=== PATIENT | male | born 1935 | race Caucasian/White ===

== ENCOUNTER 2020-03-14 12:46 | Outpatient (REF) | payer MEDICARE, SELFPAY ==
--- NOTE | 2020-03-14 12:52 | US_ITS ---
EXAMINATION: US THYROID CLINICAL INFORMATION: Nontoxic multinodular goiter. COMPARISON: Ultrasound thyroid soft tissue head/neck dated 01/20/2019 and 02/12/2018 TECHNIQUE: Linear transducer jasmine-scale and color Doppler examination with attention to the region of the thyroid. FINDINGS: SIZE: Measurements of the thyroid lobes and nodules are given in sagittal, anteroposterior and transverse dimensions respectively. Right Thyroid Lobe: 2.3 x 1.4 x 1.0 cm, volume 1.6 mL. Previously 2.3 x 1.5 x 1.2 cm, volume 2.1 mL. Parenchyma: The gland echotexture is heterogeneous. Thyroid vascularity is normal. Left Thyroid Lobe: 4.6 x 2.6 x 2.1 cm, volume 13.3 mL. Previously 3.95 x 1.9 x 1.87 cm, volume 7.34 mL. Parenchyma: The gland echotexture is heterogeneous. Thyroid vascularity is normal. Isthmus: 0.40 cm in maximum AP dimension. Previously 0.31 cm. RIGHT THYROID LOBE: There are 2 nodules seen. 1. Location: Upper. Size: 1.01 x 0.70 x 0.80 cm. Previous: 1.0 x 0.67 x 0.90 cm. Nodule characteristics: Heterogeneous, smoothly marginated with intranodular flow, likely complex cyst. 2. Location: Upper. Size: 0.96 x 0.70 x 0.70 cm. Previous: Not seen. Nodule characteristics: Heterogeneous, smoothly marginated with no intranodular flow, likely complex cyst. ISTHMUS: No nodules. LEFT THYROID LOBE: There is 1 nodule seen. 1. Location: Mid pole. Size: 3.3 x 2.4 x 2.0 cm. Previous: 3.2 x 1.9 x 1.9 cm. Nodule characteristics: Heterogeneous, smoothly marginated with intranodular flow. NODES: No lymphadenopathy is seen in the tissue surrounding the thyroid gland. US/US thyroid IMPRESSION: Complex cystic nodules both lobes, the largest in left lobe appears stable to last exam 02/12/2018.
== END 2020-03-14 12:47 | disposition home or self-care (01) ==
LOC: HO.HMGCX 12:46
PROVIDERS: PCP Internal Medicine; Visit Provider Internal Medicine Endocrinology, Diabetes & Metabolism
DX: E04.2 Nontoxic multinodular goiter (principal)
CPT/HCPCS: 76536

== ENCOUNTER → 2020-04-18 12:08 | Outpatient (BNVA) | payer MEDICARE, SELFPAY | PROVIDERS: PCP Internal Medicine; Visit Provider Internal Medicine Endocrinology, Diabetes & Metabolism | DX: Z76.89 Persons encountering health services in other specified circumstances (principal) | CPT/HCPCS: Q3014 ==

== ENCOUNTER 2020-04-28 10:28 | Outpatient (REF) | payer MEDICARE, SELFPAY ==
[2020-04-28 14:56] LABS: Free T4 (Free Thyroxine) 1.09 ng/dL (0.71-1.85); Thyroid Stimulating Hormone 3.07 uIU/mL (0.32-4.0)
== END 2020-04-28 10:29 | disposition home or self-care (01) ==
LOC: HO.HMGCLDS 10:28
PROVIDERS: PCP Internal Medicine; Visit Provider Internal Medicine Endocrinology, Diabetes & Metabolism
DX: E03.9 Hypothyroidism, unspecified (principal); E04.2 Nontoxic multinodular goiter
CPT/HCPCS: 36415; 84439; 84443

== ENCOUNTER → 2020-05-05 12:31 | Outpatient (BNVA) | payer MEDICARE, SELFPAY | PROVIDERS: PCP Internal Medicine; Visit Provider Internal Medicine Cardiovascular Disease | DX: I95.1 Orthostatic hypotension (principal) | CPT/HCPCS: 93005; 99212 ==

== ENCOUNTER 2020-09-13 10:17 | Outpatient (REF) | payer MEDICARE, SELFPAY ==
--- NOTE | ~2020-09-13 | US_ITS ---
EXAMINATION: US RETROPERITONEAL LIMITED (RENAL ONLY) CLINICAL INFORMATION: Cyst of kidney. COMPARISON: Ultrasound renal with bladder 06/09/2018. Ultrasound renals only 02/05/2017. CT abdomen pelvis 10/11/2008. TECHNIQUE: Real-time imaging of the kidneys. FINDINGS: RIGHT KIDNEY: 11.3 x 5.3 x 5.5 cm (SAG x AP x TRV). The kidney is normal in size, contour, and echogenicity. There are persistent lobulations. Renal cortical thickness is normal. No renal calculi or hydronephrosis. At the lower pole, a 1.2 cm anechoic, simple cyst is seen. LEFT KIDNEY: 11.2 x 5.1 x 4.8 cm (SAG x AP x TRV). The kidney is normal in size, contour, and echogenicity. Renal cortical thickness is normal. No renal hydronephrosis. At the interpolar aspect, a 5 mm nonobstructing calculus is seen, with twinkle artifact. At the lower pole, a 4 mm nonobstructing calculus is seen, with twinkle artifact. At the upper pole, 1.2 cm and 1.3 cm in maximal diameter simple cysts are seen. At the interpolar aspect, a 3.0 cm simple parapelvic cyst is seen. At the lower pole, a 1.9 x 1.3 x 2.0 cm mildly complex (Bosniak 2) cyst is seen, with partial septation. This shows no mural nodularity or associated color Doppler flow. On the ultrasound examination of 02/05/2017, this measured 2.0 x 1.1 x 0.9 cm. US/US renal BI IMPRESSION: 1. There are nonobstructing bilateral renal calculi, as above. 2. There are bilateral renal cysts, including an increased mildly complex (Bosniak 2) cyst at the lower pole of the left kidney. Recommend Urology evaluation and management. As a precaution, a repeat renal ultrasound examination is recommended 6 months to ensure stability of this finding.
== END 2020-09-13 10:18 | disposition home or self-care (01) ==
LOC: HO.HMGCX 10:17
PROVIDERS: PCP Internal Medicine; Visit Provider Urology
DX: N28.1 Cyst of kidney, acquired (principal)
CPT/HCPCS: 76775

== ENCOUNTER → 2020-10-13 09:52 | Outpatient (BNVA) | payer MEDICARE, SELFPAY | PROVIDERS: PCP Internal Medicine; Referring Provider Internal Medicine; Visit Provider Internal Medicine Cardiovascular Disease | DX: I95.1 Orthostatic hypotension (principal) | CPT/HCPCS: 99212 ==

== ENCOUNTER 2020-10-17 06:06 | Day surgery (SDC) | payer MEDICARE, SELFPAY ==
[2020-10-11 13:50] VITALS: BMI 25.0
--- NOTE | 2020-10-14 08:38 | HO.ANESPROP2 ---
Documented by User: Shefaliher Rodríguezney 10/14/20 08:39 HPI - Anesthesia Eval Consult details Narrative: 85yo M for Colonoscopy Stable at routine cardiac visit 10/13/20 [facility] Active Problems Active Problems: All Active Problems (Updated 10/11/20 @ 13:50 by Perla Haney) Insomnia (Acute) Hyperlipidemia (Acute) Orthostatic hypotension dysautonomic syndrome (Acute) HTN (hypertension) (Acute) Non-toxic multinodular goiter (Acute) Hypothyroidism (Acute) Past Medical History Medical History COVID-19 vaccine administered GERD (gastroesophageal reflux disease) HTN (hypertension) Hyperlipidemia Hypothyroidism Insomnia Non-toxic multinodular goiter Orthostatic hypotension dysautonomic syndrome Family History Family History Father Parkinsons disease Mother Myocardial infarction CVD (cardiovascular disease) Cancer Surgical History Surgical History H/O colonoscopy History of colon surgery History of esophagogastroduodenoscopy (EGD) Hx of appendectomy Hx of cataract surgery Hx of tonsillectomy Social History Social History Household Members: None Housing: Apartment Are you a primary palliative care specialist to a significant other at home: No Do you presently have visiting nurse or other home services: No Use of substances other than those prescribed or required for medical reasons: No Have you been hit, kicked, punched, or otherwise hurt by someone within the past year? If so, by whom?: No Are you DNR?: No Advance Directives Information Provided: No Recently lost weight without trying: No Nutrition Risks: Surgical patient >75years Poor oral hygiene: No (upper & lower full dentures) Meds Allergies Allergy/AdvReac Type Severity Reaction Status Date / Time meperidine [From Demerol] Allergy Unknown unknown Verified 10/17/20 06:19 reaction-patient states was many years ago Home Medications Medication Instructions Recorded Confirmed Last Taken Type amlodipine 5 mg tablet 2.5 mg PO DAILY tab 05/05/20 10/13/20 Unknown History cholecalciferol (vitamin D3) 25 25 mcg PO DAILY 05/05/20 10/13/20 Unknown History mcg (1,000 unit) capsule fluticasone propionate 55 1 inh INHALATION BID PRN 05/05/20 10/13/20 Unknown History mcg/actuation breath activated pwdr inhaler,sensor melatonin 3 mg capsule 3 mg PO BEDTIME PRN 05/05/20 10/13/20 Unknown History multivit,Ca,min-iron 8 mg-folic 1 tab PO DAILY 05/05/20 10/13/20 Unknown History acid 200 mcg-lycopene 600 mcg tablet isosorbide dinitrate 20 mg PO DAILY 10/11/20 10/13/20 Unknown History Exam Exam Date and Time: October 14, 2020 0838 Height,Weight and Vital Signs: Height 5 ft 8 in Weight 74.843 kg Assessment and Plan Assessment Anesthesia Assessment: Chart Reviewed Documented by User: Maria De Jesus Estrella 10/17/20 07:50 [facility] Past Medical History Medical History COVID-19 vaccine administered GERD (gastroesophageal reflux disease) HTN (hypertension) Hyperlipidemia Hypothyroidism Insomnia Non-toxic multinodular goiter Orthostatic hypotension dysautonomic syndrome Family History Family History Father Parkinsons disease Mother Myocardial infarction CVD (cardiovascular disease) Cancer Surgical History Surgical History H/O colonoscopy History of colon surgery History of esophagogastroduodenoscopy (EGD) Hx of appendectomy Hx of cataract surgery Hx of tonsillectomy Social History Social History Household Members: None Housing: Apartment Are you a primary palliative care specialist to a significant other at home: No Do you presently have visiting nurse or other home services: No Use of substances other than those prescribed or required for medical reasons: No Have you been hit, kicked, punched, or otherwise hurt by someone within the past year? If so, by whom?: No Are you DNR?: No Advance Directives Information Provided: No Recently lost weight without trying: No Nutrition Risks: Surgical patient >75years Poor oral hygiene: No (upper & lower full dentures) Meds Allergies Allergy/AdvReac Type Severity Reaction Status Date / Time meperidine [From Demerol] Allergy Unknown unknown Verified 10/17/20 06:19 reaction-patient states was many years ago Home Medications Medication Instructions Recorded Confirmed Last Taken Type amlodipine 5 mg tablet 2.5 mg PO DAILY tab 05/05/20 10/13/20 Unknown History cholecalciferol (vitamin D3) 25 25 mcg PO DAILY 05/05/20 10/13/20 Unknown History mcg (1,000 unit) capsule fluticasone propionate 55 1 inh INHALATION BID PRN 05/05/20 10/13/20 Unknown History mcg/actuation breath activated pwdr inhaler,sensor melatonin 3 mg capsule 3 mg PO BEDTIME PRN 05/05/20 10/13/20 Unknown History multivit,Ca,min-iron 8 mg-folic 1 tab PO DAILY 05/05/20 10/13/20 Unknown History acid 200 mcg-lycopene 600 mcg tablet isosorbide dinitrate 20 mg PO DAILY 10/11/20 10/13/20 Unknown History Exam Airway Mallampati Class: II (Edentulous) TM Dist: >3cm Neck ROM: Limited Denture: Upper and Lower Loose/Missing/Broken Teeth: Yes, Upper and Lower Heart: RRR Lungs: CTA Assessment and Plan Assessment Anesthesia Assessment: Anesthesia Plan Discussed and Chart Reviewed Final Anesthetic Review NPO: Yes ASA Class: II Final Preanesthetic Review: Meds/Allgs Chart Reviewed, Consent Obtained/Reviewed and Anes Risks/Benef Reviewed Patient Risk: Low Procedure Risk: Low Anesthetic Plan Anesthetic Plan: MAC: Disposition: Standard PACU
[2020-10-17 06:29] VITALS: BP 131/64; PULSE 62; RESP 18; TEMP 36.2; O2SAT 96
[2020-10-17] MEDS: Lactated Ringers 1,000 ML 100 ML IVCONT (06:39)
[2020-10-17 08:25] VITALS: BP 103/58; PULSE 57; RESP 18; TEMP 36.1; O2SAT 97
--- NOTE | 2020-10-17 08:30 | PM.OP ---
Brief Operative Note Date of Service: 10/17/20 Pre-op diagnosis: Screening Post-op diagnosis: other (Colon polyps) Procedure: Colonoscopy to the cecum and TI with snare polypectomy x 2 at 20cm, and biopsy and removal of polyp at 40cm Surgeon: Alon Erwin Anesthesia: MAC Was an Fiberglass Model Maker used for this Procedure?: No Estimated blood loss (mL): 3.0 Pathology: other (A. Polyp at 40cm B. Polyps at 20cm) Condition: stable Disposition: PACU
[2020-10-17 08:40] VITALS: BP 124/71; PULSE 60; RESP 18; O2SAT 96
--- NOTE | 2020-10-17 10:23 | OP_ITS ---
SURGEON: Alon Erwin MD INDICATIONS: The patient presents for followup of personal history of tubular adenoma of the colon and colorectal cancer screening. Full consent has been obtained from him for this, including risks of bleeding and perforation. PREOPERATIVE DIAGNOSIS: POSTOPERATIVE DIAGNOSIS: PROCEDURE PERFORMED: Colonoscopy to the cecum and terminal ileum with snare polypectomy, and biopsy and removal of polyp. ESTIMATED BLOOD LOSS: COMPLICATIONS: ANESTHESIA: Monitored anesthesia care. ASSISTANTS: SPECIMENS: PREOPERATIVE DIAGNOSES: Colorectal cancer screening and personal history of tubular adenoma of the colon. POSTOPERATIVE DIAGNOSES: Colorectal cancer screening and personal history of tubular adenoma of the colon, colon polyps, diverticulosis, and internal and external hemorrhoids. DESCRIPTION OF PROCEDURE: The patient was placed in the left lateral decubitus position. The digital rectal exam revealed some small external hemorrhoidal tissue. The Olympus video pediatric colonoscope was entered into the rectum and advanced easily to the cecum. Once in the cecum, I did identify normal-appearing cecal pouch with appendiceal orifice and a normal-appearing ileocecal valve. The terminal ileum was cannulated and appeared normal. The scope was withdrawn back in the colon. The entire cecum and ileocecal valve appeared normal. The scope was slowly withdrawn assessing all mucosal surfaces carefully. Preparation was excellent. The entire cecum and ileocecal valve appeared normal. At 40 cm, was a 3 mm polyp, which was biopsied and completely removed with cold biopsy forceps. At 20 cm, were 2 approximately 4 or 5 mm polyps, which were each snared and recovered by suction. The polypectomy sites appeared clean, without any sign of residual polyp nor bleeding. At 15 cm, were the previously placed submucosal ink palmer. In between the palmer, there was some scarring consistent with his previous polypectomy. I did not visualize any sign of other polyps, colitis, nor angiodysplasia. There was a mild amount of diverticulosis noted in the sigmoid and descending colon. In the rectum, scope was retroflexed visualizing some minimal internal hemorrhoids, but no other pathology. The rectal mucosa appeared normal. The scope was straightened out and withdrawn from the patient. He tolerated the procedure well and was returned to the recovery area in stable condition. IMPRESSION: 1. Colon polyps, status post snare polypectomy, and biopsy and removal. 2. Mild diverticulosis. 3. Internal and external hemorrhoids. PLAN: The results of the pathology will be checked. Given his age and these findings, he most likely would not need any further screening colonoscopies in the future. As such, he would see me on a p.r.n. basis. He was advised not to use any aspirin and NSAIDs for 1 week. This has been discussed with his family. MD SUZETTE Thompson/DELFINA / [id number]
== END 2020-10-17 09:05 | disposition home or self-care (01) ==
PROVIDERS: PCP Internal Medicine; Visit Provider Internal Medicine
PROC: 0DJD8ZZ Inspection of Lower Intestinal Tract, Via Natural or Artificial Opening Endoscopic (ICD-10-PCS; CPT 45378; principal; 2020-10-17 07:30)
DX: Z12.11 Encounter for screening for malignant neoplasm of colon (principal); Z86.010 Personal history of colon polyps; D12.5 Benign neoplasm of sigmoid colon; K57.30 Diverticulosis of large intestine without perforation or abscess without bleeding; K64.8 Other hemorrhoids; K64.4 Residual hemorrhoidal skin tags; K21.9 Gastro-esophageal reflux disease without esophagitis; I10 Essential (primary) hypertension; I95.1 Orthostatic hypotension; E03.9 Hypothyroidism, unspecified; Z79.899 Other long term (current) drug therapy; Z88.8 Allergy status to other drugs, medicaments and biological substances; Z87.891 Personal history of nicotine dependence
CPT/HCPCS: 45385; 45380; 88305

== ENCOUNTER 2021-04-14 15:40 | Outpatient (REF) | payer MEDICARE, SELFPAY ==
--- NOTE | ~2021-04-14 | US_ITS ---
EXAMINATION: US RETROPERITONEAL COMPLETE (RENAL) CLINICAL INFORMATION: Cysts of kidney. COMPARISON: Renal ultrasound 09/13/2020 and 06/09/2018. TECHNIQUE: Real-time imaging of the kidneys and bladder. FINDINGS: RIGHT KIDNEY: 12.7 x 5.6 x 5.2 cm (SAG x AP x TRV). The kidney is normal in size, contour, and echogenicity. Renal cortical thickness is normal. No calculi or focal parenchymal lesions. No hydronephrosis. Previously identified 1.2 cm cyst not seen on this exam. There are multiple small parenchymal calcifications. LEFT KIDNEY: 11.9 x 5.5 x 5.7 cm (SAG x AP x TRV). The kidney is normal in size, contour, and echogenicity. Renal cortical thickness is normal. No hydronephrosis. Multiple simple renal cysts. The largest measures 2.3 x 2.7 x 1.1 cm. Punctate nonobstructing lower pole calculus. BLADDER: Well distended and normal. Bilateral ureteral jets are demonstrated. Prevoid bladder volume is 421 mL. Postvoid bladder volume is 199 mL. ADDITIONAL FINDINGS: Prostate volume of 66 mL. US/US retroperitoneal comp IMPRESSION: 1. Punctate nonobstructing left lower pole calculus. 2. Parenchymal calcifications of the right kidney may be vascular in origin. 3. Left renal simple cysts, no further follow-up required. The previously identified right-sided cyst is not seen on this exam.
== END 2021-04-14 15:41 | disposition home or self-care (01) ==
LOC: HO.US 15:40
PROVIDERS: Visit Provider Urology
DX: N28.1 Cyst of kidney, acquired (principal)
CPT/HCPCS: 76770

== ENCOUNTER → 2021-05-18 14:30 | Outpatient (BNVA) | payer MEDICARE, SELFPAY | PROVIDERS: PCP Internal Medicine; Referring Provider Internal Medicine; Visit Provider Internal Medicine Cardiovascular Disease | DX: I95.1 Orthostatic hypotension (principal) | CPT/HCPCS: 93005; 99212 ==

== ENCOUNTER 2021-06-27 08:02 | Outpatient (REF) | payer MEDICARE, SELFPAY ==
[2021-06-27 11:42] LABS: Hematocrit 46.3 % (42.0-52.0); Mean Corpuscular HGB Conc 32.4 g/dl (31.0-36.0); Mean Corpuscular Hemoglobin 31.4 pg (27.0-33.0); Mean Corpuscular Volume 96.9 fL (80.0-98.0); Mean Platelet Volume 11.2 fL (9.4-12.4); Platelet Count 254 X10*3/uL (160-400); Red Blood Count 4.78 X10*6/uL (4.60-5.80); Red Cell Distribution Width 12.7 % (11.0-16.0); White Blood Count 8.1 X10*3/uL (4.8-10.8)
[2021-06-27 12:03] LABS: Alanine Aminotransferase 27 U/L (0-40); Albumin Level 4.2 g/dL (3.5-5.0); Alkaline Phosphatase 84 U/L (39-117); Anion Gap 12 (12-20); Aspartate Amino Transferase 28 U/L (5-37); Bilirubin Total 1.3 mg/dL (0.0-1.0); Blood Urea Nitrogen 14 mg/dL (9-16); Calcium 9.4 mg/dL (8.4-10.2); Carbon Dioxide 25 mmol/L (22-29); Chloride 108 mmol/L (96-108); Cholesterol 155 mg/dL; Estimated Glomerular Filt Rate > 60; Glucose Fasting 104 mg/dL (60-99); HDL Cholesterol 33 mg/dL; LDL Cholesterol Calculated 84 mg/dl; Potassium 3.9 mmol/L (3.3-5.1); Sodium 141 mmol/L (135-145); Total Protein 6.7 g/dL (6.5-8.0); Triglycerides 193 mg/dL
[2021-06-27 12:09] LABS: TSH reflex Free T4 4.24 uIU/mL (0.32-4.0)
[2021-06-27 12:58] LABS: Free T4 (Free Thyroxine) 1.17 ng/dL (0.71-1.85)
== END 2021-06-27 08:03 | disposition home or self-care (01) ==
LOC: HO.HMGCLDS 08:02
PROVIDERS: Visit Provider Internal Medicine
DX: E03.9 Hypothyroidism, unspecified (principal); I10 Essential (primary) hypertension; I95.1 Orthostatic hypotension
CPT/HCPCS: 36415; 80053; 80061; 84439; 84443; 85027

== ENCOUNTER 2021-10-04 13:44 | Outpatient (REF) | payer MEDICARE, SELFPAY ==
--- NOTE | ~2021-10-04 | US_ITS ---
EXAMINATION: US THYROID CLINICAL INFORMATION: Nontoxic multinodular goiter. COMPARISON: US thyroid 03/14/2020 and 01/20/2019. TECHNIQUE: Linear transducer grayscale and color Doppler examination with attention to the region of the thyroid. FINDINGS: SIZE: Measurements of the thyroid lobes and nodules are given in sagittal, anteroposterior and transverse dimensions respectively. Right Thyroid Lobe: 2.3 x 1.4 x 1.2 cm, volume 2.0 mL. Previously 2.3 x 1.4 x 1.0 cm, volume 1.6 mL. Parenchyma: The gland echotexture is heterogeneous. Thyroid vascularity is normal. Left Thyroid Lobe: 4.4 x 2.6 x 2.4 cm, volume 14.4 mL. Previously 4.6 x 2.6 x 2.1 cm, volume 13.3 mL. Parenchyma: The gland echotexture is heterogeneous. Thyroid vascularity is normal. Isthmus: 0.3 cm in maximum AP dimension. Previously 0.4 cm. Estimated total number of nodules greater than or equal to 1 cm: 2. Junior Web Designer nodules are described as follows: 1. Location: Left mid. Size: 3.4 x 2.3 x 2.3 cm, volume 9.27 mL. Previously: 3.3 x 2.4 x 2.0 cm, volume 8.28 mL. Nodule characteristics: Composition: Solid/almost completely solid (2). Echogenicity: Isoechoic (1). Shape: Not taller than wide (0). Margins: Extrathyroidal extension (3). Echogenic Foci: None (0). ACR TI-RADS total points: 6 ACR TI-RADS category: 4 Significant change in size (>/= 20% in 2 dimensions and minimal increase of 2 mm or 50% or greater increase in volume): No Change in features: No 2. Location: Right mid. Size: 1.0 x 0.6 x 0.8 cm, volume 0.26 mL. Previously: 1.0 x 0.7 x 0.8 cm, volume 0.28 mL. Nodule characteristics: Composition: Solid (2). Echogenicity: Isoechoic (1). Shape: Not taller than wide (0). Margins: Smooth (0). Echogenic Foci: None (0). ACR TI-RADS total points: 3 ACR TI-RADS category: 3 Significant change in size (>/= 20% in 2 dimensions and minimal increase of 2 mm or 50% or greater increase in volume): No Change in features: No NODES: No lymphadenopathy is seen in the tissue surrounding the thyroid gland. US/US thyroid IMPRESSION: Left mid thyroid TI-RADS 4 category nodule measuring 3.4 cm in maximum dimension for which fine-needle aspiration biopsy is recommended.. ACR TI-RADS RECOMMENDATION REFERENCE: * TR1 (0 point) and TR 2 (2 points): No FNA or follow up * TR3 (3 points): FNA if more than or equal to 2.5 cm in maximum dimension, followup ultrasound in 1, 3 and 5 years if 1.5 to 2.4 cm in maximum dimension. * TR4 (4-6 points): FNA if more than or equal to 1.5 cm in maximum dimension, followup ultrasound in 1, 2, 3 and 5 years if 1 to 1.4 cm in maximum dimension. * TR5 (more than or equal to 7 points): FNA if more than or equal to 1 cm in maximum dimension, followup ultrasound every year for 5 years if 0.5 to 0.9 cm in maximum dimension. * TR3, TR4 or TR5 nodules that are below the size threshold for follow up receive no follow up.
== END 2021-10-04 13:45 | disposition home or self-care (01) ==
LOC: HO.HMGCX 13:44
PROVIDERS: Visit Provider Internal Medicine Endocrinology, Diabetes & Metabolism
DX: E04.2 Nontoxic multinodular goiter (principal)
CPT/HCPCS: 76536

== ENCOUNTER 2021-10-08 13:12 | Observation (INO) | payer MEDICARE, SELFPAY ==
--- NOTE | ~2021-10-08 | CT_ITS ---
EXAMINATION: CT HEAD WITHOUT CONTRAST CLINICAL INFORMATION: Weakness, rule out stroke. COMPARISON: Brain MRI dated 11/19/2017. TECHNIQUE: Contiguous axial imaging was performed from the skull base to vertex without intravenous administration of contrast. Coronal and sagittal reformatted images were obtained. This CT examination was performed using dose optimization techniques as appropriate, variously including the following: *Automated exposure control *Adjustment of mA and/or kV according to patient size (this includes techniques or standardized protocols for targeted exams where dose is matched to indication/reason for exam; i.e. extremities or head) *Use of iterative reconstruction technique DLP: 663 mGy-cm FINDINGS: There is no evidence of acute intracranial hemorrhage or territorial infarction. No abnormal mass effect or midline shift is seen. Mild asymmetric low-attenuation is seen in the left parietal occipital regions adjacent to the left occipital horn similar to the previous MRI. Manrique to white matter differentiation is well preserved. No extra-axial fluid collections are identified. The ventricles are normal in size. There is no abnormal attenuation within the brain parenchyma. The osseous structures and soft tissues are normal. Moderate opacification is seen at the base of the left maxillary sinus. The mastoid air cells are clear.. [id number] posterior nasal deviation, apex the left with small apical spur is seen. A polyp is again seen at the level the left nasopharynx measuring 0.8 cm (image 9, series 2). CT/CT head/brain wo con IMPRESSION: No acute intracranial pathology.
--- NOTE | ~2021-10-08 | MR_ITS ---
EXAMINATION: MR BRAIN WITHOUT CONTRAST CLINICAL INFORMATION: Jaw weakness. Abnormal eye movement. COMPARISON: CT head from 10/08/2021. Brain MRI from 11/19/2017. TECHNIQUE: MRI of the brain was obtained using routine sequences without contrast. FINDINGS: No focal restricted diffusion is demonstrated to suggest acute or subacute cerebral ischemia. No evidence of acute or chronic hemorrhagic products on heme-sensitive imaging. Scattered periventricular, deep white matter, and brainstem T2 FLAIR hyperintensities consistent with mild to moderate underlying microangiopathy. Proportional prominence of the ventricles and sulcal spaces without evidence of obstructive hydrocephalus. No abnormal mass effect. No midline shift. Normal appearance of the pituitary gland. The suprasellar cistern remains widely patent. Normal positioning of the cerebellar tonsils. Normal arterial and venous vascular flow voids are present. Normal, homogeneous marrow signal. Moderate degenerative spondyloarthropathy of the visualized cervical spine. Mild mucosal thickening of the paranasal sinuses. Moderate leftward nasal septal deviation. No signal abnormalities within the mastoids. Bilateral lens extractions. MR/MR head/brain wo con IMPRESSION: 1. No acute intracranial abnormalities. 2. Mild to moderate underlying microangiopathy.
--- NOTE | ~2021-10-08 | CT_ITS ---
EXAMINATION: CT CHEST WITHOUT CONTRAST CLINICAL INFORMATION: Weakness. Rule out thymic mass. COMPARISON: September 13, 2016 TECHNIQUE: Multidetector volumetric CT imaging of the chest was done. Axial MIP volume rendering provided. Sagittal and coronal reformatted images were obtained. This CT examination was performed using dose optimization techniques as appropriate, variously including the following: *Automated exposure control *Adjustment of mA and/or kV according to patient size (this includes techniques or standardized protocols for targeted exams where dose is matched to indication/reason for exam; i.e. extremities or head) *Use of iterative reconstruction technique DLP: 253 mGy-cm FINDINGS: LUNGS: Central airways are patent. No bronchial wall thickening is appreciated. No bronchiectasis. No consolidative airspace disease is seen. There are mild changes of centrilobular emphysema seen. There are multiple sub-4 mm nodules present. Calcified granuloma is seen in the right lower lobe. There is a 4 mm noncalcified subpleural density seen lateral aspect of the right upper lobe on image 107 of 569 in series #5. This was present on previous examination of September 13, 2016. MEDIASTINUM: There is again noted to be an approximately 1.9 x 1.6 cm left thyroid nodule. Heart normal size. Coronary artery calcifications present. No pericardial effusion. No thoracic aortic aneurysm. No mediastinal or hilar lymphadenopathy. No thymic mass identified. PLEURA: There is no pleural effusion. No pleural mass or thickening. AXILLA: No lymphadenopathy. UPPER ABDOMEN: There is a small hiatal hernia. No adrenal gland mass identified. No evidence of acute cholecystitis. OSSEOUS STRUCTURES: Unremarkable. CT/CT chest wo con IMPRESSION: Changes of centrilobular emphysema. Old granulomatous disease. Stable nodular density. Left thyroid nodule. No abnormal thymic mass appreciated. Fleischner guidelines were followed.
[2021-10-08 13:25] VITALS: BP 138/68; PULSE 70; RESP 17; TEMP 36.6; O2SAT 94; BMI 25.0
--- NOTE | 2021-10-08 13:34 | ED.GENADULT ---
HPI - General Adult General Chief complaint: General Medical Stated complaint: Heavy eyes/drooling Time Seen by Provider: 10/08/21 13:34 Source: patient and family ( Daughter, Evy) Mode of arrival: ambulatory Limitations: no limitations History of Present Illness HPI narrative: 86-year-old male who presents emergency department for evaluation of muscle weakness and fatigue. Patient states that 5 weeks prior he had a sore throat and felt very tired. He states that he went to an urgent care clinic and they diagnosed him with a sinus infection. They started him on prednisone and Flonase. He states that he then followed up with his PCP who did blood work on him. He states that 2 weeks ago he was eating 2 slices of pizza. He states that he was able to eat the 1st slice but when he tried to eat the 2nd slice he fell with his jaw was very tired and fatigued and he could not continue chew. He states that he continues to get this jaw fatigue symptom. He has also felt like his eyelids are heavy but he has not had any double vision. Patient states that he was able to walk 6 miles a day but over the last 2 weeks he has been feeling very fatigued whenever he tries to go for a walk. He has also noted drooling which is unusual for him. He states that he has been having difficulty with hearing in his left ear over the past 2 weeks. He has been feeling lightheaded and dizzy. The patient states that he has lost 7 lb over the past 2 weeks. He denied headache but he has had occasional blurred vision. He does have a here history of hypothyroidism any he has been compliant with his thyroid replacement medications. Related Data Home Medications Medication Instructions Recorded Confirmed cholecalciferol (vitamin D3) 25 25 mcg PO DAILY 05/05/20 10/08/21 mcg (1,000 unit) capsule multivit,Ca,min-iron 8 mg-folic 1 tab PO DAILY 05/05/20 10/08/21 acid 200 mcg-lycopene 600 mcg tablet (Centrum Men) isosorbide dinitrate 20 mg tablet 20 mg PO BEDTIME 10/11/20 10/08/21 loratadine 10 mg tablet (Claritin) 10 mg PO DAILY 06/28/21 10/08/21 melatonin 3 mg capsule 10 mg PO BEDTIME PRN Insomnia 06/28/21 10/08/21 amlodipine 5 mg tablet 5 mg PO DAILY@1700 10/08/21 10/08/21 amoxicillin 875 mg tablet 1 tab PO BID infectious disease 10/08/21 10/08/21 ascorbic acid (vitamin C) 250 mg 250 mg PO DAILY 10/08/21 10/08/21 tablet atorvastatin 40 mg tablet 40 mg PO BEDTIME 10/08/21 10/08/21 captopril 12.5 mg tablet 18.75 mg PO TID 10/08/21 10/08/21 fluticasone propionate 50 1 spray intranasal BID allergies 10/08/21 10/08/21 mcg/actuation nasal spray,suspension hydralazine 50 mg tablet 50 mg PO BEDTIME 10/08/21 10/08/21 levothyroxine 88 mcg tablet 88 mcg PO DAILY@0600 10/08/21 10/08/21 omeprazole 20 mg capsule,delayed 20 mg PO DAILY@0630 10/08/21 10/08/21 release zinc 50 mg tablet 50 mg PO DAILY 10/08/21 10/08/21 Allergies Allergy/AdvReac Type Severity Reaction Status Date / Time meperidine [From Demerol] Allergy Unknown unknown Verified 10/08/21 13:24 reaction-patient states was many years ago Review of Systems Review of Systems: Yes all other systems are reviewed and are negative [facility] Past Medical History [facility] Narrative: Social history: He denies tobacco, alcohol and drug use. Medical History COVID-19 vaccine administered GERD (gastroesophageal reflux disease) HTN (hypertension) Hyperlipidemia Hypothyroidism Insomnia Non-toxic multinodular goiter Orthostatic hypotension dysautonomic syndrome Surgical History H/O colonoscopy History of colon surgery History of esophagogastroduodenoscopy (EGD) Hx of appendectomy Hx of cataract surgery Hx of tonsillectomy Family History Family History Father Parkinsons disease Mother Myocardial infarction CVD (cardiovascular disease) Cancer Social History Social History Household Members: None Housing: Apartment Are you a primary transition of care specialist to a significant other at home: No Do you presently have visiting nurse or other home services: No Alcohol intake: never Patient Tobacco Use Status: Former Tobacco user Quit Date: 1995 e-Cigarette/Vaping Use: Never Used Use of substances other than those prescribed or required for medical reasons: No Advance Directives: No Advance Directives Information Provided: Yes Current occupational status: retired Physical Exam ED Vital Signs: Vital Signs - 24 hr 10/08/21 13:25 10/08/21 14:00 Temperature 97.8 F 98.1 F Pulse Rate 70 68 Respiratory Rate 17 14 Blood Pressure 138/68 160/74 H Pulse Oximetry 94 95 Oxygen Delivery Method Room Air Room Air BMI result Body Mass Index 25.0 Const General: cooperative and no acute distress Orientation/consciousness: oriented to person and oriented to place Limitations: no limitations HENMT Head: Yes normal to inspection, Yes normocephalic and Yes atraumatic Ears: external ears normal General nose exam: Normal external nose present Face and sinus: Yes normal facial exam Mouth: Normal oral and palatal mucosa present Throat: Yes posterior oropharynx normal Eyes Pupils: Equal, round and reactive pupils present Neck Neck: Yes normal visual inspection, Yes no lymphadenopathy, Yes trachea midline and Yes supple Chest Chest palpation & inspection: normal inspection of the chest and normal palpation of entire chest wall Resp Effort & Inspection: normal respiratory effort and able to speak in complete sentences Auscultation: clear to auscultation bilaterally Cardio Rate: regular rate Rhythm: regular rhythm Heart sounds: S1 normal heart sound present, S2 normal heart sound present and no murmurs GI Inspection: Yes normal to inspection Palpation (GI): Soft to palpation, nontender and no guarding Auscultation: normal bowel sounds General: Yes no CVA tenderness Back/Spine/Pelvis Back: no CVA tenderness Skin General skin exam: no rashes or lesions noted Neuro General: oriented to person and oriented to place Cranial nerves: Yes CN's II-XII intact bilaterally and Yes Equal, round and reactive pupils present Cognition (Neuro): normal cognition Motor exam (neuro): 5/5 motor strength present throughout Extrem General: Yes normal to inspection Psych Appearance: grossly normal Speech and movement: Normal speech and movement present Affect: normal affect Attitude: cooperative Thought process: Normal thought process present Thought content: Normal thought content present Course Course Course Narrative: 86-year-old male who presents emergency department for evaluation of jaw fatigue, eyelid heaviness, weakness with exertion x2 weeks with symptoms getting progressively worse. patient's initial vital signs were normal. His examination was unremark . Patient's clinical presentation is concerning for myasthenia gravis. I did order laboratory evaluation to include CBC, CMP,, lipase, CK CK, CRP, ESR, myasthenia gravis 2 screen, anti striated muscle antibodies , PT/INR, PTT, tick-borne illness panel, COVID-[address] scan of the head and CT scan of the chest. 1721: Laboratory evaluation: CBC and CMP were unremarkable except for slight elevation in total bilirubin of 1.2. CRP was normal. CPK was urinated. Urinalysis was unremarkable. ESR and troponin were pending. Radiology evaluation: CT scan of the brain was unremarkable. CT scan of the chest revealed no evidence for thymoma. I did discuss the patient's presentation with Dr. Chapin. given the patient's progression of his symptoms and the possible diagnosis of myasthenia gravis, the patient will be admitted for observation and further diagnostic workup. Medical Decision Making Lab Data Result diagrams: 10/08/21 16:45 10/08/21 16:45 Discharge Plan Discharge Clinical Impression: Weakness Patient Disposition: Admitted as Observation
[2021-10-08 14:00] VITALS: BP 160/74; PULSE 68; RESP 14; TEMP 36.7; O2SAT 95
--- NOTE | 2021-10-08 14:13 | ECG_ITS ---
Test Reason : WEAKNESS Blood Pressure : / mmHG Vent. Rate : 055 BPM Atrial Rate : 055 BPM P-R Int : 278 ms QRS Dur : 094 ms QT Int : 412 ms P-R-T Axes : 053 004 011 degrees QTc Int : 394 ms Sinus bradycardia with 1st degree A-V block Otherwise normal ECG When compared with ECG of 28-MAY-2014 09:47, [place] interval has increased Vent. rate has decreased BY 31 BPM Nonspecific T wave abnormality no longer evident in Lateral leads Referred By: Lucien Toledo Electronically Signed By:MARGRET DASILVA
--- NOTE | 2021-10-08 15:12 | P.HPHOSP_ITS ---
History of Present Illness Date of Service: 10/08/21 Chief Complaint: weakness 86M presented with weakness. patient states about 5 week ptp he had URTI, was covid negative, treated with prednisone and flonase. since then has been feeling weak, tired, loss of appetite, difficulty eating, 7lbs weight loss. he specif ically mentioned eye fatigue and drooling with jaw weakness. patient denies fever, chills, sob, chest pain. in ED CT head negative. Review of Systems Review of Systems: Constitutional: Denies fever, denies Chills Eyes: denies blurry vision ENT: denies sore throat CVS: denies chest pain Respiratory: Denies dyspnea GI: no abdominal pain : denies dysuria MSK: denies neck pain Skin: denies rash Neuro: denies specific motor weakness Psych: denies suicidal ideation Endocrine: denies heat/cold intolerance Hematologic: denies easy bleeding Allergy: denies hives [facility] Medical History COVID-19 vaccine administered GERD (gastroesophageal reflux disease) HTN (hypertension) Hyperlipidemia Hypothyroidism Insomnia Non-toxic multinodular goiter Orthostatic hypotension dysautonomic syndrome Family History Father Parkinsons disease Mother Myocardial infarction CVD (cardiovascular disease) Cancer Surgical History H/O colonoscopy History of colon surgery History of esophagogastroduodenoscopy (EGD) Hx of appendectomy Hx of cataract surgery Hx of tonsillectomy Social History Household Members: None Housing: Apartment Are you a primary personal care aid to a significant other at home: No Do you presently have visiting nurse or other home services: No Alcohol intake: never Patient Tobacco Use Status: Former Tobacco user Quit Date: 1995 e-Cigarette/Vaping Use: Never Used Use of substances other than those prescribed or required for medical reasons: No Advance Directives: No Advance Directives Information Provided: Yes Current occupational status: retired Meds Allergies Allergy/AdvReac Type Severity Reaction Status Date / Time meperidine [From Demerol] Allergy Unknown unknown Verified 10/08/21 13:24 reaction-patient states was many years ago Active Medications: Current Medications Pharmacy Consult (Consult Rx Perform Med Rec) 1 each MISCELLANE ONCE PRN PRN Reason: Consult order Home Medications Medication Instructions Recorded Confirmed Last Taken Type cholecalciferol (vitamin D3) 25 25 mcg PO DAILY 05/05/20 05/18/21 Unknown History mcg (1,000 unit) capsule fluticasone propionate 55 1 inh inhalation BID PRN Nasal 05/05/20 05/18/21 Unknown History mcg/actuation breath activated Congestion pwdr inhaler,sensor multivit,Ca,min-iron 8 mg-folic 1 tab PO DAILY 05/05/20 05/18/21 Unknown History acid 200 mcg-lycopene 600 mcg tablet (Centrum Men) isosorbide dinitrate 20 mg tablet 20 mg PO DAILY 10/11/20 05/18/21 Unknown History aspirin 81 mg tablet,delayed 81 mg PO DAILY 06/28/21 Unknown History release loratadine 10 mg tablet (Claritin) 10 mg PO DAILY 06/28/21 Unknown History melatonin 3 mg capsule 3 mg PO BEDTIME PRN 06/28/21 Unknown History amoxicillin 875 mg tablet 1 tab PO BID infectious disease 10/08/21 Unknown History fluticasone propionate 50 1 spray intranasal BID allergies 10/08/21 Unknown History mcg/actuation nasal spray,suspension Physical Exam Vital Signs and Narrative: Vital Signs: Last Vital Signs Temp 98.1 F 10/08/21 14:00 Pulse 68 10/08/21 14:00 Resp 14 10/08/21 14:00 BP 160/74 H 10/08/21 14:00 Pulse Ox 95 10/08/21 14:00 O2 Del Method 10/08/21 14:00 BMI result Body Mass Index 25.0 General: no acute distress HEENT: atraumatic Neck: normal to visual inspection CVS: S1, S2, RRR Resp: CTA bilateral Chest: non tender GI: soft, non tender, non distended : no CVA tenderness Skin: no rashes Extremities: no edema Neuro: Oriented X3, grossly intact Psych: cooperative Assessment and Plan (1) Hyperlipidemia: Status: Acute Plan 86M presented weakness weakness broad differential, though eye fatigue and drooling concern for Myasthenia gravis observe neuro eval check antibody panel, CT chest monitor VC, NIF hypothryoid with goiter and nodules synthroid, check tsh, needs outpatient FNA orthostatic hypotension with supine hypertension medrec pending dvt prophylaxis - lovenox DNR/DNI Quality Stroke Does the patient have a stroke diagnosis?: No VTE Prior VTE?: No VTE Risk Level:: Medical - moderate - high VTE Device Contraindication: Treatment Not Indicated VTE Drug Contraindication: N/A - Med Ordered
[2021-10-08 16:38] LABS: Appearance Urine CLEAR; Color Urine YELLOW; Glucose Urine UA NEG (NEG); Leukocyte Esterase Urine NEG (NEG); Nitrite Urine NEG (NEG); Urine Blood NEG (NEG); Urine Ketones NEG (NEG); Urine Protein NEG (NEG-TRACE)
[2021-10-08 16:55] LABS: MANUAL DIFF FLAG NO
[2021-10-08 16:58] LABS: Basophils Percent Auto 0.4 % (0-2); Eosinophils Absolute Auto 0.2 X10*3/uL (0.0-0.4); Eosinophils Percent Auto 2.4 % (0-4); Hematocrit 47.1 % (42.0-52.0); Hemoglobin 15.9 g/dl (14.0-18.0); Imm Gran Abs Auto 0.06 X10*3/uL (0.00-0.03); Imm Gran Pct Auto 0.6 % (0.0-0.4); Lymphocytes Percent Auto 21.3 % (20-40); Mean Corpuscular HGB Conc 33.8 g/dl (31.0-36.0); Mean Corpuscular Hemoglobin 31.4 pg (27.0-33.0); Mean Corpuscular Volume 92.9 fL (80.0-98.0); Monocytes Absolute Auto 0.8 X10*3/uL (0.1-1.2); Monocytes Percent Auto 8.3 % (2-11); Neutrophils Absolute Auto 6.3 x10*3/uL (2.0-8.3); Platelet Count 255 X10*3/uL (160-400); Red Blood Count 5.07 X10*6/uL (4.60-5.80); Red Cell Distribution Width 12.5 % (11.0-16.0); White Blood Count 9.4 X10*3/uL (4.8-10.8)
--- NOTE | 2021-10-08 16:59 | PHA.MEDREC ---
Pharmacy Consult ? Medication Reconciliation Pharmacy has completed the medication reconciliation.
[2021-10-08 17:06] LABS: INTERNATIONAL NORM RATIO 0.9 (0.9-1.1); Prothrombin Time 10.6 SEC (10.0-13.1)
[2021-10-08 17:08] LABS: COVID-19 Test Negative (Negative); IDNOW Serial# 16C4AD1C
[2021-10-08 17:08] LABS: Partial Thromboplastin Time 32.6 SEC (24.1-38.0)
[2021-10-08 17:14] LABS: Lactic Acid 0.9 mmol/L (0.5-2.0)
[2021-10-08 17:17] LABS: Alanine Aminotransferase 32 U/L (0-40); Albumin Level 4.8 g/dL (3.5-5.0); Alkaline Phosphatase 98 U/L (39-117); Anion Gap 14 (12-20); Aspartate Amino Transferase 28 U/L (5-37); Bilirubin Total 1.2 mg/dL (0.0-1.0); Blood Urea Nitrogen 11 mg/dL (9-16); C Reactive Protein 0.15 mg/dL (< or = 0.50); Calcium 9.5 mg/dL (8.4-10.2); Carbon Dioxide 25 mmol/L (22-29); Chloride 104 mmol/L (96-108); Creatinine Clr Calc Pharmacy 63.4; Estimated Glomerular Filt Rate > 60; Glucose Random 92 mg/dL (60-115); Lipase 49 U/L (8-78); Potassium 4.1 mmol/L (3.3-5.1); Sodium 139 mmol/L (135-145); Total Protein 7.3 g/dL (6.5-8.0)
[2021-10-08 17:35] LABS: Erythrocyte Sedimentation Rate 2 MM/HR (0-15)
[2021-10-08 17:38] LABS: TSH reflex Free T4 2.59 uIU/mL (0.32-4.0)
[2021-10-08 17:57] LABS: Troponin-I High Sensitivity < 3.5 ng/L (<3.5-35.0)
[2021-10-08 19:19] VITALS: BP 142/72; PULSE 57; RESP 18; O2SAT 94
--- NOTE | 2021-10-08 20:32 | PC.NURSE ---
pharmacy called for remainder of pt medication.
[2021-10-08] MEDS: Atorvastatin Calcium 40 MG TABLET PO (20:38)
[2021-10-08] MEDS: hydrALAZINE HCl 50 MG TABLET PO (20:38)
[2021-10-08] MEDS: Enoxaparin Sodium 40 MG/0.4 ML SYRINGE SUBCUT (20:38)
[2021-10-08] MEDS: Melatonin 3 MG TABLET 9 MG PO (22:10)
[2021-10-08] MEDS: Fluticasone Propionate Nasal 16 GM SPRAY 1 SPRAY NOSTRIL-B (22:14)
[2021-10-08] MEDS: Isosorbide Dinitrate 20 MG TABLET PO (22:14)
--- NOTE | 2021-10-08 22:16 | PC.NURSE ---
medicated with remainder of pm medication, and prn melatonin per provider order.
[2021-10-09 03:39] VITALS: BP 138/76; PULSE 59; RESP 14; O2SAT 94
[2021-10-09] MEDS: Levothyroxine Sodium 88 MCG TABLET PO ×2 (07:13→07:15)
[2021-10-09] MEDS: Omeprazole 20 MG CAPSULE.DR PO ×2 (07:13→07:15)
[2021-10-09] MEDS: Fluticasone Propionate Nasal 16 GM SPRAY 1 SPRAY NOSTRIL-B ×2 (09:55→20:17)
[2021-10-09] MEDS: Zinc Sulfate 220 MG CAPSULE PO (09:55)
[2021-10-09] MEDS: Multivitamin TABLET 1 TAB PO (09:56)
[2021-10-09] MEDS: Loratadine 10 MG TABLET PO (09:56)
[2021-10-09] MEDS: Cholecalciferol (Vitamin D3) 25 MCG TABLET PO (09:56)
[2021-10-09] MEDS: Ascorbic Acid 250 MG TABLET PO (09:56)
[2021-10-09] MEDS: 0.9 % Sodium Chloride Flush 3 ML SYRINGE IVFLUSH (09:59)
--- NOTE | 2021-10-09 09:59 | HO.PM.IMPN ---
Subjective Subjective Date of Service: 10/09/21 Interval History: f/u on easy fatigability of jaw and eye interaval history: no change Review of Systems easy fatigablity of eyes, and jaws Physical Exam Vital Signs: Vital Signs: Last Vital Signs Temp 98.1 F 10/08/21 14:00 Pulse 59 10/09/21 03:39 Resp 14 10/09/21 03:39 BP 138/76 10/09/21 03:39 Pulse Ox 94 10/09/21 03:39 O2 Del Method 10/09/21 03:39 BMI result Body Mass Index 25.0 Const: Other: General: AO X 3, no acute distress Resp: CTA bilateral CVS: S1,S2,RRR GI: +BS, NT, no distention Skin: No rash Neuro: motor grossly intact Psych: appropriate affect Objective Data Active Medications Acetaminophen (Acetaminophen 325 Mg Tablet) 650 mg PO Q6H PRN PRN Reason: Pain, Mild (Pain Scale 1-3) Amlodipine Besylate (Amlodipine Besylate 5 Mg Tablet) 5 mg PO DAILY@1700 [facility]; Protocol Ascorbic Acid (Ascorbic Acid 250 Mg Tablet) 250 mg PO DAILY [facility] Last Admin: 10/09/21 09:56 Dose: 250 mg Documented By: LISET Atorvastatin Calcium (Atorvastatin Calcium 40 Mg Tablet) 40 mg PO BEDTIME [facility] Last Admin: 10/08/21 20:38 Dose: 40 mg Documented By: SHAHID Captopril (Captopril 12.5 Mg Tablet) 18.75 mg PO TID [facility]; Protocol Last Admin: 10/09/21 09:56 Dose: 18.75 mg Documented By: LISET Enoxaparin Sodium (Enoxaparin Sodium 40 Mg/0.4 Ml Syringe) 40 mg SUBCUT Q24H [facility] Last Admin: 10/08/21 20:38 Dose: 40 mg Documented By: SHAHID Fluticasone Propionate (Fluticasone Propionate Nasal 16 Gm [place]) 1 spray NOSTRIL-B BID [facility] Last Admin: 10/09/21 09:55 Dose: 1 spray Documented By: LISET Hydralazine HCl (Hydralazine Hcl 50 Mg Tablet) 50 mg PO BEDTIME [facility]; Protocol Last Admin: 10/08/21 20:38 Dose: 50 mg Documented By: SHAHID Isosorbide Dinitrate (Isosorbide Dinitrate 20 Mg Tablet) 20 mg PO BEDTIME [facility]; Protocol Last Admin: 10/08/21 22:14 Dose: 20 mg Documented By: SHAHID Levothyroxine Sodium (Levothyroxine Sodium 88 Mcg Tablet) 88 mcg PO DAILY@0600 [facility] Last Admin: 10/09/21 07:15 Dose: 88 mcg Documented By: LISET Loratadine (Loratadine 10 Mg Tablet) 10 mg PO DAILY [facility] Last Admin: 10/09/21 09:56 Dose: 10 mg Documented By: LISET Melatonin (Melatonin 3 Mg Tablet) 9 mg PO BEDTIME PRN PRN Reason: Insomnia Last Admin: 10/08/21 22:10 Dose: 9 mg Documented By: SHAHID Multivitamins/Vitamin C (Multivitamin Tablet) 1 tab PO DAILY [facility] Last Admin: 10/09/21 09:56 Dose: 1 tab Documented By: LISET Omeprazole (Omeprazole 20 Mg Capsule.) 20 mg PO DAILY@0630 [facility] Last Admin: 10/09/21 07:15 Dose: 20 mg Documented By: LISET Pharmacy Consult (Consult Rx Perform Med Rec) 1 each MISCELLANE ONCE PRN PRN Reason: Consult order Sodium Chloride (0.9 % Sodium Chloride Flush 3 Ml Syringe) 3 ml IVFLUSH QSHIFT [facility] Last Admin: 10/09/21 09:59 Dose: 3 ml Documented By: LISET Vitamin D (Cholecalciferol (Vitamin D3) 25 Mcg Tablet) 25 mcg PO DAILY [facility] Last Admin: 10/09/21 09:56 Dose: 25 mcg Documented By: LISET Zinc Sulfate (Zinc Sulfate 220 Mg Capsule) 220 mg PO DAILY [facility] Last Admin: 10/09/21 09:55 Dose: 220 mg Documented By: LISET Labs CBC & Chem 7: 10/08/21 16:45 10/08/21 16:45 Labs: Laboratory Results - last 24 hr 10/08/21 10/08/21 10/08/21 16:30 16:44 16:45 MCV 92.9 MCH 31.4 MCHC 33.8 RDW 12.5 Plt Count 255 MPV 10.0 Immature Gran % (Auto) 0.6 H Neut % (Auto) 67.0 Lymph % (Auto) 21.3 [place] % (Auto) 8.3 Eos % (Auto) 2.4 Baso % (Auto) 0.4 Lymph # (Auto) 2.0 [place] # (Auto) 0.8 Eos # (Auto) 0.2 Baso # (Auto) 0.0 Abs Immat Gran (auto) 0.06 H Absolute Neuts (auto) 6.3 Absolute Nucleated RBC 0.000 Nucleated RBC % (auto) 0.0 ESR PT INR APTT Anion Gap Estim Creat Clear Calc Estimated GFR Random Glucose Lactic Acid 0.9 Calcium Total Bilirubin AST ALT Alkaline Phosphatase Total Creatine Kinase Troponin I High Sens C-Reactive Protein Total Protein Albumin Lipase TSH Urine Color YELLOW Urine Appearance CLEAR Urine pH 7.0 Ur Specific [place] 1.010 Urine Protein NEG Urine Glucose (UA) NEG Urine Ketones NEG Urine Blood NEG Urine Nitrite NEG Ur Leukocyte Esterase NEG COVID-19 (ELIZABETH) COVID-[employer] 10/08/21 10/08/21 10/08/21 16:45 16:45 16:45 MCV MCH MCHC RDW Plt Count MPV Immature Gran % (Auto) Neut % (Auto) Lymph % (Auto) [place] % (Auto) Eos % (Auto) Baso % (Auto) Lymph # (Auto) [place] # (Auto) Eos # (Auto) Baso # (Auto) Abs Immat Gran (auto) Absolute Neuts (auto) Absolute Nucleated RBC Nucleated RBC % (auto) ESR PT 10.6 INR 0.9 APTT 32.6 Anion Gap 14 Estim Creat Clear Calc 63.4 Estimated GFR > 60 Random Glucose 92 Lactic Acid Calcium 9.5 Total Bilirubin 1.2 H AST 28 ALT 32 Alkaline Phosphatase 98 Total Creatine Kinase 73 Troponin I High Sens < 3.5 C-Reactive Protein 0.15 Total Protein 7.3 Albumin 4.8 Lipase 49 TSH 2.59 Urine Color Urine Appearance Urine pH Ur Specific [place] Urine Protein Urine Glucose (UA) Urine Ketones Urine Blood Urine Nitrite Ur Leukocyte Esterase COVID-19 (ELIZABETH) COVID-19 [email or web address] 10/08/21 10/08/21 16:46 16:46 MCV MCH MCHC RDW Plt Count MPV Immature Gran % (Auto) Neut % (Auto) Lymph % (Auto) [place] % (Auto) Eos % (Auto) Baso % (Auto) Lymph # (Auto) [place] # (Auto) Eos # (Auto) Baso # (Auto) Abs Immat Gran (auto) Absolute Neuts (auto) Absolute Nucleated RBC Nucleated RBC % (auto) ESR 2 PT INR APTT Anion Gap Estim Creat Clear Calc Estimated GFR Random Glucose Lactic Acid Calcium Total Bilirubin AST ALT Alkaline Phosphatase Total Creatine Kinase Troponin I High Sens C-Reactive Protein Total Protein Albumin Lipase TSH Urine Color Urine Appearance Urine pH Ur Specific [place] Urine Protein Urine Glucose (UA) Urine Ketones Urine Blood Urine Nitrite Ur Leukocyte Esterase COVID-19 (ELIZABETH) Negative COVID-19 Clin Com See Note Assessment and Plan (1) Weakness: Status: Acute Plan 86M presented weakness weakness prominent in eye and jaws when eating causing drooling.. broad differential, though eye fatigue and drooling concern for Myasthenia gravis observe neuro eval check antibody panel, CT chest monitor VC, NIF hypothryoid with goiter and nodules synthroid, check tsh, needs outpatient FNA orthostatic hypotension with supine hypertension dvt prophylaxis - lovenox DNR/DNI Quality Stroke Does the patient have a stroke diagnosis?: No VTE Prior VTE?: No VTE Risk Level:: Medical - moderate - high VTE Device Contraindication: Treatment Not Indicated VTE Drug Contraindication: N/A - Med Ordered
[2021-10-09 10:02] VITALS: BP 104/74; PULSE 63; RESP 19; O2SAT 96
--- NOTE | 2021-10-09 10:13 | PM.DS ---
DS: Providers Provider Date of Service: 10/09/21 Date of admission: 10/08/21 15:18 Primary care physician: Leonides Reynoso MD Consults: 10/08/21 15:10 Consult to Neurology Routine Consulting Provider: [facility] Reason for consultation: eye tiredness, dysphagia, jaw weakness, ?MG DS: Diagnosis Discharge Diagnosis (1) Weakness: Status: Resolved DS: Summary Hospital Course Hospital Course: Chief Complaint: weakness 86M presented with weakness. patient states about 5 week ptp he had URTI, was covid negative, treated with prednisone and flonase. since then has been feeling weak, tired, loss of appetite, difficulty eating, 7lbs weight loss. he specifically mentioned eye fatigue and drooling with jaw weakness. patient denies fever, chills, sob, chest pain. in ED CT head negative. Hospital course: Patient was monitored in the hospital overnight, work up included head CT showing no acute finding, antibodies sent for Mysthenia work up. Neurology recommends Time Spent with Patient Time attestation: Total time spent providing and/or coordinating discharge services: Discharge coordination time: Greater than 30 minutes Quality: Safe Use of Opioids Does Pt have an Active Cancer Diagnosis on the Problem List?: No Quality: Stroke Does the patient have a stroke diagnosis?: No Physical Exam Vital Signs: Vital Signs: Last Vital Signs Temp 98.1 F 10/08/21 14:00 Pulse 63 10/09/21 10:02 Resp 19 10/09/21 10:02 BP 104/74 10/09/21 10:02 Pulse Ox 96 10/09/21 10:02 O2 Del Method 10/09/21 10:02 BMI result Body Mass Index 25.0 DS: Data Data Completed and Pending Labs on day of discharge: Laboratory Results - last 24 hr 10/08/21 10/08/21 10/08/21 16:30 16:44 16:45 WBC 9.4 RBC 5.07 Hgb 15.9 Hct 47.1 MCV 92.9 MCH 31.4 MCHC 33.8 RDW 12.5 Plt Count 255 MPV 10.0 Immature Gran % (Auto) 0.6 H Neut % (Auto) 67.0 Lymph % (Auto) 21.3 [place] % (Auto) 8.3 Eos % (Auto) 2.4 Baso % (Auto) 0.4 Lymph # (Auto) 2.0 [place] # (Auto) 0.8 Eos # (Auto) 0.2 Baso # (Auto) 0.0 Abs Immat Gran (auto) 0.06 H Absolute Neuts (auto) 6.3 Absolute Nucleated RBC 0.000 Nucleated RBC % (auto) 0.0 ESR PT INR APTT Sodium Potassium Chloride Carbon Dioxide Anion Gap BUN Creatinine Estim Creat Clear Calc Estimated GFR Random Glucose Lactic Acid 0.9 Calcium Total Bilirubin AST ALT Alkaline Phosphatase Total Creatine Kinase Troponin I High Sens C-Reactive Protein Total Protein Albumin Lipase TSH Urine Color YELLOW Urine Appearance CLEAR Urine pH 7.0 Ur Specific [place] 1.010 Urine Protein NEG Urine Glucose (UA) NEG Urine Ketones NEG Urine Blood NEG Urine Nitrite NEG Ur Leukocyte Esterase NEG COVID-19 (ELIZABETH) COVID-19 [employer] 10/08/21 10/08/21 10/08/21 16:45 16:45 16:45 WBC RBC Hgb Hct MCV MCH MCHC RDW Plt Count MPV Immature Gran % (Auto) Neut % (Auto) Lymph % (Auto) [place] % (Auto) Eos % (Auto) Baso % (Auto) Lymph # (Auto) [place] # (Auto) Eos # (Auto) Baso # (Auto) Abs Immat Gran (auto) Absolute Neuts (auto) Absolute Nucleated RBC Nucleated RBC % (auto) ESR PT 10.6 INR 0.9 APTT 32.6 Sodium 139 Potassium 4.1 Chloride 104 Carbon Dioxide 25 Anion Gap 14 BUN 11 Creatinine 0.81 Estim Creat Clear Calc 63.4 Estimated GFR > 60 Random Glucose 92 Lactic Acid Calcium 9.5 Total Bilirubin 1.2 H AST 28 ALT 32 Alkaline Phosphatase 98 Total Creatine Kinase 73 Troponin I High Sens < 3.5 C-Reactive Protein 0.15 Total Protein 7.3 Albumin 4.8 Lipase 49 TSH 2.59 Urine Color Urine Appearance Urine pH Ur Specific [place] Urine Protein Urine Glucose (UA) Urine Ketones Urine Blood Urine Nitrite Ur Leukocyte Esterase COVID-19 (ELIZABETH) COVID-19 [employer] 10/08/21 10/08/21 16:46 16:46 WBC RBC Hgb Hct MCV MCH MCHC RDW Plt Count MPV Immature Gran % (Auto) Neut % (Auto) Lymph % (Auto) [place] % (Auto) Eos % (Auto) Baso % (Auto) Lymph # (Auto) [place] # (Auto) Eos # (Auto) Baso # (Auto) Abs Immat Gran (auto) Absolute Neuts (auto) Absolute Nucleated RBC Nucleated RBC % (auto) ESR 2 PT INR APTT Sodium Potassium Chloride Carbon Dioxide Anion Gap BUN Creatinine Estim Creat Clear Calc Estimated GFR Random Glucose Lactic Acid Calcium Total Bilirubin AST ALT Alkaline Phosphatase Total Creatine Kinase Troponin I High Sens C-Reactive Protein Total Protein Albumin Lipase TSH Urine Color Urine Appearance Urine pH Ur Specific [place] Urine Protein Urine Glucose (UA) Urine Ketones Urine Blood Urine Nitrite Ur Leukocyte Esterase COVID-19 (ELIZABETH) Negative COVID-19 Clin Com See Note Discharge Plan Discharge Anticipated Discharge Date/Time: 10/09/21 10:12 Patient Disposition: Home, Self-Care Discharge Diagnosis: Myasthenia gravis Referrals: Leonides Reynoso MD [Primary Care Provider] - 1 Week Discharge Medications: Continued isosorbide dinitrate 20 mg tablet 20 mg PO BEDTIME Rx Instructions: allow nitrate-free interval of 12-14 hrs per 24-hr period fluticasone propionate 50 mcg/actuation spray,suspension 1 spray intranasal BID captopril 12.5 mg tablet 18.75 mg PO TID Rx Instructions: 1 and 1/2 tabl TID hydralazine 50 mg tablet 50 mg PO BEDTIME ascorbic acid (vitamin C) 250 mg Tablet 250 mg PO DAILY zinc 50 mg Tablet 50 mg PO DAILY atorvastatin 40 mg tablet 40 mg PO BEDTIME amlodipine 5 mg tablet 5 mg PO DAILY@1700 Rx Instructions: Take daily at 5pm levothyroxine 88 mcg tablet 88 mcg PO DAILY@0600 omeprazole 20 mg capsule,delayed release(DR/EC) 20 mg PO DAILY@0630 loratadine [Claritin] 10 mg tablet 10 mg PO DAILY melatonin 3 mg capsule 10 mg PO BEDTIME PRN (Reason: Insomnia) Centrum Men 8 mg iron- 200 mcg-600 mcg tablet 1 tab PO DAILY cholecalciferol (vitamin D3) 25 mcg (1,000 unit) capsule 25 mcg PO DAILY Discontinued amoxicillin 875 mg tablet 1 tab PO BID Rx Instructions: PER PT ON DAY 6 Discharge Orders: Discharge Order (Routine); Ordered 10/10/21 Ordered By: Jourdan Thorne Diet: Advance to usual diet Activity on Discharge: As tolerated Stand Alone Forms: Patient Portal Discharge page Care Plan Goals: Resolution of weakness Health Concerns: suspected mysthenia gravis Plan of Treatment: Follow up with Dr. Arce to go over test result and further treatment Assessment: As above Discharge Date/Time: 10/10/21 15:45
--- NOTE | 2021-10-09 13:08 | PM.NEUROCN ---
History of Present Illness Data of Consult Service Date: 10/09/21 Primary Care Provider: Leonides Reynoso MD [facility] Reason for consult: Weakness 86 years old man who I have seen in 2019 in my office when he came for consultation with complaints of bilateral leg weakness. No obvious diagnosis was made in an EMG nerve conduction study was requested, which she did not follow through. He was here stating that few days ago he developed sore throat type of symptoms and saw an outpatient doctor and was diagnosed with sinus condition and given prednisone and some other medicines. Yesterday he developed weakness which he noted with difficulty swallowing and chewing. He said that he cardiac 0 calmer and took a bite. After eating a piece he could not bite hard enough to bite into the piece of cucumber. At the same time, he said that his family brought potato chips recently and he had them without difficulty. He denied any change in his speech. He was feeling generally lethargic and weak. He denied double vision or loss of vision but stated that his eyes were closing on him. Review of Systems Review of Systems: As per HPI [facility] Past Medical History Medical History COVID-19 vaccine administered GERD (gastroesophageal reflux disease) HTN (hypertension) Hyperlipidemia Hypothyroidism Insomnia Non-toxic multinodular goiter Orthostatic hypotension dysautonomic syndrome Family History Family History Father Parkinsons disease Mother Myocardial infarction CVD (cardiovascular disease) Cancer Surgical History Surgical History H/O colonoscopy History of colon surgery History of esophagogastroduodenoscopy (EGD) Hx of appendectomy Hx of cataract surgery Hx of tonsillectomy Social History Social History Household Members: None Housing: Apartment Are you a primary careers counsellor to a significant other at home: No Do you presently have visiting nurse or other home services: No Alcohol intake: never Patient Tobacco Use Status: Former Tobacco user Quit Date: 1995 e-Cigarette/Vaping Use: Never Used Use of substances other than those prescribed or required for medical reasons: No Advance Directives: No Advance Directives Information Provided: Yes Current occupational status: retired Meds Allergies Allergy/AdvReac Type Severity Reaction Status Date / Time meperidine [From Demerol] Allergy Unknown unknown Verified 10/08/21 13:24 reaction-patient states was many years ago Active Medications: Current Medications Acetaminophen (Acetaminophen 325 Mg Tablet) 650 mg PO Q6H PRN PRN Reason: Pain, Mild (Pain Scale 1-3) Amlodipine Besylate (Amlodipine Besylate 5 Mg Tablet) 5 mg PO DAILY@1700 [facility]; Protocol Ascorbic Acid (Ascorbic Acid 250 Mg Tablet) 250 mg PO DAILY [facility] Last Admin: 10/09/21 09:56 Dose: 250 mg Atorvastatin Calcium (Atorvastatin Calcium 40 Mg Tablet) 40 mg PO BEDTIME [facility] Last Admin: 10/08/21 20:38 Dose: 40 mg Captopril (Captopril 12.5 Mg Tablet) 18.75 mg PO TID [facility]; Protocol Last Admin: 10/09/21 09:56 Dose: 18.75 mg Enoxaparin Sodium (Enoxaparin Sodium 40 Mg/0.4 Ml Syringe) 40 mg SUBCUT Q24H [facility] Last Admin: 10/08/21 20:38 Dose: 40 mg Fluticasone Propionate (Fluticasone Propionate Nasal 16 Gm [place]) 1 spray NOSTRIL-B BID [facility] Last Admin: 10/09/21 09:55 Dose: 1 spray Hydralazine HCl (Hydralazine Hcl 50 Mg Tablet) 50 mg PO BEDTIME [facility]; Protocol Last Admin: 10/08/21 20:38 Dose: 50 mg Isosorbide Dinitrate (Isosorbide Dinitrate 20 Mg Tablet) 20 mg PO BEDTIME [facility]; Protocol Last Admin: 10/08/21 22:14 Dose: 20 mg Levothyroxine Sodium (Levothyroxine Sodium 88 Mcg Tablet) 88 mcg PO DAILY@0600 [facility] Last Admin: 10/09/21 07:15 Dose: 88 mcg Loratadine (Loratadine 10 Mg Tablet) 10 mg PO DAILY [facility] Last Admin: 10/09/21 09:56 Dose: 10 mg Melatonin (Melatonin 3 Mg Tablet) 9 mg PO BEDTIME PRN PRN Reason: Insomnia Last Admin: 10/08/21 22:10 Dose: 9 mg Multivitamins/Vitamin C (Multivitamin Tablet) 1 tab PO DAILY [facility] Last Admin: 10/09/21 09:56 Dose: 1 tab Omeprazole (Omeprazole 20 Mg Capsule.Dr) 20 mg PO DAILY@0630 [facility] Last Admin: 10/09/21 07:15 Dose: 20 mg Pharmacy Consult (Consult Rx Perform Med Rec) 1 each MISCELLANE ONCE PRN PRN Reason: Consult order Sodium Chloride (0.9 % Sodium Chloride Flush 3 Ml Syringe) 3 ml IVFLUSH QSHIFT [facility] Last Admin: 10/09/21 09:59 Dose: 3 ml Vitamin D (Cholecalciferol (Vitamin D3) 25 Mcg Tablet) 25 mcg PO DAILY [facility] Last Admin: 10/09/21 09:56 Dose: 25 mcg Zinc Sulfate (Zinc Sulfate 220 Mg Capsule) 220 mg PO DAILY [facility] Last Admin: 10/09/21 09:55 Dose: 220 mg Home Medications Medication Instructions Recorded Confirmed Last Taken Type cholecalciferol (vitamin D3) 25 25 mcg PO DAILY 05/05/20 10/08/21 10/08/21 History mcg (1,000 unit) capsule multivit,Ca,min-iron 8 mg-folic 1 tab PO DAILY 05/05/20 10/08/21 10/08/21 History acid 200 mcg-lycopene 600 mcg tablet (Centrum Men) isosorbide dinitrate 20 mg tablet 20 mg PO BEDTIME 10/11/20 10/08/21 10/07/21 History loratadine 10 mg tablet (Claritin) 10 mg PO DAILY 06/28/21 10/08/21 10/08/21 History melatonin 3 mg capsule 10 mg PO BEDTIME PRN Insomnia 06/28/21 10/08/21 Unknown History amlodipine 5 mg tablet 5 mg PO DAILY@1700 10/08/21 10/08/21 10/07/21 History amoxicillin 875 mg tablet 1 tab PO BID infectious disease 10/08/21 10/08/21 10/08/21 History ascorbic acid (vitamin C) 250 mg 250 mg PO DAILY 10/08/21 10/08/21 10/08/21 History tablet atorvastatin 40 mg tablet 40 mg PO BEDTIME 10/08/21 10/08/21 10/07/21 History captopril 12.5 mg tablet 18.75 mg PO TID 10/08/21 10/08/21 10/08/21 History fluticasone propionate 50 1 spray intranasal BID allergies 10/08/21 10/08/21 10/08/21 History mcg/actuation nasal spray,suspension hydralazine 50 mg tablet 50 mg PO BEDTIME 10/08/21 10/08/21 10/07/21 History levothyroxine 88 mcg tablet 88 mcg PO DAILY@0600 10/08/21 10/08/21 10/08/21 History omeprazole 20 mg capsule,delayed 20 mg PO DAILY@0630 10/08/21 10/08/21 10/08/21 History release zinc 50 mg tablet 50 mg PO DAILY 10/08/21 10/08/21 10/08/21 History Physical Exam Vital Signs: Vital Signs: Last Vital Signs Temp 98.1 F 10/08/21 14:00 Pulse 63 10/09/21 10:02 Resp 19 10/09/21 10:02 BP 104/74 10/09/21 10:02 Pulse Ox 96 10/09/21 10:02 O2 Del Method 10/09/21 10:02 BMI result Body Mass Index 25.0 Neuro: Other: Alert and awake with normal spontaneity of speech fluency comprehension and affect. Face is symmetrical. Visual graham are full. There is no definite ptosis. Tongue is midline. Palate elevated symmetrically. There is no significant weakness in arms. Deep tendon reflexes are absent with equivocal plantars. Results Labs CBC & Chem 7: 10/08/21 16:45 10/08/21 16:45 Labs: Short CBC 10/08/21 Range/Units 16:45 WBC 9.4 (4.8-10.8) X10*3/uL Hgb 15.9 (14.0-18.0) g/dl Hct 47.1 (42.0-52.0) % Plt Count 255 (160-400) X10*3/uL BMP 10/08/21 16:45 Sodium 139 Potassium 4.1 Chloride 104 Carbon Dioxide 25 BUN 11 Creatinine 0.81 Calcium 9.5 Cardiac Enzymes 10/08/21 Range/Units 16:45 Total Creatine Kinase 73 (38-174) U/L Liver Function 10/08/21 Range/Units 16:45 Total Bilirubin 1.2 H (0.0-1.0) mg/dL AST 28 (5-37) U/L ALT 32 (0-40) U/L Alkaline Phosphatase 98 (39-117) U/L Albumin 4.8 (3.5-5.0) g/dL Urine 10/08/21 Range/Units 16:30 Urine Color YELLOW Urine Appearance CLEAR Urine pH 7.0 (5.0-8.0) Ur Specific [place] 1.010 (1.005-1.025) Urine Protein NEG (NEG-TRACE) MG/DL Urine Glucose (UA) NEG (NEG) MG/DL CT scan of brain revealed 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 He also complained of generalized lethargy and weakness and eyes closing on him but no double vision. He said that few days ago he had sore throat and was given prednisone and some other medicines. His examination did not reveal any focal finding. Etiology of all this is unclear at this time. Because of significant microvascular disease noted on his CT scan of brain, I would recommend a noncontrast MRI of brain to rule out any is brainstem ischemic infarction, which might explain his symptoms. I also recommend obtaining acetyl choline receptor binding, blocking, and modulating titers to rule out myasthenia gravis. Speech and swallowing eval is also recommended Procedures Date of Service Date of Service: 10/09/21
[2021-10-09] MEDS: amLODIPine Besylate 5 MG TABLET PO (16:11)
[2021-10-09] MEDS: Enoxaparin Sodium 40 MG/0.4 ML SYRINGE SUBCUT (16:11)
[2021-10-09 16:33] VITALS: BP 132/71; PULSE 63; RESP 17; TEMP 36.5; O2SAT 94
[2021-10-09] MEDS: Atorvastatin Calcium 40 MG TABLET PO (20:17)
[2021-10-09] MEDS: Isosorbide Dinitrate 20 MG TABLET PO (20:18)
[2021-10-09] MEDS: hydrALAZINE HCl 50 MG TABLET PO (20:18)
[2021-10-09 20:23] VITALS: BP 164/80; PULSE 62; RESP 18; O2SAT 95
[2021-10-09] MEDS: Melatonin 3 MG TABLET 9 MG PO (22:35)
[2021-10-09 23:36] VITALS: BP 98/53; PULSE 58; RESP 18; TEMP 36.4; O2SAT 100
[2021-10-10 03:49] VITALS: BP 139/72; PULSE 62; RESP 16; TEMP 36.8; O2SAT 98
[2021-10-10] MEDS: Multivitamin TABLET 1 TAB PO (09:45)
[2021-10-10] MEDS: Loratadine 10 MG TABLET PO (09:45)
[2021-10-10] MEDS: Fluticasone Propionate Nasal 16 GM SPRAY 1 SPRAY NOSTRIL-B (09:45)
[2021-10-10] MEDS: Cholecalciferol (Vitamin D3) 25 MCG TABLET PO (09:45)
[2021-10-10] MEDS: Ascorbic Acid 250 MG TABLET PO (11:15)
[2021-10-10] MEDS: Zinc Sulfate 220 MG CAPSULE PO (11:15)
[2021-10-10 11:17] VITALS: BP 140/70
--- NOTE | 2021-10-10 11:37 | MHC.CM.PN ---
PT REPORTS HE LIVES ALONE AND IS INDEPENDENT WITH CARE PT DENIES USING DME OR HAVING HOME SERVICES PT REPORTS HE DOES HAVE A HCP NAMING HIS DAUGHTER, WILL HIS AGENT PCP: HEIDY BLACKMAN PT REPORTS BEING COVID-19 VACCINATED WITH MODERNA X 4 OBSERVATION NOTICE DELIVERED, COPY SENT TO [facility] CURRENT DC PLAN IS HOME NO SERVICES PT WILL SELF ARRANGE TRANSPORT
--- NOTE | 2021-10-10 11:56 | HO.PM.IMPN ---
Subjective Subjective Date of Service: 10/10/21 Interval History: f/u on easy fatigability of jaw and eye interaval history: no new issues, eye still feeling very tired especially by end of the day Review of Systems easy fatigablity of eyes, and jaws Physical Exam Vital Signs: Vital Signs: Last Vital Signs Temp 98.2 F 10/10/21 03:49 Pulse 62 10/10/21 03:49 Resp 16 10/10/21 03:49 BP 140/70 H 10/10/21 11:17 Pulse Ox 98 10/10/21 03:49 O2 Del Method 10/10/21 03:49 BMI result Body Mass Index 25.0 Const: Other: General: AO X 3, no acute distress Resp: CTA bilateral CVS: S1,S2,RRR GI: +BS, NT, no distention Skin: No rash Neuro: motor grossly intact Psych: appropriate affect Objective Data Active Medications Acetaminophen (Acetaminophen 325 Mg Tablet) 650 mg PO Q6H PRN PRN Reason: Pain, Mild (Pain Scale 1-3) Amlodipine Besylate (Amlodipine Besylate 5 Mg Tablet) 5 mg PO DAILY@1700 [facility]; Protocol Last Admin: 10/09/21 16:11 Dose: 5 mg Documented By: DC Ascorbic Acid (Ascorbic Acid 250 Mg Tablet) 250 mg PO DAILY [facility] Last Admin: 10/10/21 11:15 Dose: 250 mg Documented By: ELYSSA Atorvastatin Calcium (Atorvastatin Calcium 40 Mg Tablet) 40 mg PO BEDTIME [facility] Last Admin: 10/09/21 20:17 Dose: 40 mg Documented By: NELIA Captopril (Captopril 12.5 Mg Tablet) 18.75 mg PO TID [facility]; Protocol Last Admin: 10/10/21 11:15 Dose: 18.75 mg Documented By: ELYSSA Enoxaparin Sodium (Enoxaparin Sodium 40 Mg/0.4 Ml Syringe) 40 mg SUBCUT Q24H [facility] Last Admin: 10/09/21 16:11 Dose: 40 mg Documented By: DC Fluticasone Propionate (Fluticasone Propionate Nasal 16 Gm Hollis) 1 spray NOSTRIL-B BID [facility] Last Admin: 10/10/21 09:45 Dose: 1 spray Documented By: ELYSSA Hydralazine HCl (Hydralazine Hcl 50 Mg Tablet) 50 mg PO BEDTIME [facility]; Protocol Last Admin: 10/09/21 20:18 Dose: 50 mg Documented By: NELIA Isosorbide Dinitrate (Isosorbide Dinitrate 20 Mg Tablet) 20 mg PO BEDTIME [facility]; Protocol Last Admin: 10/09/21 20:18 Dose: 20 mg Documented By: NELIA Levothyroxine Sodium (Levothyroxine Sodium 88 Mcg Tablet) 88 mcg PO DAILY@0600 [facility] Last Admin: 10/09/21 07:15 Dose: 88 mcg Documented By: LISET Loratadine (Loratadine 10 Mg Tablet) 10 mg PO DAILY [facility] Last Admin: 10/10/21 09:45 Dose: 10 mg Documented By: ELYSSA Melatonin (Melatonin 3 Mg Tablet) 9 mg PO BEDTIME PRN PRN Reason: Insomnia Last Admin: 10/09/21 22:35 Dose: 9 mg Documented By: NELIA Multivitamins/Vitamin C (Multivitamin Tablet) 1 tab PO DAILY [facility] Last Admin: 10/10/21 09:45 Dose: 1 tab Documented By: ELYSSA Omeprazole (Omeprazole 20 Mg Capsule.) 20 mg PO DAILY@0630 [facility] Last Admin: 10/09/21 07:15 Dose: 20 mg Documented By: LISET Pharmacy Consult (Consult Rx Perform Med Rec) 1 each MISCELLANE ONCE PRN PRN Reason: Consult order Sodium Chloride (0.9 % Sodium Chloride Flush 3 Ml Syringe) 3 ml IVFLUSH QSHIFT [facility] Last Admin: 10/10/21 09:47 Dose: Not Given Documented By: ELYSSA Non-Admin Reason: No Access Vitamin D (Cholecalciferol (Vitamin D3) 25 Mcg Tablet) 25 mcg PO DAILY [facility] Last Admin: 10/10/21 09:45 Dose: 25 mcg Documented By: ELYSSA Zinc Sulfate (Zinc Sulfate 220 Mg Capsule) 220 mg PO DAILY [facility] Last Admin: 10/10/21 11:15 Dose: 220 mg Documented By: ELYSSA Labs CBC & Chem 7: 10/08/21 16:45 10/08/21 16:45 Microbiology Microbiology Results: Microbiology 10/08/21 16:45 Blood Culture - Preliminary Blood - Venous No growth after 24 hours. 10/08/21 16:45 Blood Culture - Preliminary Blood - Venous No growth after 24 hours. Assessment and Plan (1) Weakness: Status: Acute Plan 86M presented weakness weakness prominent in eye and jaws when eating causing drooling.. broad differential, though eye fatigue and drooling concern for Myasthenia gravis observe neuro eval Mysthenia panel pending, CT chest no thymoma, monitor VC, NIF hypothryoid with goiter and nodules synthroid, TSH is normal , needs outpatient FNA orthostatic hypotension with supine hypertension--stable dvt prophylaxis - lovenox DNR/DNI Quality Stroke Does the patient have a stroke diagnosis?: No VTE Prior VTE?: No VTE Risk Level:: Medical - moderate - high VTE Device Contraindication: Treatment Not Indicated VTE Drug Contraindication: N/A - Med Ordered
[2021-10-10 15:38] VITALS: BP 139/68; PULSE 82; RESP 18
[2021-10-15 22:17] LABS: Acetylcholine Recept. Blocking <15 (<15)
[2021-10-21 00:02] LABS: Acetylcholine Recep Modulating 29
[2021-10-26 14:14] LABS: Source-Tick borne disease WHOLE BLOOD
== END 2021-10-10 15:45 | disposition home or self-care (01) ==
LOC: HO.ED 14:04 → HO.EDOVER 15:20
PROVIDERS: Admitting Provider Internal Medicine; Emergency Provider Emergency Medicine Emergency Medical Services; PCP Internal Medicine; Visit Provider Internal Medicine
DX: R53.1 Weakness (principal); E04.9 Nontoxic goiter, unspecified; I95.1 Orthostatic hypotension; R13.10 Dysphagia, unspecified; H53.8 Other visual disturbances; R42 Dizziness and giddiness; H91.92 Unspecified hearing loss, left ear; E78.5 Hyperlipidemia, unspecified; I10 Essential (primary) hypertension; E03.9 Hypothyroidism, unspecified; Z20.822 Contact with and (suspected) exposure to COVID-19; Z87.891 Personal history of nicotine dependence; Z79.899 Other long term (current) drug therapy; Z66 Do not resuscitate
CPT/HCPCS: 36415; 70450; 70551; 71250; 80053; 81003; 82550; 83519; 83605; 83690; 84443; 84484; 85025; 85610; 85652; 85730; 86140; 86255; 87040; 87635; 87798; 87801; 93005; 96372; 99218; 99284; 99285; J1650

== ENCOUNTER → 2021-11-22 09:12 | Outpatient (BNVA) | payer MEDICARE, SELFPAY | PROVIDERS: PCP Internal Medicine; Visit Provider Internal Medicine Endocrinology, Diabetes & Metabolism | DX: E03.9 Hypothyroidism, unspecified (principal); E04.2 Nontoxic multinodular goiter; Z79.899 Other long term (current) drug therapy | CPT/HCPCS: 99212 ==

== ENCOUNTER → 2021-12-27 13:08 | Outpatient (BNVA) | payer MEDICARE, SELFPAY | PROVIDERS: PCP Internal Medicine; Visit Provider Internal Medicine Cardiovascular Disease | DX: I95.1 Orthostatic hypotension (principal) | CPT/HCPCS: 99212 ==

== ENCOUNTER 2022-03-05 10:27 | Outpatient (REF) | payer MEDICARE, SELFPAY ==
[2022-03-09 22:39] LABS: Acetylcholine Receptor Binding <0.30 nmol/L
[2022-03-12 23:13] LABS: Acetylcholine Recept. Blocking <15 (<15)
[2022-03-15 19:29] LABS: Acetylcholine Recep Modulating 5
== END 2022-03-05 10:28 | disposition home or self-care (01) ==
LOC: HO.LAB 10:27
PROVIDERS: PCP Internal Medicine; Visit Provider Psychiatry & Neurology Neurology
DX: G70.00 Myasthenia gravis without (acute) exacerbation (principal)
CPT/HCPCS: 36415; 83519

== ENCOUNTER 2022-05-22 04:47 | Emergency (ER) | payer MEDICARE, SELFPAY ==
--- NOTE | ~2022-05-22 | XR_ITS ---
EXAMINATION: XR CHEST CLINICAL INFORMATION: Short of breath COMPARISON: 07/05/2016 TECHNIQUE: Frontal view of the chest was obtained. FINDINGS: Right-sided central venous catheter terminates near the cavoatrial junction. The lungs are well expanded. There is no focal consolidation, edema, or effusion. No pneumothorax. The cardiomediastinal silhouette is within normal limits. No acute osseous abnormality. XR/XR chest 1V IMPRESSION: No acute pulmonary disease.
[2022-05-22 05:07] VITALS: BP 140/72; PULSE 75; RESP 20; TEMP 36.8; O2SAT 94; BMI 25.0
--- NOTE | 2022-05-22 05:13 | ECG_ITS ---
Test Reason : SOB Blood Pressure : / mmHG Vent. Rate : 072 BPM Atrial Rate : 072 BPM P-R Int : 212 ms QRS Dur : 094 ms QT Int : 378 ms P-R-T Axes : 060 027 041 degrees QTc Int : 413 ms Sinus rhythm with 1st degree A-V block with Premature supraventricular complexes and with occasional Premature ventricular complexes Otherwise normal ECG When compared with ECG of 08-OCT-2021 20:37, Premature ventricular complexes are now Present Premature supraventricular complexes are now Present Referred By: Generic ED Physician Electronically Signed By:Jan Marques
[2022-05-22 06:18] LABS: Basophils Percent Auto 0.3 % (0-2); Eosinophils Absolute Auto 0.1 X10*3/uL (0.0-0.4); Eosinophils Percent Auto 0.9 % (0-4); Hematocrit 39.3 % (42.0-52.0); Hemoglobin 12.8 g/dl (14.0-18.0); Imm Gran Abs Auto 0.06 X10*3/uL (0.00-0.03); Imm Gran Pct Auto 0.6 % (0.0-0.4); Lymphocytes Absolute Auto 1.1 X10*3/uL (1.2-4.9); Lymphocytes Percent Auto 10.4 % (20-40); MANUAL DIFF FLAG NO; Mean Corpuscular HGB Conc 32.6 g/dl (31.0-36.0); Mean Corpuscular Hemoglobin 31.7 pg (27.0-33.0); Mean Corpuscular Volume 97.3 fL (80.0-98.0); Mean Platelet Volume 10.4 fL (9.4-12.4); Monocytes Absolute Auto 0.9 X10*3/uL (0.1-1.2); Monocytes Percent Auto 8.7 % (2-11); Neutrophils Absolute Auto 8.5 x10*3/uL (2.0-8.3); Neutrophils Percent Auto 79.1 % (45-73); Platelet Count 208 X10*3/uL (160-400); Red Blood Count 4.04 X10*6/uL (4.60-5.80); Red Cell Distribution Width 13.2 % (11.0-16.0); White Blood Count 10.7 X10*3/uL (4.8-10.8)
--- NOTE | 2022-05-22 06:26 | PC.RT ---
Pt seen for NIF/VC due to a diagnosis of myasthenia gravis Per MD. NIF=-60 VC=2.5L aware
[2022-05-22 06:30] LABS: Lactic Acid 1.1 mmol/L (0.5-2.0)
[2022-05-22 06:31] VITALS: BP 120/68; PULSE 75; RESP 18; TEMP 36.8; O2SAT 92
[2022-05-22 06:33] LABS: Anion Gap 16 (12-20); Blood Urea Nitrogen 12 mg/dL (9-16); Calcium 9.3 mg/dL (8.4-10.2); Carbon Dioxide 23 mmol/L (22-29); Chloride 108 mmol/L (96-108); Creatinine Clr Calc Pharmacy 66.4; Estimated Glomerular Filt Rate > 60; Glucose Random 107 mg/dL (60-115); Potassium 3.5 mmol/L (3.3-5.1); Sodium 143 mmol/L (135-145)
[2022-05-22 06:34] LABS: Alanine Aminotransferase 23 U/L (0-40); Albumin Level 4.2 g/dL (3.5-5.0); Alkaline Phosphatase 57 U/L (39-117); Aspartate Amino Transferase 23 U/L (5-37); Bilirubin Direct 0.3 mg/dL (0.0-0.5); Bilirubin Total 0.9 mg/dL (0.0-1.0); Total Protein 5.5 g/dL (6.5-8.0)
[2022-05-22 06:36] LABS: Lipase 47 U/L (8-78)
[2022-05-22 06:38] LABS: B Type Natriuretic Peptide 75 pg/mL (<100)
[2022-05-22 06:40] LABS: Troponin-I High Sensitivity 13.9 ng/L (<3.5-35.0)
[2022-05-22 06:57] LABS: Influenza A PCR NEGATIVE (Negative); Influenza B PCR NEGATIVE (Negative); Resp Syncy Virus RNA Qual PCR NEGATIVE (Negative); SARS COV2 PCR INHOUSE NEGATIVE (Negative)
--- NOTE | 2022-05-22 07:06 | ED.URI ---
HPI - URI/Sore Throat General Chief Complaint: Upper Respiratory Symptoms Stated Complaint: Congested , weak , SOB Time Seen by Provider: 05/22/22 05:27 Source: patient and family ( Daughter) Mode of arrival: ambulatory Limitations: no limitations History of Present Illness HPI Narrative: 87-year-old male with history of myasthenia gravies came in for evaluation of upper respiratory symptoms with coughing with greenish sputum, wheezing, shortness of breath for the past 8 days patient has exposed to his son who tested positive for flu. Patient has no history of COPD. Patient declines fever or chills. Patient also declined any sign of myasthenia gravies crisis no ocular symptoms, no diplopia, no muscle weakness. Related Data Home Medications Medication Instructions Recorded Confirmed cholecalciferol (vitamin D3) 25 25 mcg PO DAILY 05/05/20 12/27/21 mcg (1,000 unit) capsule multivit,Ca,min-iron 8 mg-folic 1 tab PO DAILY 05/05/20 12/27/21 acid 200 mcg-lycopene 600 mcg tablet (Centrum Men) isosorbide dinitrate 20 mg tablet 20 mg PO BEDTIME 10/11/20 12/27/21 loratadine 10 mg tablet (Claritin) 10 mg PO DAILY 06/28/21 12/27/21 melatonin 3 mg capsule 10 mg PO BEDTIME PRN Insomnia 06/28/21 12/27/21 amlodipine 5 mg tablet 5 mg PO DAILY@1700 10/08/21 12/27/21 ascorbic acid (vitamin C) 250 mg 250 mg PO DAILY 10/08/21 12/27/21 tablet atorvastatin 40 mg tablet 40 mg PO BEDTIME 10/08/21 12/27/21 captopril 12.5 mg tablet 18.75 mg PO TID 10/08/21 12/27/21 fluticasone propionate 50 1 spray intranasal BID allergies 10/08/21 12/27/21 mcg/actuation nasal spray,suspension hydralazine 50 mg tablet 50 mg PO BEDTIME 10/08/21 12/27/21 levothyroxine 88 mcg tablet 88 mcg PO DAILY@0600 10/08/21 12/27/21 omeprazole 20 mg capsule,delayed 20 mg PO DAILY@0630 10/08/21 12/27/21 release zinc 50 mg tablet 50 mg PO DAILY 10/08/21 12/27/21 prednisone 20 mg tablet 20 mg PO BID 11/22/21 12/27/21 pyridostigmine bromide 60 mg tablet 60 mg PO Q4H 11/22/21 12/27/21 Allergies Allergy/AdvReac Type Severity Reaction Status Date / Time meperidine [From Demerol] Allergy Unknown unknown Verified 11/22/21 09:19 reaction-patient states was many years ago Review of Systems Review of Systems: All other systems are reviewed and are negative Constitutional: Reports as per HPI and Reports no additional constitutional complaints Eyes: Reports as per HPI and Reports no additional eye complaints Reports system reviewed and no additional complaints, except as documented Cardiovascular: Reports as per HPI and Reports no additional cardiovascular complaints Respiratory: Reports as per HPI and Reports no additional respiratory complaints Gastrointestinal: Reports as per HPI and Reports no additional gastrointestinal complaints Genitourinary: Reports no additional female genitourinary complaints Musculoskeletal: Reports no additional musculoskeletal complaints Skin/Breast: Reports system reviewed and no additional complaints, except as docu Psychiatric: Reports no additional psychiatric complaints Endocrine: Reports no additional endocrine complaints Hematologic/Lymphatic: Reports no additional hematologic/lymphatic complaints Allergic/Immunologic: Reports no additional allergic/immunologic complaints Reports system reviewed and no additional complaints, except as documented and Reports Abnormal speech present [facility] Past Medical History Medical History COVID-19 vaccine administered GERD (gastroesophageal reflux disease) HTN (hypertension) Hyperlipidemia Hypothyroidism Insomnia Non-toxic multinodular goiter Orthostatic hypotension dysautonomic syndrome Surgical History H/O colonoscopy History of colon surgery History of esophagogastroduodenoscopy (EGD) Hx of appendectomy Hx of cataract surgery Hx of tonsillectomy Family History Family History Father Parkinsons disease Mother Myocardial infarction CVD (cardiovascular disease) Cancer Social History Social History Household Members: None Housing: Apartment Are you a primary career based intervention coordinator to a significant other at home: No Do you presently have visiting nurse or other home services: No Alcohol intake: never Patient Tobacco Use Status: Former Tobacco user Quit Date: 1995 e-Cigarette/Vaping Use: Never Used Advance Directives: No Advance Directives Information Provided: Yes service: Yes Current occupational status: retired Physical Exam Vital Signs: Vital Signs: Last Vital Signs Temp 98.3 F 05/22/22 06:31 Pulse 75 05/22/22 06:31 Resp 18 05/22/22 06:31 BP 120/68 05/22/22 06:31 Pulse Ox 92 05/22/22 06:31 O2 Del Method 05/22/22 06:31 BMI result Body Mass Index 25.0 vital signs have been reviewed as appeared to be correct. Blood pressure normal. Heart rate normal. Respiration rate normal. Temperature normal. Oxygen saturation normal. Appearance: Alert. Oriented X3. No acute distress. Head: Normal external exam. Normocephalic. Atraumatic. No Wilkinson signs noted. No raccoon eyes noted Eyes: PERRLA. EOMI. Conjunctiva and sclera normal. Eyelids normal. ENT: TM's Normal. Pharynx normal. Uvula midline. Moist mucous membranes. No trismus noted. No drooling noted. No muffled voice noted. Neck: Normal inspection. Neck supple. FROM. No adenopathy. Thyroid Normal. No meningeal signs. No neck mass noted. CVS: Normal heart rate and rhythm. Heart sound normal. No murmurs noted. Pulses normal throughout. Respiratory: No respiratory distress. Painless inspiration. Breath sounds normal. expiratory wheezes with prolonged expiration. Chest nontender. No accessory muscle usage noted or decreased air movement noted. Abdomen: Soft and nontender. Bowel sounds normal in all 4 quadrants. No distention noted. No organomegaly noted. No visible injury noted. Back: No CVA tenderness. Full range of motion noted. Skin: Skin warm and dry. Normal skin color. Normal skin turgor. No rashes/lesions/lacerations noted. Extremities: No lower extremity edema. Extremities exhibit normal range of motion. Extremities nontender. Neuro: Oriented X 3. Cranial nerve exam: II-XII are grossly intact No motor deficit. No sensory deficit. Reflexes normal. Course Course Course Narrative: 87-year-old male history of myasthenia gravis came in with shortness of breath and wheezing that is likely acute viral bronchitis no clinical suspicion for acute myasthenia gravis crisis patient had pulmonary function test done in the emergency department which all within normal except slight decrease of his vital capacity to 2.5 L, patient will get ABG for further assessment of his blood gas. Administer bronchodilator for wheezing, The case was consulted with Dr. Miles. Signed out to Dr. Marti. Medical Decision Making Differential Diagnosis Differential Diagnoses: The differential diagnosis associated with the presentation includes ( COVID-19 infection, influenza, RSV, pneumonia, viral bronchitis, acute myasthenia gravis crisis.) Consult Healthcare Provider Management of the patient was discussed with: Utility Service Worker ( Jd) Lab Data [facility] Lab Attestation statement: I reviewed the patient's lab results. 05/22/22 06:08 05/22/22 06:08 Labs: Lab Results 05/22/22 05/22/22 05/22/22 Range/Units 06:08 06:08 06:08 WBC 10.7 (4.8-10.8) X10*3/uL RBC 4.04 L D (4.60-5.80) X10*6/uL Hgb 12.8 L (14.0-18.0) g/dl Hct 39.3 L (42.0-52.0) % MCV 97.3 (80.0-98.0) fL MCH 31.7 (27.0-33.0) pg MCHC 32.6 (31.0-36.0) g/dl RDW 13.2 (11.0-16.0) % Plt Count 208 (160-400) X10*3/uL MPV 10.4 (9.4-12.4) fL Immature Gran % (Auto) 0.6 H (0.0-0.4) % Neut % (Auto) 79.1 H (45-73) % Lymph % (Auto) 10.4 L (20-40) % Foard % (Auto) 8.7 (2-11) % Eos % (Auto) 0.9 (0-4) % Baso % (Auto) 0.3 (0-2) % Lymph # (Auto) 1.1 L (1.2-4.9) X10*3/uL Foard # (Auto) 0.9 (0.1-1.2) X10*3/uL Eos # (Auto) 0.1 (0.0-0.4) X10*3/uL Baso # (Auto) 0.0 (0.0-0.2) X10*3/uL Abs Immat Gran (auto) 0.06 H (0.00-0.03) X10*3/uL Absolute Neuts (auto) 8.5 H (2.0-8.3) x10*3/uL Absolute Nucleated RBC 0.000 (0.0-0.012) X10*3/uL Nucleated RBC % (auto) 0.0 (0.0-0.2) /100WBC Sodium 143 (135-145) mmol/L Potassium 3.5 (3.3-5.1) mmol/L Chloride 108 (96-108) mmol/L Carbon Dioxide 23 (22-29) mmol/L Anion Gap 16 (12-20) BUN 12 (9-16) mg/dL Creatinine 0.76 (0.5-1.4) mg/dL Estim Creat Clear Calc 66.4 Estimated GFR > 60 Random Glucose 107 (60-115) mg/dL Lactic Acid (0.5-2.0) mmol/L Calcium 9.3 (8.4-10.2) mg/dL Total Bilirubin 0.9 (0.0-1.0) mg/dL Direct Bilirubin 0.3 (0.0-0.5) mg/dL AST 23 (5-37) U/L ALT 23 (0-40) U/L Alkaline Phosphatase 57 (39-117) U/L Troponin I High Sens (<3.5-35.0) ng/L B-Natriuretic Peptide (<100) pg/mL Total Protein 5.5 L (6.5-8.0) g/dL Albumin 4.2 (3.5-5.0) g/dL Lipase 47 (8-78) U/L 05/22/22 05/22/22 05/22/22 Range/Units 06:08 06:08 06:08 WBC (4.8-10.8) X10*3/uL RBC (4.60-5.80) X10*6/uL Hgb (14.0-18.0) g/dl Hct (42.0-52.0) % MCV (80.0-98.0) fL MCH (27.0-33.0) pg MCHC (31.0-36.0) g/dl RDW (11.0-16.0) % Plt Count (160-400) X10*3/uL MPV (9.4-12.4) fL Immature Gran % (Auto) (0.0-0.4) % Neut % (Auto) (45-73) % Lymph % (Auto) (20-40) % Foard % (Auto) (2-11) % Eos % (Auto) (0-4) % Baso % (Auto) (0-2) % Lymph # (Auto) (1.2-4.9) X10*3/uL Foard # (Auto) (0.1-1.2) X10*3/uL Eos # (Auto) (0.0-0.4) X10*3/uL Baso # (Auto) (0.0-0.2) X10*3/uL Abs Immat Gran (auto) (0.00-0.03) X10*3/uL Absolute Neuts (auto) (2.0-8.3) x10*3/uL Absolute Nucleated RBC (0.0-0.012) X10*3/uL Nucleated RBC % (auto) (0.0-0.2) /100WBC Sodium (135-145) mmol/L Potassium (3.3-5.1) mmol/L Chloride (96-108) mmol/L Carbon Dioxide (22-29) mmol/L Anion Gap (12-20) BUN (9-16) mg/dL Creatinine (0.5-1.4) mg/dL Estim Creat Clear Calc Estimated GFR Random Glucose (60-115) mg/dL Lactic Acid 1.1 (0.5-2.0) mmol/L Calcium (8.4-10.2) mg/dL Total Bilirubin (0.0-1.0) mg/dL Direct Bilirubin (0.0-0.5) mg/dL AST (5-37) U/L ALT (0-40) U/L Alkaline Phosphatase (39-117) U/L Troponin I High Sens 13.9 (<3.5-35.0) ng/L B-Natriuretic Peptide 75 (<100) pg/mL Total Protein (6.5-8.0) g/dL Albumin (3.5-5.0) g/dL Lipase (8-78) U/L Independent Interpretation I performed an independent interpretation of an: EKG ( normal sinus rhythm at 72 beats per minute, normal axis deviation, normal intervals except for prolonged at DE interval, occasional PACs.) and Plain X-Ray ( Chest: No acute pathology.) Radiology Impression Discussion of test interpretation with radiology: I have reviewed the radiologist's reading. Critical Care Time Critical Care Time Critical Care Time: Yes Total Critical Care Time: 60 Attestation: I spent 60 minutes providing critical care service to the patient, this including time spent at the bedside to evaluate the patient, reassess the patient, monitoring vital signs, review labs, and radiographic studies, counseling the patient/family, discussing the case with consultants, disposition the patient. Discharge Plan Discharge Clinical Impression: Bronchitis Patient Disposition: Still a Patient Prescriptions: No Action isosorbide dinitrate 20 mg tablet 20 mg PO BEDTIME Rx Instructions: allow nitrate-free interval of 12-14 hrs per 24-hr period fluticasone propionate 50 mcg/actuation spray,suspension 1 spray intranasal BID captopril 12.5 mg tablet 18.75 mg PO TID Rx Instructions: 1 and 1/2 tabl TID hydralazine 50 mg tablet 50 mg PO BEDTIME ascorbic acid (vitamin C) 250 mg Tablet 250 mg PO DAILY zinc 50 mg Tablet 50 mg PO DAILY atorvastatin 40 mg tablet 40 mg PO BEDTIME amlodipine 5 mg tablet 5 mg PO DAILY@1700 Rx Instructions: Take daily at 5pm levothyroxine 88 mcg tablet 88 mcg PO DAILY@0600 omeprazole 20 mg capsule,delayed release(DR/EC) 20 mg PO DAILY@0630 loratadine [Claritin] 10 mg tablet 10 mg PO DAILY melatonin 3 mg capsule 10 mg PO BEDTIME PRN (Reason: Insomnia) Centrum Men 8 mg iron- 200 mcg-600 mcg tablet 1 tab PO DAILY cholecalciferol (vitamin D3) 25 mcg (1,000 unit) capsule 25 mcg PO DAILY prednisone 20 mg tablet 20 mg PO BID pyridostigmine bromide 60 mg tablet 60 mg PO Q4H
[2022-05-22 07:17] VITALS: BP 125/67; PULSE 73; RESP 19; TEMP 37; O2SAT 93
[2022-05-22 07:41] LABS: ABG Base Excess 4.1 mmol/L; ABG HCO3 28 mmol/L (22-26); ABG pCO2 42 mmHg (32-45); ABG pH 7.43 (7.35-7.45); ABG pO2 82 mmHg (83-108)
[2022-05-22 07:47] VITALS: O2SAT 94
[2022-05-22] MEDS: pyRIDostigmine bromide 60 MG TABLET PO (07:48)
[2022-05-22 07:49] VITALS: O2SAT 95
--- NOTE | 2022-05-22 08:58 | PHA.MEDREC ---
Pharmacy Consult ? Medication Reconciliation Pharmacy has completed the medication reconciliation. Patient discharged before med rec could be complete.
[2022-05-22 10:33] LABS: ABG Refer to POC result
== END 2022-05-22 08:35 | disposition home or self-care (01) ==
PROVIDERS: Emergency Provider Emergency Medicine; PCP Internal Medicine
DX: J40 Bronchitis, not specified as acute or chronic (principal); R06.02 Shortness of breath; Z20.822 Contact with and (suspected) exposure to COVID-19; Z20.828 Contact with and (suspected) exposure to other viral communicable diseases; Z79.899 Other long term (current) drug therapy
CPT/HCPCS: 0241U; 36415; 71045; 80048; 80076; 82803; 83605; 83690; 83880; 84484; 85025; 87040; 93005; 99284; 99285

== ENCOUNTER → 2022-06-14 10:21 | Outpatient (BNVA) | payer MEDICARE, SELFPAY | PROVIDERS: PCP Internal Medicine; Referring Provider Internal Medicine; Visit Provider Internal Medicine Cardiovascular Disease | DX: I95.1 Orthostatic hypotension (principal) | CPT/HCPCS: 99212 ==

== ENCOUNTER 2022-11-21 08:40 | Outpatient (AMB) | payer MEDICARE, SELFPAY ==
--- NOTE | 2022-11-21 08:52 | MHC.OFFVIS ---
Intake Vital Signs 11/21/22 08:54 Height 5 ft 7 in Weight 163 lb 12.855 oz BMI 25.7 BP 132/76 Blood Pressure Location Lt brachial Position Sitting Pulse 67 Pulse Source Pulse Oximeter Intake Visit Reasons: f/u hypothyroidism/thyroid nodule Intake Note: Patient present for Hypothyroidism/ Thyroid nodule follow up visit. Pneumatic Hoist Operator Required: No Accompanied by: Self / Same As Patient Allergies meperidine [From Demerol] Allergy (Unknown, Verified 11/21/22 08:57) unknown reaction-patient states was many years ago Medication List - Last Reconciled 11/21/22 by Alon Blank MD amlodipine 5 mg PO DAILY@1700 amoxicillin-pot clavulanate 875-125 mg 1 tab PO BID ascorbic acid (vitamin C) 250 mg PO DAILY atorvastatin 40 mg PO BEDTIME captopril 18.75 mg (1.5 x 12.5 mg) PO TID 90 days cholecalciferol (vitamin D3) 25 mcg PO DAILY fluticasone propionate 50 mcg/actuation 1 spray intranasal BID hydralazine 50 mg PO BEDTIME isosorbide dinitrate 20 mg PO BEDTIME levothyroxine 88 mcg PO DAILY@0600 loratadine (Claritin) 10 mg PO DAILY melatonin 10 mg PO BEDTIME PRN metformin 500 mg PO DAILY mv,Ca,ayp-epuy-IS-lycopene 8 mg iron- 200 mcg-600 mcg (Centrum Men) 1 tab PO DAILY omeprazole 20 mg PO DAILY@0630 prednisone 10 mg PO DAILY pyridostigmine bromide 120 mg PO TID trazodone 25 mg PO BEDTIME zinc 50 mg PO DAILY HPI HPI Comments History of Present Illness Details 86 yo male today for fup visit last seen on 04/18/2020 for thyroid nodule/hypothyroidism evaluation by Dr. Mohan . He is doing well, has no complaints. Today for fup nodules. He had Benign FNA of left lobe nodule 3.0 x 1.4 x 1.8 cm on 01/31/17 consistent with benign follicular nodule. 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 He is currently on levothyroxine 88 mcg QD He is still taking the levothyroxine close to the Omeprazole. He has switch how he was taking it after he got a paper from the pharmacy of how to take his medications. His 100% adherent. I had advised the patient to take the omeprazole a mild and levothyroxine in the morning. He also has Vitiligo. Denies He had and incidental found thyroid nodule in CT performed in September 2016 for evaluation of cough. Denies cold or heat intolerance, weight loss or gain, diarrhea, constipation, insomnia, fatigue, dry skin, dysphagia, dyspnea, dysphonia, tremors, palpitations, irritability, anxiety. 03/14/2020 US thyroid. Right Thyroid Lobe: 2.3 x 1.4 x 1.0 cm, volume 1.6 mL. Previously 2.3 x 1.5 x 1.2 cm, volume 2.1 mL. Parenchyma: The gland echotexture is heterogeneous. Thyroid vascularity is normal. Left Thyroid Lobe: 4.6 x 2.6 x 2.1 cm, volume 13.3 mL. Previously 3.95 x 1.9 x 1.87 cm, volume 7.34 mL. Parenchyma: The gland echotexture is heterogeneous. Thyroid vascularity is normal. Isthmus: 0.40 cm in maximum AP dimension. Previously 0.31 cm. RIGHT THYROID LOBE: There are 2 nodules seen. 1. Location: Upper. Size: 1.01 x 0.70 x 0.80 cm. Previous: 1.0 x 0.67 x 0.90 cm. Nodule characteristics: Heterogeneous, smoothly marginated with intranodular flow, likely complex cyst. 2. Location: Upper. Size: 0.96 x 0.70 x 0.70 cm. Previous: Not seen. Nodule characteristics: Heterogeneous, smoothly marginated with no intranodular flow, likely complex cyst. ISTHMUS: No nodules. LEFT THYROID LOBE: There is 1 nodule seen. 1. Location: Mid pole. Size: 3.3 x 2.4 x 2.0 cm. Previous: 3.2 x 1.9 x 1.9 cm. Nodule characteristics: Heterogeneous, smoothly marginated with intranodular flow. NODES: No lymphadenopathy is seen in the tissue surrounding the thyroid gland. Laboratory Tests 01/09/19 06/25/19 12:55 08:40 Free T4 0.97 TSH 3rd Generation 3.16 [facility] Medical History COVID-19 vaccine administered GERD (gastroesophageal reflux disease) HTN (hypertension) Hyperlipidemia Hypothyroidism Insomnia Non-toxic multinodular goiter Orthostatic hypotension dysautonomic syndrome Surgical History H/O colonoscopy History of colon surgery History of esophagogastroduodenoscopy (EGD) Hx of appendectomy Hx of cataract surgery Hx of tonsillectomy Family History Father Parkinsons disease Mother Myocardial infarction CVD (cardiovascular disease) Cancer Social History Household Members: None Housing: Apartment Are you a primary aged or disabled carer to a significant other at home: No Do you presently have visiting nurse or other home services: No Alcohol intake: never Patient Tobacco Use Status: Former Tobacco user Quit Date: 1995 e-Cigarette/Vaping Use: Never Used service: Yes Current occupational status: retired Physical Exam Vital Signs: Last Vital Signs Pulse 67 11/21/22 08:54 BP 132/76 11/21/22 08:54 BMI result Body Mass Index 25.7 Assessment & Plan Assessment & Plan (1) Non-toxic multinodular goiter: Code(s): E04.2 - Nontoxic multinodular goiter Plan: This 86-year-old white male with a history of left thyroid nodule status post FNA x2 with benign cytology. Recent thyroid ultrasound showed no change in the size of nodule. Plan is for continued observation. Will repeat thyroid ultrasound. If nodule stable in size, patient returned to the care of his primary care provider with follow-up ultrasound ordered by primary care provider in about 2-3 years time (2) Hypothyroidism: Code(s): E03.9 - Hypothyroidism, unspecified Plan: Clinically and biochemically euthyroid on levothyroxine 88 mcg q.d.. Plan is to check TSH and free T4 adjust levothyroxine accordingly. If TSH is within normal range, patient returned to the care of his primary care provider Orders: Orders Free T4 (Free Thyroxine) Today E03.9 - Hypothyroidism, unspecified, E04.2 - Nontoxic multinodular goiter Thyroid Stimulating Hormone Today E03.9 - Hypothyroidism, unspecified, E04.2 - Nontoxic multinodular goiter US thyroid Today E03.9 - Hypothyroidism, unspecified, E04.2 - Nontoxic multinodular goiter Coding Level of Care Code Est Pt Level 3 (09007) Diagnoses Non-toxic multinodular goiter E04.2 Hypothyroidism E03.9
[2022-11-21 08:54] VITALS: BP 132/76; PULSE 67; BMI 25.7
== END 2022-11-21 10:25 | disposition home or self-care (01) ==
PROVIDERS: PCP Internal Medicine; Visit Provider Internal Medicine Endocrinology, Diabetes & Metabolism
DX: E04.2 Nontoxic multinodular goiter (principal); E03.9 Hypothyroidism, unspecified
CPT/HCPCS: 99213

== ENCOUNTER → 2022-11-21 08:40 | Outpatient (BNVA) | payer MEDICARE, SELFPAY | PROVIDERS: Visit Provider Internal Medicine Endocrinology, Diabetes & Metabolism ==

== ENCOUNTER 2022-11-21 09:23 | Outpatient (REF) | payer MEDICARE, SELFPAY ==
[2022-11-21 10:38] LABS: Free T4 (Free Thyroxine) 0.94 ng/dL (0.71-1.85); Thyroid Stimulating Hormone 3.51 uIU/mL (0.32-4.0)
== END 2022-11-21 09:24 | disposition home or self-care (01) ==
LOC: HO.10HDL 09:23
PROVIDERS: Visit Provider Internal Medicine Endocrinology, Diabetes & Metabolism
DX: E04.2 Nontoxic multinodular goiter (principal); E03.9 Hypothyroidism, unspecified
CPT/HCPCS: 36415; 84439; 84443; 99212

== ENCOUNTER 2022-11-27 16:12 | Outpatient (REF) | payer MEDICARE, SELFPAY ==
--- NOTE | ~2022-11-27 | US_ITS ---
EXAMINATION: US THYROID CLINICAL INFORMATION: Nontoxic multinodular goiter. COMPARISON: Ultrasound soft tissue head/neck thyroid dated 10/04/2021 and 03/14/2020. TECHNIQUE: Linear transducer grayscale and color Doppler examination with attention to the region of the thyroid. FINDINGS: SIZE: Measurements of the thyroid lobes and nodules are given in sagittal, anteroposterior and transverse dimensions respectively. Right Thyroid Lobe: 3.2 x 1.4 x 1.2 cm, volume 2.6 mL. Previously 2.3 x 1.4 x 1.2 cm, volume 2.0 mL. Parenchyma: The gland echotexture is heterogeneous. Thyroid vascularity is normal. Left Thyroid Lobe: 4.1 x 2.4 x 2.1 cm, volume 10.3 mL. Previously 4.4 x 2.6 x 2.4 cm, volume 14.4 mL. Parenchyma: The gland echotexture is heterogeneous. Thyroid vascularity is increased. Isthmus: 0.3 cm in maximum AP dimension. Previously 0.3 cm. Estimated total number of nodules greater than or equal to 1 cm: 1. Utility Person nodules are described as follows: 1. Location: Right mid. Size: 1.0 x 0.8 x 0.8 cm, volume 0.4 mL. Previously: 1.0 x 0.6 x 0.8 cm, volume 0.2 mL. Nodule characteristics: Composition: Mixed cystic and solid (1). Echogenicity: Hypoechoic (2). Shape: Not taller than wide (0). Margins: Smooth (0). Echogenic Foci: None (0). ACR TI-RADS total points: 3 Previous: 3 ACR TI-RADS category: 3 Previous: 3 Significant change in size (>/= 20% in 2 dimensions and minimal increase of 2 mm or 50% or greater increase in volume): Not Change in features: Not Change in ACR TI-RADS risk category: Not 2. Location: Left mid/inferior. Size: 3.6 x 2.3 x 2.3 cm, volume 9.8 mL. Previously: 3.4 x 2.3 x 2.3 cm, volume 9.2 mL. Nodule characteristics: Composition: Mixed cystic and solid (1). Echogenicity: Isoechoic (1). Shape: Not taller than wide (0). Margins: Ill-defined (0). Echogenic Foci: None (0). ACR TI-RADS total points: 2 Previous: 6 ACR TI-RADS category: 3 Previous: 4 Significant change in size (>/= 20% in 2 dimensions and minimal increase of 2 mm or 50% or greater increase in volume): No Change in features: No Change in ACR TI-RADS risk category: Yes NODES: No lymphadenopathy is seen in the tissue surrounding the thyroid gland. US/US thyroid IMPRESSION: Multinodular goiter. Minimal interval change
== END 2022-11-27 16:13 | disposition home or self-care (01) ==
LOC: HO.US 16:12
PROVIDERS: PCP Internal Medicine; Visit Provider Internal Medicine Endocrinology, Diabetes & Metabolism
DX: E04.2 Nontoxic multinodular goiter (principal); E03.9 Hypothyroidism, unspecified
CPT/HCPCS: 76536

== ENCOUNTER 2022-12-08 14:19 | Emergency (ER) | payer MEDICARE, SELFPAY ==
--- NOTE | ~2022-12-08 | XR_ITS ---
EXAMINATION: XR CHEST CLINICAL INFORMATION: Weakness and shortness of breath COMPARISON: Chest radiograph 05/22/2022 TECHNIQUE: 2 views of the chest were obtained. FINDINGS: Interval removal of right-sided central line. The heart is normal in size. Prominent descending thoracic aorta. No focal consolidation. No pleural effusion. No pneumothorax. No acute displaced rib fracture. XR/XR chest 2V IMPRESSION: No focal consolidation to suggest pneumonia.
[2022-12-08 14:22] VITALS: BP 135/73; PULSE 78; RESP 16; TEMP 36.5; O2SAT 95; BMI 25.7
--- NOTE | 2022-12-08 14:22 | ED.GENADULT ---
HPI - General Adult General Chief complaint: General Medical Stated complaint: very tired exposed to covid Time Seen by Provider: 12/08/22 18:40 Source: patient and family Mode of arrival: ambulatory Limitations: no limitations History of Present Illness HPI narrative: 87-year-old patient with history of myasthenia gravis followed by neurology at [facility], hypertension, hypothyroidism, amongst others presents to ER for generalized weakness and fatigue. Reports that he has been feeling weak and fatigued for the last 2 days. Reports he has been quite active recently, competing in [employer] until 11pm last night. Reports he was also at a 5 days ago where he was exposed to COVID. Today he reports weakness of bilateral upper and lower extremities. Denies any headache, dizziness, confusion, chest pain, shortness of breath or trouble breathing, nausea, vomiting, diarrhea. Denies URI symptoms including fevers, chills, cough, sore throat, nasal congestion. Reports some phlegm. No SOB or difficultly breathing. No difficulty ambulating. He has been on a slow taper of prednisone, currently 7mg x1 month. MD complaint: weakness Onset (ago): day(s) Location: left, right, upper extremity and lower extremity Quality: aching Pain Consistency: intermittent Relieving factors: rest Exacerbating factors: movement Associated symptoms: cough and weakness Treatments prior to arrival: none Related Data Home Medications Medication Instructions Recorded Confirmed cholecalciferol (vitamin D3) 25 25 mcg PO DAILY 05/05/20 06/14/22 mcg (1,000 unit) capsule multivit,Ca,min-iron 8 mg-folic 1 tab PO DAILY 05/05/20 06/14/22 acid 200 mcg-lycopene 600 mcg tablet (Centrum Men) isosorbide dinitrate 20 mg tablet 20 mg PO BEDTIME 10/11/20 06/14/22 loratadine 10 mg tablet (Claritin) 10 mg PO DAILY 06/28/21 06/14/22 melatonin 3 mg capsule 10 mg PO BEDTIME PRN Insomnia 06/28/21 06/14/22 amlodipine 5 mg tablet 5 mg PO DAILY@1700 10/08/21 06/14/22 ascorbic acid (vitamin C) 250 mg 250 mg PO DAILY 10/08/21 06/14/22 tablet atorvastatin 40 mg tablet 40 mg PO BEDTIME 10/08/21 06/14/22 fluticasone propionate 50 1 spray intranasal BID allergies 10/08/21 06/14/22 mcg/actuation nasal spray,suspension hydralazine 50 mg tablet 50 mg PO BEDTIME 10/08/21 06/14/22 levothyroxine 88 mcg tablet 88 mcg PO DAILY@0600 10/08/21 06/14/22 omeprazole 20 mg capsule,delayed 20 mg PO DAILY@0630 10/08/21 06/14/22 release zinc 50 mg tablet 50 mg PO DAILY 10/08/21 06/14/22 pyridostigmine bromide 60 mg tablet 120 mg PO TID 11/22/21 06/14/22 metformin 500 mg tablet 500 mg PO DAILY 05/22/22 06/14/22 prednisone 10 mg tablet 10 mg PO DAILY 05/22/22 06/14/22 trazodone 50 mg tablet 25 mg PO BEDTIME 05/22/22 06/14/22 Previous Rx's Medication Instructions Recorded amoxicillin 875 mg-potassium 1 tab PO BID #14 tabs 05/22/22 clavulanate 125 mg tablet captopril 12.5 mg tablet 18.75 mg PO TID 90 days #405 tabs 06/25/22 Allergies Allergy/AdvReac Type Severity Reaction Status Date / Time meperidine [From Demerol] Allergy Unknown unknown Verified 11/21/22 08:57 reaction-patient states was many years ago Review of Systems Review of Systems: Yes all other systems are reviewed and are negative PMFSH Past Medical History Medical History COVID-19 vaccine administered GERD (gastroesophageal reflux disease) HTN (hypertension) Hyperlipidemia Hypothyroidism Insomnia Non-toxic multinodular goiter Orthostatic hypotension dysautonomic syndrome Surgical History H/O colonoscopy History of colon surgery History of esophagogastroduodenoscopy (EGD) Hx of appendectomy Hx of cataract surgery Hx of tonsillectomy Family History Family History Father Parkinsons disease Mother Myocardial infarction CVD (cardiovascular disease) Cancer Social History Social History Household Members: None Housing: Apartment Are you a primary skin care specialist to a significant other at home: No Do you presently have visiting nurse or other home services: No Alcohol intake: never Patient Tobacco Use Status: Former Tobacco user Quit Date: 1995 Smoked in Last 30 Days: No e-Cigarette/Vaping Use: Never Used Use of substances other than those prescribed or required for medical reasons: No Advance Directives: No Advance Directives Information Provided: Yes service: Yes Current occupational status: retired Physical Exam ED Vital Signs: Vital Signs - 24 hr 12/08/22 14:22 12/08/22 19:18 Temperature 97.7 F Pulse Rate 78 63 Respiratory Rate 16 18 Blood Pressure 135/73 178/84 H Pulse Oximetry 95 96 Oxygen Delivery Method Room Air Room Air BMI result Body Mass Index 25.7 Const General: cooperative, healthy appearing, comfortable and no acute distress Nutritional Appearance: average body habitus Orientation/consciousness: patient oriented x3 Limitations: no limitations HENMT Head: Yes normal to inspection Ears: hearing grossly abnormal bilaterally (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.) General nose exam: Normal external nose present Mouth: Normal oral and palatal mucosa present Eyes Eyelids: Yes lid lag (Bilateral ptosis, mild.) Pupils: Equal, round and reactive pupils present EOM: EOMs intact bilaterally Direct Ophthalmoscopy: normal light reflex Resp Effort & Inspection: normal respiratory effort and able to speak in complete sentences Auscultation: clear to auscultation bilaterally Cardio Rate: regular rate Rhythm: regular rhythm Skin General skin exam: no rashes or lesions noted Neuro General: patient oriented x3, gait normal and moves all extremities Cranial nerves: Yes CN's II-XII intact bilaterally and Yes Equal, round and reactive pupils present Cognition (Neuro): normal cognition Gait exam (Neuro): Normal gait present Motor exam (neuro): 5/5 motor strength present throughout, Pronator motor function not present, no tremor noted and Normal motor muscle tone present throughout Course Course Course Narrative: RME: 87-year-old male with a past medical history of insomnia, orthostatic hypotension, HTN, hypothyroid, myasthenia gravis, complaining of generalized fatigue, & LE weakness x2 days. Admits was exposed to COVID about 5 days ago. Admits to mild SOB. Admits was vaccinated w/Moderna x4. denies CP, cough, fever EKG, Labs, CXR, UA ordered Full HPI, ROS and PE to be performed by primary ED provider. Medical Decision Making Medical Decision Making [facility] Narrative: 87 year old male with history of myasthenia gravis, followed by neurology, presents with generalized weakness and fatigue. Reports exposure to COVID, and being considerably more active in the last few days. Physical exam is remarkable for some bilateral ptosis. Cranial nerves are intact. Strength is 5/5 bilaterally. Sensation intact. Steady gait and strong cough. Workup including blood counts, chemistry, urinalysis, chest x-ray, COVID test was unremarkable. Safe for discharge home with close monitoring of symptoms and close neuro follow up. Recommend adequate rest, fluids, and follow up with neurologist within next week. Differential Diagnosis Differential Diagnoses: The differential diagnosis associated with the presentation includes Myasthenia gravis, COVID, pneumonia, viral respiratory illness, CVA, UTI. Admission/Observation Consideration of admission/observation: Escalation of care including admission/observation considered Lab Data MDM Lab Attestation statement: I reviewed the patient's lab results. 12/08/22 15:01 12/08/22 15:01 Labs: Lab Results 12/08/22 12/08/22 12/08/22 Range/Units 15:01 15:01 15:01 WBC 11.3 H (4.8-10.8) X10*3/uL RBC 4.84 (4.60-5.80) X10*6/uL Hgb 15.0 (14.0-18.0) g/dl Hct 45.4 (42.0-52.0) % MCV 93.8 (80.0-98.0) fL MCH 31.0 (27.0-33.0) pg MCHC 33.0 (31.0-36.0) g/dl RDW 13.0 (11.0-16.0) % Plt Count 240 (160-400) X10*3/uL MPV 10.2 (9.4-12.4) fL Immature Gran % (Auto) 0.9 H (0.0-0.4) % Neut % (Auto) 81.2 H (45-73) % Lymph % (Auto) 13.0 L (20-40) % [place] % (Auto) 4.4 (2-11) % Eos % (Auto) 0.2 (0-4) % Baso % (Auto) 0.3 (0-2) % Lymph # (Auto) 1.5 (1.2-4.9) X10*3/uL [place] # (Auto) 0.5 (0.1-1.2) X10*3/uL Eos # (Auto) 0.0 (0.0-0.4) X10*3/uL Baso # (Auto) 0.0 (0.0-0.2) X10*3/uL Abs Immat Gran (auto) 0.10 H (0.00-0.03) X10*3/uL Absolute Neuts (auto) 9.2 H (2.0-8.3) x10*3/uL Absolute Nucleated RBC 0.000 (0.0-0.012) X10*3/uL Nucleated RBC % (auto) 0.0 (0.0-0.2) /100WBC Sodium 139 (135-145) mmol/L Potassium 4.0 (3.3-5.1) mmol/L Chloride 108 (96-108) mmol/L Carbon Dioxide 23 (22-29) mmol/L Anion Gap 12 (12-20) BUN 10 (9-16) mg/dL Creatinine 0.79 (0.5-1.4) mg/dL Estim Creat Clear Calc 63.9 Estimated GFR > 60 Random Glucose 122 H (60-115) mg/dL Calcium 9.5 (8.4-10.2) mg/dL Magnesium 2.0 (1.6-2.6) mg/dL Total Bilirubin 1.0 (0.0-1.0) mg/dL Direct Bilirubin 0.3 (0.0-0.5) mg/dL AST 21 (5-37) U/L ALT 19 (0-40) U/L Alkaline Phosphatase 56 (39-117) U/L Total Protein 6.5 (6.5-8.0) g/dL Albumin 4.5 (3.5-5.0) g/dL Urine Color Urine Appearance Urine pH (5.0-9.0) Ur Specific [place] (1.005-1.025) Urine Protein (Neg-Trace) mg/dL Urine Glucose (UA) (Negative) mg/dL Urine Ketones (Negative) mg/dL Urine Blood (Negative) Urine Nitrite (Negative) Ur Leukocyte Esterase (Negative) Urine RBC (0-2) /HPF Urine WBC (0-5) /HPF Ur Squamous Epith Cells (0-2) /HPF Urine Bacteria (None Seen) Hyaline Casts (0-2) /LPF COVID-19 (ELIZABETH) Negative (Negative) COVID-19 Clin Com See Note 12/08/22 Range/Units 15:05 WBC (4.8-10.8) X10*3/uL RBC (4.60-5.80) X10*6/uL Hgb (14.0-18.0) g/dl Hct (42.0-52.0) % MCV (80.0-98.0) fL MCH (27.0-33.0) pg MCHC (31.0-36.0) g/dl RDW (11.0-16.0) % Plt Count (160-400) X10*3/uL MPV (9.4-12.4) fL Immature Gran % (Auto) (0.0-0.4) % Neut % (Auto) (45-73) % Lymph % (Auto) (20-40) % [place] % (Auto) (2-11) % Eos % (Auto) (0-4) % Baso % (Auto) (0-2) % Lymph # (Auto) (1.2-4.9) X10*3/uL [place] # (Auto) (0.1-1.2) X10*3/uL Eos # (Auto) (0.0-0.4) X10*3/uL Baso # (Auto) (0.0-0.2) X10*3/uL Abs Immat Gran (auto) (0.00-0.03) X10*3/uL Absolute Neuts (auto) (2.0-8.3) x10*3/uL Absolute Nucleated RBC (0.0-0.012) X10*3/uL Nucleated RBC % (auto) (0.0-0.2) /100WBC Sodium (135-145) mmol/L Potassium (3.3-5.1) mmol/L Chloride (96-108) mmol/L Carbon Dioxide (22-29) mmol/L Anion Gap (12-20) BUN (9-16) mg/dL Creatinine (0.5-1.4) mg/dL Estim Creat Clear Calc Estimated GFR Random Glucose (60-115) mg/dL Calcium (8.4-10.2) mg/dL Magnesium (1.6-2.6) mg/dL Total Bilirubin (0.0-1.0) mg/dL Direct Bilirubin (0.0-0.5) mg/dL AST (5-37) U/L ALT (0-40) U/L Alkaline Phosphatase (39-117) U/L Total Protein (6.5-8.0) g/dL Albumin (3.5-5.0) g/dL Urine Color Yellow Urine Appearance Clear Urine pH 6.5 (5.0-9.0) Ur Specific [place] 1.015 (1.005-1.025) Urine Protein Trace (Neg-Trace) mg/dL Urine Glucose (UA) Negative (Negative) mg/dL Urine Ketones Negative (Negative) mg/dL Urine Blood Negative (Negative) Urine Nitrite Negative (Negative) Ur Leukocyte Esterase Small (1+) H (Negative) Urine RBC 0-2 (0-2) /HPF Urine WBC 0-5 (0-5) /HPF Ur Squamous Epith Cells 0-2 (0-2) /HPF Urine Bacteria None Seen (None Seen) Hyaline Casts 0-2 (0-2) /LPF COVID-19 (ELIZABETH) (Negative) COVID-19 Clin Com Independent Interpretation I performed an independent interpretation of an: EKG and Plain X-Ray Interpretation: ekg w/ HR 67, normal sinus rhythm, PVCs present. no ST segment elevations cxr clear, no pna Radiology Impression Discussion of test interpretation with radiology: I have reviewed the radiologist's reading. Radiologist Impression: EXAMINATION: XR CHEST CLINICAL INFORMATION: Weakness and shortness of breath COMPARISON: Chest radiograph 05/22/2022 TECHNIQUE: 2 views of the chest were obtained. FINDINGS: Interval removal of right-sided central line. The heart is normal in size. Prominent descending thoracic aorta. No focal consolidation. No pleural effusion. No pneumothorax. No acute displaced rib fracture. XR/XR chest 2V IMPRESSION: No focal consolidation to suggest pneumonia. Independent Historian Clinical information obtained from an independent historian. History obtained from or confirmed by: Other (Family member) External Record Review External record reviewed: Outpatient record and Prior outpatient labs Prescription Management I considered prescription management with: Other (considered increasing prednisone) Chronic Conditions Patient?s care impacted by: Other (myasthenia gravis) Critical Care Time Critical Care Time Critical Care Time: No Discharge Plan Discharge Clinical Impression: Generalized weakness Patient Disposition: Home, Self-Care Instructions: Weakness (ED) Additional Instructions: You were seen today for generalized weakness and fatigue. Work up including labs and chest x-ray was unremarkable. Your COVID test was negative. Recommend adequate rest, fluids, and follow-up with your neurologist within the next week. If your symptoms worsen and you develop trouble breathing or walking, then return to the ED. Prescriptions: No Action captopril 12.5 mg tablet 18.75 mg PO TID 90 Days Qty: 405 0RF Rx Instructions: 1 and 1/2 tabl TID isosorbide dinitrate 20 mg tablet 20 mg PO BEDTIME Rx Instructions: allow nitrate-free interval of 12-14 hrs per 24-hr period metformin 500 mg tablet 500 mg PO DAILY prednisone 10 mg tablet 10 mg PO DAILY Rx Instructions: TAKE WITH BREAKFAST trazodone 50 mg tablet 25 mg PO BEDTIME amoxicillin-pot clavulanate 875-125 mg tablet 1 tab PO BID Qty: 14 0RF fluticasone propionate 50 mcg/actuation spray,suspension 1 spray intranasal BID hydralazine 50 mg tablet 50 mg PO BEDTIME ascorbic acid (vitamin C) 250 mg Tablet 250 mg PO DAILY zinc 50 mg Tablet 50 mg PO DAILY atorvastatin 40 mg tablet 40 mg PO BEDTIME amlodipine 5 mg tablet 5 mg PO DAILY@1700 Rx Instructions: Take daily at 5pm levothyroxine 88 mcg tablet 88 mcg PO DAILY@0600 omeprazole 20 mg capsule,delayed release(DR/EC) 20 mg PO DAILY@0630 loratadine [Claritin] 10 mg tablet 10 mg PO DAILY melatonin 3 mg capsule 10 mg PO BEDTIME PRN (Reason: Insomnia) Centrum Men 8 mg iron- 200 mcg-600 mcg tablet 1 tab PO DAILY cholecalciferol (vitamin D3) 25 mcg (1,000 unit) capsule 25 mcg PO DAILY pyridostigmine bromide 60 mg tablet 120 mg PO TID Interventions: ED Discharge Assessment Last Done: 12/08/22 20:07 Discharge Date/Time: 12/08/22 20:08 Print Language: Hong Konger
--- NOTE | 2022-12-08 14:25 | ECG_ITS ---
Test Reason : WEAKNESS Blood Pressure : / mmHG Vent. Rate : 067 BPM Atrial Rate : 067 BPM P-R Int : 202 ms QRS Dur : 096 ms QT Int : 390 ms P-R-T Axes : 052 006 029 degrees QTc Int : 412 ms Sinus rhythm with Premature supraventricular complexes Otherwise normal ECG When compared with ECG of 22-MAY-2022 05:25, Premature ventricular complexes are no longer Present Referred By: Luzmaria Tejada Electronically Signed By:SHAE MARTINEZ
[2022-12-08 15:15] LABS: Basophils Percent Auto 0.3 % (0-2); Eosinophils Percent Auto 0.2 % (0-4); Hematocrit 45.4 % (42.0-52.0); Imm Gran Pct Auto 0.9 % (0.0-0.4); Lymphocytes Absolute Auto 1.5 X10*3/uL (1.2-4.9); MANUAL DIFF FLAG NO; Mean Corpuscular Volume 93.8 fL (80.0-98.0); Mean Platelet Volume 10.2 fL (9.4-12.4); Monocytes Absolute Auto 0.5 X10*3/uL (0.1-1.2); Monocytes Percent Auto 4.4 % (2-11); Neutrophils Absolute Auto 9.2 x10*3/uL (2.0-8.3); Neutrophils Percent Auto 81.2 % (45-73); Platelet Count 240 X10*3/uL (160-400); Red Blood Count 4.84 X10*6/uL (4.60-5.80); White Blood Count 11.3 X10*3/uL (4.8-10.8)
[2022-12-08 15:16] LABS: Appearance Urine Clear; Color Urine Yellow; Glucose Urine UA Negative (Negative); Leukocyte Esterase Urine Small (1+) (Negative); Nitrite Urine Negative (Negative); PH 6.5 (5.0-9.0); Specific Gravity - Urine 1.015 (1.005-1.025); UMIC TRIGGER UACC YES; Urine Blood Negative (Negative); Urine Ketones Negative (Negative); Urine Protein Trace mg/dL (Neg-Trace)
[2022-12-08 15:25] LABS: IDNOW Serial# 08D9AD1C
[2022-12-08 15:26] LABS: COVID-19 Test Negative (Negative)
[2022-12-08 15:33] LABS: Bacteria Urine None Seen (None Seen); Hyaline Casts Urine 0-2 /LPF (0-2); RBC Urine 0-2 /HPF (0-2); Squamous Epithelial Cell Urine 0-2 /HPF (0-2); UACC Culture Trigger YES; WBC Urine 0-5 /HPF (0-5)
[2022-12-08 15:42] LABS: Alanine Aminotransferase 19 U/L (0-40); Albumin Level 4.5 g/dL (3.5-5.0); Alkaline Phosphatase 56 U/L (39-117); Anion Gap 12 (12-20); Aspartate Amino Transferase 21 U/L (5-37); Bilirubin Direct 0.3 mg/dL (0.0-0.5); Blood Urea Nitrogen 10 mg/dL (9-16); Calcium 9.5 mg/dL (8.4-10.2); Carbon Dioxide 23 mmol/L (22-29); Chloride 108 mmol/L (96-108); Creatinine Clr Calc Pharmacy 63.9; Estimated Glomerular Filt Rate > 60; Glucose Random 122 mg/dL (60-115); Sodium 139 mmol/L (135-145); Total Protein 6.5 g/dL (6.5-8.0)
[2022-12-08 19:18] VITALS: BP 178/84; PULSE 63; RESP 18; O2SAT 96
== END 2022-12-08 20:08 | disposition home or self-care (01) ==
PROVIDERS: Physician Assistant; Emergency Provider Student in an Organized Health Care Education/Training Program; PCP Internal Medicine
DX: R53.1 Weakness (principal); Z20.822 Contact with and (suspected) exposure to COVID-19; R06.02 Shortness of breath; I10 Essential (primary) hypertension; E78.5 Hyperlipidemia, unspecified; G70.00 Myasthenia gravis without (acute) exacerbation; Z87.891 Personal history of nicotine dependence; Z79.899 Other long term (current) drug therapy
CPT/HCPCS: 36415; 71046; 80048; 80076; 81001; 83735; 85025; 87086; 87635; 93005; 99283; 99284

== ENCOUNTER 2022-12-17 10:01 | Outpatient (AMB) | payer MEDICARE, SELFPAY ==
[2022-12-17 10:07] VITALS: BP 120/82; PULSE 62; BMI 25.9
--- NOTE | 2022-12-17 10:07 | MHC.OFFVIS ---
Intake Vital Signs 12/17/22 10:07 Height 5 ft 7 in Weight 165 lb 5.547 oz BMI 25.9 BP 120/82 Blood Pressure Location Lt brachial Position Sitting Pulse 62 Intake Visit Reasons: 6 mth f/up Intake Note: 6 month follow-up was in the ED 12/08 ? Covid but was negative Furniture Sprayer Required: No Allergies meperidine [From Demerol] Allergy (Unknown, Verified 11/21/22 08:57) unknown reaction-patient states was many years ago Medication List - Last Reconciled 12/17/22 by Greg Fernando MD amlodipine 5 mg PO DAILY@1700 amoxicillin-pot clavulanate 875-125 mg 1 tab PO BID ascorbic acid (vitamin C) 250 mg PO DAILY atorvastatin 40 mg PO BEDTIME captopril 18.75 mg (1.5 x 12.5 mg) PO TID 90 days cholecalciferol (vitamin D3) 25 mcg PO DAILY fluticasone propionate 50 mcg/actuation 1 spray intranasal BID hydralazine 50 mg PO BEDTIME isosorbide dinitrate 20 mg PO BEDTIME levothyroxine 88 mcg PO DAILY@0600 loratadine (Claritin) 10 mg PO DAILY melatonin 10 mg PO BEDTIME PRN metformin 500 mg PO DAILY mv,Ca,fjy-cpto-KW-lycopene 8 mg iron- 200 mcg-600 mcg (Centrum Men) 1 tab PO DAILY omeprazole 20 mg PO DAILY@0630 prednisone 7 mg PO DAILY pyridostigmine bromide 120 mg PO TID trazodone 25 mg PO BEDTIME zinc 50 mg PO DAILY HPI HPI Comments History of Present Illness Details Alon comes for follow-up. He said he has diminished exercise capacity and can walk only half a mi due to his myasthenia gravies. Currently being treated by specialist in [place]. He gets infusion every Saturday as per him. He denies any symptoms of lightheadedness, syncope. Denies any exertional chest pain or shortness of breath. No orthopnea, PND. Taking all his medications as prescribed. [facility] Medical History COVID-19 vaccine administered GERD (gastroesophageal reflux disease) Insomnia Hyperlipidemia Orthostatic hypotension dysautonomic syndrome HTN (hypertension) Non-toxic multinodular goiter Hypothyroidism Surgical History Hx of cataract surgery History of colon surgery History of esophagogastroduodenoscopy (EGD) H/O colonoscopy Hx of tonsillectomy Hx of appendectomy Family History Father Parkinsons disease Mother Myocardial infarction CVD (cardiovascular disease) Cancer Social History Household Members: None Housing: Apartment Are you a primary acute care physical therapist to a significant other at home: No Do you presently have visiting nurse or other home services: No Alcohol intake: never Patient Tobacco Use Status: Former Tobacco user Quit Date: 1995 e-Cigarette/Vaping Use: Never Used service: Yes Current occupational status: retired Review of Systems Const Denies chills, Denies fatigue, Denies fever(s), Denies frequent falls, Denies weakness, Denies weight gain and Denies weight loss ENT Denies dizziness Card Denies chest pain, Denies leg edema, Denies lightheadedness, Denies palpitations, Denies dyspnea, Denies dyspnea on exertion, Denies orthopnea and Denies other (loss of consciousness) Resp Denies cough, Denies dyspnea and Denies dyspnea on exertion GI Denies hematochezia and Denies change in stool character Musc Denies abnormal gait, Denies muscle weakness, Denies numbness, Denies radiating pain into limb and Denies tingling Neuro Denies abnormal gait, Denies dizziness, Denies frequent falls, Denies numbness, Denies tingling and Denies weakness Endo Denies fatigue and Denies palpitations Physical Exam Vital Signs: Last Vital Signs Pulse 62 12/17/22 10:07 BP 120/82 12/17/22 10:07 BMI result Body Mass Index 25.9 Const General: cooperative, comfortable, no acute distress, alert, awake and well groomed Nutritional Appearance: average body habitus Orientation/consciousness: patient oriented x3 Limitations: no limitations Neck Neck: Yes trachea midline, Yes supple and Yes no JVD Carotids: no bruits Resp Effort & Inspection: normal respiratory effort Auscultation: clear to auscultation bilaterally Cardio Jugular venous distension: no JVD Palpation: normal PMI Rate: regular rate Rhythm: regular rhythm Heart sounds: S1 normal heart sound present, S2 normal heart sound present and Murmur heart sound present systolic early, decrescendo and crescendo Skin General skin exam: no rashes or lesions noted Neuro General: patient oriented x3 and no focal motor deficits Extrem General: Yes no clubbing, cyanosis or edema Psych Appearance: grossly normal Assessment & Plan Assessment & Plan (1) Orthostatic hypotension dysautonomic syndrome: Code(s): I95.1 - Orthostatic hypotension Plan: Patient with autonomic dysfunction with significantly labile blood pressure and significant hypertension. Currently well optimized on current regimen without any symptoms of lightheadedness or syncope. Advised to maintain low-salt diet. Advised to maintain adequate hydration. Orthostatic precautions were discussed again. Continue current complex regimen which she is very compliant with. This has helped him from having any symptoms related to this condition. Patient's main complaint currently is muscle fatigue with repetitive exercises. Advised to continue with exercise as tolerated. (2) Systolic murmur: Code(s): R01.1 - Cardiac murmur, unspecified Plan: Patient noted to have systolic murmur which is suggestive aortic valve sclerosis/or early stenosis. Continue aggressive blood pressure control which is currently well optimized. Consider low-dose aspirin therapy especially given that he has multiple small vessel ischemic disease on his brain imaging. Continue statin therapy with target goal LDL less than 70 mg/dL. Follow up in the clinic in 6 months time on his request. Thank you for allowing me to partake in his care Coding Level of Care Code Est Pt Level 4 (75248) Diagnoses Orthostatic hypotension dysautonomic syndrome I95.1 Systolic murmur R01.1
== END 2022-12-17 10:47 | disposition home or self-care (01) ==
PROVIDERS: PCP Internal Medicine; Referring Provider Internal Medicine; Visit Provider Internal Medicine Cardiovascular Disease
DX: I95.1 Orthostatic hypotension (principal); R01.1 Cardiac murmur, unspecified
CPT/HCPCS: 99214

== ENCOUNTER → 2022-12-17 10:01 | Outpatient (BNVA) | payer MEDICARE, SELFPAY | PROVIDERS: PCP Internal Medicine; Referring Provider Internal Medicine; Visit Provider Internal Medicine Cardiovascular Disease | DX: I95.1 Orthostatic hypotension (principal); R01.1 Cardiac murmur, unspecified | CPT/HCPCS: 99212 ==

== ENCOUNTER → 2023-01-15 09:43 | Outpatient (REF) | payer MEDICARE, SELFPAY | LOC: HO.CARD 09:43 | PROVIDERS: Visit Provider Internal Medicine Cardiovascular Disease | DX: R01.1 Cardiac murmur, unspecified (principal); I10 Essential (primary) hypertension | CPT/HCPCS: 93306 ==

== ENCOUNTER → 2023-01-15 09:46 | Outpatient (BNV) | payer MEDICARE, SELFPAY | PROVIDERS: Visit Provider Internal Medicine | DX: I35.1 Nonrheumatic aortic (valve) insufficiency (principal); I35.8 Other nonrheumatic aortic valve disorders | CPT/HCPCS: 93306 ==

== ENCOUNTER 2023-06-12 09:15 | Outpatient (AMB) | payer MEDICARE, SELFPAY ==
[2023-06-12 09:33] VITALS: BP 120/52; PULSE 71; TEMP 36.5; O2SAT 95; BMI 25.1
--- NOTE | 2023-06-12 09:33 | AM.OFFWIN_ITS ---
Intake Vital Signs 06/12/23 09:33 Height 5 ft 7 in Weight 160 lb 6 oz BMI 25.1 BP 120/52 L Blood Pressure Location Rt brachial Position Sitting Pulse 71 Pulse Source Pulse Oximeter Temp 97.7 F Temp Source Oral Pulse Oximetry (%) 95 Oxygen Delivery Method Room Air Intake Visit Reasons: EST/sore throat (lobby masked) Intake Note: Pt is here c/o sore throat for the past three days. Patient Tobacco Use Status: Former Tobacco user Quit Date: 1995 Allergies meperidine [From Demerol] Allergy (Unknown, Verified 06/12/23 09:36) unknown reaction-patient states was many years ago Do you need a note to return to daycare/school/sports/work: No HPI HPI Comments History of Present Illness Details 88 y/o male patient who presents to walk in clinic with c/o Sorethroat x 3 days. Denies fevers, chills, SOB, cough, nausea or vomiting. Denies any recent sick contacts. He has not tried any OTC medicine. [facility] Medical History COVID-19 vaccine administered GERD (gastroesophageal reflux disease) Insomnia Hyperlipidemia Orthostatic hypotension dysautonomic syndrome HTN (hypertension) Non-toxic multinodular goiter Hypothyroidism Surgical History Hx of cataract surgery History of colon surgery History of esophagogastroduodenoscopy (EGD) H/O colonoscopy Hx of tonsillectomy Hx of appendectomy Family History Father Parkinsons disease Mother Myocardial infarction CVD (cardiovascular disease) Cancer Social History Household Members: None Housing: Apartment Are you a primary pet caregiver to a significant other at home: No Do you presently have visiting nurse or other home services: No Alcohol intake: never Patient Tobacco Use Status: Former Tobacco user Quit Date: 1995 e-Cigarette/Vaping Use: Never Used service: Yes Current occupational status: retired Review of Systems Const All systems reviewed & are unremarkable except as noted in HPI and below Physical Exam Vital Signs: Last Vital Signs Temp 97.7 F 06/12/23 09:33 Pulse 71 03/06/24 09:33 BP 120/52 L 06/12/23 09:33 Pulse Ox 95 06/12/23 09:33 Oxygen Delivery Method Room Air 06/12/23 09:33 BMI result Body Mass Index 25.1 Const General: comfortable and no acute distress Orientation/consciousness: patient oriented x3 HEENT Head: Yes normocephalic Ears: external ears normal and TM's normal bilaterally General nose exam: Normal nasal mucous membranes and turbinates present Face and sinus: Yes sinuses nontender Mouth: moist mucous membranes Throat: Yes posterior oropharynx abnormal (Red mucous) Resp Effort & Inspection: normal respiratory effort, able to speak in complete sentences and no cough Auscultation: clear to auscultation bilaterally, no crackles, no rales, no rhonchi and no wheezes Cardio Rate: regular rate Rhythm: regular rhythm Neuro General: patient oriented x3 Results AMB Rapid Strep AMB Rapid Strep Negative Last Edit by Aurora Buckley CMA on 06/12/23 09:49 Results Reviewed Results Reviewed: Laboratory Last Values Strep Scn Rapid Clinic Negative 06/12/23 09:48 Assessment & Plan Assessment & Plan (1) Acute pharyngitis: Code(s): J02.9 - Acute pharyngitis, unspecified Qualifiers: Pharyngitis/tonsillitis etiology: unspecified etiology Qualified Code(s): J02.9 - Acute pharyngitis, unspecified Plan: - OTC sore throat remedies - Salted warm water -Warm fluids with honey. Orders: Orders AMB Rapid Strep Screen Today Z13.9 - Encounter for screening, unspecified SARS-CoV2/FLU/RSV Today J02.9 - Acute pharyngitis, unspecified Medications: New benzocaine 20% SPRAY DIRECTLY TO THE THROAT THREE TIMES A DAY 1 appl mucous membrane TID PRN 57 grams 0RF sore throat J02.9 - Acute pharyngitis, unspecified dyclonine 2 mg mucous membrane Q2H PRN 18 ea 0RF Sore troat J02.9 - Acute pharyngitis, unspecified Coding Level of Care Code Est Pt Level 3 (21408) Diagnoses Acute pharyngitis, unspecified etiology J02.9 Pharyngitis/tonsillitis etiology: unspecified etiology Time Spent (min) 15
== END 2023-06-12 10:11 | disposition home or self-care (01) ==
PROVIDERS: PCP Internal Medicine; Visit Provider Nurse Practitioner Family
DX: J02.9 Acute pharyngitis, unspecified (principal)
CPT/HCPCS: 87880; 99213

== ENCOUNTER 2023-06-12 10:03 | Outpatient (REF) | payer MEDICARE, SELFPAY ==
[2023-06-12 13:51] LABS: Influenza A PCR NEGATIVE (Negative); Influenza B PCR NEGATIVE (Negative); Resp Syncy Virus RNA Qual PCR NEGATIVE (Negative); SARS COV2 PCR INHOUSE NEGATIVE (Negative)
== END 2023-06-12 10:04 | disposition home or self-care (01) ==
LOC: HO.LAB 10:03
PROVIDERS: Visit Provider Nurse Practitioner Family
DX: Z11.52 Encounter for screening for COVID-19 (principal); Z20.822 Contact with and (suspected) exposure to COVID-19; J02.9 Acute pharyngitis, unspecified
CPT/HCPCS: 0241U

== ENCOUNTER 2023-06-24 09:09 | Outpatient (REF) | payer MEDICARE, SELFPAY ==
--- NOTE | ~2023-06-24 | US_ITS ---
EXAMINATION: US THYROID CLINICAL INFORMATION: Nontoxic multinodular goiter. COMPARISON: Ultrasound soft tissue head/neck thyroid dated 11/27/2022 and 10/04/2021. TECHNIQUE: Linear transducer grayscale and color Doppler examination with attention to the region of the thyroid. FINDINGS: SIZE: Measurements of the thyroid lobes and nodules are given in sagittal, anteroposterior and transverse dimensions respectively. Right Thyroid Lobe: 3.9 x 1.5 x 1.2 cm, volume 3.7 mL. Previously 3.9 x 1.4 x 1.2 cm, volume 3.4 mL. Parenchyma: The gland echotexture is heterogeneous. Thyroid vascularity is normal. Left Thyroid Lobe: 5.2 x 3.4 x 2.7 cm, volume 25.0 mL. Previously 4.7 x 2.1 x 2.4 cm, volume 12.4 mL. Parenchyma: The gland echotexture is heterogeneous. Thyroid vascularity is normal. Isthmus: 0.4 cm in maximum AP dimension. Previously 0.3 cm. Estimated total number of nodules greater than or equal to 1 cm: 2. [employer] Workers Supervisor nodules are described as follows: 1. Location: Right mid. Size: 1.1 x 0.8 x 0.9 cm, volume 0.4 mL. Previously: 1.1 x 0.8 x 0.8 cm, volume 0.4 mL. Nodule characteristics: Composition: Solid/almost completely solid (2). Echogenicity: Isoechoic (1). Shape: Not taller than wide (0). Margins: Smooth (0). Echogenic Foci: None (0). ACR TI-RADS total points: 3 Previous: 3 ACR TI-RADS category: 3 Previous: 3 Significant change in size (>/= 20% in 2 dimensions and minimal increase of 2 mm or 50% or greater increase in volume): No Change in features: No Change in ACR TI-RADS risk category: No 2. Location: Left mid. Size: 3.8 x 2.9 x 2.5 cm, volume 14.4 mL. Previously: 3.6 x 2.3 x 2.9 cm, volume 9.8 mL. Nodule characteristics: Composition: Solid/almost completely solid (2). Echogenicity: Isoechoic (1). Shape: Not taller than wide (0). Margins: Smooth (0). Echogenic Foci: None (0). ACR TI-RADS total points: 3 Previous: 3 ACR TI-RADS category: 3 Previous: 3 Significant change in size (>/= 20% in 2 dimensions and minimal increase of 2 mm or 50% or greater increase in volume): No Change in features: No Change in ACR TI-RADS risk category: No NODES: No lymphadenopathy is seen in the tissue surrounding the thyroid gland. US/US thyroid IMPRESSION: Left mid pole 3.8 cm nodule meets ACR criteria for tissue sampling.. ACR TI-RADS RECOMMENDATION REFERENCE: Ultrasound-guided fine-needle aspiration, follow up ultrasound, no further followup. * TR1 (0 point) and TR2 (2 points): No FNA or followup * TR3 (3 points): FNA if more than or equal to 2.5 cm in maximum dimension, follow up ultrasound in 1, 3 and 5 years if 1.5 to 2.4 cm in maximum dimension. * TR4 (4-6 points): FNA if more than or equal to 1.5 cm in maximum dimension, follow up ultrasound in 1, 2, 3 and 5 years if 1 to 1.4 cm in maximum dimension. * TR5 (more than or equal to 7 points): FNA if more than or equal to 1 cm in maximum dimension, follow up ultrasound every year for 5 years if 0.5 to 0.9 cm in maximum dimension. * TR3, TR4 or TR5 nodules that are below the size threshold for follow up receive no followup.
== END 2023-06-24 09:10 | disposition home or self-care (01) ==
LOC: HO.US 09:09
PROVIDERS: PCP Internal Medicine; Visit Provider Internal Medicine Endocrinology, Diabetes & Metabolism
DX: E04.2 Nontoxic multinodular goiter (principal)
CPT/HCPCS: 76536

== ENCOUNTER → 2023-10-11 10:10 | Outpatient (REF) | payer MEDICARE, SELFPAY ==
--- NOTE | 2023-10-11 10:44 | HM_ITS ---
* Total monitoring time 7 days. * Underlying rhythm is sinus with an average rate of 64/Min. * Frequent ventricular ectopy with a burden of 7.1%. Rare couplets. No significant runs. * Rare supraventricular ectopy. Some blocked P waves. * No significant pauses or AV blocks. * No patient markers or diary events. MTDD
== END ==
LOC: HO.CARD 10:10
PROVIDERS: Visit Provider Internal Medicine Cardiovascular Disease
DX: I49.9 Cardiac arrhythmia, unspecified (principal); R42 Dizziness and giddiness
CPT/HCPCS: 93242

== ENCOUNTER → 2023-10-11 10:44 | Outpatient (BNV) | payer MEDICARE, SELFPAY | PROVIDERS: Visit Provider Internal Medicine | DX: I49.3 Ventricular premature depolarization (principal) | CPT/HCPCS: 93244 ==

== ENCOUNTER 2023-12-19 08:00 | Outpatient (AMB) | payer MEDICARE, SELFPAY ==
[2023-12-19 08:13] VITALS: BP 128/78; PULSE 73; TEMP 36.7; O2SAT 97; BMI 24.9
--- NOTE | 2023-12-19 08:13 | MHC.OFFWIV ---
Intake Vital Signs 12/19/23 08:13 Height 5 ft 7 in Weight 159 lb BMI 24.9 BP 128/78 Blood Pressure Location Lt brachial Position Sitting Pulse 73 Pulse Source Pulse Oximeter Temp 98.1 F Temp Source Oral Pulse Oximetry (%) 97 Oxygen Delivery Method Room Air Intake Visit Reasons: EP Mucus, tired, fever Intake Note: pt c/o mucus, runny nose and eyes, fever, cough. Started 2 weeks Patient Tobacco Use Status: Former Tobacco user Allergies meperidine [From Demerol] Allergy (Unknown, Verified 12/19/23 08:16) unknown reaction-patient states was many years ago Do you need a note to return to daycare/school/sports/work: No HPI HPI Comments History of Present Illness Details Patient is an 88-year-old male with a past medical history of hypertension, hypothyroidism and myasthenia gravis complaining of 2 weeks of a cough that is productive with thin white mucus, head pressure and congestion, runny nose, runny eyes, fatigue. He denies any fevers, nausea, vomiting or diarrhea. He states he has been drinking 3-4 water bottles each day and has a good appetite. He tells me his daughter tested him for COVID yesterday and it was negative. He states he started taking Mucinex yesterday as well. [facility] Medical History COVID-19 vaccine administered GERD (gastroesophageal reflux disease) Insomnia Hyperlipidemia Orthostatic hypotension dysautonomic syndrome HTN (hypertension) Non-toxic multinodular goiter Hypothyroidism Surgical History Hx of cataract surgery History of colon surgery History of esophagogastroduodenoscopy (EGD) H/O colonoscopy Hx of tonsillectomy Hx of appendectomy Family History Father Parkinsons disease Mother Myocardial infarction CVD (cardiovascular disease) Cancer Social History Household Members: None Housing: Apartment Are you a primary palliative care coordinator to a significant other at home: No Do you presently have visiting nurse or other home services: No Alcohol intake: never Patient Tobacco Use Status: Former Tobacco user e-Cigarette/Vaping Use: Never Used [employer] service: Yes Current occupational status: retired Review of Systems Const All systems reviewed & are unremarkable except as noted in HPI and below Physical Exam Vital Signs: Last Vital Signs Temp 98.1 F 12/19/23 08:13 Pulse 73 12/19/23 08:13 BP 128/78 12/19/23 08:13 Pulse Ox 97 12/19/23 08:13 Oxygen Delivery Method Room Air 12/19/23 08:13 BMI result Body Mass Index 24.9 Const General: cooperative, healthy appearing, comfortable and no acute distress Orientation/consciousness: patient oriented x3 Limitations: no limitations HEENT Head: Yes normal to inspection Ears: hearing grossly normal bilaterally, external ears normal and TM's normal bilaterally General nose exam: Normal external nose present, Normal nares present and No nasal discharge present Face and sinus: Yes normal facial exam and Yes sinuses nontender Mouth: Normal oral and palatal mucosa present and moist mucous membranes Throat: Yes tonsils normal, Yes uvula midline and Yes posterior oropharynx abnormal (Erythema) Eyes General: appearance normal, both eyes and all related structures Neck Neck: Yes normal visual inspection Resp Effort & Inspection: normal respiratory effort, able to speak in complete sentences, no respiratory distress, not tachypneic, no tripod positioning and no use of accessory muscles Auscultation: clear to auscultation bilaterally Cardio Rate: regular rate Rhythm: regular rhythm Heart sounds: normal S1 and S2 Skin General skin exam: no rashes or lesions noted Neuro General: patient oriented x3 Extrem General: Yes normal to inspection and Yes no clubbing, cyanosis or edema Assessment & Plan Assessment & Plan (1) Sinusitis, acute: Code(s): J01.90 - Acute sinusitis, unspecified Qualifiers: Sinusitis location: frontal Recurrence: non-recurrent Qualified Code(s): J01.10 - Acute frontal sinusitis, unspecified Plan: Send prescription to pharmacy for antibiotic, likely sinusitis but as it has been 2 weeks, we will treat with antibiotics. Plan See above Orders: Orders SARS-CoV2/FLU/RSV Today J06.9 - Acute upper respiratory infection, unspecified Medications: New amoxicillin-pot clavulanate 875-125 mg 1 tab PO Q12H 10 tabs 0RF Coding Level of Care Code Est Pt Level 3 (55231) Diagnoses Acute non-recurrent frontal sinusitis J01.10 Sinusitis location: frontal Recurrence: non-recurrent
== END 2023-12-19 08:43 | disposition home or self-care (01) ==
PROVIDERS: PCP Internal Medicine; Visit Provider Physician Assistant
DX: J01.10 Acute frontal sinusitis, unspecified (principal)
CPT/HCPCS: 99213

== ENCOUNTER 2023-12-19 08:21 | Outpatient (REF) | payer MEDICARE, SELFPAY ==
[2023-12-19 10:52] LABS: Influenza A PCR NEGATIVE (Negative); Influenza B PCR NEGATIVE (Negative); Resp Syncy Virus RNA Qual PCR NEGATIVE (Negative); SARS COV2 PCR INHOUSE NEGATIVE (Negative)
== END 2023-12-19 08:22 | disposition home or self-care (01) ==
LOC: HO.LAB 08:21
PROVIDERS: Visit Provider Physician Assistant
DX: J06.9 Acute upper respiratory infection, unspecified (principal)
CPT/HCPCS: 0241U

== ENCOUNTER 2023-12-23 08:00 | Outpatient (AMB) | payer MEDICARE, SELFPAY ==
--- NOTE | 2023-12-23 08:01 | AM.OFFWIN_ITS ---
Intake Vital Signs 12/23/23 08:03 Height 5 ft 7 in Weight 158 lb BMI 24.7 BP 122/70 Blood Pressure Location Rt brachial Position Sitting Pulse 87 Pulse Source Pulse Oximeter Temp 98.1 F Temp Source Oral Pulse Oximetry (%) 97 Oxygen Delivery Method Room Air Intake Visit Reasons: EP Sinus infection not better, medication ?'s Intake Note: Pt c/o sinus infection. Med ?s Patient Tobacco Use Status: Former Tobacco user Allergies meperidine [From Demerol] Allergy (Unknown, Verified 12/23/23 08:02) unknown reaction-patient states was many years ago Do you need a note to return to daycare/school/sports/work: No HPI HPI Comments History of Present Illness Details Patient is an 88-year-old male who was seen at this clinic on December 18, diagnosed with sinusitis and prescribed Augmentin. He says the prescription is for every 12 hours for 5 days which should be 10 tablets however the pharmacy gave him 14 tablets so he is unsure how much she should take. He states he is still coughing but his throat feels better and overall he feels better but he still has some lingering symptoms. He states his cough is waking him up in the middle of the night still. He denies any fevers or shortness of breath. [facility] Medical History COVID-19 vaccine administered GERD (gastroesophageal reflux disease) Insomnia Hyperlipidemia Orthostatic hypotension dysautonomic syndrome HTN (hypertension) Non-toxic multinodular goiter Hypothyroidism Surgical History Hx of cataract surgery History of colon surgery History of esophagogastroduodenoscopy (EGD) H/O colonoscopy Hx of tonsillectomy Hx of appendectomy Family History Father Parkinsons disease Mother Myocardial infarction CVD (cardiovascular disease) Cancer Social History Household Members: None Housing: Apartment Are you a primary career technical counselor to a significant other at home: No Do you presently have visiting nurse or other home services: No Alcohol intake: never Patient Tobacco Use Status: Former Tobacco user e-Cigarette/Vaping Use: Never Used service: Yes Current occupational status: retired Review of Systems Const All systems reviewed & are unremarkable except as noted in HPI and below Physical Exam Vital Signs: Last Vital Signs Temp 98.1 F 12/23/23 08:03 Pulse 87 12/23/23 08:03 BP 122/70 12/23/23 08:03 Pulse Ox 97 12/23/23 08:03 Oxygen Delivery Method Room Air 12/23/23 08:03 BMI result Body Mass Index 24.7 Const General: cooperative, healthy appearing, comfortable and no acute distress Orientation/consciousness: patient oriented x3 Limitations: no limitations HEENT Head: Yes normal to inspection Ears: hearing grossly normal bilaterally, external ears normal and TM's normal bilaterally General nose exam: Normal external nose present, Normal nares present and No nasal discharge present Face and sinus: Yes normal facial exam and Yes sinuses nontender Mouth: Normal oral and palatal mucosa present and moist mucous membranes Throat: Yes tonsils normal, Yes uvula midline and Yes posterior oropharynx abnormal (Erythema) Eyes General: appearance normal, both eyes and all related structures Neck Neck: Yes normal visual inspection Resp Effort & Inspection: normal respiratory effort, able to speak in complete se ntences, Actively coughing, no respiratory distress, not tachypneic, no tripod positioning and no use of accessory muscles Auscultation: rhonchi left lower Cardio Rate: regular rate Rhythm: regular rhythm Heart sounds: normal S1 and S2 Skin General skin exam: no rashes or lesions noted Neuro General: patient oriented x3 Extrem General: Yes normal to inspection and Yes no clubbing, cyanosis or edema Assessment & Plan Assessment & Plan (1) Cough: Code(s): R05.9 - Cough, unspecified Qualifiers: Cough type: acute Qualified Code(s): R05.1 - Acute cough Plan: Vital signs are stable, patient well-appearing, left lower lobe had some rhonchi so I am getting a chest x-ray. Recommended patient stop the antibiotics after 5 days, as it was prescribed. (2) Sinusitis, acute: Code(s): J01.90 - Acute sinusitis, unspecified Qualifiers: Sinusitis location: frontal Recurrence: non-recurrent Qualified Code(s): J01.10 - Acute frontal sinusitis, unspecified Plan: Recommended symptomatic treatment with [id number] medications. Plan See above Orders: Orders XR chest 2V Today R05.9 - Cough, unspecified Coding Level of Care Code New Pt Level 4 (83524) Diagnoses Acute cough R05.1 Cough type: acute Acute non-recurrent frontal sinusitis J01.10 Sinusitis location: frontal Recurrence: non-recurrent
[2023-12-23 08:03] VITALS: BP 122/70; PULSE 87; TEMP 36.7; O2SAT 97; BMI 24.7
== END 2023-12-23 08:22 | disposition home or self-care (01) ==
PROVIDERS: PCP Internal Medicine; Visit Provider Physician Assistant
DX: R05.1 Acute cough (principal); J01.10 Acute frontal sinusitis, unspecified

== ENCOUNTER → 2023-12-23 08:00 | Outpatient (BNVA) | payer MEDICARE, SELFPAY | PROVIDERS: PCP Internal Medicine; Visit Provider Internal Medicine ==

== ENCOUNTER 2023-12-23 08:20 | Outpatient (REF) | payer MEDICARE, SELFPAY ==
--- NOTE | ~2023-12-23 | XR_ITS ---
EXAMINATION: XR CHEST CLINICAL INFORMATION: Cough. COMPARISON: December 08, 2022 TECHNIQUE: 2 views of the chest were obtained. FINDINGS: The lungs are well expanded. No focal consolidation. No pleural effusion. Cardiac silhouette is within normal limits. XR/XR chest 2V IMPRESSION: No acute abnormality. Electronically signed by: Veto Carrasco MD 12/23/2023 09:34 AM EDT RP
== END 2023-12-23 08:21 | disposition home or self-care (01) ==
LOC: HO.HMGCX 08:20
PROVIDERS: PCP Internal Medicine; Visit Provider Physician Assistant
DX: R05.9 Cough, unspecified (principal)
CPT/HCPCS: 71046; 99202

== ENCOUNTER 2024-01-06 08:25 | Outpatient (AMB) | payer MEDICARE, SELFPAY ==
[2024-01-06 08:40] VITALS: BP 130/68; PULSE 58; BMI 25.1
--- NOTE | 2024-01-06 08:40 | A.OFFVIS_ITS ---
Vital Signs 01/06/24 08:40 Height 5 ft 7 in Weight 160 lb 0.889 oz BMI 25.1 BP 130/68 Blood Pressure Location Lt brachial Position Sitting Pulse 58 Pulse Source Monitor Intake Visit Reasons: 1 yr follow up Intake Note: 1 yr f/up Basketball Referee Required: No Accompanied by: Self / Same As Patient Allergies meperidine [From Demerol] Allergy (Unknown, Verified 12/23/23 08:02) unknown reaction-patient states was many years ago Medication List - Last Reconciled 01/06/24 by Greg Fernando MD amlodipine 5 mg PO BID 90 days ascorbic acid (vitamin C) 250 mg PO DAILY atorvastatin 40 mg PO BEDTIME benzocaine 20% 1 appl mucous membrane TID PRN captopril 18.75 mg (1.5 x 12.5 mg) PO TID 90 days cholecalciferol (vitamin D3) 25 mcg PO DAILY dyclonine 2 mg mucous membrane Q2H PRN fluticasone propionate 50 mcg/actuation 1 spray intranasal BID hydralazine 50 mg PO BEDTIME isosorbide dinitrate 20 mg PO BEDTIME levothyroxine 88 mcg PO DAILY@0600 loratadine (Claritin) 10 mg PO DAILY melatonin 10 mg PO BEDTIME PRN metformin 500 mg PO DAILY mv,Ca,udc-kmnd-N[place]-lycopene 8 mg iron- 200 mcg-600 mcg (Centrum Men) 1 tab PO DAILY omeprazole 20 mg PO DAILY@0630 prednisone 5 mg PO DAILY pyridostigmine bromide 120 mg PO TID trazodone 25 mg PO BEDTIME zinc 50 mg PO DAILY HPI Comments Details: Alon comes for follow-up for 1 year. He denies any new cardiac symptoms. He said he has been slowing down a lot due to his myasthenia gravis. He said he can not walk more than a mi and loses ability to walk due to muscle weakness. He denies any cardiac symptoms or worsening shortness of breath, chest pain, lightheadedness, syncope. Blood pressures been generally well controlled. Denies any heart failure symptoms. [facility] Medical History COVID-19 vaccine administered GERD (gastroesophageal reflux disease) Insomnia Hyperlipidemia Orthostatic hypotension dysautonomic syndrome HTN (hypertension) Non-toxic multinodular goiter Hypothyroidism Surgical History Hx of cataract surgery History of colon surgery History of esophagogastroduodenoscopy (EGD) H/O colonoscopy Hx of tonsillectomy Hx of appendectomy Family History Father Parkinsons disease Mother Myocardial infarction CVD (cardiovascular disease) Cancer Social History Household Members: None Housing: Apartment Are you a primary manager progressive care to a significant other at home: No Do you presently have visiting nurse or other home services: No Alcohol intake: never Patient Tobacco Use Status: Former Tobacco user e-Cigarette/Vaping Use: Never Used service: Yes Current occupational status: retired Review of Systems Const Denies chills, Denies fatigue, Denies fever(s), Denies frequent falls, Denies weakness, Denies weight gain and Denies weight loss ENT Denies dizziness Card Denies chest pain, Denies leg edema, Denies lightheadedness, Denies palpitations, Denies dyspnea and Denies dyspnea on exertion Resp Denies cough, Denies dyspnea and Denies dyspnea on exertion GI Denies hematochezia Musc Denies abnormal gait, Denies muscle weakness, Denies numbness, Denies radiating pain into limb and Denies tingling Neuro Denies abnormal gait, Denies dizziness, Denies frequent falls, Denies numbness, Denies tingling and Denies weakness Endo Denies fatigue and Denies palpitations Physical Exam Vital Signs: Last Vital Signs Pulse 58 01/06/24 08:40 BP 130/68 01/06/24 08:40 BMI result Body Mass Index 25.1 Const General: cooperative, comfortable, no acute distress, alert, awake and well groomed Nutritional Appearance: average body habitus Orientation/consciousness: patient oriented x3 Limitations: no limitations Neck Neck: Yes trachea midline, Yes supple and Yes no JVD Carotids: no bruits Resp Effort & Inspection: normal respiratory effort Auscultation: clear to auscultation bilaterally Cardio Jugular venous distension: no JVD Palpation: normal PMI Rate: regular rate Rhythm: regular rhythm Heart sounds: S1 normal heart sound present, S2 normal heart sound present and Murmur heart sound present systolic early, decrescendo and crescendo Skin General skin exam: no rashes or lesions noted Neuro General: patient oriented x3 and no focal motor deficits Extrem General: Yes no clubbing, cyanosis or edema Psych Appearance: grossly normal Office Procedures EKG Details: EKG shows sinus bradycardia with first-degree AV block [id number], Complete Assessment & Plan Assessment & Plan (1) Orthostatic hypotension dysautonomic syndrome: Code(s): I95.1 - Orthostatic hypotension Category: Medical Plan: Longstanding dysautonomia with significantly labile blood pressure which has been difficult control. Currently on with complex blood pressure controlling regimen which she is tolerating well. He has not had any new symptoms. We discussed about maintaining adequate hydration. Continue current medications. Advised to monitor blood pressure at home maintain a log. Orthostatic precautions were discussed. He understands them very well. Advised to maintain activity level as tolerated. (2) PVCs (premature ventricular contractions): Code(s): I49.3 - Ventricular premature depolarization Category: Medical Plan: Frequent PVCs without any obvious symptoms at this point time. Will continue to monitor clinically. Advised to call me with any new symptoms. Avoidance of stimulants was discussed. Follow up in the clinic in 1 year's time, sooner p.r.n.. Thank you for allowing me to partake in his care Coding Level of Care Code Est Pt Level 4 (42288) Diagnoses Orthostatic hypotension dysautonomic syndrome I95.1 PVCs (premature ventricular contractions) I49.3 CPT Codes EKG - CPT: 37160-[id number], Complete ([id number])
== END 2024-01-06 08:59 | disposition home or self-care (01) ==
PROVIDERS: Visit Provider Internal Medicine Cardiovascular Disease
DX: I95.1 Orthostatic hypotension (principal); I49.3 Ventricular premature depolarization
CPT/HCPCS: 93010; 99214

== ENCOUNTER → 2024-01-06 08:25 | Outpatient (BNVA) | payer MEDICARE, SELFPAY | PROVIDERS: Visit Provider Internal Medicine Cardiovascular Disease | DX: I95.1 Orthostatic hypotension (principal); I49.3 Ventricular premature depolarization | CPT/HCPCS: 93005; 99212 ==

== ENCOUNTER → 2024-05-15 09:01 | Outpatient (AMB) ==
--- OUTSIDE RECORDS SUMMARY | 2024-05-15 09:22 | XMS_ITS ---
Author Organization [facility] Address [address] [place] [id number] Care Team Providers Care Field Supervisor [employer] Name Role Phone Leonides Reynoso MD Primary Care Provider Thaddeus Castle Unavailable [phone] REASON FOR VISIT sooner appt Encounters Encounter Location Date Provider Diagnosis [address] [id number] 11/19/2023 Thaddeus Camarena Plan Of Treatment Next Appt Details Provider Name:Thaddeus Camarena , 05/26/2024 10:30:00 AM, [address] [place] [address], [id number], Progress Notes * Alon LEVY SrDOB:[birth year] (89 yo M)Acc No.[id number]:11/19/2023 Progress Note Patient:?Alon LEVY Sr Provider:?Thaddeus Camarena DPM :1935???Age:88 Y???Sex:Male Fidel e:11/19/2023 Address:[address] [place] [address] [id number] Pcp:Leonides Reynoso MD Subjective: * Chief Complaints: * ???1. Sooner appt. * Medical History:? Objective: * Vitals:? Assessment: Plan: * Treatment: * Images: * The named appointment provid er may or may not be the originator of this progress note, and it is not deemed complete until electronically signed by the appointment provider. Sign off status: Pending * Provider:?Thaddeus Camarena DPM Date:?2023 Generated for Tiffany griggs/Ramesh/Sherry on:?05/15/2024 09:22 AM EST
--- OUTSIDE RECORDS SUMMARY | 2024-05-15 09:22 | XMS_ITS | Encounter Summary ---
Author Name [facility] [place] [facility] [place] Address [address] [place] [address] Care Team Providers Care Spacer Type Bar And Segment Name Role Phone NICKIE REYNA Primary Care Provider Unavail able Insurance Providers: All historical and current Section Date Range: From patient's date of to the date document was created. This section includes the names of all active insurance providers for the patient. Insurance Provider Type of Coverage Plan Name Start of Policy Coverage End of Policy Coverage Group Number Member ID Insurance Provider's Telephone Number Policy Newsome's Name Patient's Relationship to Policy Newsome [place] SU[place]LE[place] JUDITH MEDEX BRONZ E Apr 08, 2016 [id number] [phone] CAM,PATRICIA MARIA ELENA [place] JUDITH MEDEX BRONZ E Apr 08, 2016 [id number] CAM,PATRICIA MARIA ELENA PATIENT BCBS OF [facility] MEDICARE SUPPLEMEN JUDITH MEDEX BRONZ E Jul 07, 2017 [id number] CAMPATRICIA MARIA ELENA PATIENT MEDICARE (WNR) MEDICARE (M) PART B May 26, 2015 PART B [id number] CAMPATRICIA SHERIFF PATIENT MEDICARE (WNR) MEDICARE (M) PART A Feb 06, 2002 PART A [id number] PATRICIA LEVY PATIENT MEDICARE (WNR) MEDICARE (M) PART B Feb 06, 2002 PART B [id number] PATRICIA LEVY PATIENT MEDICARE (WNR) MEDICARE (M) PART A Feb 06, 2002 PART A [id number] PATRICIA LEVY PATIENT Selected Encounter This section includes the information on record at [place] for the Encounter. Date/Time Encounter Type Encounter Description Reason Pro vider Source Oct 21, 2023 10:37 AM Outpatient Encounter ADMIN PAT ACTIVTIES (MASNONCT) IHE Encounter Template Text not used by [place] Plan of Treatment: Future Appointments (+ 6 months) and Future Tests (+/- 45 days) The Plan of Treatment section includes future care activities for the patient [facility] [place] [facility] This section includes future appointments and future orders which are active, pending or scheduled. Future Appointments This section includes appointments that were scheduled to occur 6 months from the date of the Encounter, up to a maximum of 20 appointments. The data comes from all [place] treatment facilities. Appointment Date/Time Appointment Type Appointme nt Facility Name Jan 01, 2024 09:30 AM [facility] Jan 27, 2024 07:00 AM AMBULATORY - MEDICINE [facility] Feb 29, 2024 07:00 AM [facility] Apr 13, 2024 09:00 AM AMBULAT[facility] - [facility] Apr 13, 2024 10:00 AM AMBULATORY - NONE [facility] Social History: Smoking Status (Most current) and Tobacco Use (All prior to encounter date) This section includes the most current, and the historical, smoking and tobacco- related health factors from the [place] facility where the Encounter took place. Current Smoking Status This section includes the most current smoking, or tobacco-related health factor, from the [place] facility where the Encounter took place. Date/Time Current Smoking Status Comment Harjinder ity Dec 04, 2022 10:30 AM VA-TOBACCO QUIT 15 YRS OR MORE [place] [facility] [place] [facility] Tobacco Use History This section includes a history of the smoking, or tobacco-related health factors, that were collected on or before the date of the Encounter. The data comes from the [place] facility where the Encounter took place. Date/Time Smoking Status/Tobacco Use Comment Michelle [facility]ility Dec 04, 2022 10:30 AM VA-TOBACCO QUIT 15 YRS OR MORE [place] [facility] [place] [facility] Dec 12, 2021 02:00 PM VA-TOBACCO FORMER USER [facility] [place] [facility] Dec 12, 2021 02:00 PM VA-TOBACCO QUIT 15 YRS OR MORE [facility] [place] [facility] Dec 20, 2020 10:15 AM VA-TOBACCO FORMER USER [facility] [place] [facility] Dec 20, 2020 10:15 AM VA-TOBACCO QUIT 15 YRS OR MORE [place] [facility] [place] [facility] Dec 29, 2019 01:00 PM VA-TOBACCO FORMER USER [facility] [place] [facility] Dec 29, 2019 01:00 PM VA-TOBACCO QUIT 15 YRS OR MORE [place] [facility] [place] [facility] Sep 23, 2018 02:51 PM VA-TOBACCO FORMER USER [facility] [place] [facility] Sep 23, 2018 02:51 PM VA-TOBACCO QUIT 15 YRS OR MORE [place] [facility] [place] [facility] Dec 02, 2017 12:45 PM QUIT TOBACCO USE > 7 YEARS AGO [facility] [place] [facility] Jul 27, 2005 10:05 AM QUIT TOBACCO USE > 7 YEARS AGO [facility] [place] [facility] Jul 12, 2004 09:49 AM HISTORY OF SMOKING [facility] [place] [facility] Jul 12, 2004 09:49 AM QUIT TOBACCO USE 1 -7 YEARS AGO [facility] [place] [facility] August 11, 2003 09:45 AM HISTORY OF SMOKING [facility] [place] [facility] August 11, 2003 09:45 AM QUIT TOBACCO USE 1 -7 YEARS AGO [place] [facility] [place] [facility] Advance Directives: All historical and current Section Date Range: From patient's date of to the date document was created. This section includes ALL of a patient's completed or amended [place] Advance and Rescinded Directives. The entries below indicate that a directive exists for the patient, but an actual copy is not included with this document. The data comes from all [place] facilities. Date Advance Directives Provider Source Nov 05, 2008 ADVANCE DIRECTIVE SUSAN HEBERT [facility] Encounter Notes: All associated encounter notes This section contains the clinical notes associated to the Encounter. Date/Time Encounter Note(s) Provider Source Oct 21, 2023 10:37 AM PHARMACY NOTE: LOCAL TITLE: PHARMACY CUSTOMER CARE MEDICATION RENEWAL STANDARD TITLE: PHARMACY NOTE DATE OF NOTE: OCT 21, 2023@10:37 ENTRY DATE: OCT 21, 2023@10:37:31 AUTHOR: ANDREY FISHMAN EXP COSIGNER: URGENCY: STATUS: COMPLETED Date: Oct Division: [facility] referred by Pharmacy Call Center for medication renewal: Non-controlled/maintenan ce medication Medications requested: Rx #: [id number] ISOSORBIDE DINITRATE 20MG ORAL TAB Rx #: [id number] OMEPRAZOLE 20MG EC CAP Defer to primary care provider To be mailed . Please review and renew if appropriate. *This note was generated by [facility] Pharmacy Customer Care. If you have any questions or need assistance, do not contact this author. Please refer all questions to your local, on-site pharmacy departments. /sandy/ ANDREY FISHMAN [facility] [employer] [place]/Pharmacy Customer Care Signed: 10/21/2023 10:37 Receipt Acknowledged By: 10/22/2023 13:38 /sandy/ BHAVANA BAIRD, RN REGISTERED NURSE 10/22/2023 13:36 /sandy/ Nickie Reyna PA-C STAFF PHYSICIAN HEADLIGHT ADJUSTER ANDREY FISHMAN [facility]
--- OUTSIDE RECORDS SUMMARY | 2024-05-15 09:22 | XMS_ITS | Encounter Summary ---
Author Name [facility] [place] [facility] [place] [facility] [place] Address [address] [place] [address] Care Team Providers Care Crab Catcher Name Role Phone NICKIE REYNA Primary Care [...] Name Patient's Relationship to Policy Newsome [place] SUPPLEMEN JUDITH MEDEX BRONZ E Apr 08, 2016 [id number] [phone] CAM,PATRICIA MARIA ELENA PATIENT [place] SUPP[place] JUDITH MEDEX BRONZ E Apr 08, 2016 [id number] CAMPATRICIA MARIA ELENA PATIENT BCBS [facility] MEDICARE SUPPLEMEN JUDITH MEDEX BRONZ E Jul 07, 2017 [id number] CAM,PATRICIA MARIA ELENA PATIENT MEDICARE (WNR) MEDICARE (M) PART B May 26, 2015 PART B [id number] CAMPATRICIA SHERIFF PATIENT MEDICARE (WNR) MEDICARE (M) PART A Feb 06, 2002 PART A [id number] [phone] PATRICIA LEVY PATIENT MEDICARE (WNR) MEDICARE (M) PART B Feb 06, 2002 PART B [id number] PATRICIA LEVY PATIENT MEDICARE (WNR) MEDICARE (M) PART A Feb 06, 2002 PART A [id number] PATRICIA LEVY PATIENT Selected Encounter This section includes the information on record at [place] for the Encounter. Date/Time Encounter Type Encounter Description Reason Provider Source Jul 16, 2023 10:00 AM HEARING AID FITTING/CHECKIN G AUDIOLOGY ICD-10-CM H90.3 Sensorineural hearing loss, bilateral SANTOSAPOLONIADiana Veena GILL Luigi Encounter Template Text not used by [place] Assessments - Encounter Diagnoses This section includes the primary and secondary diagnoses documented for the Encounter. Date/Time Primary/Secondary Diagnosis Diagnosis Name Provider Source Jul 16, 2023 10:48 AM PRIMARY Sensorineural hearing loss, bilateral SANTOSAPOLONIADiana Veena [place] [facility] [place] [facility] Jul 16, 2023 10:48 AM SECONDARY Encounter for fitting and adjustment of hearing aid SANTOSKATEDMITRIY Veena [place] [facility] [place] [facility] Plan of Treatment: Future Appointments (+ 6 months) and Future Tests (+/- 45 days) The Plan of Treatment section includes future care activities for the patient from all [place] treatmentfacilities. This section includes future appointments and future orders which are active, pending or scheduled. Future Appointments This section includes appointments that were scheduled to occur 6 months from the date of the Encounter, up to a maximum of 20 appointments. The data comes from all [place] treatment facilities. Appointment Date/Time Appointment Type Appointme nt Facility Name August 27, 2023 02:00 PM AMBULATORY - [facility] MEDICIN E [facility] [place] [facility] Sep 16, 2023 09:00 AM AMBULATORY - MEDICINE [place] [facility] [place] [facility] Jan 01, 2024 09:30 AM AMBULATORY - NONE [place] [facility] [place] [facility] Social History: Smoking Status (Most current) and Tobacco Use (All prior to encounter date) This section includes the most current, and the historical, smoking and tobacco- related health factors from the [place] facility where the Encounter took place. Current Smoking Status This section includes the most current smoking, or tobacco-related health factor, from the [place] facility where the Encounter took place. Date/Time Current Smoking Status Comment Facil ity Dec 04, 2022 10:30 AM VA-TOBACCO QUIT 15 YRS OR MORE [place] [facility] Tobacco Use History This section includes a history of the smoking, or tobacco-related health factors, that were collected on or before the date of the Encounter. The data comes from the [place] facility where the Encounter took place. Date/Time Smoking Status/Tobacco Use Comment F acility Dec 04, 2022 10:30 AM VA-TOBACCO QUIT 15 YRS OR MORE [place] [facility] [place] [facility] Dec 12, 2021 02:00 PM VA-TOBACCO FORMER USER [facility] [place] [facility] Dec 12, 2021 02:00 PM VA-TOBACCO QUIT 15 YRS OR MORE [facility] [place] [facility] Dec 20, 2020 10:15 AM VA-TOBACCO FORMER USER [facility] [place] [facility] Dec 20, 2020 10:15 AM VA-TOBACCO QUIT 15 YRS OR MORE [place] [facility] [facility] Dec 29, 2019 01:00 PM VA-TOBACCO FORMER USER [facility] [place] [facility] Dec 29, 2019 01:00 PM VA-TOBACCO QUIT 15 YRS OR MORE [facility] [place] [facility] Sep 23, 2018 02:51 PM VA-TOBACCO FORMER USER [facility] [place] [facility] Sep 23, 2018 02:51 PM VA-TOBACCO QUIT 15 YRS OR MORE [facility] [place] [facility] Dec 02, 2017 12:45 PM QUIT TOBACCO USE > 7 YEARS AGO [facility] [place] [facility] Jul 27, 2005 10:05 AM QUIT TOBACCO USE > 7 YEARS AGO [facility] [place] [facility] Jul 12, 2004 09:49 AM HISTORY OF SMOKING [facility] [place] [facility] Jul 12, 2004 09:49 AM QUIT TOBACCO USE 1 -7 YEARS AGO [facility] August 11, 2003 09:45 AM HISTORY OF SMOKING [facility] August 11, 2003 09:45 AM QUIT TOBACCO USE 1 -7 YEARS AGO [facility] Advance Directives: All historical and current Section Date Range: From patient's date of to the date document was created. This section includes ALL of a patient's completed or amended [place] Advance and Rescinded Directives. The entries below indicate that a directive exists for the patient, but an actual copy is not included with this document. The data comes from all [place] facilities. Date Advance Directives Provider Source Nov 05, 2008 ADVANCE DIRECTIVE SUSAN HEBERT [facility] Encounter Notes: All associated encounter notes This section contains the clinical notes associated to the Encounter. Date/Time Encounter Note(s) Provider Source Jul 16, 2023 07:18 AM AUDIOLOGY E & M NOTE: LOCAL TITLE: AUDIOLOGY CLINIC STANDARD TITLE: AUDIOLOGY E & M NOTE DATE OF NOTE: JUL 16, 2023@07:18 ENTRY DATE: JUL 16, 2023@07:18:15 AUTHOR: KYLE SANTOS COSIGNER: URGENCY: STATUS: COMPLETED AUDIOLOGY CLINIC Has ADDENDA Dx CODE: H90.3-Sensorineural Hearing Loss, Bilateral APPOINTMENT TYPE: Hearing Re-Evaluation and Hearing Aid Selection BACKGROUND/HISTORY: was seen 07/16/23 for a hearing re-evaluation and hearing aid selection appointment, unaccompanied. He was issued Chuck Kennyharris [place] AI BTEs on 01/06/21. He is eligible for new hearing aids through the [place] due to the age of the current devices. His last hearing evaluation was on 05/08/22 and he believes his hearing has declined since then. He reports difficulty hearing over the telephone or in cars. He denies concerns of tinnitus or vertigo. ASSESMENT: Results of today's testing are as follows: Otoscopy was WNL bilaterally. Normal tympanograms obtained bilaterally. 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 SRT WORD RECOGNITION (Recorded [place] CNC 1/2 Word List) Right 45dBHL 52% @ 90dBHL/40dBm Left 45dBHL 44% @ 95dBHL/40dBm No significant changes were found when compared to the 05/08/22 audiological evaluation. HEARING AID CHECK: Both hearing aids were cleaned and checked, and found to be in good working order. Microphone covers, tone hooks, and tubes were replaced. Hearing aids were connected to [employer] and a firmware update was completed and hearing aids were recalculated to today's test results. HEARING AID SELECTION: Different hearing aid options were discussed. He is interested in technology similar to his previous hearing aids. He does not have a pacemaker, but prefers batteries. [employer] Evolv AI BTEs were selected and ordered in [facility]. Impressions were taken without incident and with 's verbal consent for canal lock earmolds. EDUCATION/COUNSELING: The patient was counseled re: today's hearing test results. He demonstrated satisfactory understanding of the education and plan, and was given the opportunity to ask questions throughout today's visit. PLAN: 1. RTC on 08/13/23 at 10AM for 60 minute hearing aid fitting appointment. 2. Hearing re-evaluation in 3-5 years, or sooner if change in hearing occurs. * Patient Education Education provided on the following topics: Hearing test results Education provided to: P Response to Education: VU [place] Patient P Family F Significant Other SO Verbalizes Understanding VU Returns Demonstration RD Performs Independently PI Lacks Comprehension LC Refused Education RE Not Applicable NA * /sandy/ KYLE SANTOS STAFF SWEDGER Signed: 07/16/2023 10:48 Receipt Acknowledged By: 07/16/2023 13:41 /sandy/ JANIYA GONGORA LEAD TIMBER TREATING TANK OPERATOR 07/30/2023 ADDENDUM STATUS: COMPLETED Hearing aids received and certified, upcoming appointment scheduled on 08/19/2023. /sandy/ ORA NORRIS Audiology Health Sales Representative Supervisor Signed: 07/30/2023 10:26 KYLE SANTOS [facility]
--- OUTSIDE RECORDS SUMMARY | 2024-05-15 09:22 | XMS_ITS ---
Author Organization [facility] Address [address] [place] [address] Care Team Providers Care Manager Manufacturing Name Role Phone Leonides Reynoso MD Primary Care Provider Thaddeus Castle Unavailable [phone] Allergies Allergen (clinical drug ingredient) Drug/Non Drug Allergy documented on EMR Reaction Allergy Type Onset Date Status meperidine Demerol Unknown Drug Allergy Active REASON FOR VISIT At Risk Footcare, Painful Nail(s) aggrevated by shoes and causing difficulty standing/walking Medications Medication SIG (Take, Route, Frequency, Duration) Notes Start Date End Date Status Lotrisone Not-Taking Vitamin C Active Extra Depth Orthopedic Shoes, (1) Pair With (3) Pair Custom Heat Molded Multidensity Innersoles Dx: 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), 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,M20.42 ), Preulcerative Skin Lesion(s)(L85.1) Wear Daily for 365 days 11/08/2023 Active Zinc Active Aspirin 81 MG 1 tablet Orally Once a day for 30 day(s) Not-Taking Omeprazole 20 MG 1 capsule 30 minutes before morning meal Orally Once a day for 30 day(s) Active Melatonin 3 MG 1 tablet at bedtime as needed Orally Once a day for 30 day(s) Active Synthroid 75 MCG 1 tablet in the morn ing on an empty stomach Orally Once a day for 30 day(s) Active Sertraline HCl 25 MG 1 tablet Orally Onc e a day for 30 day(s) Not-Taking Vitamin D 25 MCG (1000 UT) 1 tablet Orally Once a day for 30 day(s) Active Isosorbide Dinitrate 20 MG 1 tablet Orally Twice a day for 30 day(s) Active hydrALAZINE HCl 50 MG 1 tablet with food Orally Three times a day for 30 day(s) Active Fluticasone Propionate (Inhal) 50 MCG/BLIST 1 puff Inhalation Twice a day Not-Taking Crestor 20 MG 1 tablet Orally Once a day for 30 day(s) Active Ciclopirox Olamine 0.77 % 1 application to affected area Externally to feet Twice a day for 30 days Not-Taki ng amLODIPine Besylate 2.5 MG 1 tablet Orally Once a day for 30 day(s) Active Claritin 10 MG 1 tablet Orally Once a day for 30 day(s) Active Captopril 12.5 MG 1 tablet 1 hour befo re or 2 hours after meals Orally Twice a day for 30 day(s) Active Centrum - as directed Orally A ctive Ativan 1 MG 1 tablet at bedtime as needed Orally Once a day PRN Not-Taking predniSONE Active pyRIDostigmine [place] 60 MG as directed Orally 3 times a day Active metFORMIN HCl Active Vyvgart 400 MG/20ML as directed Intravenous Active Social History Tobacco Use: Social History Observation Description Date Details (start date - stop date) Former Smoker NA - NA Tobacco Use/Smoking Question Answer Notes Are you a: former smoker Additional Findings: Tobacco User Heavy cigarett e smoker (20-39 cigs/day) Additional Findings: Tobacco Non-User Current no n-smoker Alcohol Screen Question Answer Notes Did you have a drink containing alcohol in the p ast year? No Points 0 Interpretation Negative Tobacco use other than smoking: Question Answer Notes Are you an other tobacco user? No Vital Signs Height 5 ft 7 in in 02/25/2024 Weight 160 lbs 02/25/2024 BMI 25.06 kg/m2 02/25/2024 Procedures Procedure Date Ordered Date Performed Result Body Sit e 07059-XQUBRRM NAIL, 6 OR MORE 02/25/2024 N/A 55449-GDVX SKIN LESIONS, 2 TO 4 02/25/2024 N/A Encounters Encounter Location Date Provider Diagnosis [facility] [address] [place] [address] 02/25/2024 Thaddeus Camarena Type 2 diabetes mellitus with diabetic peripheral angiopathy without gangrene E11.51 ; Tinea unguium B35.1 ; Pain in right toe(s) M79.674 and Pain in left toe(s) M79.675 Assessments Encounter Date Diagnosis (ICD Code) Assessment Notes Treatment Notes Treatment Clinical Notes Section Notes 02/25/2024 Type 2 diabetes mellitus with diabetic peripheral angiopathy without gangrene (ICD-10 - E11.51) 02/25/2024 Tinea unguium (ICD-10 - B35.1) 02/25/2024 Pain in right toe(s) (ICD-10 - M79.674) 02/25/2024 Pain in left toe(s) (ICD-10 - M79.675) 02/25/2024 Other Plan Of Treatment Pending Test Test Name Order Date 26179-CNSTGYC NAIL, 6 OR MORE 02/25/2024 96811-OMXC SKIN LESIONS, 2 TO 4 02/25/20 24 Next Appt Details Follow Up: prn, Reason: Provider Name:Thaddeus Camarena , 05/26/2024 10:30:00 AM, [address] [place] [address], [id number], Procedure Notes * Category Sub-Category Detail Notes Debride Nail 6-10 Nail debridement Performance o f this nail treatment by a nonprofessional would put this patients foot and overall health at risk. Therefore, debridement to affected nail(s), as described in exam, was performed extensively to reduce/remove overall nail length, girth, thickness, subungual debris, and necrotic tissue, by manual and/or electrical means through the use of a nail nipper and/or dremel-type bone grinder, to a more viable healthy nail plate or bed tissue 6-10. Silver nitrate used for any petechial bleeding as necessary. Definitive antifungal treatment options have been reviewed and discussed with the patient. The patient chooses, no pharmaceutical tx - 66009 Keratoma Treatment Parring or Cutting o f Benign Hyperkeratotic Lesion(s) (-56) 2-4 Lesions - The Benign hyperkeratotic lesions, as described in exam, were pared, and/or cut utilizing a sterile 15 blade, tissue nippers, and/or dremel - 46437, Q8 Progress Notes * Alon NEGRO SrDOB:[birth year] (89 yo M)Acc No.[id number]:02/25/2024 Progress Note Patient:Alon YUN Sr Provider:?Thaddeus Camarena DPM :1935???Age:89 Y???Sex:Male Fidel e:02/25/2024 Address:[address] [place] [address] [id number] Pcp:Leonides Reynoso MD Subjective: * Chief Complaints: * ???At Risk FootcarePainful N ail(s) aggrevated by shoes and causing difficulty standing/walking * HPI: ???At Risk footcare:?Pt States Last PCP Visit:?Date?08/28/2023 * ROS:?General/Constitutional:?Nausea?denies.?Vomiting?denies.?Hunger Thirst?denies.?Loss appetite?denies.?Chills?denies.?Fatigue?denies.?Fever?denies.?Night Sweats?denies.?Unexplained weight loss?denies.?Unexplained weight gain?denies.?HEENTM:?Dentures?denies.?Dizziness?denies.?Glasses/contacts?denies.?Retinopathy?de nies.?Blurred/double vision?denies.?TMJ?denies.?Discharge/drainage?denies.?Implants?denies.?Sore throat?denies.?Dental implants?denies.?Hard of hearing ?denies.?Difficulty chewing/swallowing/speaking?denies.?Nose bleeds?denies.?Sore mouth?denies.?Respiratory:?On Oxygen?denies.?Pneumonia/pleurisy?denies.?Bronchitis?denies.?Emphysema?denies.?C oughing?denies.?Cough blood?denies.?Shortness of breath?denies.?Wheezing?denies.?Cardiovascular:?Pacemaker?denies.?MVP?denies.?WPW?denies.?CHF?denies.?Heart attack?denies.?Septal defect?denies.?Rapid beat?denies.?Chest pain ?denies.?Atrial Fib.?denies.?Murmur/Palpitations?denies.?Gastrointestinal:?Hemorrhoids?denies.?Stomach/Abdominal pain?denies.?Dark blood stool?denies.?Irritable bowel ?denies.?Constipation?denies.?Diarrhea?denies.?Hematology:?Swelling?denies.?Clots?denies.?Varicose Veins?denies.?Bruising?denies.?Bleeding problem?denies.?Genitourinary:?Blood urine?denies.?Frequent/Painfu/urination/bladder control?denies.?Kidney stones?denies.?Infection (UTI)?denies.?Nephropathy?denies.?sex trans dis (STD)?denies.?Prostate?denies.?Musculoskeletal:?Hammertoes?denies.?Bunions?denies.?Back Pain?denies.?Muscle Cramps/ Resting?denies.?Muscle cramps / walking?denies.?Generalized aches and pains?denies.?Weakness?admits, that is generalized, that is moderate, bilateral lower extremities.?Integ.:?Johns?denies.?Scars?denies.?Corns/calluses?admits.?Ingrown nails?admits.?Painful nails?admits.?Open Sores?denies.?Rashes?denies.?Neurologic:?Difficulty sleeping?denies.?Brain disorder?denies.?Numbness?denies.?Balance trouble?denies.?Confusion?denies.?Fainting/blackouts?denies.?Tingling?denies.?Tr emors?denies.? * Medical History:? * Surgical History:?colonoscop y 10/26/19 * Hospitalization/Major Diagno stic Procedure:?plasma infusions [facility] myasthenia gravis in and our about 4mons 3 weeks 2021 * Family History:?Mother: dece ased, heart attack.?Father: .? * Social History:?Tobacco Use:?Tobacco Use/Smoking?Are you a:?former smoker ?Additional Findings: Tobacco User?Heavy cigarette smoker (20-39 cigs/day) ?Additional Findings: Tobacco Non-User?Current non-smoker ?Tobacco use other than smoking?Are you an other tobacco user??No ???Drugs/Alcohol:?Drugs?Have you used drugs other than those for medical reasons in the past 12 months??No ?Alcohol Screen?Did you have a drink containing alcohol in the past year??No ?Points?0 ?Interpretation?Negative ???Miscellaneous:?Caffeine: yes, frequency:, 1 cups per day coffee. ?Children: yes. ?Exercise: yes, walking Daily. ?Marital status: . ?Occupation: Retired-[employer]. * Medications:?TakingVyvgart 4 00 MG/20ML Solution as directed Intravenous metFORMIN HCl pyRIDostigmine [place] 60 MG Tablet as directed Orally 3 times a day predniSONE amLODIPine Besylate 2.5 MG Tablet 1 tablet Orally Once a day Centrum - Liquid as directed Orally Captopril 12.5 MG Tablet 1 tablet 1 hour before or 2 hours after meals Orally Twice a day Claritin 10 MG Tablet 1 tablet Orally Once a day Crestor 20 MG Tablet 1 tablet Orally Once a day hydrALAZINE HCl 50 MG Tablet 1 tablet with food Orally Three times a day Isosorbide Dinitrate 20 MG Tablet 1 tablet Orally Twice a day Melatonin 3 MG Tablet 1 tablet at bedtime as needed Orally Once a day Omeprazole 20 MG Capsule Delayed Release 1 capsule 30 minutes before morning meal Orally Once a day Vitamin D 25 MCG (1000 UT) Tablet 1 tablet Orally Once a day Synthroid 75 MCG Tablet 1 tablet in the morning on an empty stomach Orally Once a day Vitamin C Zinc Extra Depth Orthopedic Shoes, (1) Pair With (3) Pair Custom Heat Molded Multidensity Innersoles . Dx: 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), 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,M20.42), Preulcerative Skin Lesion(s)(L85.1) Wear Daily Taking Vyvgart 400 MG/20ML Solution as directed Intravenous Taking metFORMIN HCl Taking pyRIDostigmine [place] 60 MG Tablet as directed Orally 3 times a day Taking predniSONE Taking amLODIPine Besylate 2.5 MG Tablet 1 tablet Orally Once a day Taking Centrum - Liquid as directed Orally Taking Captopril 12.5 MG Tablet 1 tablet 1 hour before or 2 hours after meals Orally Twice a day Taking Claritin 10 MG Tablet 1 tablet Orally Once a day Taking Crestor 20 MG Tablet 1 tablet Orally Once a day Taking hydrALAZINE HCl 50 MG Tablet 1 tablet with food Orally Three times a day Taking Isosorbide Dinitrate 20 MG Tablet 1 tablet Orally Twice a day Taking Melatonin 3 MG Tablet 1 tablet at bedtime as needed Orally Once a day Taking Omeprazole 20 MG Capsule Delayed Release 1 capsule 30 minutes before morning meal Orally Once a day Taking Vitamin D 25 MCG (1000 UT) Tablet 1 tablet Orally Once a day Taking Synthroid 75 MCG Tablet 1 tablet in the morning on an empty stomach Orally Once a day Taking Vitamin C Taking Zinc Taking Extra Depth Orthopedic Shoes, (1) Pair With (3) Pair Custom Heat Molded Multidensity Innersoles . Dx: 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), 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,M20.42), Preulcerative Skin Lesion(s)(L85.1) Wear Daily Not-Taking/PRNAtivan 1 MG Tablet 1 tablet at bedtime as needed Orally Once a day , Notes to Pharmacist: PRNCiclopirox Olamine 0.77 % Cream 1 application to affected area Externally to feet Twice a day Fluticasone Propionate (Inhal) 50 MCG/BLIST Aerosol Powder Breath Activated 1 puff Inhalation Twice a day Sertraline HCl 25 MG Tablet 1 tablet Orally Once a day Aspirin 81 MG Tablet Chewable 1 tablet Orally Once a day Lotrisone Medication List reviewed and reconciled with the patientNot-Taking/PRN Ativan 1 MG Tablet 1 tablet at bedtime as needed Orally Once a day , Notes to Pharmacist: PRNNot-Taking/PRN Ciclopirox Olamine 0.77 % Cream 1 application to affected area Externally to feet Twice a day Not-Taking/PRN Fluticasone Propionate (Inhal) 50 MCG/BLIST Aerosol Powder Breath Activated 1 puff Inhalation Twice a day Not-Taking/PRN Sertraline HCl 25 MG Tablet 1 tablet Orally Once a day Not-Taking/PRN Aspirin 81 MG Tablet Chewable 1 tablet Orally Once a day Not-Taking/PRN Lotrisone Medication List reviewed and reconciled with the patient * Allergies:?Demerolyes[Allerg ies Verified] Objective: * Vitals:?Ht: 5 ft 7 in, Wt:16 0, BMI: 25.06, Shoe size:8.5, BS:115, Wt-k.57 kg. * Examination: ???Vascular: ?DP PULSES(B):?1/4, B/L.?PT PULSES(B):?0/4, B/L.?CAPILLARY FILL TIME:?delayed, all digits, B/L.?TROPHIC CONDITION-TEXTURE/ELASTICITY/TURGOR/HAIR GROWTH(B):? decreased,?with sparse to absent hair growth, B/L.?TEMPERTURE GRADIENT(C):? decreased, cool to cool, proximal to distal, B/L.?PIGMENTATION:?mottled, B/L.?EDEMA(C):?absent, B/L.?CLAUDICATION(C):?denies, B/L.?REST PAIN:?denies, B/L.?Nails: ?NAILS are:?Elongated, overgrown, dystrophic, lytic, greater than 3mm thick, discolored and friable with crumbly malodorous subungual debris, with pain on palpation, TA, T1, T4, T5, T6, T7, T9, remaining nails are elongated, overgrown, dystrophic.?Dermatologic: ?SKIN FINDINGS:?Skin exam reveals Keratotic lesion(s) located at, SUB MTH (s), 1, B/L .? Assessment: * Assessment: 1.?Type 2 diabetes mellitus with diabetic peripheral angiopathy without gangrene - E11.51 (Primary)???2.?Tinea unguium - B35.1???3.?Pain in right toe(s) - M79.674???4.?Pain in left toe(s) - M79.675??? Plan: * Treatment: 2.?Tinea unguium?Procedure: 90214-KAOBHVQ NAIL, 6 OR MORE * Procedures:?Debride Nail 6-10:?Nail debridement?Performance of this nail treatment by a nonprofessional would put this patients foot and overall health at risk. Therefore, debridement to affected nail(s), as described in exam, was performed extensively to reduce/remove overall nail length, girth, thickness, subungual debris, and necrotic tissue, by manual and/or electrical means through the use of a nail nipper and/or dremel-type bone grinder, to a more viable healthy nail plate or bed tissue 6-10. Silver nitrate used for any petechial bleeding as necessary. Definitive antifungal treatment options have been reviewed and discussed with the patient. The patient chooses, no pharmaceutical tx - 65171.?Keratoma Treatment:?Parring or Cutting of Benign Hyperkeratotic Lesion(s)?(-56) 2-4 Lesions - The Benign hyperkeratotic lesions, as described in exam, were pared, and/or cut utilizing a sterile 15 blade, tissue nippers, and/or dremel - 89430, Q8.? * Procedure Codes:?57350 DEBRI DE NAIL, 6 OR MORE, Modifiers: XS 88986 TRIM SKIN LESIONS, 2 TO 4, Modifiers: XS , Q8 * Follow Up:?prn * Images: * Sign off status: Completed true * Provider:?Thaddeus Camarena DPM Date:?2023 Generated for Tiffany griggs/Ramesh/Sherry on:?05/15/2024 09:22 AM EST History and Physical Notes * HPI (History of Present Illness) Category Sub-Category Detail Notes Category Not es At Risk footcare Pt States Last PCP Visit: Date: 4 Examination Category Sub-Category Detail Notes Category Not es Dermatologic SKIN FINDINGS: Skin exam reveal s Keratotic lesion(s) located at, SUB MTH (s), 1, B/L Vascular DP PULSES (B): 1/4, B/L PT PULSES (B): 0/4, B/L CAPILLARY FILL TIME: delayed, all digits , B/L TEMPERTURE GRADIENT (C): decreased, cool to cool, proximal to distal, B/L TROPHIC CONDITION-TEXTURE/ELASTICITY/TURGOR/HAIR GROWTH (B): decreased, with sparse to absent hair gr owth, B/L EDEMA (C): absent, B/L CLAUDICATION (C): denies, B/L REST PAIN: denies, B/L PIGMENTATION: mottled, B/L Nails NAILS are: Elongated, overg rown, dystrophic, lytic, greater than 3mm thick, discolored and friable with crumbly malodorous subungual debris, with pain on palpation, TA, T1, T4, T5, T6, T7, T9, remaining nails are elongated, overgrown, dystrophic
--- OUTSIDE RECORDS SUMMARY | 2024-05-15 09:22 | XMS_ITS | Patient Health Record ---
Author Organization [facility] Address [address] [place] [address] Care Team Providers Care Sales Promotion Director Name Role Phone Leonides Reynoso MD Primary Care Provider Thaddeus Castle Unavailable [phone] Allergies Allergen (clinical drug ingredient) Drug/Non Drug Allergy documented on EMR Reaction Allergy Type Onset Date Status meperidine Demerol Unknown Drug Allergy Active Reason For Referral No Information Medications Medication SIG (Take, Route, Frequency, Duration) Notes Start Date End Date Status amLODIPine Besylate 2.5 MG 1 tablet Orally Once a day for 30 day(s) Active Omeprazole 20 MG 1 capsule 30 minutes before morning meal Orally Once a day for 30 day(s) Active predniSONE Active Melatonin 3 MG 1 tablet at bedtime as needed Orally Once a day for 30 day(s) Active pyRIDostigmine [place] 60 MG as directed Orally 3 times a day Active Isosorbide Dinitrate 20 MG 1 tablet Orally Twice a day for 30 day(s) Active hydrALAZINE HCl 50 MG 1 tablet with food Orally Three times a day for 30 day(s) Active Lotrisone Not-Taking Claritin 10 MG 1 tablet Orally Once a day for 30 day(s) Active Vitamin C Active Captopril 12.5 MG 1 tablet 1 hour befo re or 2 hours after meals Orally Twice a day for 30 day(s) Active Synthroid 75 MCG 1 tablet in the morn ing on an empty stomach Orally Once a day for 30 day(s) Active Centrum - as directed Orally A ctive Sertraline HCl 25 MG 1 tablet Orally Onc e a day for 30 day(s) Not-Taking Ativan 1 MG 1 tablet at bedtime as needed Orally Once a day PRN Not-Taking Vitamin D 25 MCG (1000 UT) 1 tablet Orally Once a day for 30 day(s) Active Aspirin 81 MG 1 tablet Orally Once a day for 30 day(s) Not-Taking metFORMIN HCl Active Vyvgart 400 MG/20ML as directed Intravenous Active Fluticasone Propionate (Inhal) 50 MCG/BLIST 1 puff Inhalation Twice a day Not-Taking Crestor 20 MG 1 tablet Orally Once a day for 30 day(s) Active Extra Depth Orthopedic Shoes, (1) Pair With (3) Pair Custom Heat Molded Multidensity Innersoles Dx: 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), 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,M20.42 ), Preulcerative Skin Lesion(s)(L85.1) Wear Daily for 365 days 11/08/2023 Active Ciclopirox Olamine 0.77 % 1 application to affected area Externally to feet Twice a day for 30 days Not-Taki ng Zinc Active Immunizations Vaccine Route Administration Date Status [facility] COVID-19 Moderna Vaccine Unknown 07/07/2021 Administered 1st 04/27/20 2nd 05/25/20 3rd 01/31/21 Social History Tobacco Use: Social History Observation [...] Are you an other tobacco user? No Problems Problem Type SNOMED Code ICD Code Onset Dates Problem Status W/U Status Risk Notes Problem Acquired hammer toe of right foot (3673147237074 105) Other hammer toe(s) (acquired), right foot (M20.41) Active confirmed Response to treatment,I mprovement Problem Type 2 diabetes mellitus with peripheral angiopathy (750706222) Type 2 diabetes mellitus with diabetic peripheral angiopathy without gangrene (E11.51) Active confirmed Problem Acquired hammer toe of left foot (4105422767365 103) Other hammer toe(s) (acquired), left foot (M20.42) Active confirmed Response to treatment,I mprovement Vital Signs Height 5 ft 7 in in 02/25/2024 Weight 160 lbs 02/25/2024 BMI 25.06 kg/m2 02/25/2024 Procedures Procedure Date Ordered Date Performed Result Body Sit e 52612-NVZCXSU NAIL, 6 OR MORE 11/08/2023 N/A 48514-FMZP SKIN LESIONS, 2 TO 4 11/08/2023 N/A 67230-FIHHSUH NAIL, 6 OR MORE 02/25/2024 N/A 36408-LMMT SKIN LESIONS, 2 TO 4 02/25/2024 N/A Encounters Encounter Location Date Provider Diagnosis [address] [address] 11/08/2023 Thaddeus Camarena Type 2 diabetes mellitus with diabetic peripheral angiopathy without gangrene E11.51 ; Tinea unguium B35.1 ; Pain in right toe(s) M79.674 ; Pain in left toe(s) M79.675 ; Other hammer toe(s) (acquired), right foot M20.41 and Other hammer toe(s) (acquired), left foot M20.[address] [address] 02/25/2024 Thaddeus Camarena Type 2 diabetes mellitus with diabetic peripheral angiopathy without gangrene E11.51 ; Tinea unguium B35.1 ; Pain in right toe(s) M79.674 and Pain in left toe(s) M79.[address] [address] 08/30/2023 Thaddeus Camarena Assessments Encounter Date Diagnosis (ICD Code) Assessment Notes Treatment Notes Treatment Clinical Notes Section Notes 11/08/2023 Type 2 diabetes mellitus with diabetic peripheral angiopathy without gangrene (ICD-10 - E11.51) 11/08/2023 Tinea unguium (ICD-10 - B35.1) 02/25/2024 Type 2 diabetes mellitus with diabetic peripheral angiopathy without gangrene (ICD-10 - E11.51) 02/25/2024 Tinea unguium (ICD-10 - B35.1) 11/08/2023 Pain in right toe(s) (ICD-10 - M79.674) 02/25/2024 Pain in right toe(s) (ICD-10 - M79.674) 11/08/2023 Pain in left toe(s) (ICD-10 - M79.675) 02/25/2024 Pain in left toe(s) (ICD-10 - M79.675) 11/08/2023 Other hammer toe(s) (acquired), right foot (ICD-10 - M20.41) Patient Educated with: DIABETIC FOOT CARE INSTRUCTIONS.p df (DIABETIC FOOT CARE INSTRUCTIONS.p df) 11/08/2023 Other hammer toe(s) (acquired), left foot (ICD-10 - M20.42) 02/25/2024 Other Plan Of Treatment Pending Test Test Name Order Date 65984-TNHZWNG NAIL, 6 OR MORE 07/12/2020 07387-YPGYWTS NAIL, 6 OR MORE 10/11/2020 35782-YYZQCCD NAIL, 6 OR MORE 01/10/2021 36750-WEBWZSH NAIL, 6 OR MORE 04/14/2021 65965-BPUGEPD NAIL, 6 OR MORE 08/15/2021 52518-OZXYTIJ NAIL, 6 OR MORE 11/17/2021 60146-RBMMUGC NAIL, 6 OR MORE 04/24/2022 07048-PLKDLNG NAIL, 6 OR MORE 04/19/2020 16483-CVPVRQY NAIL, 6 OR MORE 07/24/2022 37709-QCTSVCV NAIL, 6 OR MORE 10/23/2022 03757-GQFETTS NAIL, 6 OR MORE 01/29/2023 59399-ODYDMBU NAIL, 6 OR MORE 05/07/2023 43205-YVYLSNJ NAIL, 6 OR MORE 11/08/2023 07318-ANTBWUM NAIL, 6 OR MORE 02/25/2024 13824-Httq Destruction, 1-14 04/19/2020 94049-Nhvkpevk Plate 04/24/2022 71385-FEHN SKIN LESIONS, 2 TO 4 04/24/19 23 86869-SBJE SKIN LESIONS, 2 TO 4 07/25/19 70297-PQHD SKIN LESIONS, 2 TO 4 01/30/20 23 85974-WXAA SKIN LESIONS, 2 TO 4 10/24/19 23 39282-STRN SKIN LESIONS, 2 TO 4 02/25/20 24 97391-ZOAK SKIN LESIONS, 2 TO 4 11/08/19 24 26582-GNVE SKIN LESIONS, 2 TO 4 05/07/19 24 Next Appt Details Provider Name:Thaddeus Camarena , 05/26/2024 10:30:00 AM, [address] [place], [address], Insurance Providers Payer Name Payer Address Payer Phone Subscriber Number Group Number Insured Name Patient Relationship to Insured Coverage Start Date Coverage End Date Medicare [facility] [employer] [address] [place] [address] [id number] Alon Negro Self - patient is the insured [employer] [address] [place] [address] [phone] [id number] Alon Negro Self - patient is the insured Medical (General) History Medical History History ICD Code Broken bones High blood pressure Numbness Reflux ( GERD) chronic sinusitis thyroid Measles Mumps Chicken pox CAD myasthenia gravis Pre type II diabetes Surgical History Surgery Date(Month/Year) colonoscopy 10/26/19 Hospitalization History Reason Date(Month/Year) [facility]/ [facility] myasthenia gravis in and our about 4mons 3 weeks 2021 plasma infusions 2021
--- OUTSIDE RECORDS SUMMARY | 2024-05-15 09:22 | XMS_ITS ---
Author Name [facility] [place] Organization [facility] [place] Address [address] [place] [address] Care Team Providers Care Hotel Director Name Role Phone NICKIE REYNA Primary Care [...] Name Patient's Relationship to Policy [place] SUPPLEMEN JUDITH MEDEX BRONZ E Apr 08, 2016 [id number] CAMPATRICIA MARIA ELENA [place] SUPPLEMEN JUDITH MEDEX BRONZ E Apr 08, 2016 [id number] [phone] CAM,PATRICIA MARIA ELENA PATIENT BCBS [facility] MEDICARE SUPPLEMEN JUDITH MEDEX BRONZ E Jul 07, 2017 [id number] CAM,PATRICIA MARIA ELENA PATIENT MEDICARE (WNR) MEDICARE (M) PART B May 26, 2015 PART B [id number] CAMPATRICIA SHERIFF PATIENT MEDICARE (WNR) MEDICARE (M) PART A Feb 06, 2002 PART A [id number] CAMPATRICIA SHERIFF PATIENT MEDICARE (WNR) MEDICARE (M) PART B Feb 06, 2002 PART B [id number] PATRICIA LEVY PATIENT MEDICARE (WNR) MEDICARE (M) PART A Feb 06, 2002 PART A [id number] PATRICIA LEVY PATIENT Selected Encounter This section includes the information on record at DC for the Encounter. Date/Time Encounter Type Encounter Description Reason Provider Source Jun 04, 2023 10:30 AM OFFICE O/P EST MOD 30 MIN PRIMARY CARE/MEDICINE ICD-10-CM G70.01 Myasthenia gravis with (acute) exacerbation TERRY REYNA [facility] Encounter Template Text not used by DC Assessments - Encounter Diagnoses This section includes the primary and secondary diagnoses documented for the Encounter. Date/Time Primary/Secondary Diagnosis Diagnosis Name Provider Source Jun 15, 2023 06:41 AM PRIMARY Myasthenia gravis with (acute) exacerbation [facility] [place] [facility] Jun 15, 2023 06:41 AM SECONDARY Nontoxic multinodular goiter [facility] [place] [facility] Plan of Treatment: Future Appointments (+ 6 months) and Future Tests (+/- 45 days) The Plan of Treatment section includes future care activities for the patient from all [place] treatmentfacilities. This section includes future appointments and future orders which are active, pending or scheduled. Future Appointments This section includes appointments that were scheduled to occur 6 months from the date of the Encounter, up to a maximum of 20 appointments. The data comes from all [place] treatment facilities. Appointment Date/Time Appointment Type Appointme nt Facility Name Jul 01, 2023 09:00 AM AMBULATORY - NONE [facility] [place] [facility] Jul 16, 2023 10:00 AM AMBULATORY - [facility] August 27, 2023 02:00 PM [facility] Sep 16, 2023 09:00 AM [facility] Lab Results: +/- 30 days of the encounter This section includes the Chemistry and Hematology Lab Results on record with DC for the patient. Radiology Reports and Pathology Reports are provided separately, in subsequent sections. Lab Results This section contains the Chemistry/Hematology Results that were resulted 30 days before or 30 daysafter the date of the Encounter. Date/Time Source Result Type Result - Unit Interpretation Reference Range Comment Jun 04, 2023 07:51 AM [facility] TSH Specimen Type: SERUM No comment entered. Ordering Provider: BRYANNA REYNA F Report Released Date/Time: Dec 04, 2022 10:59 AM Reporting Lab: [address] [address] Performing Lab: [address] [address] TSH 6.32 u[IU]/mL H 0.35-5.00 Jun 04, 2023 07:51 AM [facility] LIVER FUNCTION Specimen Type: SERUM No comment entered. Ordering Provider: BRYANNA REYNA F Report Released Date/Time: Dec 04, 2022 10:59 AM Reporting Lab: [address] [address] Performing Lab: [address] [address] PROTEIN,TOTAL 6.3 g/dL 6.0-8.3 ALBUMIN 4.1 g/dL 3.5-5.0 ALKALINE PHOSPHATASE 58 U/L 40-150 AST 20 U/L 5-34 ALT 19 U/L BILIRUBIN, TOTAL 1.0 mg/dL 0.2-1.2 Jun 04, 2023 07:51 AM [facility] HEMOGLOBIN A1C PANEL Specimen Type: BLOOD Comment: Values obtained from A1C measurements can vary. For atypical A1C assays, a reported value of 7.0 could actually be between 6.72 and 7.28 if measured by a reference method. A reported value of 9.0 could actually be between 8.73 and 9.27. Ref: http://www.ngs p.org/CAPdata. asp Ordering Provider: BRYANNA REYNA F Report Released Date/Time: Dec 04, 2022 10:59 AM Reporting Lab: [address] [address] Performing Lab: [address] [address] HEMOGLOBIN A1C 5.3 4.0-5.6 Jun 04, 2023 07:51 AM [facility] BASIC METABOLIC PANEL (fasting) Specimen Type: SERUM No comment entered. Ordering Provider: BRYANNA REYNA F Report Released Date/Time: Dec 04, 2022 10:59 AM Reporting Lab: [address] [address] Performing Lab: [address] [address] UREA NITROGEN 15 mg/dL 7-25 GLUCOSE 98 mg/dL 65-100 SODIUM 140 mmol/L 135-145 POTASSIUM 3.8 mmol/L 3.5-5.0 CHLORIDE 105 mmol/L 100-110 CO2 25 meq/L 20-30 CREATININE, Serum 0.85 mg/dL 0.50-1.40 eGFR(CKD-EPI 2020) 84 mL/min >60 Jun 04, 2023 07:51 AM [facility] LIPID PANEL FASTING Specimen Type: SERUM No comment entered. Ordering Provider: BRYANNA REYNA F Report Released Date/Time: Dec 04, 2022 10:59 AM Reporting Lab: [address] [address] Performing Lab: [address] [address] CHOLESTEROL 145 mg/dL TRIGLYCERIDE 191 mg/dL H 0-150 LDL calculated 66 mg/dL 0-129 CHOL/HDL 3.5 HDL CHOLESTEROL 41 mg/dL 40-60 Jun 04, 2023 07:51 AM [facility] VITAMIN D (25-OH) Specimen Type: SERUM No comment entered. Ordering Provider: BRYANNA REYNA F Report Released Date/Time: Dec 04, 2022 10:59 AM Reporting Lab: [address] [address] Performing Lab: [address] [address] VITAMIN D (25-OH) 66 ng/mL H 20-50 Jun 04, 2023 07:51 AM [facility] MICROALBUMIN CREATININE RATIO PANEL Specimen Type: URINE No comment entered. Ordering Provider: BRYANNA REYNA F Report Released Date/Time: Dec 04, 2022 10:59 AM Reporting Lab: [address] [address] Performing Lab: [address] [address] MICROALBUMIN/C REATININE RATIO 27.2 mg/g 0-29.9 MICROALBUMIN,Q UANTITATIVE 2.7 mg/dL RR UNAVAIL CREATININE URINE 99.32 mg/dL Jun 04, 2023 07:51 AM [facility] CBC AND DIFF (AUTO) Specimen Type: BLOOD No comment entered. Ordering Provider: BRYANNA REYNA F Report Released Date/Time: Dec 04, 2022 10:59 AM Reporting Lab: [address] [address] Performing Lab: [address] [address] WBC 9.66 10*3/uL 4.50-11.00 RBC 4.55 10*6/uL 4.23-5.66 HGB 14.6 g/dL 12.8-17 HCT 43.9 39.2-50.4 MCV 96.5 fL 82-99 MCHC 33.3 g/dL 30.8-35.1 PLT 246 10*3/uL 140-360 RDW-CV 12.5 12.0-16.0 Jasper, Abs 0.91 10*3/uL 0.30-1.10 MCH 32.1 pg 26.2-32.6 Neut % 53.2 43.7-75.8 Lymph % 35.0 14.0-42.3 Jasper % 9.4 5.1-13.7 Eos % 1.3 0.4-6.8 Baso % 0.4 0.1-2.0 Neut, Abs 5.13 10*3/uL 2.20-7.60 Lymph, Abs 3.38 10*3/uL H 1.00-3.20 Eos, Abs 0.13 10*3/uL 0.03-0.44 Baso, Abs 0.04 10*3/uL 0.01-0.13 Immature Gran % 0.7 0.0-0.7 Immature Gran, Abs 0.07 10*3/uL H 0.00-0.06 Jun 04, 2023 07:51 AM [facility] [employer] [facility] URINALYSIS Specimen Type: URINE Comment: If Glucose = >500 and Ketones are positive, please alert the Physician. Ordering Provider: BRYANNA REYNA Report Released Date/Time: Dec 04, 2022 10:59 AM Reporting Lab: [address] [address] Performing Lab: [address] [address] UA COLOR Light-Yellow Yellow UA APPEARANCE Clear Clear UA GLUCOSE NEGATIVE mg/dL Negative UA KETONES NEGATIVE mg/dL Negative UA BLOOD NEGATIVE mg/dL Negative UA PROTEIN NEGATIVE mg/dL Negative UA NITRITE NEGATIVE mg/dL Negative UA BILIRUBIN NEGATIVE mg/dL Negative UA SPECIFIC GRAVITY 1.017 1.016-1.02 2 UA pH 6.5 5.0-9.0 UA UROBILINOGEN <2.0 mg/dL <2.0 UA LEUKOCYTE NEGATIVE Negative Vital Signs: All taken on the encounter date This section contains inpatient and outpatient Vital Signs collected on the date of the Encounter. Date/Time Temperature Pulse Blood Pressure Respiratory Rate SP02 Pain Height Weight Body Mass Index Source Jun 04, 2023 10:21 AM 98.4 64 120/74 16 96 0 163 26 [facility] Social History: Smoking Status (Most current) and Tobacco Use (All prior to encounter date) This section includes the most current, and the historical, smoking and tobacco- related health factors from the [place] facility where the Encounter took place. Current Smoking Status This section includes the most current smoking, or tobacco-related health factor, from the [place] facility where the Encounter took place. Date/Time Current Smoking Status Comment Facil ity Dec 04, 2022 10:30 AM VA-TOBACCO QUIT 15 YRS OR MORE [facility] Tobacco Use History This section includes a history of the smoking, or tobacco-related health factors, that were collected on or before the date of the Encounter. The data comes from the [place] facility where the Encounter took place. Date/Time Smoking Status/Tobacco Use Comment F acjose Dec 04, 2022 10:30 AM VA-TOBACCO QUIT 15 YRS OR MORE [facility] [place] [facility] Dec 12, 2021 02:00 PM VA-TOBACCO FORMER USER [facility] [place] [facility] Dec 12, 2021 02:00 PM VA-TOBACCO QUIT 15 YRS OR MORE [facility] [place] [facility] Dec 20, 2020 10:15 AM VA-TOBACCO FORMER USER [facility] [place] [facility] Dec 20, 2020 10:15 AM VA-TOBACCO QUIT 15 YRS OR MORE [facility] [place] [facility] Dec 29, 2019 01:00 PM VA-TOBACCO FORMER USER [facility] [place] [facility] Dec 29, 2019 01:00 PM VA-TOBACCO QUIT 15 YRS OR MORE [facility] [place] [facility] Sep 23, 2018 02:51 PM VA-TOBACCO FORMER USER [facility] [place] [facility] Sep 23, 2018 02:51 PM VA-TOBACCO QUIT 15 YRS OR MORE [facility] [place] [facility] Dec 02, 2017 12:45 PM QUIT TOBACCO USE > 7 YEARS AGO [facility] [place] [facility] Jul 27, 2005 10:05 AM QUIT TOBACCO USE > 7 YEARS AGO [facility] [place] [facility] Jul 12, 2004 09:49 AM HISTORY OF SMOKING [facility] [place] [facility] Jul 12, 2004 09:49 AM QUIT TOBACCO USE 1 -7 YEARS AGO [facility] August 11, 2003 09:45 AM HISTORY OF SMOKING [facility] August 11, 2003 09:45 AM QUIT TOBACCO USE 1 -7 YEARS AGO [facility] Advance Directives: All historical and current Section Date Range: From patient's date of to the date document was created. This section includes ALL of a patient's completed or amended [place] Advance and Rescinded Directives. The entries below indicate that a directive exists for the patient, but an actual copy is not included with this document. The data comes from all [place] facilities. Date Advance Directives Provider Source Nov 05, 2008 ADVANCE DIRECTIVE [facility] Encounter Notes: All associated encounter notes This section contains the clinical notes associated to the Encounter. Date/Time Encounter Note(s) Provider Source Jun 04, 2023 10:52 AM PHYSICIAN GILL BOX FIXER NOTE: LOCAL TITLE: BARRY NOTE STANDARD TITLE: PHYSICIAN GILL BOX FIXER NOTE DATE OF NOTE: JUN 04, 2023@10:52 ENTRY DATE: JUN 04, 2023@10:52:50 AUTHOR: NICKIE REYNA EXP COSIGNER: URGENCY: STATUS: COMPLETED CC/HPI/A/P: 88 year old MALE here in follow-up for; MYasthenia gravis, infusions in [facility] [place], has decreased as his prednisone dose is decreased> I leave him on metformin. CAD< no chest pain. MNG, pendins thyroid US next month. tsh noted, on levo. Recheck TSH next month and review dosing. Review of systems: Patient reports no changes from [facility], in meds or any admissions. Active problems - Computerized Problem List is the source for the followin. Non-toxic multinodular goiter 2. Myasthenia gravis with exacerbation 3. Generalized anxiety disorder diagnosis updated January 22, 2017 4. Depressive disorder Diagnose updated Jan 22 2017. 5. Hypertension * 6. Hyperlipidemia * 7. Hypothyroidism * 8. DJD * 9. Allergic rhinitis * SERVICE CONNECTED % - 60 VA and Non VA meds were reconciled with the patient who left with a corrected copy. See medication page for details. Active and Recently Outpatient Medications (excluding Supplies): Active Outpatient Medications Status 1) AMLODIPINE BESYLATE 5MG TAB TAKE ONE TABLET BY MOUTH ACTIVE TWICE DAILY FOR BLOOD PRESSURE/HEART, DO NOT TAKE WITH GRAPEFRUIT JUICE 2) ATORVASTATIN CALCIUM 40MG TAB TAKE ONE TABLET BY ACTIVE MOUTH ONCE DAILY FOR CHOLESTEROL 3) CAPTOPRIL 12.5MG TAB TAKE ONE AND ONE-HALF TABLETS ACTIVE (18.75MG) BY MOUTH THREE TIMES A DAY TO CONTROL BLOOD PRESSURE 4) HYDRALAZINE HCL 50MG TAB TAKE ONE TABLET BY MOUTH ACTIVE ONCE DAILY FOR BLOOD PRESSURE 5) ISOSORBIDE DINITRATE 20MG ORAL TAB TAKE ONE TABLET BY ACTIVE MOUTH EVERY MORNING TO PREVENT ANGINA 6) LEVOTHYROXINE NA (SYNTHROID) 88MCG TAB TAKE ONE ACTIVE TABLET BY MOUTH EVERY MORNING 30 MINUTES BEFORE BREAKFAST FOR THYROID - TAKE ON AN EMPTY STOMACH WITH A FULL GLASS OF WATER 7) OMEPRAZOLE 20MG EC CAP TAKE ONE CAPSULE BY MOUTH ACTIVE EVERY MORNING 30 MINUTES BEFORE BREAKFAST 8) PYRIDOSTIGMINE BROMIDE 60MG TAB TAKE ONE TABLET BY ACTIVE MOUTH THREE TIMES A DAY Pending Outpatient Medications Status 1) CAPTOPRIL 12.5MG TAB TAKE ONE AND ONE-HALF TABLETS PENDING (18.75MG) BY MOUTH THREE TIMES A DAY TO CONTROL BLOOD PRESSURE 2) METFORMIN HCL 500MG 24HR SA TAB TAKE ONE TABLET BY PENDING MOUTH ONCE DAILY 3) PYRIDOSTIGMINE BROMIDE 60MG TAB TAKE ONE TABLET BY PENDING MOUTH THREE TIMES A DAY Active Non-VA Medications Status 1) Non-VA ASPIRIN 81MG EC TAB 81MG BY MOUTH EVERY DAY ACTIVE 2) Non-VA CHOLECALCIF 25MCG (D3-1,000UNIT) TAB 1000UNT ACTIVE BY MOUTH EVERY DAY 3) Non-VA DIPHENHYDRAMINE HCL CAP,ORAL BY MOUTH AT ACTIVE BEDTIME NEEDED 4) Non-VA FEXOFENADINE HCL 180MG TAB 180MG BY MOUTH ACTIVE EVERY DAY 5) Non-VA IBUPROFEN 400MG TAB 400MG BY MOUTH NEEDED ACTIVE 6) Non-VA MELATONIN CAP/TAB BY MOUTH ACTIVE 7) Non-VA MULTIVITAMIN/MINERALS CAP/TAB 1 TABLET BY ACTIVE MOUTH EVERY DAY 8) Non-VA OTHER CAP/TAB IV IGG PERIODICALLY FOR ACTIVE MYASTHENIA GRAVIS BY MOUTH 9) Non-VA PREDNISONE 5MG TAB 5MG BY MOUTH ONCE DAILY ACTIVE 10) Non-VA PYRIDOSTIGMINE BROMIDE 60MG TAB 60MG BY MOUTH ACTIVE THREE TIMES A DAY 21 Total Medications 98.4 F [36.9 C] (06/04/2023 10:21) 64 (06/04/2023 10:21) 16 (06/04/2023 10:21) 120/74 (06/04/2023 10:21) 0 (06/04/2023 10:21) 67 in [170.2 cm] (07/16/2022 09:59) 163 lb [73.94 kg] (06/04/2023 10:21) BMI: 25.6 Neuro: Alert and oriented times three, grossly nonfocal, nasolabial folds intact. Recent labs reviewed with patient today:yes Advance Directive Screen MH AD: Patient has an Advance Directive on file at this [facility]. No updates are needed at this time. The patient received education about Advance Directives and written notification of his/her rights. RHS Screen: RHS Screen Session Format: Face to Face Environmental Check Upon inquiry, the individual reports that the environment is safe to proceed. Informed Consent to Screen and Document The individual consents to proceed with screening. The individual consents to documentation of responses. PRIMARY SCREEN: In the past 12 months, how often did a current or former intimate partner (e.g., boyfriend, girlfriend, , , sexual partner): 1. Scream or curse at you Never 2. Insult or talk down to you Never 3. Threaten you with harm Never 4. Physically hurt you Never 5. Force or pressure you to have sexual contact against your will, or when you were unable to say no Never ?? The HITS tool (items 1-4 above) is [place] copyright protected by Andres Stahl MD, and the user has full rights to use it throughout the [place] system. PRIMARY SCREEN RESULT: The Primary Screen is NEGATIVE. The individual answered never to all forms of IPV above (i.e., answered never to all 5 items) The individual accepts education and/or resources: Other: EDUCATION: Other: /sandy/ Nickie Reyna PA-C STAFF PHYSICIAN GILL [employer]OX [employer]ER Signed: 06/04/2023 10:58 NICKIE REYNA [facility] Jun 04, 2023 10:24 AM PREVENTIVE MEDICINE NURSING NOTE: LOCAL TITLE: CLINICAL REMINDERS/NURSING STANDARD TITLE: PREVENTIVE MEDICINE NURSING NOTE DATE OF NOTE: JUN 04, 2023@10:24 ENTRY DATE: JUN 04, 2023@10:24:22 AUTHOR: VIRAJ TALAVERA: URGENCY: STATUS: COMPLETED Homelessness/Food Insecurity Screen: In the past 2 months, have you been living in stable housing that you own, rent, or stay in as part of a household? Yes - Living in stable housing. Are you worried or concerned that in the next 2 months you may NOT have stable housing that you own, rent, or stay in as part of a household? No - Not worried about housing near future The reports the following: Within the past 12 months, you worried whether your food would run out before you got money to buy more. Never true Within the past 12 months, the food you bought just didn't last and you didn't have money to get more. Never true /es/ VIRAJ TALAVERA LPN Signed: 06/04/2023 10:25 VIRAJ TALAVERA [facility]
--- OUTSIDE RECORDS SUMMARY | 2024-05-15 09:23 | XMS_ITS | Encounter Summary ---
Author Name [facility] [place] [facility] [place] [facility] [place] Address [address] [place] [address] Care Team Providers Care Seals Engraver Name Role Phone NICKIE REYNA Primary Care [...] Name Patient's Relationship to Policy Newsome [place] MED[place] SUPPLEMEN JUDITH MEDEX BRONZ E Apr 08, 2016 [id number] [phone] CAM,PATRICIA MARIA ELENA PATIENT [place] SUPPLEMEN JUDITH MEDEX BRONZ E Apr 08, 2016 [id number] CAMPATRICIA SHERIFF PATIENT BCBS [facility] MEDICARE SUPPLEMEN JUDITH MEDEX BRONZ E Jul 07, 2017 [id number] [phone] CAM,PATRICIA MARIA ELENA PATIENT MEDICARE (WNR) MEDICARE (M) PART B May 26, 2015 PART B [id number] PATRICIA LEVY PATIENT MEDICARE (WNR) MEDICARE (M) PART A Feb 06, 2002 PART A [id number] PATRICIA LEYV PATIENT MEDICARE (WNR) MEDICARE (M) PART B Feb 06, 2002 PART B [id number] PATRICIA LEVY PATIENT MEDICARE (WNR) MEDICARE (M) PART A Feb 06, 2002 PART A [id number] PATRICIA LEVY PATIENT Selected Encounter This section includes the information on record at [place] for the Encounter. Date/Time Encounter Type Encounter Description Reason Pro vider Source Jun 27, 2023 01:07 PM Outpatient Encounter COMMUNITY CARE CONSULT IHE Encounter Template Text not used by [place] Plan of Treatment: Future Appointments (+ 6 months) and Future Tests (+/- 45 days) The Plan of Treatment section includes future care activities for the patient from all [place] treatmentfacilities. This section includes future appointments and future orders which are active, pending or scheduled. Future Appointments This section includes appointments that were scheduled to occur 6 months from the date of the Encounter, up to a maximum of 20 appointments. The data comes from all [place] treatment facilities. Appointment Date/Time Appointment Type Appointme nt Facility Name Jul 01, 2023 09:00 AM AM[place] NONE [place] [facility] Jul 16, 2023 10:00 AM AM[place]ULATORY - [place] [facility] August 27, 2023 02:00 PM AMBULATORY - [place] [facility] Sep 16, 2023 09:00 AM [facility] [place] [facility] Lab Results: +/- 30 days of the encounter This section includes the Chemistry and Hematology Lab Results on record with [place] for the patient. Radiology Reports and Pathology Reports are provided separately, in subsequent sections. Lab Results This section contains the Chemistry/Hematology Results that were resulted 30 days before or 30 daysafter the date of the Encounter. Date/Time Source Result Type Result - Unit Interpretation Reference Range Comment Jun 04, 2023 07:51 AM [place] [facility] TSH Specimen Type: SERUM No comment entered. Ordering Provider: BRYANNA REYNA F Report Released Date/Time: Dec 04, 2022 10:59 AM Reporting Lab: [address] [address] Performing Lab: [address] [address] TSH 6.32 u[IU]/mL H 0.35-5.00 Jun 04, 2023 07:51 AM [facility] BASIC METABOLIC PANEL (fasting) Specimen Type: SERUM No comment entered. Ordering Provider: BRYANNA REYNAM F Report Released Date/Time: Dec 04, 2022 10:59 AM Reporting Lab: [address] [address] Performing Lab: [address] [address] UREA NITROGEN 15 mg/dL 7-25 GLUCOSE 98 mg/dL 65-100 SODIUM 140 mmol/L 135-145 POTASSIUM 3.8 mmol/L 3.5-5.0 CHLORIDE 105 mmol/L 100-110 CO2 25 meq/L 20-30 CREATININE, Serum 0.85 mg/dL 0.50-1.40 eGFR(CKD-EPI 2020) 84 mL/min >60 Jun 04, 2023 07:51 AM [facility] HEMOGLOBIN A1C PANEL Specimen Type: BLOOD Comment: Values obtained from A1C measurements can vary. For atypical A1C assays, a reported value of 7.0 could actually be between 6.72 and 7.28 if measured by a reference method. A reported value of 9.0 could actually be between 8.73 and 9.27. Ref: http://www.ngs p.org/CAPdata. asp Ordering Provider: BRYANAN REYNA F Report Released Date/Time: Dec 04, 2022 10:59 AM Reporting Lab: [address] [address] Performing Lab: [address] [address] HEMOGLOBIN A1C 5.3 4.0-5.6 Jun 04, 2023 07:51 AM [facility] LIVER FUNCTION Specimen Type: SERUM No comment entered. Ordering Provider: BRYANNA REYNA F Report Released Date/Time: Dec 04, 2022 10:59 AM Reporting Lab: [facility] [address] [facility] [address] Performing Lab: [address] [address] PROTEIN,TOTAL 6.3 g/dL 6.0-8.3 ALBUMIN 4.1 g/dL 3.5-5.0 ALKALINE PHOSPHATASE 58 U/L 40-150 AST 20 U/L 5-34 ALT 19 U/L BILIRUBIN, TOTAL 1.0 mg/dL 0.2-1.2 Jun 04, 2023 07:51 AM [facility] LIPID PANEL FASTING Specimen Type: SERUM No comment entered. Ordering Provider: BRYANNA REYNA F Report Released Date/Time: Dec 04, 2022 10:59 AM Reporting Lab: [address] [address] Performing Lab: [address] [address] CHOLESTEROL 145 mg/dL TRIGLYCERIDE 191 mg/dL H 0-150 LDL calculated 66 mg/dL 0-129 CHOL/HDL 3.5 HDL CHOLESTEROL 41 mg/dL 40-60 Jun 04, 2023 07:51 AM [facility] MICROALBUMIN CREATININE RATIO PANEL Specimen Type: URINE No comment entered. Ordering Provider: BRYANNA REYNA F Report Released Date/Time: Dec 04, 2022 10:59 AM Reporting Lab: [address] [address] Performing Lab: [address] [address] MICROALBUMIN/C REATININE RATIO 27.2 mg/g 0-29.9 MICROALBUMIN,Q UANTITATIVE 2.7 mg/dL RR UNAVAIL CREATININE URINE 99.32 mg/dL Jun 04, 2023 07:51 AM [facility] VITAMIN D (25-OH) Specimen Type: SERUM No comment entered. Ordering Provider: BRYANNA REYNA F Report Released Date/Time: Dec 04, 2022 10:59 AM Reporting Lab: [facility] [address] [facility] [address] Performing Lab: [address] [address] VITAMIN D (25-OH) 66 ng/mL H 20-50 Jun 04, 2023 07:51 AM [facility] CBC AND DIFF (AUTO) Specimen Type: BLOOD No comment entered. Ordering Provider: BRYANNA REYNA F Report Released Date/Time: Dec 04, 2022 10:59 AM Reporting Lab: [address] [address] Performing Lab: [address] [address] WBC 9.66 10*3/uL 4.50-11.00 RBC 4.55 10*6/uL 4.23-5.66 HGB 14.6 g/dL 12.8-17 HCT 43.9 39.2-50.4 MCV 96.5 fL 82-99 MCHC 33.3 g/dL 30.8-35.1 PLT 246 10*3/uL 140-360 RDW-CV 12.5 12.0-16.0 Barnwell, Abs 0.91 10*3/uL 0.30-1.10 MCH 32.1 pg 26.2-32.6 Neut % 53.2 43.7-75.8 Lymph % 35.0 14.0-42.3 Barnwell % 9.4 5.1-13.7 Eos % 1.3 0.4-6.8 Baso % 0.4 0.1-2.0 Neut, Abs 5.13 10*3/uL 2.20-7.60 Lymph, Abs 3.38 10*3/uL H 1.00-3.20 Eos, Abs 0.13 10*3/uL 0.03-0.44 Baso, Abs 0.04 10*3/uL 0.01-0.13 Immature Gran % 0.7 0.0-0.7 Immature Gran, Abs 0.07 10*3/uL H 0.00-0.06 Jun 04, 2023 07:51 AM [facility] URINALYSIS Specimen Type: URINE Comment: If Glucose = >500 and Ketones are positive, please alert the Physician. Ordering Provider: BRYANNA REYNA Report Released Date/Time: Dec 04, 2022 10:59 AM Reporting Lab: [facility] [address] [facility] [address] Performing Lab: [address] [address] UA COLOR Light-Yellow Yellow UA APPEARANCE Clear Clear UA GLUCOSE NEGATIVE mg/dL Negative UA KETONES NEGATIVE mg/dL Negative UA BLOOD NEGATIVE mg/dL Negative UA PROTEIN NEGATIVE mg/dL Negative UA NITRITE NEGATIVE mg/dL Negative UA BILIRUBIN NEGATIVE mg/dL Negative UA SPECIFIC GRAVITY 1.017 1.016-1.02 2 UA pH 6.5 5.0-9.0 UA UROBILINOGEN <2.0 mg/dL <2.0 UA LEUKOCYTE NEGATIVE Negative Social History: Smoking Status (Most current) and Tobacco Use (All prior to encounter date) This section includes the most current, and the historical, smoking and tobacco- related health factors from the [place] facility where the Encounter took place. Current Smoking Status This section includes the most current smoking, or tobacco-related health factor, from the [place] facility where the Encounter took place. Date/Time Current Smoking Status Comment Harjinder sidhu Dec 04, 2022 10:30 AM [place] FORMER USER [facility] Tobacco Use History This section includes a history of the smoking, or tobacco-related health factors, that were collected on or before the date of the Encounter. The data comes from the [place] facility where the Encounter took place. Date/Time Smoking Status/Tobacco Use Comment F marily Dec 04, 2022 10:30 AM [place]-TOBAC[place] QU[place] 15 YRS OR MORE [facility] Dec 12, 2021 02:00 PM VA-TOBACCO FORMER USER [facility] Dec 12, 2021 02:00 PM VA-TOBACCO QUIT 15 YRS OR MORE [facility] Dec 20, 2020 10:15 AM VA-TOBACCO FORMER USER [facility] Dec 20, 2020 10:15 AM [place]-TOBACCO QUIT 15 YRS OR MORE [facility] Dec 29, 2019 01:00 PM VA-TOBACCO FORMER USER [facility] Dec 29, 2019 01:00 PM VA-TOBACCO QUIT 15 YRS OR MORE [facility] Sep 23, 2018 02:51 PM VA-TOBACCO FORMER USER [facility] Sep 23, 2018 02:51 PM VA-TOBACCO QUIT 15 YRS OR MORE [facility] Dec 02, 2017 12:45 PM QUIT TOBACCO USE > 7 YEARS AGO [facility] Jul 27, 2005 10:05 AM QUIT TOBACCO USE > 7 YEARS AGO [facility] Jul 12, 2004 09:49 AM HISTORY OF SMOKING [facility] Jul 12, 2004 09:49 AM QUIT TOBACCO USE 1 -7 YEARS AGO [facility] August 11, 2003 09:45 AM HISTORY OF SMOKING [facility] August 11, 2003 09:45 AM QUIT TOBACCO USE 1 -7 YEARS AGO [place] [facility] Advance Directives: All historical and current Section Date Range: From patient's date of to the date document was created. This section includes ALL of a patient's completed or amended [place] Advance and Rescinded Directives. The entries below indicate that a directive exists for the patient, but an actual copy is not included with this document. The data comes from all [place] facilities. Date Advance Directives Provider Source Nov 05, 2008 ADVANCE DIRECTIVE SUSAN HEBERT [place] [facility] Encounter Notes: All associated encounter notes This section contains the clinical notes associated to the Encounter. Date/Time Encounter Note(s) Provider Source Jun 27, 2023 01:07 PM ADMINISTRATIVE NOT E: LOCAL TITLE: ADMINISTRATIVE NOTE STANDARD TITLE: ADMINISTRATIVE NOTE DATE OF NOTE: JUN 27, 2023@13:07 ENTRY DATE: JUN 27, 2023@13:07:12 AUTHOR: WILBERTO ROBERTSON EXP COSIGNER: URGENCY: STATUS: COMPLETED Request for new [facility] consult rec'd from Dusty phone [phone] Cont care [facility] [address], [place] [address] *Start date 06/02/2023 at 1415 To cover longterm in home. In home longterm seoc needed. (Attended 03/29/2023 at 10:15. Dusty aware we have not rec'd notes) Referring to pcp to review and enter new [facility] INfusion, if pcp agrees. /sandy/ WILL ROBERTSON,MSN,RN CHOICE RN COORDINATOR Signed: 06/27/2023 13:10 Receipt Acknowledged By: 06/27/2023 14:33 /es/ BHAVANA BAIRD, RN REGISTERED NURSE 06/27/2023 14:26 /sandy/ Nickie Reyna PA-C STAFF PHYSICIAN [facility] [place] [facility]
--- OUTSIDE RECORDS SUMMARY | 2024-05-15 09:23 | XMS_ITS | Encounter Summary ---
Author Name [facility] [place] [facility] [place] Address [address] [place] [address] Care Team Providers Care Cloth Feeder Name Role Phone NICKIE REYNA Primary Care [...] Name Patient's Relationship to Policy [place] SUPPLEMEN JUDITH MEDEX BRONZ E Apr 08, 2016 [id number] CAM,PATRICIA MARIA ELENA [place] JUDITH MEDEX BRONZ E Apr 08, 2016 [id number] [phone] CAM,PATRICIA MARIA ELENA PATIENT BCBS OF [facility] MEDICARE SUPPLEMEN JUDITH MEDEX BRONZ E Jul 07, 2017 [id number] [phone] CAMPATRICIA MARIA ELENA PATIENT MEDICARE (WNR) MEDICARE (M) PART B May 26, 2015 PART B [id number] CAMPATRICIA SHERIFF PATIENT MEDICARE (WNR) MEDICARE (M) PART A Feb 06, 2002 PART A [id number] CAM,PATRICIA ARREDONDO PATIENT MEDICARE (WNR) MEDICARE (M) PART B Feb 06, 2002 PART B [id number] CAMPATRICIA SHERIFF PATIENT MEDICARE (WNR) MEDICARE (M) PART A Feb 06, 2002 PART A [id number] CAM,PATRICIA ARREDONDO PATIENT Selected Encounter This section includes the information on [place] at [place] for the Encounter. Date/Time Encounter Type Encounter Description Reason Pro vider Source Jan 31, 2024 04:05 PM Outpatient Encounter ADMIN PAT ACTIVTIES (MASNONCT) IHE Encounter Template Text not used by [place] Plan of Treatment: Future Appointments (+ 6 months) and Future Tests (+/- 45 days) The Plan of Treatment section includes future care activities for the patient from all [place] [facility]. This section includes future appointments and future orders which are active, pending or scheduled. Future Appointments This section includes appointments that were scheduled to occur 6 months from the date of the Encounter, up to a maximum of 20 appointments. The data comes from all [place] treatment facilities. Appointment Date/Time Appointment Type Appointme nt Facility Name Feb 29, 2024 07:00 AM AMBULATORY - MEDICINE [facility] [place] [facility] Apr 13, 2024 09:00 AM AM[place]ULATORY - [place]ICIN [place] [facility] [place] [facility] Apr 13, 2024 10:00 AM AMBULATORY - NONE [place] [facility] [place] [facility] Jun 02, 2024 10:30 AM AMBULATORY - MEDICINE [facility] [place] [facility] Jul 22, 2024 10:00 AM [facility] Active, Pending, and Scheduled Orders This section includes a listing of several types of active, pending, and scheduled orders, including clinic medications orders, diagnostic test orders, procedure orders and consult orders; where the start date of the order is 45 days before the date of the Encounter or 45 days after the date of theEncounter. The data comes from all [place] treatment facilities. Test Date/Time Test Type Test Details Facility Name Jan 01, 2024 12:00 AM Laboratory - Chemistry Order PTT BLOOD (BLUE-PLASMA) [facility] Jan 01, 2024 12:00 AM Laboratory - Chemistry Order PT & INR (PROTIME) BLOOD (BLUE-PLASMA) [facility] Jan 01, 2024 12:00 AM Laboratory - Chemistry Order CBC AND DIFF (AUTO) BLOOD (LAV-BLOOD) [facility] Jan 31, 2024 12:00 AM Laboratory - Chemistry Order VITAMIN D (25-OH) BLOOD (SST-SERUM) [facility] Jan 31, 2024 12:00 AM Laboratory - Chemistry Order BASIC METABOLIC PANEL (fasting) BLOOD (SST-SERUM) [facility] Jan 31, 2024 12:00 AM Laboratory - Chemistry Order LIPID PANEL FASTING BLOOD (SST-SERUM) [facility] Jan 31, 2024 12:00 AM Laboratory - Chemistry Order CBC BLOOD (LAV-BLOOD) [facility] Jan 31, 2024 12:00 AM Laboratory - Chemistry Order HEMOGLOBIN A1C PANEL BLOOD (LAV-BLOOD) [facility] Jan 31, 2024 12:00 AM Laboratory - Chemistry Order LIVER FUNCTION BLOOD (SST-SERUM) [facility] Feb 26, 2024 03:25 PM Consult Order COMMUNITY CARE-INFUSION Cons Truck Body Repairer's Choice [facility] Social History: Smoking Status (Most current) and Tobacco Use (All prior to encounter date) This section includes the most current, and the historical, smoking and tobacco- related health factors from the [place] facility where the Encounter took place. Current Smoking Status This section includes the most current smoking, or tobacco-related health factor, from the [place] facility where the Encounter took place. Date/Time Current Smoking Status Comment Harjinder sidhu Dec 04, 2022 10:30 AM [place]-TOBACCO FORMER USER [facility] Tobacco Use History This section includes a history of the smoking, or tobacco-related health factors, that were collected on or before the date of the Encounter. The data comes from the [place] facility where the Encounter took place. Date/Time Smoking Status/Tobacco Use Comment F acility Dec 04, 2022 10:30 AM [place]-TOBACCO QUIT 15 YRS OR MORE [place] [facility] [facility] Dec 12, 2021 02:00 PM VA-TOBACCO FORMER USER [facility] [place] [facility] Dec 12, 2021 02:00 PM VA-TOBACCO QUIT 15 YRS OR MORE [facility] [place] [facility] Dec 20, 2020 10:15 AM VA-TOBACCO FORMER USER [facility] [place] [facility] Dec 20, 2020 10:15 AM VA-TOBACCO QUIT 15 YRS OR MORE [place] [facility] [place] [facility] Dec 29, 2019 01:00 PM VA-TOBACCO FORMER USER [place] [facility] [place] [facility] Dec 29, 2019 01:00 PM VA-TOBACCO QUIT 15 YRS OR MORE [place] [facility] [facility] Sep 23, 2018 02:51 PM VA-TOBACCO FORMER USER [place] [facility] [place] [facility] Sep 23, 2018 02:51 PM VA-TOBACCO QUIT 15 YRS OR MORE [place] [facility] [place] [facility] Dec 02, 2017 12:45 PM QUIT TOBACCO USE > 7 YEARS AGO [place] [facility] [facility] Jul 27, 2005 10:05 AM QUIT TOBACCO USE > 7 YEARS AGO [place] [facility] [place] [facility] Jul 12, 2004 09:49 AM HISTORY OF SMOKING [place] [facility] [place] [facility] Jul 12, 2004 09:49 AM QUIT TOBACCO USE 1 -7 YEARS AGO [place] [facility] [place] [facility] August 11, 2003 09:45 AM HISTORY OF SMOKING [place] [facility] [place] [facility] August 11, 2003 09:45 AM QUIT TOBACCO USE 1 -7 YEARS AGO [place] [facility] [place] [facility] Advance Directives: All historical and current Section Date Range: From patient's date of to the date document was created. This section includes ALL of a patient's completed or amended [place] Advance and Rescinded Directives. The entries below indicate that a directive exists for the patient, but an actual copy is not included with this document. The data comes from all [place] facilities. Date Advance Directives Provider Source Nov 05, 2008 ADVANCE DIRECTIVE SUSAN HEBERT [facility] Radiology Reports: +/- 30 days of the encounter Radiology Reports For cases when an order for radiology services may have been completed prior to the date of the Encounter, the report list includes the Radiology Reports that were completed up to 30 days before dateof the Encounter. For cases when an order for radiology services may have been completed after the date of the Encounter, the report list also includes the Radiology Reports that were completed up to30 days after date of the Encounter. The data comes from all [place] treatment facilities. Date/Time Radiology Report Provider Source Jan 01, 2024 09:11 AM ULTRASOUND NECK (THYROID,HEAD,SOFT TISSUE): CAMSHAE RIC [id number] -[id number] M Exm Date: JAN 01, 2024@09:11 Req Phys: PRISCILA QUINONES Loc: CWM/NO/ENDOCRINE TELE (Req'g L Img Loc: ULTRASOUND [facility]: [facility] [place] [address] (Case [id number] COMPLETE) ULTRASOUND NECK (THYROID,HEAD,SOF(US Detailed) CPT:81576 Reason for Study: thyroid nodule Clinical History: Report Status: Verified Date Reported: JAN 01, 2024 Date Verified: JAN 01, 2024 Wildlife Removal Specialist E-Sig:/ES/ANUM ARAUJO JR Report: Study: Thyroid ultrasound. Comparison: Thyroid ultrasound from April 03, 2022. Findings: The right lobe of the thyroid measures 2.2 cm in long length x 1.0 cm in AP diameter x 1.0 cm in transverse diameter. Volume of 1 cc, previously 2 cc. Again seen is a 1.0 cm in greatest dimension probably solid, isoechoic, wider than tall, smoothly marginated nodule with no echogenic foci equaling TI-RADS level 3: With no FNA due to size and no sonographic follow-up recommended due to size. No new right thyroid lobe abnormality is identified. The thyroid isthmus is sonographically normal. The left lobe of the thyroid measures 4.2 cm in long length x 2.6 cm in AP diameter x 2.7 cm in transverse diameter. Volume of 15 cc, previously 12 cc. Again seen is a dominant 4.2 cm in greatest dimension, previously 3.5 cm in greatest dimension predominantly solid with hypoechoic cystic regions, isoechoic, wider than tall, smoothly marginated nodule with no echogenic foci equaling TI-RADS level 3: Mildly suspicious with FNA currently recommended due to size and sonographic follow-up recommended due to size at 1, 3 and 5 year intervals from the 2021 examination. No new left thyroid lobe abnormality is identified. No extrathyroidal nodules are identified. Impression: Interval growth of a dominant left thyroid lobe nodule for which FNA and sonographic follow-up is recommended, as described above. Normal volume is 7-11 cc/lobe. Volume = L x H x W x 0.52. Differences in technique can preclude direct comparisons. *TI-RADS: Ultrasound based management guidance of thyroid nodules. 0 points: cystic, anechoic, wider than tall, smooth border, comet tail artifact, spongiform. 1 point: mixed cystic and solid, hyperechoic, isoechoic, MACROcalcifications. 2 points: solid, hypoechoic, lobulated or irregular margins, peripheral rim calcifications. 3 points: very hypoechoic, taller than wide, extrathyroidal extension, microcalcifications. TR1 (0 points): Spongiform nodules. cysts. Benign, No FNA. No followup indicated. TR2 (2 points): Not suspicious, No FNA. Followup ultrasound 1, 3, and 5 years. TR3 (3 points): Mildly suspicious. FNA if > 2.5 cm, Follow-up if >1.5 cm. Followup ultrasound 1, 3, and 5 years. TR4 (4 to 6 points): Moderately Suspicious. FNA if >1.5 cm. Follow-up if > 1cm. Followup ultrasound every 1, 2, 3, and 5 years. TR5 (7 points or more): Highly Suspicious. FNA if > 1cm. Follow-up if > 0.5cm. Followup ultrasound every year. Features include solid hypoechoic nodule, solid hypoechoic component of the partially cystic nodule, WITH one or more of the following features: Irregular margins, microcalcifications, taller than wide shape, rim calcifications with small extrusive soft tissue component, evidence of extrathyroidal extension SIGNIFICANT CHANGE: is defined as 20% increase in at least 2 nodule dimensions or a greater than 50% increase in volume. * Reference: ACR Thyroid Imaging, Reporting and Data System (TI-RADS): White Paper of the TI-RADS Committee. Josefasler et al., Journal of the [place] [employer] 2017;14:587-595. Primary Diagnostic Code: Significant Abnormality Attention Needed Secondary Diagnostic Codes: POSSIBLE MALIGNANCY Primary Interpreting Staff: ANUM ARAUJO JR, Radiologist (Wildlife Removal Specialist) /ANUM LEMUS JR [facility] Encounter Notes: All associated encounter notes This section contains the clinical notes associated to the Encounter. Date/Time Encounter Note(s) Provider Source Jan 31, 2024 04:05 PM PHARMACY NOTE: LOCAL TITLE: PHARMACY CUSTOMER CARE MEDICATION RENEWAL STANDARD TITLE: PHARMACY NOTE DATE OF NOTE: JAN 31, 2024@16:05 ENTRY DATE: JAN 31, 2024@16:05:20 AUTHOR: OMID QURESHI EXP COSIGNER: URGENCY: STATUS: COMPLETED Date: Jan Division: [facility] referred by Pharmacy Call Center for medication renewal: Non-controlled/maintenanc e medication Medications requested: [id number] ATORVASTATIN CALCIUM 40MG TAB [id number] LANCET,SOFTCLIX [id number] LEVOTHYROXINE NA (SYNTHROID) 88MCG TAB Defer to primary care provider To be mailed . Please review and renew if appropriate. *This note was generated by [facility]/[place] Pharmacy Customer Care. If you have any questions or need assistance, do not contact this author. Please refer all questions to your local, on-site pharmacy departments. /sandy/ OMID QURESHI CPhT GRADING MACHINE FEEDER, [place]/PHARMACY CUSTOMER CARE Signed: 01/31/2024 16:05 Receipt Acknowledged By: 02/03/2024 07:54 /sandy/ BHAVANA BAIRD, DAVID REGISTERED NURSE 01/31/2024 16:16 /sandy/ Nickie Reyna PA-C STAFF PHYSICIAN IOS DEVELOPER OMID QURESHI [facility]
--- OUTSIDE RECORDS SUMMARY | 2024-05-15 09:23 | XMS_ITS | Encounter Summary ---
Author Name [facility] [place] Address [address] [place] [address] Care Team Providers Care Office Rental Clerk Name Role Phone NICKIE REYNA Primary Care [...] JUDITH MEDEX BRONZ E Apr 08, 2016 [id number] [phone] CAM,PATRICIA MARIA ELENA [place]IENT [place] SUPPLEMEN JUDITH MEDEX BRONZ E Apr 08, 2016 [id number] CAM,PATRICIA MARIA ELENA PATIENT BCBS OF [facility] MEDICARE SUPPLEMEN JUDITH MEDEX BRONZ E Jul 07, 2017 [id number] [phone] CAMPATRICIA MARIA ELENA PATIENT MEDICARE (WNR) MEDICARE (M) PART B May 26, 2015 PART B [id number] CAMPATRICIA SHERIFF PATIENT MEDICARE (WNR) MEDICARE (M) PART A Feb 06, 2002 PART A [id number] PATRICIA LEVY PATIENT MEDICARE (WNR) MEDICARE (M) PART B Feb 06, 2002 PART B [id number] [phone] [id number] PATRICIA LVEY PATIENT MEDICARE (WNR) MEDICARE (M) PART A Feb 06, 2002 PART A [id number] PATRICIA LEVY PATIENT Selected Encounter This section includes the information on record at [place] for the Encounter. Date/Time Encounter Type Encounter Description Reason Pro vider Source Oct 28, 2023 04:44 PM Outpatient Encounter ADMIN PAT ACTIVTIES (MASNONCT) IHE Encounter Template Text not used by [place] Plan of Treatment: Future Appointments (+ 6 months) and Future Tests (+/- 45 days) The Plan of Treatment section includes future care activities for the patient from all [place] [facility]. This section includes future appointments and future orders which are active, pending or scheduled. Future Appointments This section includes appointments that were scheduled to occur 6 months from the date of the Encounter, up to a maximum of 20 appointments. The data comes from all [place] treatment facilities. Appointment Date/Time Appointment Type Appointme nt Facility Name Jan 01, 2024 09:30 AM AMBULATORY - NONE [facility] Jan 27, 2024 07:00 AM AMBULATORY - MEDICINE [facility] Feb 29, 2024 07:00 AM [facility] Apr 13, 2024 09:00 AM [facility] Apr 13, 2024 10:00 AM AMBULATORY - NONE [facility] Social History: Smoking Status (Most current) and Tobacco Use (All prior to encounter date) This section includes the most current, and the historical, smoking and tobacco- related health factors from the [place] facility where the Encounter took place. Current Smoking Status This section includes the most current smoking, or tobacco-related health factor, from the [place] facility where the Encounter took place. Date/Time Current Smoking Status Comment Harjinder itdannielle Dec 04, 2022 10:30 AM VA-TOBACCO FORMER USER [place] [facility] [place] [facility] Tobacco Use History This section includes a history of the smoking, or tobacco-related health factors, that were collected on or before the date of the Encounter. The data comes from the [place] facility where the Encounter took place. Date/Time Smoking Status/Tobacco Use Comment Michelle acjose Dec 04, 2022 10:30 AM VA-TOBACCO QUIT 15 YRS OR MORE [place] [facility] [place] [facility] Dec 12, 2021 02:00 PM VA-TOBACCO FORMER USER [facility] [place] [facility] Dec 12, 2021 02:00 PM VA-TOBACCO QUIT 15 YRS OR MORE [facility] [place] [facility] Dec 20, 2020 10:15 AM VA-TOBACCO FORMER USER [facility] [place] [facility] Dec 20, 2020 10:15 AM VA-TOBACCO QUIT 15 YRS OR MORE [facility] [facility] Dec 29, 2019 01:00 PM VA-TOBACCO FORMER USER [facility] [place] [facility] Dec 29, 2019 01:00 PM VA-TOBACCO QUIT 15 YRS OR MORE [facility] [place] [facility] Sep 23, 2018 02:51 PM VA-TOBACCO FORMER USER [facility] [place] [facility] Sep 23, 2018 02:51 PM VA-TOBACCO QUIT 15 YRS OR MORE [facility] [place] [facility] Dec 02, 2017 12:45 PM QUIT TOBACCO USE > 7 YEARS AGO [facility] [place] [facility] Jul 27, 2005 10:05 AM QUIT TOBACCO USE > 7 YEARS AGO [facility] [place] [facility] Jul 12, 2004 09:49 AM HISTORY OF SMOKING [facility] [place] [facility] Jul 12, 2004 09:49 AM QUIT TOBACCO USE 1 -7 YEARS AGO [facility] [place] [facility] August 11, 2003 09:45 AM HISTORY OF SMOKING [facility] [facility] August 11, 2003 09:45 AM QUIT TOBACCO USE 1 -7 YEARS AGO [facility] [facility] Advance Directives: All historical and current Section Date Range: From patient's date of to the date document was created. This section includes ALL of a patient's completed or amended [place] Advance and Rescinded Directives. The entries below indicate that a directive exists for the patient, but an actual copy is not included with this document. The data comes from all [place] facilities. Date Advance Directives Provider Source Nov 05, 2008 ADVANCE DIRECTIVE SUSAN HEBERT [facility] Encounter Notes: All associated encounter notes This section contains the clinical notes associated to the Encounter. Date/Time Encounter Note(s) Provider Source Oct 28, 2023 04:44 PM PHARMACY NOTE: LOCAL TITLE: PHARMACY CUSTOMER CARE MEDICATION RENEWAL STANDARD TITLE: PHARMACY NOTE DATE OF NOTE: OCT 28, 2023@16:44 ENTRY DATE: OCT 28, 2023@16:44:31 AUTHOR: KETTY MYRICK EXP COSIGNER: URGENCY: STATUS: COMPLETED Date: Oct Division: [facility] referred by Pharmacy Call Center for medication renewal: Non-controlled/maintenance medication Medications requested: [id number] EPINEPHRINE (EQV-EPI-PEN) 0.3MG/0.3ML Last Release Date: 03/07/22 Patient is out of medication and would appreciate expedited delivery if available. Please contact the outpatient pharmacy for assistance with shipment. [place] stated he needs to have this on hand for when the nurse gives him his infusions. Defer to primary care provider To be mailed . Please review and renew if appropriate. *This note was generated by [facility]/[place] Pharmacy Customer Care. If you have any questions or need assistance, do not contact this author. Please refer all questions to your local, on-site pharmacy departments. /sandy/ KETTY MYRICK CPhT Shoeshiner, [place]/Pharmacy Customer Care Signed: 10/28/2023 16:44 Receipt Acknowledged By: 10/29/2023 09:25 /sandy/ BHAVANA BAIRD RN REGISTERED NURSE 10/29/2023 08:05 /sandy/ Nickie Reyna PA-C STAFF PHYSICIAN CUSTOMS HOUSE BROKER KETTY MYRICK [facility]
--- OUTSIDE RECORDS SUMMARY | 2024-05-15 09:23 | XMS_ITS | Patient Health Record ---
Author Organization [facility] Address [address] [place] [id number] Care Team Providers Care Hot Dip Galvanizer Name Role Phone Leonides Reynoso MD Primary Care Provider Shae Torres [phone] ALLERGIES Allergen (clinical drug ingredient) Drug/Non Drug Allergy documented on EMR Reaction Allergy Type Onset Date Status meperidine Demerol Unknown Drug Allergy Active REASON FOR REFERRAL No Information MEDICATIONS Medication SIG (Take, Route, Frequency, Duration) Notes Start Date End Date Status Melatonin 3 MG 1 capsule in the denae cecil as needed with food Orally Once a day PRN Active Isosorbide Dinitrate 20 MG 1 tablet Orally daily Active Fluticasone Propionate (Inhal) 50 MCG/BLIST 2 puff Inhalation daily PRN Active amLODIPine Besylate 2.5 MG 1 tablet Oral ly Once a day Active Claritin 10 MG 1 tablet Orally Once a day PRN Active Omeprazole 20 MG TAKE 1 CAPSULE BY [facility] EVERY DAY for 90 Active Centrum - as directed Orally QD Active Vitamin D 1000 UNIT 1 tablet Orally Once a day Active hydrALAZINE HCl 50 MG 1 tablet Orally on ce a day Active Captopril 12.5 MG as directed Orally 1 1/2 pills in the morning and 1 1/2 in the afternoon and 1 1/2 in the evening Active Advil PRN Active Crestor 20 MG 1 tablet Orally Once a day Active Synthroid 75 MCG 1 tablet on an empty stomach in the morning Orally Once a day Active IMMUNIZATIONS Vaccine Route Administration Date Status Comme nts Flu vaccine no Preserv 3 and > Unknown 01/24/2016 Admin istered Influenza Unknown 01/09/2018 Administered Influenza Unknown 02/06/2019 Administered Influenza Unknown 01/13/2020 Administered SOCIAL HISTORY Tobacco Use: Social History Observation Description Date Details (start date - stop date) Former Smoker NA - NA Sex Assigned At : Social History Observation Description Sex Assigned At Unknown Tobacco Use/Smoking Question Answer Notes Patient is a former smoker When did you stop smoking? 25 years ago How long has it been since you last smoked? > 10 years Alcohol Screen Question Answer Notes Did you have a drink contain ing alcohol in the past year? Yes How often did you have a dri nk containing alcohol in the past year? Never (0 point) How many drinks did you have on a typical day when you were drinking in the past year? 1 or 2 drinks (0 point) Points 0 Interpretation Negative PROBLEMS Problem Type ICD Code Onset Dates Problem Status W/U Status Risk SNOMED Code Notes Problem Encounter for screening for malignant neoplasm of colon (Z12.11) Active confirmed 765340721 Problem Change in bowel habits (R19.4) Active confirmed 424430659 Problem Gastroesophageal reflux disease without esophagitis (K21.9) Active confirmed 892794810 Problem Tubular adenoma of colon (D12.6) Active confirmed 689637992 Problem Family history of colon cancer (Z80.0) Active confirmed 627129875 Problem Esophageal stricture (K22.2) Active confirmed 24390367 Problem Constipation, unspecified constipation type (K59.00) Active confirmed 83003582 Problem Hx of adenomatous colonic polyps (Z86.010) Active confirmed 831730547 Problem Dysphagia, unspecified type (R13.10) Active confirmed 93101246 Problem Diarrhea, unspecified type (R19.7) Active confirmed 58604027 Problem Positive colorectal cancer screening using Cologuard test (R19.5) Active confirmed 660276878 Problem Colon, diverticulosis (K57.30) Active confirmed Diverticular disease of colon (995834889) PLAN OF TREATMENT Pending Test Test Name Order Date Pathology 10/17/2020 Future Test Test Name Order Date UPPER GI ENDOSCOPY [place] DILATION OF ESOPH 08/04/2015 COLONOSCOPY 06/25/2019 COLONOSCOPY 09/01/2019 COLONOSCOPY 07/27/2020 Insurance Providers Payer Name Payer Address Payer Phone Subscriber Number Group Number Insured Name Patient Relationship to Insured Coverage Start Date Coverage End Date MEDICARE OF [place] [address] [place] [id number] SHAE LEVY Self - patient is the insured [employer] CLAIMS [address] [place] [address] [id number] SHAE LEVY - patient is the insured MEDICAL (GENERAL) HISTORY Medical History History ICD Code Hypertension Hyperlipidemia Tubular adenomas removed in 2010, 1999, and in 1996; he had a negative colonoscopy in 2005; colonoscopy in 1999 was complicated by a sigmoid perforation requiring surgery as below; neg. hemoccults x 3 in summer 2018 Denies IA,DM,CVA,Lung disease,renal dise ase Sinus problems GERD/esophageal stricture--u nderwent an upper endoscopy in August of 2015 with a finding of a fairly large hiatal hernia, esophageal stricture, and some evidence of reflux esophagitis-the stricture was dilated with balloons from 16.5mm to 18mm with good effect, and he was started on omeprazole Hypothyroidism Colonoscopy 10/2019--Approx 2 .5 cm adenoma removed from sigmoid colon and site marked with ink, and clipped x 1 Surgical History Surgery Date(Month/Year) Repair of sigmoid perforatio n in relation to a colonoscopy in 1999--Dr. Leslie El Fractured Ankles Cataracts Tonsillectomy
--- OUTSIDE RECORDS SUMMARY | 2024-05-15 09:23 | XMS_ITS | Continuity of Care Document ---
Author Name [facility] Organization [facility] Care Team Providers Care Display Associate Name Role Phone [facility] Unavailable Unavailable Problems Combined list of problems from Department of Defense and Veterans Affairs facilities. It does not include entries that were removed or entered in error. Problem Status Onset Date Problem Type Date of Resolution Comments Source Allergic rhinitis * (ICD-9-CM 477.9) Active Condition [facility] Depressive disorder Active Condition Jan 22, 2017 Entered By: KAMALA OATES Comment: Diagnose updated Jan 22 2017. 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) Active Condition [facility] Generalized anxiety disorder Active Condition Jan 22 Entered By: KAMALA OATES Comment: diagnosis updated January 22, 2017 [facility] Hyperlipidemia * (ICD-9-CM 272.4) Active Condition [facility] Hypertension * (ICD-9-CM 401.9) Active Condition [facility] Hypothyroidism * (ICD-9-CM 244.9) Active Condition [facility] Myasthenia gravis with exacerbation Active Condition [facility] Non-toxic multinodular goiter Active Condition [facility] Polymyalgia Rheumatica * (ICD-9-CM 725.) Inactive Condition 12/08/2010 [facility] Diagnosis: ICD-10-CM E04.2 Nontoxic multinodular goiter Active Diagnosis [facility] Diagnosis: ICD-10-CM Z46.1 Encounter for fitting and adjustment of hearing aid Active Diagnosis [facility] Diagnosis: ICD-10-CM H90.3 Sensorineural hearing loss, bilateral Active Diagnosis [facility] Diagnosis: ICD-10-CM G70.01 Myasthenia gravis with (acute) exacerbation Active Diagnosis [facility] LU[facility] Diagnosis: ICD-10-CM Z23 Encounter for immunization Active Diagnosis [facility] Diagnosis: ICD-10-CM I10 Essential (primary) hypertension Active Diagnosis [facility] HERNANDEZ [facility]JD[facility] Diagnosis: ICD-10-CM G70.00 Myasthenia gravis without (acute) exacerbation Active Diagnosis [facility] LUISA HERNANDEZ [facility]RINJUAN [facility] Medications Combined list of outpatient medications from Department of Defense and Veterans Affairs facilities.Medications provided include 1) outpatient medications from the last 15 months, and 2) patient-reported medications. Medication Details Route Status Patient Instructions Prescription Expires Prescription Number Last Dispense Date Ordering Provider Order Date Order Qty Source AMLODIPINE BESYLATE 5MG TAB TAKE ONE TABLET BY MOUTH TWICE DAILY FOR BLOOD PRESSURE /HEART, DO NOT TAKE WITH GRAPEFRU IT JUICE ORAL ACTIVE 04/30/2025 [id number] 5 NICKIE REYNA 2024 180 [facility] [place] AMLODIPINE BESYLATE 5MG TAB TAKE ONE TABLET BY MOUTH TWICE DAILY FOR BLOOD PRESSURE /HEART, DO NOT TAKE WITH GRAPEFRU IT JUICE ORAL DISCONT INUED 05/26/2024 [id number] NICKIE REYNA 2023 180 [facility] [place] AMLODIPINE BESYLATE 5MG TAB TAKE ONE TABLET BY MOUTH TWICE DAILY FOR BLOOD PRESSURE /HEART, DO NOT TAKE WITH GRAPEFRU IT JUICE ORAL DISCONT INUED (EDIT) 02/09/2024 [id number] NICKIE REYNA 2023 60 [facility] [place] ASPIRIN 81MG TAB,EC TAKE ONE TABLET BY MOUTH EVERY DAY ORAL ACTIVE HARJINDER MART 2006 [facility] ATORVASTATI N CA 40MG TAB TAKE ONE TABLET BY MOUTH ONCE DAILY FOR CHOLESTE ROL ORAL ACTIVE 01/31/2025 [id number] 5 NICKIE REYNA 2023 90 [facility] ATORVASTATI N CA 40MG TAB TAKE ONE TABLET BY MOUTH ONCE DAILY FOR CHOLESTE ROL ORAL DISCONT INUED 11/08/2023 [id number] NICKIE REYNA 2022 90 [facility] CAPTOPRIL 12.5MG TAB TAKE ONE AND ONE-HALF TABLETS (18.75MG ) BY MOUTH THREE TIMES A DAY TO CONTROL BLOOD PRESSURE ORAL ACTIVE 06/04/2024 [id number] 5 NICKIE REYNA 2023 405 [facility] [place] [facility] CAPTOPRIL 12.5MG TAB TAKE ONE AND ONE-HALF TABLETS (18.75MG ) BY MOUTH THREE TIMES A DAY TO CONTROL BLOOD PRESSURE ORAL DISCONT INUED 06/26/2023 [id number] NICKIE REYNA 2022 405 [facility] [place] CHOLECALCIF QUINTIN 25MCG (1,000UNIT) TAB TAKE ONE TABLET BY MOUTH EVERY DAY ORAL ACTIVE HARJINDER MART NNLuigi O 2008 [facility] DIPHENHYDRA MINE HCL CAP,ORAL TAKE BY MOUTH AT BEDTIME NEEDED ORAL ACTIVE NICKIE REYNA 2017 [facility] EPINEPHRINE (EQV-EPI-PE N) 0.3MG/0.3ML INJECTOR INJECT DIRECTED INTRAMUS CULARLY NEEDED FOR ANAPHYLA XIS INTRAM USCULA R 11/28/2023 [id number] NICKIE REYNA 2023 2 [facility] FEXOFENADIN E HCL 180MG TAB TAKE ONE TABLET BY MOUTH EVERY DAY ORAL ACTIVE HARJINDER MART NNE O 2006 [facility] HYDRALAZINE HCL 50MG TAB TAKE ONE TABLET BY MOUTH ONCE DAILY FOR BLOOD PRESSURE ORAL ACTIVE 04/30/2025 [id number] 5 NICKIE REYNA 2024 90 [facility] HYDRALAZINE HCL 50MG TAB TAKE ONE TABLET BY MOUTH ONCE DAILY FOR BLOOD PRESSURE ORAL DISCONT INUED 04/25/2024 [id number] 4 NICKIE REYNA 2023 90 [facility] HYDRALAZINE HCL 50MG TAB TAKE ONE TABLET BY MOUTH ONCE DAILY FOR BLOOD PRESSURE ORAL DISCONT INUED 06/19/2023 [id number] NICKIE REYNA 2022 90 [facility] IBUPROFEN 400MG TAB TAKE ONE TABLET BY MOUTH NEEDED ORAL ACTIVE HARJINDER MART 2008 [facility] ISOSORBIDE DINITRATE 20MG TAB,ORAL TAKE ONE TABLET BY MOUTH EVERY MORNING TO PREVENT ANGINA ORAL ACTIVE 10/22/2024 [id number] 5 NICKIE REYNA 2023 90 [facility] ISOSORBIDE DINITRATE 20MG TAB,ORAL TAKE ONE TABLET BY MOUTH EVERY MORNING TO PREVENT ANGINA ORAL DISCONT INUED 11/08/2023 [id number] 4 NICKIE REYNA 2022 90 [facility] LEVOTHYROXI NE NA 88MCG TAB (SYNTHROID) TAKE ONE TABLET BY MOUTH EVERY MORNING 30 MINUTES BEFORE BREAKFAS T FOR THYROID - TAKE ON AN EMPTY STOMACH WITH A FULL GLASS OF WATER ORAL ACTIVE 01/31/2025 [id number] 5 NICKIE REYNA 2023 90 [facility] LEVOTHYROXI NE NA 88MCG TAB (SYNTHROID) TAKE ONE TABLET BY MOUTH EVERY MORNING 30 MINUTES BEFORE BREAKFAS T FOR THYROID - TAKE ON AN EMPTY STOMACH WITH A FULL GLASS OF WATER ORAL DISCONT INUED 11/08/2023 [id number] 4 NICKIE REYNA 2022 90 [facility] MELATONIN CAP/TAB TAKE BY MOUTH ORAL ACTIVE NICKIE REYNA 2017 [facility] METFORMIN HCL 500MG 24HR TAB,SA TAKE ONE TABLET BY MOUTH ONCE DAILY ORAL ACTIVE 06/04/2024 [id number] 5 NICKIE REYNA 2023 90 [facility] MULTIVITAMI NS W/MINERALS TAB TAKE ONE TABLET BY MOUTH EVERY DAY ORAL ACTIVE MARTHARJINDER ALINA O 2006 [facility] OMEPRAZOLE 20MG CAP,EC TAKE ONE CAPSULE BY MOUTH EVERY MORNING 30 MINUTES BEFORE BREAKFAS T ORAL ACTIVE 10/22/2024 [id number] 5 NICKIE REYNA 2023 90 [facility] OMEPRAZOLE 20MG CAP,EC TAKE ONE CAPSULE BY MOUTH EVERY MORNING 30 MINUTES BEFORE BREAKFAS T ORAL DISCONT INUED 11/08/2023 [id number] 4 NICKIE REYNA 2022 90 [facility] OTHER CAP/TAB TAKE IV IGG PERIODIC ALLY FOR MYASTHEN IA GRAVIS BY MOUTH ORAL ACTIVE NICKIE REYNA 2021 [facility] PREDNISONE 5MG TAB TAKE ONE TABLET BY MOUTH ONCE DAILY ORAL ACTIVE NICKIE REYNA 2023 [facility] PYRIDOSTIGM INE BR 60MG TAB TAKE ONE TABLET BY MOUTH FOUR TIMES A DAY ORAL ACTIVE 07/16/2024 [id number] BINTA ORTEGA 2023 400 [facility] PYRIDOSTIGM INE BR 60MG TAB TAKE ONE TABLET BY MOUTH THREE TIMES A DAY ORAL DISCONT INUED 06/04/2024 [id number] 4 NICKIE REYNA 2023 300 [facility] PYRIDOSTIGM INE BR 60MG TAB TAKE ONE TABLET BY MOUTH THREE TIMES A DAY ORAL DISCONT INUED 08/16/2023 [id number] BINTA ORTEGA 2022 300 [facility] PYRIDOSTIGM INE BR 60MG TAB TAKE ONE TABLET BY MOUTH THREE TIMES A DAY ORAL ACTIVE PEYTON QUINONES ICE 2022 [facility] Allergies, Adverse Reactions, Alerts Combined list of allergies from Department of Defense and Veterans Affairs facilities. It does not include entries that were removed or entered in error. Substance Category Reaction Severity Reaction type Status Date Reported Comments Source LIPITOR Propensity to adverse reactions to drug (finding) Muscle pain active 4 [facility] [place] [facility] Immunizations Combined list of available immunizations from the Department of Defense and Veterans Affairs facilities. Immunization Series Date Given Administered By Site Reaction Lot Number CVX Code Drug Wind Operations Supervisor Status Comments Source RSV, BIVALENT, PROTEIN SUBUNIT RSVPREF, DILUENT RECONSTITUTED , 0.5 ML, PF 2022 GAYLE BAIRD LEFT DELTO ID [id number] 305 complet ed [facility] COVID-19 (MODERNA), MRNA, LNP-S, PF, 50 MCG/0.5 ML (AGES 12+ YEARS) 1 2022 ARIANA CELESTIN LEFT DELTO ID [id number] 312 complet ed [facility] INFLUENZA, HIGH-DOSE, QUADRIVALENT 2022 ARIANA CELESTIN RIGHT DELTO ID [id number] 197 complet ed [facility] TDAP 2022 BECKY TALAVERA LEFT DELTO ID [id number] 115 complet ed [facility] [place] [facility] INFLUENZA VACCINE, QUADRIVALENT, ADJUVANTED 2021 205 complet ed [facility] [place] [facility] MENINGOCOCCAL POLYSACCHARID E VACCINE (HISTORICAL) 2021 108 complet ed [facility] COVID-19 (MODERNA), MRNA, LNP-S, PF, 100 MCG/0.5ML DOSE OR 50 MCG/0.25ML DOSE 3 2021 207 complet ed [facility] INFLUENZA, UNSPECIFIED FORMULATION 2020 88 complet ed [facility] COVID-19 (MODERNA), MRNA, LNP-S, PF, 100 MCG OR 50 MCG DOSE 3 2020 207 complet ed [facility] COVID-19 (MODERNA), MRNA, LNP-S, PF, 100 MCG/0.5 ML DOSE 2 2020 207 complet ed MOD; [id number]; 1 [facility] COVID-19 (MODERNA), MRNA, LNP-S, PF, 100 MCG/0.5 ML DOSE 1 2020 207 complet ed MOD; [id number]; 1 [facility] ZOSTER RECOMBINANT 2 2019 187 complet ed [facility] INFLUENZA, INJECTABLE, QUADRIVALENT, PRESERVATIVE FREE 2019 150 complet ed [facility] ZOSTER RECOMBINANT 1 2019 187 complet ed [facility] INFLUENZA, TRIVALENT, ADJUVANTED 2018 168 complet ed Site: Right Deltoid [facility] INFLUENZA, SEASONAL, INJECTABLE 2016 141 complet ed outside provider [facility] FLU,3 YRS (HISTORICAL) 2015 88 complet ed [facility] FLU,3 YRS (HISTORICAL) 2014 88 complet ed [facility] PNEUMOCOCCAL CONJUGATE PCV 13 2014 133 complet ed [facility] FLU,3 YRS (HISTORICAL) 2013 88 complet ed [facility] FLU,3 YRS (HISTORICAL) 2012 88 complet ed . [facility] DTAP, UNSPECIFIED FORMULATION 2012 107 complet ed [facility] FLU,3 YRS (HISTORICAL) 2011 88 complet ed [facility] PNEUMOCOCCAL, UNSPECIFIED FORMULATION 2011 109 complet ed Site: Right Deltoid [facility] TD(ADULT) UNSPECIFIED FORMULATION 2011 139 complet ed Site: Left Deltoid [facility] ZOSTER LIVE 2010 MARCELPAZTITO Ortiz 121 complet ed [facility] FLU,3 YRS (HISTORICAL) 2010 88 complet ed stated [facility] FLU,3 YRS (HISTORICAL) 2009 88 complet ed [facility] FLU,3 YRS (HISTORICAL) 2008 88 complet ed [facility] FLU,3 YRS (HISTORICAL) 2007 88 complet ed Patient stated he received the above by Dr. Sinha community PCP [facility] Results Combined list of recent chemistry, hematology and other laboratory results from Department of Defense and Veterans Affairs, ranging from 15 months to all on record, depending upon the facility. Order Name Results Value Reference Range Date Interpretation Specimen Comments Source TSH THYROTROPI N [UNITS/VOL UME] IN SERUM OR PLASMA 6.32 u[IU]/mL 0.35 - 5.00 06/04 H Specimen Type: SERUM No comment entered. Ordering Provider: Caitlin REYNA Report Released Date/Time: Dec 04, 2022 10:59 AM Reporting Lab: [facility] [address] [facility] [facility] [address] Performing Lab: [facility] [address] [facility] [facility] [address] [facility] [place] [facility] BASIC METABOLI C PANEL (fasting ) UREA NITROGEN [MASS/VOLU ME] IN SERUM OR PLASMA 15 mg/dL 7 - 25 06/04 Specimen Type: SERUM No comment entered. Ordering Provider: Caitlin REYNA Report Released Date/Time: Dec 04, 2022 10:59 AM Reporting Lab: [facility] [place] [facility] [address] [facility] [facility] [address] Performing Lab: [facility] [place] [facility] [address] [facility] [address] [facility] BASIC METABOLI C PANEL (fasting ) GLUCOSE [MASS/VOLU ME] IN SERUM OR PLASMA 98 mg/dL 65 - 100 06/04 Specimen Type: SERUM No comment entered. Ordering Provider: Caitlin REYNA Report Released Date/Time: Dec 04, 2022 10:59 AM Reporting Lab: [facility] TRN [place] [facility] [address] [facility] [facility] [address] Performing Lab: [facility]CH[facility] [address] [facility] [address] [facility] BASIC METABOLI C PANEL (fasting ) SODIUM [MOLES/VOL UME] IN SERUM OR PLASMA 140 mmol/L 135 - 145 06/04 Specimen Type: SERUM No comment entered. Ordering Provider: Caitlin REYNA Report Released Date/Time: Dec 04, 2022 10:59 AM Reporting Lab: [facility]CHRCL[facility]ITALTRN [facility] [address] [facility] [address] Performing Lab: [facility]ANCHRL TRN [facility] [address] [facility] [address] [facility] BASIC METABOLI C PANEL (fasting ) POTASSIUM [MOLES/VOL UME] IN SERUM OR PLASMA 3.8 mmol/L 3.5 - 5.0 06/04 Specimen Type: SERUM No comment entered. Ordering Provider: Caitlin REYNA Report Released Date/Time: Dec 04, 2022 10:59 AM Reporting Lab: [facility] [address] [facility] [facility] [address] Performing Lab: [facility]ANCHRCL[facility] HOSPITALTRN [facility] [address] [facility] [address] [facility] BASIC METABOLI C PANEL (fasting ) CHLORIDE [MOLES/VOL UME] IN SERUM OR PLASMA 105 mmol/L 100 - 110 06/04 Specimen Type: SERUM No comment entered. Ordering Provider: Caitlin REYNA Report Released Date/Time: Dec 04, 2022 10:59 AM Reporting Lab: [facility] [place] [facility] [address] [facility] [facility] [address] Performing Lab: [facility] [facility] [address] [facility] [address] [facility] BASIC METABOLI C PANEL (fasting ) CARBON DIOXIDE, TOTAL [MOLES/VOL UME] IN SERUM OR PLASMA 25 meq/L 20 - 30 06/04 Specimen Type: SERUM No comment entered. Ordering Provider: Caitlin REYNA Report Released Date/Time: Dec 04, 2022 10:59 AM Reporting Lab: [place] [facility] [place] [address] [address] Performing Lab: [facility]RL [facility] [address] [facility] BASIC METABOLI C PANEL (fasting ) CREATININE [MASS/VOLU ME] IN SERUM OR PLASMA 0.85 mg/dL 0.50 - 1.40 06/04 Specimen Type: SERUM No comment entered. Ordering Provider: Caitlin REYNA Report Released Date/Time: Dec 04, 2022 10:59 AM Reporting Lab: [facility] [address] [address] Performing Lab: [facility] [address] [address] [facility] BASIC METABOLI C PANEL (fasting ) GLOMERULAR FILTRATION RATE/1.73 SQ M.PREDICTE D [VOLUME RATE/AREA] IN SERUM, PLASMA OR BLOOD BY CREATININE -BASED FORMULA (CKD-EPI 2020) 84 mL/min 60 06/04 Specimen Type: SERUM No comment entered. Ordering Provider: Caitlin REYNA Report Released Date/Time: Dec 04, 2022 10:59 AM Reporting Lab: [facility] [place] [address] [address] Performing Lab: [facility] [facility] [address] [facility] [facility] [address] [facility] HEMOGLOB IN A1C PANEL HEMOGLOBIN A1C/HEMOGL OBIN.TOTAL IN BLOOD BY HPLC 5.3 4.0 - 5.6 06/04 Specimen Type: BLOOD Comment: Values obtained from A1C measurement s can vary. For atypical A1C assays, a reported value of 7.0 could actually be between 6.72 and 7.28 if measured by a reference method. A reported value of 9.0 could actually be between 8.73 and 9.27. Ref: http://www. ngsp.org/[place] Pdata.asp Ordering Provider: Caitlin REYNA Report Released Date/Time: Dec 04, 2022 10:59 AM Reporting Lab: [facility] [facility] [address] [address] Performing Lab: [facility] [facility] [address] [facility]RL TRN [facility] LIVER FUNCTION PROTEIN [MASS/VOLU ME] IN SERUM OR PLASMA 6.3 g/dL 6.0 - 8.3 06/04 Specimen Type: SERUM No comment entered. Ordering Provider: Caitlin REYNA Report Released Date/Time: Dec 04, 2022 10:59 AM Reporting Lab: [facility] [place] [address] [address] Performing Lab: [facility] [facility] [place] [facility] [address] [facility] [facility] [address] [facility] [place] [facility] LIVER FUNCTION ALBUMIN [MASS/VOLU ME] IN SERUM OR PLASMA 4.1 g/dL 3.5 - 5.0 06/04 Specimen Type: SERUM No comment entered. Ordering Provider: Caitlin REYNA Report Released Date/Time: Dec 04, 2022 10:59 AM Reporting Lab: [facility] [facility] [place] [address] [address] Performing Lab: [place] [facility] [address] [address] [facility] [place] [facility] LIVER FUNCTION ALKALINE PHOSPHATAS E [ENZYMATIC ACTIVITY/V OLUME] IN SERUM OR PLASMA 58 U/L 40 - 150 06/04 Specimen Type: SERUM No comment entered. Ordering Provider: Caitlin REYNA Report Released Date/Time: Dec 04, 2022 10:59 AM Reporting Lab: [facility] [facility] [address] [facility] [address] Performing Lab: [facility] [facility] [address] [facility] [address] [facility] L[facility] FUNCTION ASPARTATE AMINOTRANS FERASE [ENZYMATIC ACTIVITY/V OLUME] IN SERUM OR PLASMA 20 U/L 5 - 34 06/04 Specimen Type: SERUM No comment entered. Ordering Provider: Caitlin REYNA Report Released Date/Time: Dec 04, 2022 10:59 AM Reporting Lab: [facility] [facility] [address] [facility] [address] Performing Lab: [facility] [facility] [address] [facility] [address] [facility] LIVER FUNCTION ALANINE AMINOTRANS FERASE [ENZYMATIC ACTIVITY/V OLUME] IN SERUM OR PLASMA 19 U/L 06/04 Specimen Type: SERUM No comment entered. Ordering Provider: Caitlin REYNA Report Released Date/Time: Dec 04, 2022 10:59 AM Reporting Lab: [facility] [facility] [address] [facility] [address] Performing Lab: [facility] [facility] [address] [facility] [address] [facility] [place] [facility] LIVER FUNCTION BILIRUBIN. TOTAL [MASS/VOLU ME] IN SERUM OR PLASMA 1.0 mg/dL 0.2 - 1.2 06/04 Specimen Type: SERUM No comment entered. Ordering Provider: Caitlin REYNA Report Released Date/Time: Dec 04, 2022 10:59 AM Reporting Lab: [facility] [place] [facility] [address] [facility] [address] Performing Lab: [facility] [place] [facility] [address] [facility] [address] [facility] [place] [facility] LIPID PANEL FASTING CHOLESTERO L [MASS/VOLU ME] IN SERUM OR PLASMA 145 mg/dL 06/04 Specimen Type: SERUM No comment entered. Ordering Provider: Caitlin REYNA Report Released Date/Time: Dec 04, 2022 10:59 AM Reporting Lab: [facility] [place] [facility] [address] [facility] [address] Performing Lab: [facility] [place] [facility] [address] [facility] [address] [facility] LIPID PANEL FASTING TRIGLYCERI DE [MASS/VOLU ME] IN SERUM OR PLASMA 191 mg/dL 0 - 150 06/04 H Specimen Type: SERUM No comment entered. Ordering Provider: Caitlin REYNA Report Released Date/Time: Dec 04, 2022 10:59 AM Reporting Lab: [facility] [place] [facility] [address] [facility] [address] Performing Lab: [facility] [place] [facility] [address] [facility] [address] [facility] LIPID PANEL FASTING CHOLESTERO L IN LDL [MASS/VOLU ME] IN SERUM OR PLASMA BY CALCULATIO N 66 mg/dL 0 - 129 06/04 Specimen Type: SERUM No comment entered. Ordering Provider: Caitlin REYNA Report Released Date/Time: Dec 04, 2022 10:59 AM Reporting Lab: [facility] [place] [facility] [address] [facility] [address] Performing Lab: [facility] [place] [facility] [address] [facility] [facility] [address] [facility] [place] [facility] LIPID PANEL FASTING CHOLESTERO L.TOTAL/CH OLESTEROL IN HDL [MASS RATIO] IN SERUM OR PLASMA 3.5 06/04 Specimen Type: SERUM No comment entered. Ordering Provider: Caitlin REYNA Report Released Date/Time: Dec 04, 2022 10:59 AM Reporting Lab: [facility] [place] [facility] [address] [facility] [address] Performing Lab: [facility] [place] [facility] [address] [facility] [address] [facility] [place] [facility] LIPID PANEL FASTING CHOLESTERO L IN HDL [MASS/VOLU ME] IN SERUM OR PLASMA 41 mg/dL 40 - 60 06/04 Specimen Type: SERUM No comment entered. Ordering Provider: Caitlin REYNA Report Released Date/Time: Dec 04, 2022 10:59 AM Reporting Lab: [facility] [place] [facility] [address] [facility] [address] Performing Lab: [facility] [place] [facility] [address] [facility] [facility] [address] [facility] [place] [facility] MICROALB UMIN CREATINI NE RATIO PANEL MICROALBUM IN/CREATIN INE [MASS RATIO] IN URINE 27.2 mg/g 0 - 29.9 06/04 Specimen Type: URINE No comment entered. Ordering Provider: Caitlin REYNA Report Released Date/Time: Dec 04, 2022 10:59 AM Reporting Lab: [facility] [place] [facility] [address] [facility] [address] Performing Lab: [facility] [place] [facility] [address] [facility] [facility] [address] [facility] [place] [facility] MICROALB UMIN CREATINI NE RATIO PANEL MICROALBUM IN [MASS/VOLU ME] IN URINE 2.7 mg/dL 06/04 Specimen Type: URINE No comment entered. Ordering Provider: Caitlin REYNA Report Released Date/Time: Dec 04, 2022 10:59 AM Reporting Lab: [facility] [place] [facility] [address] [facility] [facility] [address] Performing Lab: [facility] [place] [facility] [address] [facility] [address] [facility] [place] MICROALB UMIN CREATINI NE RATIO PANEL CREATININE [MASS/VOLU ME] IN URINE 99.32 mg/dL 06/04 Specimen Type: URINE No comment entered. Ordering Provider: Caitlin REYNA Report Released Date/Time: Dec 04, 2022 10:59 AM Reporting Lab: [facility] [place] [address] [address] Performing Lab: [facility] [place] [address] [address] [facility] [place] [facility] VITAMIN D (25-OH) 25-HYDROXY VITAMIN D3 [MASS/VOLU ME] IN SERUM OR PLASMA 66 ng/mL 20 - 50 06/04 H Specimen Type: SERUM No comment entered. Ordering Provider: Caitlin REYNA Report Released Date/Time: Dec 04, 2022 10:59 AM Reporting Lab: [facility] [place] [address] [address] Performing Lab: [facility] [place] [address] [address] [facility] [place] [facility] CBC AND DIFF (AUTO) LEUKOCYTES [#/VOLUME] IN BLOOD BY AUTOMATED COUNT 9.66 10*3/uL 4.50 - 11.00 06/04 Specimen Type: BLOOD No comment entered. Ordering Provider: Caitlin REYNA Report Released Date/Time: Dec 04, 2022 10:59 AM Reporting Lab: [facility] [place] [address] [address] Performing Lab: [facility] [place] [address] [address] [facility] CBC AND DIFF (AUTO) ERYTHROCYT ES [#/VOLUME] IN BLOOD BY AUTOMATED COUNT 4.55 10*6/uL 4.23 - 5.66 06/04 Specimen Type: BLOOD No comment entered. Ordering Provider: Caitlin REYNA Report Released Date/Time: Dec 04, 2022 10:59 AM Reporting Lab: [facility] [place] [address] [place] [address] Performing Lab: [facility] [place] [facility] [address] [facility] [facility] [address] [facility] [place] CBC AND DIFF (AUTO) HEMOGLOBIN [MASS/VOLU ME] IN BLOOD 14.6 g/dL 12.8 - 17 06/04 Specimen Type: BLOOD No comment entered. Ordering Provider: Caitlin REYNA Report Released Date/Time: Dec 04, 2022 10:59 AM Reporting Lab: [facility] [place] [facility] [address] [facility] [facility] [address] Performing Lab: [facility] [place] [facility] [address] [facility] [facility] [address] [facility] [place] CBC AND DIFF (AUTO) HEMATOCRIT [VOLUME FRACTION] OF BLOOD BY AUTOMATED COUNT 43.9 39.2 - 50.4 06/04 Specimen Type: BLOOD No comment entered. Ordering Provider: Caitlin REYNA Report Released Date/Time: Dec 04, 2022 10:59 AM Reporting Lab: [facility] [place] [facility] [address] [facility] [facility] [address] Performing Lab: [facility] [place] [facility] [address] [facility] [facility] [address] [facility] [place] [facility] CBC AND DIFF (AUTO) MCV [ENTITIC VOLUME] BY AUTOMATED COUNT 96.5 fL 82 - 99 06/04 Specimen Type: BLOOD No comment entered. Ordering Provider: Caitlin REYNA Report Released Date/Time: Dec 04, 2022 10:59 AM Reporting Lab: [facility] [place] [facility] [address] [facility] [address] Performing Lab: [facility] [place] [facility] [address] [facility] [address] [facility] [place] [facility] CBC AND DIFF (AUTO) MCHC [MASS/VOLU ME] BY AUTOMATED COUNT 33.3 g/dL 30.8 - 35.1 06/04 Specimen Type: BLOOD No comment entered. Ordering Provider: Caitlin REYNA Report Released Date/Time: Dec 04, 2022 10:59 AM Reporting Lab: [facility] [place] [facility] [address] [facility] [facility] [address] Performing Lab: [facility] [place] [facility] [address] [facility] [facility] [address] [facility] [place] CBC AND DIFF (AUTO) PLATELETS [#/VOLUME] IN BLOOD BY AUTOMATED COUNT 246 10*3/uL 140 - 360 06/04 Specimen Type: BLOOD No comment entered. Ordering Provider: Caitlin REYNA Report Released Date/Time: Dec 04, 2022 10:59 AM Reporting Lab: [facility] [place] [facility] [address] [facility] [facility] [address] Performing Lab: [facility] [place] [facility] [address] [facility] [facility] [address] [facility] [place] CBC AND DIFF (AUTO) ERYTHROCYT E DISTRIBUTI ON WIDTH [RATIO] BY AUTOMATED COUNT 12.5 12.0 - 16.0 06/04 Specimen Type: BLOOD No comment entered. Ordering Provider: Caitlin REYNA Report Released Date/Time: Dec 04, 2022 10:59 AM Reporting Lab: [facility] [place] [facility] [address] [facility] [facility] [address] Performing Lab: [facility] [place] [facility] [address] [facility] [address] [facility] [place] CBC AND DIFF (AUTO) MONOCYTES [#/VOLUME] IN BLOOD BY AUTOMATED COUNT 0.91 10*3/uL 0.30 - 1.10 06/04 Specimen Type: BLOOD No comment entered. Ordering Provider: Caitlin REYNA Report Released Date/Time: Dec 04, 2022 10:59 AM Reporting Lab: [facility] [place] [facility] [address] [facility] [facility] [address] Performing Lab: [facility] [place] [facility] [address] [facility] [facility] [address] [facility] [place] CBC AND DIFF (AUTO) MCH [ENTITIC MASS] BY AUTOMATED COUNT 32.1 pg 26.2 - 32.6 06/04 Specimen Type: BLOOD No comment entered. Ordering Provider: Caitlin REYNA Report Released Date/Time: Dec 04, 2022 10:59 AM Reporting Lab: [facility] [place] [facility] [address] [facility] [facility] [address] Performing Lab: [facility] [place] [facility] [address] [facility] [facility] [address] [facility] [place] CBC AND DIFF (AUTO) NEUTROPHIL S/100 LEUKOCYTES IN BLOOD BY AUTOMATED COUNT 53.2 43.7 - 75.8 06/04 Specimen Type: BLOOD No comment entered. Ordering Provider: Caitlin REYNA Report Released Date/Time: Dec 04, 2022 10:59 AM Reporting Lab: [facility] [place] [address] [address] Performing Lab: [facility] [place] [facility] [address] [facility] [facility] [address] [facility] [place] [facility] CBC AND DIFF (AUTO) LYMPHOCYTE S/100 LEUKOCYTES IN BLOOD BY AUTOMATED COUNT 35.0 14.0 - 42.3 06/04 Specimen Type: BLOOD No comment entered. Ordering Provider: Caitlin REYNA Report Released Date/Time: Dec 04, 2022 10:59 AM Reporting Lab: [facility] [place] [facility] [address] [facility] [address] Performing Lab: [facility] [place] [facility] [address] [facility] [facility] [address] [facility] [place] CBC AND DIFF (AUTO) MONOCYTES/ 100 LEUKOCYTES IN BLOOD BY AUTOMATED COUNT 9.4 5.1 - 13.7 06/04 Specimen Type: BLOOD No comment entered. Ordering Provider: Caitlin REYNA Report Released Date/Time: Dec 04, 2022 10:59 AM Reporting Lab: [facility] [place] [facility] [address] [facility] [facility] [address] Performing Lab: [facility] [place] [facility] [address] [facility] [facility] [address] [facility] [place] CBC AND DIFF (AUTO) EOSINOPHIL S/100 LEUKOCYTES IN BLOOD BY AUTOMATED COUNT 1.3 0.4 - 6.8 06/04 Specimen Type: BLOOD No comment entered. Ordering Provider: Caitlin REYNA Report Released Date/Time: Dec 04, 2022 10:59 AM Reporting Lab: [facility] [place] [facility] [address] [facility] [facility] [address] Performing Lab: [facility] [place] [facility] [address] [facility] [facility] [address] [facility] [place] CBC AND DIFF (AUTO) BASOPHILS/ 100 LEUKOCYTES IN BLOOD BY AUTOMATED COUNT 0.4 0.1 - 2.0 06/04 Specimen Type: BLOOD No comment entered. Ordering Provider: Caitlin REYNA Report Released Date/Time: Dec 04, 2022 10:59 AM Reporting Lab: [facility] [place] [facility] [address] [facility] [facility] [address] Performing Lab: [facility] [place] [facility] [address] [facility] [facility] [address] [facility] [place] CBC AND DIFF (AUTO) NEUTROPHIL S [#/VOLUME] IN BLOOD BY AUTOMATED COUNT 5.13 10*3/uL 2.20 - 7.60 06/04 Specimen Type: BLOOD No comment entered. Ordering Provider: Caitlin REYNA Report Released Date/Time: Dec 04, 2022 10:59 AM Reporting Lab: [facility] [place] [facility] [address] [facility] [address] Performing Lab: [facility] [place] [facility] [address] [facility] [facility] [address] [facility] [place] CBC AND DIFF (AUTO) LYMPHOCYTE S [#/VOLUME] IN BLOOD BY AUTOMATED COUNT 3.38 10*3/uL 1.00 - 3.20 06/04 H Specimen Type: BLOOD No comment entered. Ordering Provider: Caitlin REYNA Report Released Date/Time: Dec 04, 2022 10:59 AM Reporting Lab: [facility] [place] [facility] [address] [facility] [address] Performing Lab: [facility] [place] [facility] [address] [facility] [facility] [address] [facility] [place] CBC AND DIFF (AUTO) EOSINOPHIL S [#/VOLUME] IN BLOOD BY AUTOMATED COUNT 0.13 10*3/uL 0.03 - 0.44 06/04 Specimen Type: BLOOD No comment entered. Ordering Provider: Caitlin REYNA Report Released Date/Time: Dec 04, 2022 10:59 AM Reporting Lab: [facility] [place] [facility] [address] [facility] [address] Performing Lab: [facility] [place] [facility] [address] [facility] [facility] [address] [facility] [place] CBC AND DIFF (AUTO) BASOPHILS [#/VOLUME] IN BLOOD BY AUTOMATED COUNT 0.04 10*3/uL 0.01 - 0.13 06/04 Specimen Type: BLOOD No comment entered. Ordering Provider: Caitlin REYNA Report Released Date/Time: Dec 04, 2022 10:59 AM Reporting Lab: [facility] [place] [facility] [address] [facility] [address] Performing Lab: [facility] [place] [facility] [address] [facility] [facility] [address] [facility] [place] CBC AND DIFF (AUTO) IMMATURE GRANULOCYT ES/100 LEUKOCYTES IN BLOOD BY AUTOMATED COUNT 0.7 0.0 - 0.7 06/04 Specimen Type: BLOOD No comment entered. Ordering Provider: Caitlin REYNA Report Released Date/Time: Dec 04, 2022 10:59 AM Reporting Lab: [facility] [place] [facility] [address] [facility] [address] Performing Lab: [facility] [place] [facility] [address] [facility] [facility] [address] [facility] [place] CBC AND DIFF (AUTO) IMMATURE GRANULOCYT ES [#/VOLUME] IN BLOOD 0.07 10*3/uL 0.00 - 0.06 06/04 H Specimen Type: BLOOD No comment entered. Ordering Provider: Caitlin REYNA Report Released Date/Time: Dec 04, 2022 10:59 AM Reporting Lab: [facility] [place] [facility] [address] [facility] [facility] [address] Performing Lab: [facility] [place] [facility] [address] [facility] [facility] [address] [facility] [place] [facility] URINALYS IS COLOR OF URINE Light-Ye llow 06/04 Specimen Type: URINE Comment: If Glucose = >500 and Ketones are positive, please alert the Physician. Ordering Provider: Caitlin REYNA Report Released Date/Time: Dec 04, 2022 10:59 AM Reporting Lab: [facility] [facility] [address] [facility] [address] Performing Lab: [facility] [place] [facility] [address] [facility] [facility] [address] [facility] [place] [facility] URINALYS IS APPEARANCE OF URINE Clear 06/04 Specimen Type: URINE Comment: If Glucose = >500 and Ketones are positive, please alert the Physician. Ordering Provider: Caitlin REYNA Report Released Date/Time: Dec 04, 2022 10:59 AM Reporting Lab: [facility] [place] [facility] [address] [facility] [facility] [address] Performing Lab: [facility] [place] [facility] [address] [facility] [address] [facility] [place] [facility] URINALYS IS GLUCOSE [MASS/VOLU ME] IN URINE NEGATIVE mg/dL 06/04 Specimen Type: URINE Comment: If Glucose = >500 and Ketones are positive, please alert the Physician. Ordering Provider: Caitlin REYNA Report Released Date/Time: Dec 04, 2022 10:59 AM Reporting Lab: [facility] [place] [facility] [address] [facility] [address] Performing Lab: [facility] [place] [facility] [address] [facility] [address] [facility] [place] URINALYS IS KETONES [MASS/VOLU ME] IN URINE BY TEST STRIP NEGATIVE mg/dL 06/04 Specimen Type: URINE Comment: If Glucose = >500 and Ketones are positive, please alert the Physician. Ordering Provider: Caitlin REYNA Report Released Date/Time: Dec 04, 2022 10:59 AM Reporting Lab: [facility] [place] [facility] [address] [facility] [address] Performing Lab: [facility] [place] [facility] [address] [facility] [address] [facility] [place] URINALYS IS ERYTHROCYT ES [PRESENCE] IN URINE SEDIMENT BY LIGHT MICROSCOPY NEGATIVE mg/dL 06/04 Specimen Type: URINE Comment: If Glucose = >500 and Ketones are positive, please alert the Physician. Ordering Provider: Caitlin REYNA Report Released Date/Time: Dec 04, 2022 10:59 AM Reporting Lab: [facility] [place] [facility] [address] [facility] [address] Performing Lab: [facility] [place] [facility] [address] [facility] [address] [facility] [place] URINALYS IS PROTEIN [MASS/VOLU ME] IN URINE BY TEST STRIP NEGATIVE mg/dL 06/04 Specimen Type: URINE Comment: If Glucose = >500 and Ketones are positive, please alert the Physician. Ordering Provider: Caitlin REYNA Report Released Date/Time: Dec 04, 2022 10:59 AM Reporting Lab: [facility] [place] [facility] [address] [facility] [address] Performing Lab: [facility] [place] [facility] [address] [facility] [address] [facility] [place] URINALYS IS NITRITE [PRESENCE] IN URINE NEGATIVE mg/dL 06/04 Specimen Type: URINE Comment: If Glucose = >500 and Ketones are positive, please alert the Physician. Ordering Provider: Caitlin REYNA Report Released Date/Time: Dec 04, 2022 10:59 AM Reporting Lab: [facility] [place] [facility] [address] [facility] [address] Per[place] Lab: [place] [facility] [address] [facility] [address] [facility] [place] [facility] URINALYS IS BILIRUBIN. TOTAL [PRESENCE] IN URINE NEGATIVE mg/dL 06/04 Specimen Type: URINE Comment: If Glucose = >500 and Ketones are positive, please alert the Physician. Ordering Provider: Caitlin REYNA Report Released Date/Time: Dec 04, 2022 10:59 AM Reporting Lab: [facility] [place] [address] [address] Performing Lab: [facility] [place] [facility] [address] [facility] [address] [facility] URINALYS IS SPECIFIC GRAVITY OF URINE BY REFRACTOME TRY 1.017 1.016 - 1.022 06/04 Specimen Type: URINE Comment: If Glucose = >500 and Ketones are positive, please alert the Physician. Ordering Provider: Caitlin REYNA Report Released Date/Time: Dec 04, 2022 10:59 AM Reporting Lab: [facility] [place] [address] [address] Performing Lab: [facility] [place] [facility] [address] [facility] [address] [facility] URINALYS IS PH OF URINE BY TEST STRIP 6.5 5.0 - 9.0 06/04 Specimen Type: URINE Comment: If Glucose = >500 and Ketones are positive, please alert the Physician. Ordering Provider: Caitlin REYNA Report Released Date/Time: Dec 04, 2022 10:59 AM Reporting Lab: [place] [facility] [address] [facility] [address] Performing Lab: [facility] [facility] [address] [facility] [address] [facility] URINALYS IS UROBILINOG EN [MASS/VOLU ME] IN URINE BY TEST STRIP <2.0mg/d L <2.0 - 2.0 06/04 Specimen Type: URINE Comment: If Glucose = >500 and Ketones are positive, please alert the Physician. Ordering Provider: Caitlin REYNA Report Released Date/Time: Dec 04, 2022 10:59 AM Reporting Lab: [facility] [place] [facility] [address] [facility] [address] Performing Lab: [facility] [place] [address] [address] [facility] URINALYS IS LEUKOCYTE ESTERASE [PRESENCE] IN URINE BY TEST STRIP NEGATIVE 06/04 Specimen Type: URINE Comment: If Glucose = >500 and Ketones are positive, please alert the Physician. Ordering Provider: Caitlin REYNA Report Released Date/Time: Dec 04, 2022 10:59 AM Reporting Lab: [facility] [place] [address] [address] Performing Lab: [facility] [place] [address] [address] [facility] TSH THYROTROPI N [UNITS/VOL UME] IN SERUM OR PLASMA 2.79 u[IU]/mL 0.35 - 5.00 06/12 Specimen Type: SERUM Comment: ALB result verified Ordering Provider: Caitlin REYNA Report Released Date/Time: May 30, 2022 11:34 AM Reporting Lab: [facility] [place] [address] [address] Performing Lab: [facility] [place] [address] [address] [facility] Vital Signs Combined list of inpatient and outpatient Vital Signs from Department of Defense and Veterans Affairs, ranging from 12 months to all on record, depending upon the facility. Vital Sign Value Date Comments Source SYSTOLIC BLOOD PRESSURE 120 06/04/19 24 10:21:57 [facility] [place] DIASTOLIC BLOOD PRESSURE 74 024 10:21:57 [facility] [place] [facility] PULSE OXIMETRY 96 06/04/2023 10:21:57 [facility] [place] [facility] WEIGHT 163 06/04/2023 10:21:57 [facility] [place] BMI 26 kg/m2 06/04/2023 10:21:57 [facility] [place] PAIN 0 06/04/2023 10:21:57 [facility] [place] [facility] TEMPERATURE 98.4 06/04/2023 10:21:57 [facility] [place] [facility] PULSE 64 06/04/2023 10:21:57 [facility] [place] [facility] RESPIRATION 16 06/04/2023 10:21:57 [facility] [place] [facility] Encounters Combined list of: 1) Encounters from Department of Veterans Affairs facilities going backup to the last 18 months, not all VA inpatient encounters are included; 2) Encounters from the Department of Defense facilities going backup to 280 months. Location Location Details Encounter Type Encounter Number Reason For Visit Attending Provider ADM Date DC Date Status Disposition Source [facility] Out[facility] Encounter [id number] 11/27 [facility]counter [id number] 12/03 [facility] Out[facility]counter [id number] 12/03 [facility] OFFICE O/P EST LOW 20-29 MIN 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 SALAZAR QUINONES 01/02 [facility] Encounter [id number] 01/09 [facility] OFF/OP EST MAY X REQ PHY/QHP [id number] Diagnos is: ICD-10- CM Z23 Encount er for immuniz ation CELESTINPRICILA ZAIDI P 01/18 [facility] OFF/OP EST MAY X REQ PHY/QHP [id number] Diagnos is: ICD-10- CM I10 Essenti al (primar y) hyperte nsion Diana BAIRD 02/08 [facility] En[facility] [id number] 02/11 [facility] Encounter [id number] 02/18 [facility] OFF/OP EST MAY X REQ PHY/QHP [id number] Diagnos is: ICD-10- CM Z23 Encount er for immuniz ation Diana BAIRDAurelia Crystal 02/26 [facility] Out[facility] Encounter [id number] 03/06 [facility] Encounter [id number] 03/18 [facility] Encounter [id number] 04/23 [facility] Encounter [id number] 04/23 [facility] Encounter [id number] 05/24 [facility] HEARING AID REPAIR/MOD IFYING [id number] Diagnos is: ICD-10- CM Z46.1 Encount er for fitting and adjustm ent of hearing aid TONY BUSTILLO 06/04 [facility] OFFICE O/P EST MOD 30 MIN [id number] Diagnos is: ICD-10- CM G70.01 Myasthe stefany gravis with (acute) exacerb katlyn LARANICKIE SAAVEDRA 06/04 [facility] Encounter [id number] [facility]counter [id number] 06/23 [facility] Encounter [id number] 06/26 [facility] Encounter [id number] 07/15 [facility] HEARING AID FITTING/CH ECKING [id number] Diagnos is: ICD-10- CM H90.3 Sensori neural hearing loss, bilater al REHAN SANTOS 07/15 [facility] HEARING SERVICE [id number] Diagnos is: ICD-10- CM Z46.1 Encount er for fitting and adjustm ent of hearing aid REHAN SANTOS 08/26 [facility] [id number] 09/05 [facility] [id number] 09/14 [facility] [id number] 09/15 [facility] [id number] 10/15 [facility] [id number] 10/18 [facility] [id number] 10/20 [facility] [id number] 10/27 [facility] En[facility] [id number] Diagnos is: ICD-10- CM E04.2 Nontoxi c multino dular goSALAZAR Lara 10/27 [facility] [id number] 10/27 [facility] [id number] 11/14 [facility] [id number] 12/16 [facility] [id number] 12/18 [facility] En[facility] [id number] Diagnos is: ICD-10- CM E04.2 Nontoxi c multino dular goSALAZAR Lara 12/31 [facility] [id number] [facility] [id number] 01/30 [facility] Outpatient Encounter [id number] 01/30 [facility] Outpatient Encounter [id number] 02/04 [facility] Out[facility] Encounter [id number] 02/06 [facility] Outpatient Encounter [id number] Diagnos is: ICD-10- CM 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 Social History Combined list of available smoking, tobacco, and other social history from Department of Defense and Veterans Affairs facilities. Social History Type Response Date Comment Sourc e Tobacco smoking status VTIS VA-TOBACCO QUIT 15 YRS OR MORE 02/05/2024 [facility] History of tobacco use VA-TOBACCO FORMER USER 02/05/2024 [facility] History of tobacco use VA-TOBACCO FORMER USER 12/04/2022 [facility] History of tobacco use [place]-TOBACCO FORMER USER 12/12/2021 [facility] History of tobacco use [place]-TOBACCO FORMER USER 12/20/2020 [facility] History of tobacco use [place]-TOBACCO FORMER USER 12/29/2019 [facility] [place] [facility] of [facility] [place] [facility] History of tobacco use QUIT TOBACCO USE > 7 YEARS AGO [facility]02[facility] [place] [facility] History of tobacco use LIFETIME NON-TOBACCO USER 08/22/2016 [place] History of tobacco use LIFETIME NON-TOBACCO USER 03/28/2015 [place] History of tobacco use QUIT TOBACCO USE > 7 YEARS AGO 07/27/2005 [facility] [place] [facility] History of tobacco use HISTORY OF SMOKING 07/12/2004 [facility] [place] [facility] History of tobacco use HISTORY OF SMOKING 08/11/2003 [facility] [place] [facility] Plan of Care List of future care activities from Department of [facility] facilities. Additional future care activities may be listed in the Assessment and Plan section. Date/Time Care Activity Care Activity Detail Facili ty 06/02/2024 AMBULATORY - MEDICINE [facility] 07/22/2024 AMBULATORY - REHAB MEDICINE [facility] - [facility] 04/29/2024 Laboratory - [employer] [facility] Order VITAMIN D (25-OH) BLOOD (SST-SERUM) [facility] [place] [facility] 04/29/2024 Laboratory - [employer] [facility] Order BASIC METABOLIC PANEL (fasting) BLOOD (SST-SERUM) [facility] 04/29/2024 Laboratory - [employer] Order LIPID PANEL FASTING BLOOD (SST-SERUM) [facility]/29[facility]2024 Laboratory - [employer] Order LIVER FUNCTION BLOOD (SST-SERUM) [facility] 04/29/2024 Laboratory - [employer] Order CBC BLOOD (LAV-BLOOD) [facility] 04/29/2024 Laboratory - [employer] Order HEMOGLOBIN A1C PANEL BLOOD (LAV-BLOOD) [facility] 04/29/2024 Laboratory - [employer] [facility] Order PT and INR (PROTIME) BLOOD (BLUE-PLASMA) [facility] 04/29/2024 Laboratory - [employer] Order PTT BLOOD (BLUE-PLASMA) [facility] 04/29/2024 Laboratory - [employer] Order CBC AND DIFF (AUTO) BLOOD (LAV-BLOOD) [facility] Advance Directives List of completed, amended, or rescinded Advance Directives on record at [facility] facilities. An actual copy of the Directive is not included. Date Advance Directive Provider Source 11/05/2008 ADVANCE DIRECTIVE SUSAN HEBERT [facility]
--- OUTSIDE RECORDS SUMMARY | 2024-05-15 09:23 | XMS_ITS | Encounter Summary ---
Author Name [facility] [place] [facility] [place] Address [address] [place] [address] Care Team Providers Care Butcher All Round Name Role Phone NICKIE REYNA Primary Care [...] Name Patient's Relationship to Policy Newsome BCBS OR MEDICARE SUPPLEMEN JUDITH MEDEX BRONZ E Apr 08, 2016 [id number] [phone] CAM,PATRICIA MARIA ELENA PATIENT BCBS OR MEDICARE SUPPLEMEN JUDITH MEDEX BRONZ E Apr 08, 2016 [id number] CAMPATRICIA MARIA ELENA PATIENT BCBS [facility] MEDICARE SUPPLEMEN JUDITH MEDEX BRONZ E Jul 07, 2017 [id number] [phone] CAM,PATRICIA MARIA ELENA PATIENT MEDICARE (WNR) MEDICARE (M) PART B May 26, 2015 PART B [id number] CAMPATRICIA SHERIFF PATIENT MEDICARE (WNR) MEDICARE (M) PART A Feb 06, 2002 PART A [id number] CAMPATRICIA SHERIFF PATIENT MEDICARE (WNR) MEDICARE (M) PART B Feb 06, 2002 PART B [id number] CAMPATRICIA SHERIFF PATIENT MEDICARE (WNR) MEDICARE (M) PART A Feb 06, 2002 PART A [id number] CAMPATRICIA SHERIFF PATIENT Selected Encounter This section includes the information on record at [place] for the Encounter. Date/Time Encounter Type Encounter Description Reason Provider Source Jun 04, 2023 09:30 AM HEARING AID REPAIR/MODIFYING AUDIOLOGY ICD-10-CM Z46.1 Encounter for fitting and adjustment of hearing aid RICO GALINDO Encounter Template Text not used by [place] Assessments - Encounter Diagnoses This section includes the primary and secondary diagnoses documented for the Encounter. Date/Time Primary/Secondary Diagnosis Diagnosis Name Provider Source Jun 04, 2023 10:29 AM PRIMARY Encounter for fitting and adjustment of hearing aid RAMOS NORRIS [place] [facility] [place] [facility] Jun 04, 2023 10:29 AM SECONDARY Sensorineural hearing loss, bilateral RAMOS NORRIS RACHEL [place] [facility] [place] [facility] Plan of Treatment: Future Appointments (+ 6 months) and Future Tests (+/- 45 days) The Plan of Treatment section includes future care activities for the patient from all [place] treatmentfacilities. This section includes future appointments and future orders which are active, pending or scheduled. Future Appointments This section includes appointments that were scheduled to occur 6 months from the date of the Encounter, up to a maximum of 20 appointments. The data comes from all [place] treatment facilities. Appointment Date/Time Appointment Type Appointme nt Facility Name Jul 01, 2023 09:00 AM AMBULATORY - NONE [place] [facility] [place] [facility] Jul 16, 2023 10:00 AM AMBULATORY - REHAB MEDICIN [facility] [place] [facility] August 27, 2023 02:00 PM AMBULATORY - REHAB MEDICIN E [facility] Sep 16, 2023 09:00 AM AMBULATORY - MEDICINE [facility] Lab Results: +/- 30 days of the encounter This section includes the Chemistry and Hematology Lab Results on record with [place] for the patient. Radiology Reports and Pathology Reports are provided separately, in subsequent sections. Lab Results This section contains the Chemistry/Hematology Results that were resulted 30 days before or 30 daysafter the date of the Encounter. Date/Time Source Result Type Result - Unit Interpretation Reference Range Comment Jun 04, 2023 07:51 AM [facility] TSH Specimen Type: SERUM No comment entered. Ordering Provider: BRYANNA REYNA F Report Released Date/Time: Dec 04, 2022 10:59 AM Reporting Lab: [address] [address] Performing Lab: [address] [address] TSH 6.32 u[IU]/mL H 0.35-5.00 Jun 04, 2023 07:51 AM [facility] LIVER FUNCTION Specimen Type: SERUM No comment entered. Ordering Provider: BRYANNA REYNA F Report Released Date/Time: Dec 04, 2022 10:59 AM Reporting Lab: [address] [address] Performing Lab: [address] [address] PROTEIN,TOTAL 6.3 g/dL 6.0-8.3 ALBUMIN 4.1 g/dL 3.5-5.0 ALKALINE PHOSPHATASE 58 U/L 40-150 AST 20 U/L 5-34 ALT 19 U/L BILIRUBIN, TOTAL 1.0 mg/dL 0.2-1.2 Jun 04, 2023 07:51 AM [facility] HEMOGLOBIN A1C PANEL Specimen Type: BLOOD Comment: [...] Dec 04, 2022 10:59 AM Reporting Lab: [facility] [address] [address] Performing Lab: [address] [address] HEMOGLOBIN A1C 5.3 4.0-5.6 Jun 04, 2023 07:51 AM [facility] BASIC METABOLIC PANEL (fasting) Specimen Type: SERUM No comment entered. Ordering Provider: BRYANNA REYNA F Report Released Date/Time: Dec 04, 2022 10:59 AM Reporting Lab: [facility] [address] [address] Performing Lab: [address] [address] UREA NITROGEN 15 mg/dL 7-25 GLUCOSE 98 mg/dL 65-100 SODIUM 140 mmol/L 135-145 POTASSIUM 3.8 mmol/L 3.5-5.0 CHLORIDE 105 mmol/L 100-110 CO2 25 meq/L 20-30 CREATININE, Serum 0.85 mg/dL 0.50-1.40 eGFR(CKD-EPI 2020) 84 mL/min >60 Jun 04, 2023 07:51 AM [facility] LIPID PANEL FASTING Specimen Type: SERUM No comment entered. Ordering Provider: BRYANNA REYNA F Report Released Date/Time: Dec 04, 2022 10:59 AM Reporting Lab: [address] [address] Performing Lab: [address] [address] CHOLESTEROL 145 mg/dL TRIGLYCERIDE 191 mg/dL H 0-150 LDL calculated 66 mg/dL 0-129 CHOL/HDL 3.5 HDL CHOLESTEROL 41 mg/dL 40-60 Jun 04, 2023 07:51 AM [facility] VITAMIN D (25-OH) Specimen Type: SERUM No comment entered. Ordering Provider: BRYANNA REYNA F Report Released Date/Time: Dec 04, 2022 10:59 AM Reporting Lab: [address] [address] Performing Lab: [address] [address] VITAMIN D (25-OH) 66 ng/mL H 20-50 Jun 04, 2023 07:51 AM [facility] MICROALBUMIN CREATININE RATIO PANEL Specimen Type: URINE No comment entered. Ordering Provider: BRYANNA REYNAM F Report Released Date/Time: Dec 04, 2022 10:59 AM Reporting Lab: [address] [address] Performing Lab: [address] [address] MICROALBUMIN/C REATININE RATIO 27.2 mg/g 0-29.9 MICROALBUMIN,Q UANTITATIVE 2.7 mg/dL RR UNAVAIL CREATININE URINE 99.32 mg/dL Jun 04, 2023 07:51 AM [facility] CBC AND DIFF (AUTO) Specimen Type: BLOOD No comment entered. Ordering Provider: BRYANNA REYNA F Report Released Date/Time: Dec 04, 2022 10:59 AM Reporting Lab: [address] [address] Performing Lab: [address] [address] WBC 9.66 10*3/uL 4.50-11.00 RBC 4.55 10*6/uL 4.23-5.66 HGB 14.6 g/dL 12.8-17 HCT 43.9 39.2-50.4 MCV 96.5 fL 82-99 MCHC 33.3 g/dL 30.8-35.1 PLT 246 10*3/uL 140-360 RDW-CV 12.5 12.0-16.0 [place], Abs 0.91 10*3/uL 0.30-1.10 MCH 32.1 pg 26.2-32.6 Neut % 53.2 43.7-75.8 Lymph % 35.0 14.0-42.3 [place] % 9.4 5.1-13.7 Eos % 1.3 0.4-6.8 Baso % 0.4 0.1-2.0 Neut, Abs 5.13 10*3/uL 2.20-7.60 Lymph, Abs 3.38 10*3/uL H 1.00-3.20 Eos, Abs 0.13 10*3/uL 0.03-0.44 Baso, Abs 0.04 10*3/uL 0.01-0.13 Immature Gran % 0.7 0.0-0.7 Immature Gran, Abs 0.07 10*3/uL H 0.00-0.06 Jun 04, 2023 07:51 AM [facility] Specimen Type: URINE Comment: If Glucose = >500 and Ketones are positive, please alert the Physician. Ordering Provider: BRYANNA REYNA Report Released Date/Time: Dec 04, 2022 10:59 AM Reporting Lab: [address] [address] Performing Lab: [address] [address] UA COLOR Light-Yellow Yellow UA APPEARANCE Clear [...] 64 120/74 16 [phone] [facility] Social History: Smoking Status (Most current) and Tobacco Use (All prior to encounter date) This section includes the most current, and the historical, smoking and tobacco- related health factors from the [place] facility where the Encounter took place. Current Smoking Status This section includes the most current smoking, or tobacco-related health factor, from the [place] facility where the Encounter took place. Date/Time Current Smoking Status Comment Harjinder ity Dec 04, 2022 10:30 AM VA-TOBACCO QUIT 15 YRS OR MORE [place] [facility] [place] [facility] Tobacco Use History This section includes a history of the smoking, or tobacco-related health factors, that were collected on or before the date of the Encounter. The data comes from the [place] facility where the Encounter took place. Date/Time Smoking Status/Tobacco Use Comment Michelle calixto Dec 04, 2022 10:30 AM VA-TOBACCO QUIT 15 YRS OR MORE [facility] [place] [facility] Dec 12, 2021 02:00 PM VA-TOBACCO FORMER USER [facility] [place] [facility] Dec 12, 2021 02:00 PM VA-TOBACCO QUIT 15 YRS OR MORE [facility] [place] [facility] Dec 20, 2020 10:15 AM VA-TOBACCO FORMER USER [facility] [place] [facility] Dec 20, 2020 10:15 AM VA-TOBACCO QUIT 15 YRS OR MORE [facility] [place] [facility] Dec 29, 2019 01:00 PM VA-TOBACCO FORMER USER [facility] [place] [facility] Dec 29, 2019 01:00 PM VA-TOBACCO QUIT 15 YRS OR MORE [facility] [place] [facility] Sep 23, 2018 02:51 PM VA-TOBACCO FORMER USER [facility] [place] [facility] Sep 23, 2018 02:51 PM VA-TOBACCO QUIT 15 YRS OR MORE [facility] [place] [facility] Dec 02, 2017 12:45 PM QUIT TOBACCO USE > 7 YEARS AGO [facility] [place] [facility] Jul 27, 2005 10:05 AM QUIT TOBACCO USE > 7 YEARS AGO [facility] [place] [facility] Jul 12, 2004 09:49 AM HISTORY OF SMOKING [facility] [place] [facility] Jul 12, 2004 09:49 AM QUIT TOBACCO USE 1 -7 YEARS AGO [facility] August 11, 2003 09:45 AM HISTORY OF SMOKING [facility] August 11, 2003 09:45 AM QUIT TOBACCO USE 1 -7 YEARS AGO [facility] Advance Directives: All historical and current Section Date Range: From patient's date of to the date document was created. This section includes ALL of a patient's completed or amended [place] Advance and Rescinded Directives. The entries below indicate that a directive exists for the patient, but an actual copy is not included with this document. The data comes from all [place] facilities. Date Advance Directives Provider Source Nov 05, 2008 ADVANCE DIRECTIVE SUSAN HEBERT [facility] Encounter Notes: All associated encounter notes This section contains the clinical notes associated to the Encounter. Date/Time Encounter Note(s) Provider Source Jun 04, 2023 10:04 AM AUDIOLOGY NOTE: LOCAL TITLE: AUDIOLOGY [facility] STANDARD TITLE: AUDIOLOGY NOTE DATE OF NOTE: JUN 04, 2023@10:04 ENTRY DATE: JUN 04, 2023@10:04:55 AUTHOR: ORA NORRIS COSIGNER: RICO GALINDO URGENCY: STATUS: COMPLETED was seen on June 04, 2023 for hearing aid maintenance. [place] wore in his [facility] Edge AI BTEs issued on 01/06/2021. Both hearing aids were cleaned and checked. Replaced tubes, tonehooks and char covers. Biologic check was good. Otoscopy revealed hardened dark cerumen in both ears. Cerumen removal was performed today on both ears with a lighted curette and without incident by Dr. Galindo, with [place]'s verbal consent. [place] was scheduled for an Updated Hearing Eval on 07/16/2023 @ 1000 in Clinic DJuan /sandy/ ORA NORRIS Audiology Health Guide W[place] Signed: 06/04/2023 10:30 /sandy/ RICO Sanders, [facility]-A CHIEF, AUDIOLOGY/UTILITY REPAIRER Cosigned: 06/04/2023 10:37 Receipt Acknowledged By: 06/04/2023 10:56 /sandy/ JANIYA GONGORA [employer]ED [employer] PR[employer]ER [facility]
--- OUTSIDE RECORDS SUMMARY | 2024-05-15 09:23 | XMS_ITS | Encounter Summary ---
Author Name [facility] [place] [facility] [place] [facility] [place] Address [address] [place] [address] Care Team Providers Care Sas Architect Name Role Phone NICKIE REYNA Primary Care [...] JUDITH MEDEX BRONZ E Apr 08, 2016 [id number] CAM,PATRICIA MARIA ELENA PATIENT [place] SUPPLEMEN JUDITH MEDEX BRONZ E Apr 08, 2016 [id number] [phone] CAMPATRICIA MARIA ELENA PATIENT BCBS [facility] MEDICARE SUPPLEMEN JUDITH MEDEX BRONZ E Jul 07, 2017 [id number] [phone] CAM,PATRICIA MARIA ELENA PATIENT MEDICARE (WNR) MEDICARE (M) PART B May 26, 2015 PART B [id number] CAMPATRICIA SHERIFF PATIENT MEDICARE (WNR) MEDICARE (M) PART A Feb 06, 2002 PART A [id number] CAMPATRICIA SHERIFF PATIENT MEDICARE (WNR) MEDICARE (M) PART B Feb 06, 2002 PART B [id number] CAMPATRICIA SHERIFF PATIENT MEDICARE (WNR) MEDICARE (M) PART A Feb 06, 2002 PART A [id number] CAMPATRICIA SHERIFF PATIENT Selected Encounter This section includes the information on record at [place] for the Encounter. Date/Time Encounter Type Encounter Description Reason Provider Source Apr 13, 2024 09:00 AM HEARING AID REPAIR/MODIFYIN G AUDIOLOGY ICD-10-CM Z46.1 Encounter for fitting and adjustment of hearing aid BHAVANA NAIK Encounter Template Text not used by [place] Assessments - Encounter Diagnoses This section includes the primary and secondary diagnoses documented for the Encounter. Date/Time Primary/Secondary Diagnosis Diagnosis Name Provider Source Apr 13, 2024 09:07 AM PRIMARY Encounter for fitting and adjustment of hearing aid RAMOS NORRIS RACHEL [place] [facility] [place] [facility] Apr 13, 2024 09:07 AM SECONDARY Sensorineural hearing loss, bilateral RAMOS NORRIS [facility] [place] [facility] Plan of Treatment: Future Appointments (+ 6 months) and Future Tests (+/- 45 days) The Plan of Treatment section includes future care activities for the patient from all [place] treatmentfacilities. This section includes future appointments and future orders which are active, pending or scheduled. Future Appointments This section includes appointments that were scheduled to occur 6 months from the date of the Encounter, up to a maximum of 20 appointments. The data comes from all [place] treatment facilities. Appointment Date/Time Appointment Type Appointme nt Facility Name Jun 02, 2024 10:30 AM AMBULATORY - MEDICINE [place] [facility] [place] [facility] Jul 22, 2024 10:00 AM AMBULATORY - REHAB MEDICIN E [facility] [place] [facility] Active, Pending, and Scheduled Orders This section includes a listing of several types of active, pending, and scheduled orders, including clinic medications orders, diagnostic test orders, procedure orders and consult orders; where the start date of the order is 45 days before the date of the Encounter or 45 days after the date of theEncounter. The data comes from all [facility] [place] facilities. Test Date/Time Test Type Test Details Facility Name Apr 29, 2024 12:00 AM Laboratory - Chemistry Order VITAMIN D (25-OH) BLOOD (SST-SERUM) [facility] Apr 29, 2024 12:00 AM Laboratory - Chemistry Order BASIC METABOLIC PANEL (fasting) BLOOD (SST-SERUM) [facility] Apr 29, 2024 12:00 AM Laboratory - Chemistry Order LIVER FUNCTION BLOOD (SST-SERUM) [facility] Apr 29, 2024 12:00 AM Laboratory - Chemistry Order LIPID PANEL FASTING BLOOD (SST-SERUM) [facility] Apr 29, 2024 12:00 AM Laboratory - Chemistry Order CBC BLOOD (LAV-BLOOD) [facility] Apr 29, 2024 12:00 AM Laboratory - Chemistry Order HEMOGLOBIN A1C PANEL BLOOD (LAV-BLOOD) [facility] Apr 29, 2024 12:00 AM Laboratory - Chemistry Order PTT BLOOD (BLUE-PLASMA) [facility] Apr 29, 2024 12:00 AM Laboratory - Chemistry Order PT & INR (PROTIME) BLOOD (BLUE-PLASMA) [facility] Apr 29, 2024 12:00 AM Laboratory - Chemistry Order CBC AND DIFF (AUTO) BLOOD (LAV-BLOOD) [facility] Social History: Smoking Status (Most current) and Tobacco Use (All prior to encounter date) This section includes the most current, and the historical, smoking and tobacco- related health factors from the [place] facility where the Encounter took place. Current Smoking Status This section includes the most current smoking, or tobacco-related health factor, from the [place] facility where the Encounter took place. Date/Time Current Smoking Status Comment Facil ity Feb 05, 2024 10:29 AM [place]-TOBACCO FORMER USER [facility] Tobacco Use History This section includes a history of the smoking, or tobacco-related health factors, that were collected on or before the date of the Encounter. The data comes from the [place] facility where the Encounter took place. Date/Time Smoking Status/Tobacco Use Comment F acility Feb 05, 2024 10:29 AM VA-TOBACCO QUIT 15 YRS OR MORE [facility] [place] [facility] Dec 04, 2022 10:30 AM VA-TOBACCO FORMER USER [facility] [place] [facility] Dec 04, 2022 10:30 AM VA-TOBACCO QUIT 15 YRS OR MORE [facility] [place] [facility] Dec 12, 2021 02:00 PM VA-TOBACCO FORMER USER [facility] [place] [facility] Dec 12, 2021 02:00 PM VA-TOBACCO QUIT 15 YRS OR MORE [facility] [place] [facility] Dec 20, 2020 10:15 AM VA-TOBACCO FORMER USER [facility] [place] [facility] Dec 20, 2020 10:15 AM VA-TOBACCO QUIT 15 YRS OR MORE [facility] [place] [facility] Dec 29, 2019 01:00 PM VA-TOBACCO FORMER USER [facility] [place] [facility] Dec 29, 2019 01:00 PM VA-TOBACCO QUIT 15 YRS OR MORE [facility] [place] [facility] Sep 23, 2018 02:51 PM VA-TOBACCO FORMER USER [facility] [place] [facility] Sep 23, 2018 02:51 PM VA-TOBACCO QUIT 15 YRS OR MORE [facility] [place] [facility] Dec 02, 2017 12:45 PM QUIT TOBACCO USE > 7 YEARS AGO [facility] [place] [facility] Jul 27, 2005 10:05 AM QUIT TOBACCO USE > 7 YEARS AGO [facility] [place] [facility] Jul 12, 2004 09:49 AM HISTORY OF SMOKING [facility] [place] [facility] Jul 12, 2004 09:49 AM QUIT TOBACCO USE 1 -7 YEARS AGO [facility] [place] [facility] August 11, 2003 09:45 AM HISTORY OF SMOKING [facility] [place] [facility] August 11, 2003 09:45 AM QUIT TOBACCO USE 1 -7 YEARS AGO [facility] Advance Directives: All historical and current Section Date Range: From patient's date of to the date document was created. This section includes ALL of a patient's completed or amended [place] Advance and Rescinded Directives. The entries below indicate that a directive exists for the patient, but an actual copy is not included with this document. The data comes from all [place] facilities. Date Advance Directives Provider Source Nov 05, 2008 ADVANCE DIRECTIVE SUSAN HEBERT [facility] Radiology Reports: +/- 30 days of [...] the Encounter. The data comes from all [place] treatment facilities. Date/Time Radiology Report Provider Source Apr 13, 2024 09:46 AM ULTRASOUND NECK (THYROID,HEAD,SOFT TISSUE): SHAE LEVY [id number] -[id number] M Exm Date: APR 13, 2024@09:46 Req Phys: PRISCILA QUINONES Loc: [facility]/ENDOCRINE (Req'g Loc) Img Loc: ULTRASOUND Service: [place] [address] (Case [id number] COMPLETE) ULTRASOUND NECK (THYROID,HEAD,SOF(US Detailed) CPT:01975 Reason for Study: follow up thyroid nodule Clinical History: Report Status: Verified Date Reported: APR 13, 2024 Date Verified: APR 13, 2024 Light Truck Driver E-Sig:/ES/DORCAS BERG Report: THYROID ULTRASOUND Technique: Multiplanar ultrasonography of the thyroid was performed using grayscale imaging, supplemented by color Doppler as needed. Comparison: Thyroid ultrasound January 01, 2024 and April 03, 2022 HISTORY: Reason for Study: follow up thyroid nodule REASON FOR STUDY: follow up thyroid nodule FINDINGS: Right thyroid lobe: Measures 3 x 1.5 x 1.1cm. Estimated volume 3 mL (approximate normal range 10-18mL). Left thyroid lobe: Measures 4.6 x 3.2 x 3cm. Estimated volume: 23 mL (approximate normal range 10-18mL). Enlarged. Isthmus: Measures 4mm in thickness. Overall thyroid echotexture: Homogenous, except nodules. Overall vascularity within normal limits. TR3-5 nodules (up to 4 most suspicious): Nodule #1: Location: Right mid Composition: Predominantly solid Echogenicity: Isoechoic solid portion Shape: Wider than tall Margin: Ill-defined Echogenic Foci: Absent Maximum size: 1 cm, Other two dimensions: 1.0 x 1.0 cm. Previously 1.0 x 0.9 x 0.9 cm Significant change in size (>20% in two dimensions and increase >2mm): No significant Change in ACR TI-RADS Risk category: No change ACR TI-RADS Total Points: 3 ACR TI-RADS Category: TR 3 Nodule #2: Location: Left mid Composition: Predominantly solid with cystic portions Echogenicity: Isoechoic solid portion Shape: Wider than tall Margin: Smooth Echogenic Foci: Absent Maximum size: 4.3 cm, Other two dimensions: 3.1 x 2.8 cm. Previously 4.2 x 2.7 x 2.6 cm Significant change in size (>20% in two dimensions and increase >2mm): Subthreshold growth. Change in ACR TI-RADS Risk category: No change ACR TI-RADS Total Points: 3 ACR TI-RADS Category: TR 3 Other nodules: No significant. Lymph nodes: No enlarged lymph nodes on limited survey of the anterior neck. Impression: Subthreshold growth in 4.3 cm left-sided TR 3 nodule. TI-RADS Levels: TR1 - 0 points: No FNA or follow-up. TR2 - 2 points: No FNA or follow-up. TR3 - 3 points: FNA if greater than or equal to 2.5 cm. Follow if greater than or equal to 1.5 cm at 1, 3, and 5 years. TR4 - 4-6 points: FNA if greater than or equal to 1.5 cm. Follow if greater than or equal to 1 cm at 1, 2, 3, and 5 years TR5 - 7 or more points: FNA if greater than or equal to 1 cm. Follow if greater than or equal to 0.5 annually for up to 5 years. FNA biopsy is recommended for TR3-TR5 lesions with the above size criteria. If there are multiple nodules, the two with the highest ACR TI-RADS scores should be sampled (rather than the two largest), with largest size being used a tie-breaker if there are multiple nodules of the same classification. Interval enlargement on follow-up is significant if there is an increase of >20% and >2 mm in two dimensions or a >50% increase in volume. If the ACR TI-RADS level increases between scans, an interval scan the following year is again recommended. ACR Thyroid Imaging, Reporting and Data System (TI-RADS): White Paper of the ACR TI-RADS Committee J Am Phill Radiol 2017;14:587-595. Ultrasound Primary Diagnostic Code: No immediate attention required Primary Interpreting Staff: DORCAS BERG, Staff Physician (Light Truck Driver) /[facility]CAS [facility] Encounter Notes: All associated encounter notes This section contains the clinical notes associated to the Encounter. Date/Time Encounter Note(s) Provider Source Apr 13, 2024 07:31 AM AUDIOLOGY NOTE: LOCAL TITLE: AUDIOLOGY HEALTH STUDENT FINANCE SPECIALIST STANDARD TITLE: AUDIOLOGY NOTE DATE OF NOTE: APR 13, 2024@07:31 ENTRY DATE: APR 13, 2024@07:32:05 AUTHOR: ORA NORRIS COSIGNER: BHAVANA NAIK URGENCY: STATUS: COMPLETED April 13, 2024 History/Background: [place] [employer] was seen for a hearing aid follow up, unaccompanied. The presented today requesting new tubes for his hearing aids. Hearing aids: Chuck Evolv AI [facility] Serial Numbers: [id number] Battery size: 13 Date Issued: 08/27/2023 Hearing aid check: Both hearing aids were cleaned and checked. Initial inspection revealed hardened tubes and a missing char cover on the right hearing aid. Replaced tubes, tonehooks and char covers. Biologic check was good. Otoscopy: Clear canals Plan: The was scheduled for routine hearing aid maintenance on 07/22/2024 @ 1000. RTC order entered. /sandy/ ORA NORRIS Audiology Health Landscape Account Manager Signed: 04/13/2024 09:09 /sandy/ Arcadio LozanoMARLEN-A Electrical Tech/Project Manager Cosigned: 04/13/2024 09:32 Receipt Acknowledged By: 04/13/2024 09:45 /es/ JANIYA GONGORA LEAD NATURAL RESOURCE ECONOMIST ORA NORRIS [facility]
--- OUTSIDE RECORDS SUMMARY | 2024-05-15 09:23 | XMS_ITS | Encounter Summary ---
Author Name [facility] [place] [facility] [place] Address [address] [place] [address] Care Team Providers Care Radiation Therapist Name Role Phone NICKIE REYNA Primary Care [...] Name Patient's Relationship to Policy [place] SUPPLEMEN JUDITH MEDEX BRONZ E Apr 08, 2016 [id number] CAMPATRICIA SHERIFF [place]IENT [place] SUPPLEMEN JUDITH MEDEX BRONZ E Apr 08, 2016 [id number] [phone] CAMPATRICIA SHERIFF PATIENT BCBS [facility] MEDICARE SUPPLEMEN JUDITH MEDEX BRONZ E Jul 07, 2017 [id number] [phone] CAMPATRICIA SHERIFF PATIENT MEDICARE (WNR) MEDICARE (M) PART B May 26, 2015 PART B [id number] PATRICIA LEVY PATIENT MEDICARE (WNR) MEDICARE (M) PART A Feb 06, 2002 PART A [id number] PATRICIA LEVY PATIENT MEDICARE (WNR) MEDICARE (M) PART B Feb 06, 2002 PART B [id number] PATRICIA LEVY PATIENT MEDICARE (WNR) MEDICARE (M) PART A Feb 06, 2002 PART A [id number] PATRICIA LEVY PATIENT Selected Encounter This section includes the information on record at [place] for the Encounter. Date/Time Encounter Type Encounter Description Reason Provider Source August 27, 2023 02:00 PM HEARING SERVICE AUDIOLOGY ICD-10-CM Z46.1 Encounter for fitting and adjustment of hearing aid KYLE SANTOS Luigi Encounter Template Text not used by [place] Assessments - Encounter Diagnoses This section includes the primary and secondary diagnoses documented for the Encounter. Date/Time Primary/Secondary Diagnosis Diagnosis Name Provider Source August 27, 2023 02:32 PM PRIMARY Encounter for fitting and adjustment of hearing aid [facility] SANTOS [place] [facility] August 27, 2023 02:32 PM SECONDARY Sensorineural hearing loss, bilateral TIMMY SANTOS [place] [facility] [place] [facility] Plan of Treatment: Future Appointments (+ 6 months) and Future Tests (+/- 45 days) The Plan of Treatment section includes future care activities for the patient from all [place] treatmentfacilities. This section includes future appointments and future orders which are active, pending or scheduled. Future Appointments This section includes appointments that were scheduled to occur 6 months from the date of the Encounter, up to a maximum of 20 appointments. The data comes from all [place] treatment facilities. Appointment Date/Time Appointment Type Appointme nt Facility Name Sep 16, 2023 09:00 AM AMBULATORY - MEDICINE [place] [facility] [place] [place] [facility] Jan 01, 2024 09:30 AM AMBULATORY - NONE [place] [facility] [place] [facility] Jan 27, 2024 07:00 AM AMBULATORY - MEDIC[facility] Social History: Smoking Status (Most current) and Tobacco Use (All prior to encounter date) This section includes the most current, and the historical, smoking and tobacco- related health factors from the [place] facility where the Encounter took place. Current Smoking Status This section includes the most current smoking, or tobacco-related health factor, from the [place] facility where the Encounter took place. Date/Time Current Smoking Status Comment Harjinder ity Dec 04, 2022 10:30 AM VA-TOBACCO FORMER USER [place] [facility] [place] [facility] Tobacco Use History This section includes a history of the smoking, or tobacco-related health factors, that were collected on or before the date of the Encounter. The data comes from the [place] facility where the Encounter took place. Date/Time Smoking Status/Tobacco Use Comment Michelle acjose Dec 04, 2022 10:30 AM VA-TOBACCO QUIT 15 YRS OR MORE [facility] [place] [facility] Dec 12, 2021 02:00 PM VA-TOBACCO FORMER USER [facility] [place] [facility] Dec 12, 2021 02:00 PM VA-TOBACCO QUIT 15 YRS OR MORE [facility] [place] [facility] Dec 20, 2020 10:15 AM VA-TOBACCO FORMER USER [facility] [place] [facility] Dec 20, 2020 10:15 AM VA-TOBACCO QUIT 15 YRS OR MORE [facility] [place] [facility] Dec 29, 2019 01:00 PM VA-TOBACCO FORMER USER [facility] [place] [facility] Dec 29, 2019 01:00 PM VA-TOBACCO QUIT 15 YRS OR MORE [facility] [place] [facility] Sep 23, 2018 02:51 PM VA-TOBACCO FORMER USER [facility] [place] [facility] Sep 23, 2018 02:51 PM VA-TOBACCO QUIT 15 YRS OR MORE [facility] [place] [facility] Dec 02, 2017 12:45 PM QUIT TOBACCO USE > 7 YEARS AGO [facility] [place] [facility] Jul 27, 2005 10:05 AM QUIT TOBACCO USE > 7 YEARS AGO [facility] [place] [facility] Jul 12, 2004 09:49 AM HISTORY OF SMOKING [facility] [place] [facility] Jul 12, 2004 09:49 AM QUIT TOBACCO USE 1 -7 YEARS AGO [facility] [place] [facility] August 11, 2003 09:45 AM HISTORY OF SMOKING [facility] August 11, 2003 09:45 AM QUIT TOBACCO USE 1 -7 YEARS AGO [facility] Advance Directives: All historical and current Section Date Range: From patient's date of to the date document was created. This section includes ALL of a patient's completed or amended [place] Advance and Rescinded Directives. The entries below indicate that a directive exists for the patient, but an actual copy is not included with this document. The data comes from all [place] facilities. Date Advance Directives Provider Source Nov 05, 2008 ADVANCE DIRECTIVE SUSAN HEBERT [facility] Encounter Notes: All associated encounter notes This section contains the clinical notes associated to the Encounter. Date/Time Encounter Note(s) Provider Source August 27, 2023 07:44 AM AUDIOLOGY E & M NOTE: LOCAL TITLE: AUDIOLOGY CLINIC STANDARD TITLE: AUDIOLOGY E & M NOTE DATE OF NOTE: AUGUST 27, 2023@07:44 ENTRY DATE: AUGUST 27, 2023@07:44:31 AUTHOR: KYLE SANTOS COSIGNER: URGENCY: STATUS: COMPLETED AUDIOLOGY CLINIC Has ADDENDA Dx CODE: Z46.1- Encounter for Fitting/Programming Hearing Aid(s); H90.3- Sensorineural Hearing Loss, Bilateral APPOINTMENT TYPE: Hearing Aid Fitting SUBJECTIVE (S): The patient was seen for hearing aid fitting and issuance. He had previously been evaluated and found to exhibit significant hearing loss for which amplification was recommended. He is a previous user of hearing aids, and was fit with Sutus AI BTEs. How does the patient best learn? Verbal instruction, demonstration Does the patient have any cultural and rastafari beliefs, emotional barriers, physical or cognitive limitations, and communication barriers which may impact his ability to learn? No Desire and motivation to learn? Good OBJECTIVE (O): Physical fit of earmolds and hearing aids was good. Patient verified comfort. Verification of an appropriate acoustic response was obtained using Real Ear measurements (speech mapping) and NAL-NL1 targets. The patient reported good subjective benefit as well. Feedback histology manager was run. Hearing aids were found to be meeting targets adequately and MPO was not exceeding estimated UCL. Settings stored in DHAVAL. ASSESSMENT (A): The following devices were issued: Make: Chuck Model: Evolv AI BTE Right Serial Number: [id number] Left Serial Number: [id number] Battery size: 13 Warranty ends: 08/18/26 Trial Period ends: 01/16/24 Earmold Information: Lucite canal lock, medium vent Tubin thick Program(s): Automatic Button(s): Short press= Synced VC via rocker switches Long press= Accessory start/stop Fitting Formula: NAL-NL1 Remote Programming: HAs are capable Counseling was completed throughout todays appointment using a standardized curriculum that includes but is not limited to; realistic expectations with amplification in adverse listening environments, acclimatization to own voice and environmental sounds (following real-ear measurements), the importance of consistent use of amplification, proper insertion/removal, care and maintenance (including wax guards/domes if applicable), signal and alerts of devices, and charging/batteries. The was provided the opportunity to practice in office and reports confidence/understanding in all items reviewed. Time Spent= 20 minutes The patient was informed of and signed/agreed to [place] policy on hearing aid issuance: Yes Users are responsible for the maintenance and security of their devices. Determination of need to replace a hearing aid is made by the [place] logistics supervisor. Hearing aids will not be replaced in cases of neglect, abuse, or excessive loss. Items issued are for personal use only. Prognosis for successful hearing aid use is good. PLAN (P): 1. Follow-up for programming/adjustments as needed. 2. The International Outcome Inventory-Hearing Aids (IOI-SHEPARD) will be mailed to the in four weeks. He was asked to complete and mail back to clinic after completion. Patient Education Education provided on the following topics: Hearing aid use, care, maintenance Education provided to: P Response to Education: TERRA DAVIS, PI [place] Patient P Family F Significant Other SO Verbalizes Understanding VU Returns Demonstration RD Performs Independently PI Lacks Comprehension LC Refused Education RE Not Applicable NA /sandy/ KYLE SANTOS STAFF CONSERVATION ASSISTANT Signed: 08/27/2023 14:33 10/17/2023 ADDENDUM STATUS: COMPLETED returned IOI-SHEPARD Outcome Measure to the clinic via mail with an overall score of 31 Based on this score: i. No follow-up call is indicated _XX_ ii. Follow-up call is indicated and fitting clinician will be notified __ /sandy/ ORA NORRIS Audiology Health Bootmaker Hand Signed: 10/17/2023 14:44 KYLE SANTOS [facility] [place] [place] [facility]
--- OUTSIDE RECORDS SUMMARY | 2024-05-15 09:23 | XMS_ITS | Encounter Summary ---
Author Name [facility] [place] [facility] [place] [facility] [place] [facility] [place] Address [address] [place] [address] Care Team Providers Care Technical Internship Name Role Phone NICKIE REYNA Primary Care [...] Name Patient's Relationship to Policy [place] SUPPLEMEN JUDITH MEDEX BRONZ E Apr 08, 2016 [id number] CAM,PATRICIA MARIA ELENA PATIENT [place] JUDITH MEDEX BRONZ E Apr 08, 2016 [id number] CAM,PATRICIA MARIA ELENA PATIENT BCBS OF [facility] MEDICARE SUPPLEMEN JUDITH MEDEX BRONZ E Jul 07, 2017 [id number] [phone] CAMPATRICIA MARIA ELENA PATIENT MEDICARE (WNR) MEDICARE (M) PART B May 26, 2015 PART B [id number] [phone] CAMPATRICIA SHERIFF PATIENT MEDICARE (WNR) MEDICARE (M) PART A Feb 06, 2002 PART A [id number] CAM,PATRICIA ARREDONDO PATIENT MEDICARE (WNR) MEDICARE (M) PART B Feb 06, 2002 PART B [id number] [phone] CAMPATRICIA SHERIFF PATIENT MEDICARE (WNR) MEDICARE (M) PART A Feb 06, 2002 PART A [id number] CAM,PATRICIA ARREDONDO PATIENT Selected Encounter This section includes the information on record at [place] for the Encounter. Date/Time Encounter Type Encounter Description Reason Pro vider Source Apr 28, 2024 06:52 PM Outpatient Encounter ADMIN PAT ACTIVTIES (MASNONCT) IHE Encounter Template Text not used by [place] Plan of Treatment: Future Appointments (+ 6 months) and Future Tests (+/- 45 days) The Plan of Treatment section includes future care activities for the [facility] [place] [facility] This section includes future appointments and future orders which are active, pending or scheduled. Future Appointments This section includes appointments that were scheduled to occur 6 months from the date of the Encounter, up to a maximum of 20 appointments. The data comes from all [facility] facilities. Appointment Date/Time Appointment Type Appointme nt Facility Name Jun 02, 2024 10:30 AM AMBULATORY - MEDICINE [facility] Jul 22, 2024 10:00 AM AMBULATORY - REHAB MEDICIN E [facility] Active, Pending, and Scheduled Orders This section includes a listing of several types of active, pending, and scheduled orders, including clinic medications orders, diagnostic test orders, procedure orders and consult orders; where the start date of the order is 45 days before the date of the Encounter or 45 days after the date of theEncounter. The data comes from all [facility]. Test Date/Time Test Type Test Details Facility Name Apr 29, 2024 12:00 AM Laboratory - Chemistry Order VITAMIN D (25-OH) BLOOD (SST-SERUM) SP [facility] Apr 29, 2024 12:00 AM Laboratory - Chemistry Order BASIC METABOLIC PANEL (fasting) BLOOD (SST-SERUM) [facility] Apr 29, 2024 12:00 AM Laboratory - Chemistry Order LIVER FUNCTION BLOOD (SST-SERUM) [facility] Apr 29, 2024 12:00 AM Laboratory - Chemistry Order LIPID PANEL FASTING BLOOD (SST-SERUM) [facility] Apr 29, 2024 12:00 AM Laboratory - Chemistry Order CBC BLOOD (LAV-BLOOD) [facility] Apr 29, 2024 12:00 AM Laboratory - Chemistry Order HEMOGLOBIN A1C PANEL BLOOD (LAV-BLOOD) [facility] Apr 29, 2024 12:00 AM Laboratory - Chemistry Order PTT BLOOD (BLUE-PLASMA) [facility] Apr 29, 2024 12:00 AM Laboratory - Chemistry Order PT & INR (PROTIME) BLOOD (BLUE-PLASMA) [facility] Apr 29, 2024 12:00 AM Laboratory - Chemistry Order CBC AND DIFF (AUTO) BLOOD (LAV-BLOOD) [facility] Social History: Smoking Status (Most current) and Tobacco Use (All prior to encounter date) This section includes the most current, and the historical, smoking and tobacco- related health factors from the [place] facility where the Encounter took place. Current Smoking Status This section includes the most current smoking, or tobacco-related health factor, from the [place] facility where the Encounter took place. Date/Time Current Smoking Status Comment Facil ity Feb 05, 2024 10:29 AM [place]-TOBACCO FORMER USER [facility] Tobacco Use History This section includes a history of the smoking, or tobacco-related health factors, that were collected on or before the date of the Encounter. The data comes from the [place] facility where the Encounter took place. Date/Time Smoking Status/Tobacco Use Comment F acility Feb 05, 2024 10:29 AM [place]-TOBACCO QUIT 15 YRS OR MORE [facility] Dec 04, 2022 10:30 AM [place]-TOBACCO FORMER USER [facility] Dec 04, 2022 10:30 AM VA-TOBACCO QUIT 15 YRS OR MORE [facility] [place] [facility] Dec 12, 2021 02:00 PM VA-TOBACCO FORMER USER [facility] [place] [facility] Dec 12, 2021 02:00 PM VA-TOBACCO QUIT 15 YRS OR MORE [facility] [place] [facility] Dec 20, 2020 10:15 AM VA-TOBACCO FORMER USER [facility] [place] [facility] Dec 20, 2020 10:15 AM VA-TOBACCO QUIT 15 YRS OR MORE [facility] [place] [facility] Dec 29, 2019 01:00 PM VA-TOBACCO FORMER USER [facility] [place] [facility] Dec 29, 2019 01:00 PM VA-TOBACCO QUIT 15 YRS OR MORE [facility] [place] [facility] Sep 23, 2018 02:51 PM VA-TOBACCO FORMER USER [facility] [place] [facility] Sep 23, 2018 02:51 PM VA-TOBACCO QUIT 15 YRS OR MORE [facility] [place] [facility] Dec 02, 2017 12:45 PM QUIT TOBACCO USE > 7 YEARS AGO [facility] [place] [facility] Jul 27, 2005 10:05 AM QUIT TOBACCO USE > 7 YEARS AGO [facility] [place] [facility] Jul 12, 2004 09:49 AM HISTORY OF SMOKING [facility] [place] [facility] Jul 12, 2004 09:49 AM QUIT TOBACCO USE 1 -7 YEARS AGO [facility] [place] [facility] August 11, 2003 09:45 AM HISTORY OF SMOKING [facility] [place] [facility] August 11, 2003 09:45 AM QUIT TOBACCO USE 1 -7 YEARS AGO [place] [facility] [place] [facility] Advance Directives: All historical and current Section Date Range: From patient's date of to the date document was created. This section includes ALL of a patient's completed or amended [place] Advance and Rescinded Directives. The entries below indicate that a directive exists for the patient, but an actual copy is not included with this document. The data comes from all [place] facilities. Date Advance Directives Provider Source Nov 05, 2008 ADVANCE DIRECTIVE SUSAN HEBERT [place] [facility] [place] [facility] Radiology Reports: +/- 30 days of the [...] the Encounter. The data comes from all [place] treatment facilities. Date/Time Radiology Report Provider Source Apr 13, 2024 09:46 AM ULTRASOUND NECK (THYROID,HEAD,SOFT TISSUE): SHAE LEVY [id number] -[id number] M Exm Date: APR 13, 2024@09:46 Req Phys: PRISCILA QUINONES Loc: NHM/ENDOCRINE (Req'g Loc) Img Loc: ULTRASOUND Service: [facility] [place] [address] (Case [id number] COMPLETE) ULTRASOUND NECK (THYROID,HEAD,SOF(US Detailed) CPT:92262 Reason for Study: follow up thyroid nodule Clinical History: Report Status: Verified Date Reported: APR 13, 2024 Date Verified: APR 13, 2024 Sales Outfitter E-Sig:/ES/DORCAS BERG Report: THYROID ULTRASOUND Technique: Multiplanar [...] Primary Interpreting Staff: DORCAS BERG, Staff Physician (Sales Outfitter) /DORCAS SHEPHERD [facility] Encounter Notes: All associated encounter notes This section contains the clinical notes associated to the Encounter. Date/Time Encounter Note(s) Provider Source Apr 28, 2024 06:52 PM PHARMACY NOTE: LOCAL TITLE: PHARMACY CUSTOMER CARE MEDICATION RENEWAL STANDARD TITLE: PHARMACY NOTE DATE OF NOTE: APR 28, 2024@18:52 ENTRY DATE: APR 28, 2024@18:52:53 AUTHOR: JESE CARDENAS EXP COSIGNER: URGENCY: STATUS: COMPLETED Date: Apr Division: [facility] referred by Pharmacy Call Center for medication renewal: Non-controlled/maintena nce medication Medications requested: [id number] AMLODIPINE BESYLATE 5MG TAB [id number] HYDRALAZINE HCL 50MG TAB Defer to primary care provider To be mailed . Please review and renew if appropriate. *This note was generated by [facility] [facility] Customer [facility]. If you have any questions or need assistance, do not contact this author. Please refer all questions to your local, on-site pharmacy departments. /sandy/ JESE CARDENAS Ballistics Professor, [place] Customer Care Signed: 04/28/2024 18:53 Receipt Acknowledged By: 04/30/2024 08:12 /sandy/ BHAVANA BAIRD RN REGISTERED NURSE 04/29/2024 17:39 /sandy/ Nickie Reyna PA-C STAFF PHYSICIAN MARKETING ASSOCIATE JESE CARDENAS [facility]
--- OUTSIDE RECORDS SUMMARY | 2024-05-15 09:23 | XMS_ITS ---
Author Organization [facility] Meng prateek Negrito Address [address] [place] [address] Care Team Providers Care Rn Otolaryngology Name Role Phone Leonides Reynoso MD Primary Care Provider Thaddeus Castle Unavailable [phone] Allergies Allergen (clinical drug ingredient) Drug/Non Drug Allergy documented on EMR Reaction Allergy Type Onset Date Status meperidine Demerol Unknown Drug Allergy Active REASON FOR VISIT At Risk Footcare, Painful Nail(s) aggrevated by shoes and causing difficulty standing/walking, Toe Irritation Medications Medication SIG (Take, Route, Frequency, Duration) Notes Start Date End Date Status Lotrisone Not-Taking Aspirin 81 MG 1 tablet Orally Once a day for 30 day(s) Not-Taking Zinc Active Vitamin C Active Synthroid 75 MCG 1 tablet in the morn ing on an empty stomach Orally Once a day for 30 day(s) Active Vitamin D 25 MCG (1000 UT) 1 [...] Twice a day for 30 day(s) Active Sertraline HCl 25 MG 1 tablet Orally Onc e a day for 30 day(s) Active hydrALAZINE HCl 50 MG 1 tablet with food Orally Three times a day for 30 day(s) Active Fluticasone Propionate (Inhal) 50 MCG/BLIST 1 puff Inhalation Twice a day Active Crestor 20 MG 1 tablet Orally Once a day for 30 day(s) Active Ciclopirox Olamine 0.77 % 1 application to affected area Externally to feet Twice a day for 30 days Active Claritin 10 MG 1 tablet Orally Once a day for 30 day(s) Active Ativan 1 MG 1 tablet at bedtime as needed Orally Once a day PRN Active amLODIPine Besylate 2.5 MG 1 tablet Orally Once a day for 30 day(s) Active predniSONE Active Captopril 12.5 MG 1 tablet 1 hour befo re or 2 hours after meals Orally Twice a day for 30 day(s) Active Centrum - as directed Orally A ctive metFORMIN HCl Active Vyvgart 400 MG/20ML as directed Intravenous Active pyRIDostigmine Leland 60 MG as directed Orally 3 times a day Active Extra Depth Orthopedic Shoes, (1) Pair With (3) Pair Custom Heat Molded Multidensity Innersoles Dx: 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), 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,M20.42 ), Preulcerative Skin Lesion(s)(L85.1) Wear Daily for 365 days 11/08/2023 Active Social History Tobacco Use: Social History [...] Signs Height 5 ft 7 in in 11/08/2023 Weight 160 lbs 11/08/2023 BMI 25.06 kg/m2 11/08/2023 Procedures Procedure Date Ordered Date Performed Result Body Sit e 64700-BNAQSDJ NAIL, 6 OR MORE 11/08/2023 N/A 27119-TTMB SKIN LESIONS, 2 TO 4 11/08/2023 N/A Encounters Encounter Location Date Provider Diagnosis [facility] [place] [address] [place] [address] 11/08/2023 Thaddeus Camarena Type 2 diabetes mellitus with diabetic peripheral angiopathy without gangrene E11.51 ; Tinea unguium B35.1 ; Pain in right toe(s) M79.674 ; Pain in left toe(s) M79.675 ; Other hammer toe(s) (acquired), right foot M20.41 and Other hammer toe(s) (acquired), left foot M20.42 Assessments Encounter Date Diagnosis (ICD Code) Assessment Notes Treatment Notes Treatment Clinical Notes Section Notes 11/08/2023 Type 2 diabetes mellitus with diabetic peripheral angiopathy without gangrene (ICD-10 - E11.51) 11/08/2023 Tinea unguium (ICD-10 - B35.1) 11/08/2023 Pain in right toe(s) (ICD-10 - M79.674) 11/08/2023 Pain in left toe(s) (ICD-10 - M79.675) 11/08/2023 Other hammer toe(s) (acquired), right foot (ICD-10 - M20.41) Patient Educated with: DIABETIC FOOT CARE INSTRUCTIONS.p df (DIABETIC FOOT CARE INSTRUCTIONS.p df) 11/08/2023 Other hammer toe(s) (acquired), left foot (ICD-10 - M20.42) Plan Of Treatment Medication Medication Name Sig Start Date Stop Date Notes Extra Depth Orthopedic Shoes , (1) Pair With (3) Pair Custom Heat Molded Multidensity Innersoles Dx: 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), 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,M20.42), Preulcerative Skin Lesion(s)(L85.1) Wear Daily for 365 days 11/08/2023 Treatment Notes Assessment Notes Other hammer toe(s) (acquired), right fo ot Patient Educated with: DIABETIC FOOT CARE INSTRUCTIONS.pdf (DIABETIC FOOT CARE INSTRUCTIONS.pdf) Pending Test Test Name Order Date 44539-BFBQTHQ NAIL, 6 OR MORE 11/08/2023 77933-ZNQD SKIN LESIONS, 2 TO 4 11/08/19 24 Next Appt Details Follow Up: prn, Reason: Provider Name:Thaddeus Camarena , 05/26/2024 10:30:00 AM, [address] [place] [address], [phone], Procedure Notes * Category Sub-Category Detail Notes Debride Nail 6-10 Nail debridement Nail debridem ent performed extensively to reduce/remove overall nail length, girth, thickness, subungual debris, and necrotic tissue, by manual and electrical means through the use of a nail nipper and/or dremel, to more viable healthy nail plate or bed tissue 6-10. Silver nitrate used for any petechial bleeding as necessary. Patient chooses, no pharmaceutical tx (50237) Keratoma Treatment Parring or Cutting o f Benign Hyperkeratotic Lesion(s) 04045 (2-4 Lesions) - The Benign hyperkeratotic lesions, as described above were pared, and/or cut utilizing a sterile #15 blade, tissue nippers, and/or dremel, Q8 Progress Notes * Alon NEGRO SrDOB:[birth year] (88 yo M)Acc No.[id number]:11/08/2023 Progress Note Patient:?Alon Negro Provider:?Thaddeus Camarena DPM :1935???Age:88 Y???Sex:Male Fidel e:11/08/2023 Address:[address] [place], [place] [id number] Pcp:Leonides Reynoso MD Subjective: * Chief Complaints: * ???At Risk FootcarePainful N ail(s) aggrevated by shoes and causing difficulty standing/walkingToe Irritation * HPI: ???At Risk footcare:?Pt States Last PCP Visit:?Date?08/28/2023 ???Toe pain:?Location:?B/L feet.?Duration:?several years.?Course:?worse.?Aggravated by:?shoes, any pressure.?Treatments:?change in shoes.? * ROS:?General/Constitutional:?Nausea?denies.?Vomiting?denies.?Hunger Thirst?denies.?Loss appetite?denies.?Chills?denies.?Fatigue?denies.?Fever?denies.?Night Sweats?denies.?Unexplained weight loss?denies.?Unexplained [...] * Medical History:? * Surgical History:?colonoscop y 10/26/19,2020 * Hospitalization/Major Diagno stic Procedure:?plasma infusions [facility]/ [...] Solution as directed Intravenous metFORMIN HCl pyRIDostigmine Leland 60 MG Tablet as directed Orally 3 times a daypredniSONE amLODIPine Besylate 2.5 MG Tablet 1 tablet Orally Once a dayAtivan 1 MG Tablet 1 tablet at bedtime as needed Orally Once a day, Notes: PRNCentrum - Liquid as directed Orally Captopril 12.5 MG Tablet 1 tablet 1 hour before or 2 hours after meals Orally Twice a dayClaritin 10 MG Tablet 1 tablet Orally Once a dayCiclopirox Olamine 0.77 % Cream 1 application to affected area Externally to feet Twice a dayCrestor 20 MG Tablet 1 tablet Orally Once a dayFluticasone Propionate (Inhal) 50 MCG/BLIST Aerosol Powder Breath Activated 1 puff Inhalation Twice a dayhydrALAZINE HCl 50 MG Tablet 1 tablet with food Orally Three times a dayIsosorbide Dinitrate 20 MG Tablet 1 tablet Orally Twice a dayMelatonin 3 MG Tablet 1 tablet at bedtime as needed Orally Once a dayOmeprazole 20 MG Capsule Delayed Release 1 capsule 30 minutes before morning meal Orally Once a dayVitamin D 25 MCG (1000 UT) Tablet 1 tablet Orally Once a daySertraline HCl 25 MG Tablet 1 tablet Orally Once a daySynthroid 75 MCG Tablet 1 tablet in the morning on an empty stomach Orally Once a dayVitamin C Zinc Taking Vyvgart 400 MG/20ML Solution as directed Intravenous Taking metFORMIN HCl Taking pyRIDostigmine Leland 60 MG Tablet as directed Orally 3 times a dayTaking predniSONE Taking amLODIPine Besylate 2.5 MG Tablet 1 tablet Orally Once a dayTaking Ativan 1 MG Tablet 1 tablet at bedtime as needed Orally Once a day, Notes: PRNTaking Centrum - Liquid as directed Orally Taking Captopril 12.5 MG Tablet 1 tablet 1 hour before or 2 hours after meals Orally Twice a dayTaking Claritin 10 MG Tablet 1 tablet Orally Once a dayTaking Ciclopirox Olamine 0.77 % Cream 1 application to affected area Externally to feet Twice a dayTaking Crestor 20 MG Tablet 1 tablet Orally Once a dayTaking Fluticasone Propionate (Inhal) 50 MCG/BLIST Aerosol Powder Breath Activated 1 puff Inhalation Twice a dayTaking hydrALAZINE HCl 50 MG Tablet 1 tablet with food Orally Three times a dayTaking Isosorbide Dinitrate 20 MG Tablet 1 tablet Orally Twice a dayTaking Melatonin 3 MG Tablet 1 tablet at bedtime as needed Orally Once a dayTaking Omeprazole 20 MG Capsule Delayed Release 1 capsule 30 minutes before morning meal Orally Once a dayTaking Vitamin D 25 MCG (1000 UT) Tablet 1 tablet Orally Once a dayTaking Sertraline HCl 25 MG Tablet 1 tablet Orally Once a dayTaking Synthroid 75 MCG Tablet 1 tablet in the morning on an empty stomach Orally Once a dayTaking Vitamin C Taking Zinc Not-Taking/PRNAspirin 81 MG Tablet Chewable 1 tablet Orally Once a dayLotrisone Medication List reviewed and reconciled with the patientNot-Taking/PRN Aspirin 81 MG Tablet Chewable 1 tablet Orally Once a dayNot-Taking/PRN Lotrisone Medication List reviewed and reconciled with the patient * Allergies:?Demerolyes[Allerg ies Verified] Objective: * Vitals:?Ht: 5 ft 7 in, Wt:16 0, BMI:25.06, Shoe size:8.5, BS:not taken. * Examination: ???Vascular: ?DP PULSES:?1/4, B/L.?PT PULSES:?0/4, B/L.?CAPILLARY FILL TIME:?delayed, all digits, B/L.?SKIN TEMPERTURE GRADIENT OF THE LOWER EXTERMITIES:? decreased, cool to cool, proximal to distal, B/L.?HAIR GROWTH/TEXTURE/ELASTICITY/TURGOR:? decreased, B/L.?PIGMENTATION:?mottled, B/L.?EDEMA:?absent, B/L.?CLAUDICATION:?denies, B/L.?REST PAIN:?denies, B/L.?Nails: ?NAILS are:?Elongated, overgrown, dystrophic, lytic, greater than 3mm thick, discolored and friable with crumbly malodorous subungual debris, with pain on palpation, TA, T1, T4, T5, T6, T7, T9.?Dermatologic: ?SKIN FINDINGS:?Skin exam reveals Keratotic lesion(s) located at, SUB MTH (s), 1, B/L .?Orthopedic: ?MUSCLE STRENGTH:?5/5 all groups in a symmetrical fashion, B/L.?FOOT MORPHOLOGY:?Pes Cavus structure , (-) Charcot collapse/destruction noted at MTJ.?DIGITAL DEFORMITIES:?Digital contracture, PIPJ, 2-5 B/L, incompl-reducible to push-up test, no over, nor underlapping,?with evidence of shoe producing skin irritation.?FOOTWEAR:?worn, OT were inspected and noted to be severely worn , in poor condition not giving proper support at the present time , shoe gear properties exacerbate patients foot/toe deformity.?Neurological: ?SENSORY:?Neurological exam reveals intact sensorium, pain sensation normal, vibration sensation intact, pinprick sensation is normal in the lower extremities, 5.07 monofilament test performed at plantar aspects of 5 varied sites per foot shows sensation, normal, B/L, Pt denies, anesthesia, burning, paresthesia, tingling, B/L.?Ophthalmology Referral: ?DIABETES EYE EXAM?General Examination: ?GENERAL APPEARANCE:?Reveals a pleasant, alert, well nourished, well- developed, well hydrated individual, who demonstrates proper attention to hygiene/body habitus, and is in no acute distress, Pt serves as own historian for office visit today.?ORIENTED:?person, place, and time.?FOOT EXAM:?Footwear Evaluation? Assessment: * Assessment: 1.?Type 2 diabetes mellitus with diabetic peripheral angiopathy without gangrene - E11.51?2.?Tinea unguium - B35.1?3.?Pain in right toe(s) - M79.674?4.?Pain in left toe(s) - M79.675?5.?Other hammer toe(s) (acquired), right foot - M20.41 (Primary), Chronic problem, Worse (4),Rx Management (4)?6.?Other hammer toe(s) (acquired), left foot - M20.42, Chronic problem, Worse (4),Rx Management (4)? Plan: * Treatment: 2.?Type 2 diabetes mellitus with diabetic peripheral angiopathy without gangrene?Procedure: 42787-BGSY SKIN LESIONS, 2 TO 4 3.?Tinea unguium?Procedure: 53274-YWIFMQR NAIL, 6 OR MORE * Procedures:?Debride Nail 6-10:?Nail debridement?Nail debridement performed extensively to reduce/remove overall nail length, girth, thickness, subungual debris, and necrotic tissue, by manual and electrical means through the use of a nail nipper and/or dremel, to more viable healthy nail plate or bed tissue 6-10. Silver nitrate used for any petechial bleeding as necessary. Patient chooses, no pharmaceutical tx (09689).?Keratoma Treatment:?Parring or Cutting of Benign Hyperkeratotic Lesion(s)?28368 (2-4 Lesions) - The Benign hyperkeratotic lesions, as described above were pared, and/or cut utilizing a sterile #15 blade, tissue nippers, and/or dremel, Q8.? * Procedure Codes:?79086 DEBRI DE NAIL, 6 OR MORE, Modifiers: XS 59791 TRIM SKIN LESIONS, 2 TO 4, Modifiers: XS , Q8 * Preventive Medicine:? ??Counseling:?Discussion:?-14: Office or other outpatient visit for the evaluation and management of an established patient, which required a medically appropriate history and/or examination and MODERATE level of DECISION MAKING for: 1 OR MORE CHRONIC PROBLEM(S) THATS WORSENING, 2 STABLE CHRONIC PROBLEMS, A NEWLY DIAGNOSED PROBLEM WITH UNCERTAIN PROGNOSIS, AN ACUTE COMPLICATED INJURY WITH MULTIPLE TREATMENT OPTIONS, OR AN ACUTE PROBLEM WITH ACCOMPANYING SYSTEMIC SYMPTOMS, THAT POSE(S) A MODERATE RISK OF MORBIDITY. THIS CONDITION MAY ALSO INCLUDE RX DRUG MANAGEMENT, OR A DECISON FOR MINOR SURGERY. The visit on the day of the encounter encompassed interpreting the data and educating the patient as to the nature of their condition, treatment options available according to their individual PMH, meds, allergies, and overall health/living conditions, as well as any potential risks or complications that may occur from a failure to adhere to, and participate in, the recommended course of therapy. The discussion included a complete verbal, and/or written explanation of the examination results, any x-rays taken, the proposed diagnosis, and outline of the treatment plan. A schedule for future care needs was also explained. The patient verbalized an understanding of the instructions at this time and agreed to be an active participant in their treatment. If the patient should think of any questions or concerns after the visit, I have encouraged the patient to call the office.?Digital Surgery:?Digital surgery was discussed with the patient, We elected to try conservative treatment at the present time, due to the patients medical history and increased asssociated post-operative risks.?Digital Treatment:?HT- I explained to the patient the possible etiologies of Hammertoes, including genetics/foot type/shoegear/activity level/exercise routine and the risks/benefits of all the different treatment options for their pain including: No treatment at all, Rest, Ice, New/supportive/wider/deeper Shoegear, Digital Padding/Strapping/Taping/Bracing/Gel protective sleeves, Foot/Ankle AFO Bracing, Stretching exercises, Deep Tissue Massage, Arch support/shoe inserts with splay metatarsal padding, and Custom orthoses. I insisted that any digital devices be removed daily and not worn overnight for safety. The patient is to carefully examine the toes daily for any skin irritation while using any splinting or padding device. The advantages and disadvantages of each option were discussed and the patients questions re: shoegear, padding, custom vs prefabricated inserts, activity level, and consistency in home treatment regimens for optimal success were answered to their verbally confirmed satisfaction.?Shoe Gear Counseling:?SHOE Rx - The patient was counseled in great detail on their muscoloskeletal foot and toe deformities which coincided with the dermatological presentations visualized on exam. We discussed how their deformities put the integrity of their feet at risk for potential pedal complications which makes the accomidative diabetic shoes and cutomizable inserts medically necessary. We discussed the different shoe and insert treatment types and options, as well as the important advantages for adhering to regularly wearing these accomidative devices daily. The patient was made aware of the fact that a failure to abide by these recommedations may be deleterious to their foot health as they are able to prevent many pedal complications such as skin irritation, skin ulceration, infection, and even loss of toe/foot/leg/or life. Time was also spent with the patient dispensing and discussing proper diabetic footcare techniques including daily skin moisturization, daily foot inspection for any interruption in skin integrity including open lesions, or sign of infection such as redness/malodor/drainage/swelling. Also discussed and recommended were procedures regarding daily shoe inspection for the presence of internal foreign bodies as well as any visualized irregular shoe or insert wear. Patient questions re: shoes, inserts, and self foot inspections were answered to their satisfaction as the patient verbally confirmed a full understanding of the above information. A Rx for Extra Depth Orthopedic Shoes with 3 pair of custom heat-molded inserts was dispensed.? ??Screening/Special Tests:?Fall Risk?Assessment:?Performed ?Plan of Care:?Documented ?Screening:?No falls in the past year ?FALLS: Screening for Future Fall Risk?Have you had any falls with injury in the past year??No * Follow Up:?prn * Images: * Sign off status: Completed true * Provider:?Thaddeus Camarena DPM Date:?2023 Generated for Tiffany griggs/Ramesh/eTransmitting on:?05/15/2024 09:22 AM EST History and Physical Notes * HPI (History of Present Illness) Category Sub-Category Detail Notes Category Not es Toe pain Location: B/L feet Duration: several years Course: worse Aggravated by: shoes, any pressure Treatments: change in shoes At Risk footcare Pt States Last PCP Visit: Date: 4 Examination Category Sub-Category Detail Notes Category Not es Neurological SENSORY: Neurological exa m reveals intact sensorium, pain sensation normal, vibration sensation intact, pinprick sensation is normal in the lower extremities, 5.07 monofilament test performed at plantar aspects of 5 varied sites per foot shows sensation, normal, B/L, Pt denies, anesthesia, burning, paresthesia, tingling, B/L Dermatologic SKIN FINDINGS: Skin exam reveal s Keratotic lesion(s) located at, SUB MTH (s), 1, B/L Orthopedic FOOT MORPHOLOGY: Pes Cavus struc ture , (-) Charcot collapse/destruction noted at MTJ FOOTWEAR: worn, OT were inspec irwin and noted to be severely worn , in poor condition not giving proper support at the present time , shoe gear properties exacerbate patients foot/toe deformity DIGITAL DEFORMITIES: Digital contracture , PIPJ, 2-5 B/L, incompl-reducible to push-up test, no over, nor underlapping, with evidence of shoe producing skin irritation MUSCLE STRENGTH: 5/5 all groups in a symmetrical fashion, B/L General Examination GENERAL APPEARANCE: Reveals a pleasant, alert, well nourished, well-developed, well hydrated individual, who demonstrates proper attention to hygiene/body habitus, and is in no acute distress, Pt serves as own historian for office visit today FOOT EXAM: Lower Extremity Neurological Exa m performed:: Yes ORIENTED: person, place, and t paty Footwear Evaluation Footwear Evaluation performe d:: Yes Ophthalmology Referral DIABETES EYE EXAM Diabetic Retinopa thy Screening:: No Vascular DP PULSES (B): 1/4, B/L PT PULSES (B): 0/4, B/L CAPILLARY FILL TIME: delayed, all digits , B/L TEMPERTURE GRADIENT (C): decreased, cool to cool, proximal to distal, B/L TROPHIC CONDITION-TEXTURE/ELASTICITY/TURGOR/HAIR GROWTH (B): decreased, B/L EDEMA (C): absent, B/L CLAUDICATION (C): denies, B/L REST PAIN: denies, B/L PIGMENTATION: mottled, B/L Nails NAILS are: Elongated, overg rown, dystrophic, lytic, greater than 3mm thick, discolored and friable with crumbly malodorous subungual debris, with pain on palpation, TA, T1, T4, T5, T6, T7, T9
== END | disposition home or self-care (01) ==

== ENCOUNTER → 2024-05-15 09:01 | Outpatient (BNVA) | DX: J01.90 Acute sinusitis, unspecified (principal); B96.89 Other specified bacterial agents as the cause of diseases classified elsewhere | CPT/HCPCS: 99212 ==

== ENCOUNTER 2024-05-16 01:20 | Inpatient (IN) | payer MEDICARE, SELFPAY ==
[2024-05-16] VITALS (14 sets, daily range): BP systolic 91–153; BP diastolic 42–70; PULSE 69–89; RESP 12–18; TEMP 36.6–37.3; O2SAT 88–98; BMI 25.2
--- NOTE | 2024-05-16 | ECG_ITS ---
Test Reason : jilekco Blood Pressure : */* mmHG Vent. Rate : 73 BPM Atrial Rate : 73 BPM P-R Int : 258 ms QRS Dur : 112 ms QT Int : 386 ms P-R-T Axes : 27 74 263 degrees QTcB Int : 425 ms Sinus rhythm with 1st degree A-V block Septal infarct , age undetermined ST & T wave abnormality, consider inferolateral ischemia Abnormal ECG When compared with ECG of 08-Dec-2022 14:53, Premature supraventricular complexes are no longer Present OK interval has increased Septal infarct is now Present T wave inversion now evident in Inferior leads T wave inversion now evident in Lateral leads Referred By: Generic ED Physician Electronically Signed By: Jan Marques
--- NOTE | ~2024-05-16 | XR_ITS ---
CLINICAL HISTORY: cough 1 view chest x-ray Comparison: CR/MD/SR - XR CHEST 2V - 12/23/23 08:46 EDT Findings: The lungs are clear. Normal size heart. No acute fracture. IMPRESSION: 1. No acute findings. This document has been electronically signed by: Cali Gipson MD, PHD on 05/16/2024 02:17:01
[2024-05-16 02:00] LABS: MANUAL DIFF FLAG NO
[2024-05-16 02:07] LABS: Basophils Absolute Auto 0.1 X10*3/uL (0.0-0.2); Basophils Percent Auto 0.4 % (0-2); Eosinophils Absolute Auto 0.1 X10*3/uL (0.0-0.4); Eosinophils Percent Auto 0.9 % (0-4); Imm Gran Abs Auto 0.08 X10*3/uL (0.00-0.03); Imm Gran Pct Auto 0.5 % (0.0-0.4); Lymphocytes Absolute Auto 0.6 X10*3/uL (1.2-4.9); Lymphocytes Percent Auto 4.1 % (20-40); Mean Corpuscular HGB Conc 34.1 g/dl (31.0-36.0); Mean Corpuscular Hemoglobin 32.3 pg (27.0-33.0); Mean Corpuscular Volume 94.8 fL (80.0-98.0); Mean Platelet Volume 10.1 fL (9.4-12.4); Monocytes Absolute Auto 1.1 X10*3/uL (0.1-1.2); Monocytes Percent Auto 7.1 % (2-11); Neutrophils Absolute Auto 12.8 x10*3/uL (2.0-8.3); Platelet Count 195 X10*3/uL (160-400); Red Blood Count 4.64 X10*6/uL (4.60-5.80); Red Cell Distribution Width 12.4 % (11.0-16.0); White Blood Count 14.8 X10*3/uL (4.8-10.8)
--- OUTSIDE RECORDS SUMMARY | 2024-05-16 02:30 | XMS_ITS ---
Author Organization [facility] Meng prateek Negrito Address [address] [place] [address] Care Team Providers Care Crop Scout Name Role Phone Leonides Reynoso MD Primary Care Provider Thaddeus Castle Unavailable [phone] Allergies Allergen (clinical drug ingredient) Drug/Non Drug [...] a day PRN Not-Taking predniSONE Active pyRIDostigmine Taft 60 MG as directed Orally 3 times [...] Ordered Date Performed Result Body Sit e 88300-EAPYVSY NAIL, 6 OR MORE 02/25/2024 N/A 45935-VHLJ SKIN LESIONS, 2 TO 4 02/25/2024 N/A Encounters Encounter Location Date Provider Diagnosis [facility] [place] [address] [place] [address] 02/25/2024 Thaddeus Camarena Type 2 diabetes mellitus [...] Treatment Pending Test Test Name Order Date 30827-LYBLYUL NAIL, 6 OR MORE 02/25/2024 63996-PJGD SKIN LESIONS, 2 TO 4 02/25/20 24 Next Appt Details Follow Up: prn, Reason: Provider Name:Thaddeus Camarena , 05/26/2024 10:30:00 AM, [address] [place] [address], [phone], Procedure Notes * Category Sub-Category Detail Notes [...] use of a nail nipper and/or dremel-type sample grinder, to a more viable healthy nail plate or bed tissue 6-10. Silver nitrate used for any petechial bleeding as necessary. Definitive antifungal treatment options have been reviewed and discussed with the patient. The patient chooses, no pharmaceutical tx - 62816 Keratoma Treatment Parring or Cutting o f Benign Hyperkeratotic Lesion(s) (-56) 2-4 Lesions - The Benign hyperkeratotic lesions, as described in exam, were pared, and/or cut utilizing a sterile 15 blade, tissue nippers, and/or dremel - 11586, Q8 Progress Notes * Alon NEGRO SrDOB:[birth year] (89 yo M)Acc No.[id number]:02/25/2024 Progress Note Patient:Alon YUN Sr Provider:?Thaddeus Camarena DPM :1935???Age:89 Y???Sex:Male Fidel e:02/25/2024 Address:[address] [place] [address] [id number] Pcp:Leonides Reynoso MD Subjective: * Chief Complaints: [...] Solution as directed Intravenous metFORMIN HCl pyRIDostigmine Taft 60 MG Tablet as directed Orally 3 [...] directed Intravenous Taking metFORMIN HCl Taking pyRIDostigmine Taft 60 MG Tablet as directed Orally 3 [...] - M79.675??? Plan: * Treatment: 2.?Tinea unguium?Procedure: 51199-UQYGQCL NAIL, 6 OR MORE * Procedures:?Debride Nail [...] use of a nail nipper and/or dremel-type sample grinder, to a more viable healthy nail plate or bed tissue 6-10. Silver nitrate used for any petechial bleeding as necessary. Definitive antifungal treatment options have been reviewed and discussed with the patient. The patient chooses, no pharmaceutical tx - 80920.?Keratoma Treatment:?Parring or Cutting of Benign Hyperkeratotic Lesion(s)?(-56) 2-4 Lesions - The Benign hyperkeratotic lesions, as described in exam, were pared, and/or cut utilizing a sterile 15 blade, tissue nippers, and/or dremel - 47133, Q8.? * Procedure Codes:?06533 DEBRI DE NAIL, 6 OR MORE, Modifiers: XS 91623 TRIM SKIN LESIONS, 2 TO 4, Modifiers: XS , Q8 * Follow Up:?prn * Images: * Sign off status: Completed true * Provider:?Thaddeus Camarena DPM Date:?2023 Generated for Tiffany griggs/Ramesh/Sherry on:?05/16/2024 02:30 AM EST History and Physical Notes * [...]
--- OUTSIDE RECORDS SUMMARY | 2024-05-16 02:30 | XMS_ITS | Patient Health Record ---
Author Organization [facility] Address [address] [place] [address] Care Team Providers Care Civil Engineer Helper Name Role Phone Leonides Reynoso MD Primary Care Provider Thaddeus Castle Unavailable [phone] Allergies Allergen (clinical drug ingredient) Drug/Non Drug [...] a day for 30 day(s) Active pyRIDostigmine Warrens 60 MG as directed Orally 3 times [...] Problem Acquired hammer toe of right foot (6825072838015 105) Other hammer toe(s) (acquired), right foot (M20.41) Active confirmed Response to treatment,I mprovement Problem Type 2 diabetes mellitus with peripheral angiopathy (652830309) Type 2 diabetes mellitus with diabetic peripheral angiopathy without gangrene (E11.51) Active confirmed Problem Acquired hammer toe of left foot (3446510110873 103) Other hammer toe(s) (acquired), left foot (M20.42) Active confirmed Response to treatment,I mprovement Vital Signs Height 5 ft 7 in in 02/25/2024 Weight 160 lbs 02/25/2024 BMI 25.06 kg/m2 02/25/2024 Procedures Procedure Date Ordered Date Performed Result Body Sit e 00038-XTLVUUA NAIL, 6 OR MORE 11/08/2023 N/A 96997-LVNN SKIN LESIONS, 2 TO 4 11/08/2023 N/A 82145-VKPCSFU NAIL, 6 OR MORE 02/25/2024 N/A 46350-XUEO SKIN LESIONS, 2 TO 4 02/25/2024 N/A Encounters Encounter Location Date Provider Diagnosis [address] [address] 11/08/2023 Thaddeus Camarena Type 2 diabetes mellitus with diabetic peripheral angiopathy without gangrene E11.51 ; Tinea unguium B35.1 ; Pain in right toe(s) M79.674 ; Pain in left toe(s) M79.675 ; Other hammer toe(s) (acquired), right foot M20.41 and Other hammer toe(s) (acquired), left foot M20.[address] [address] 02/25/2024 Thaddeus Camarena Type 2 diabetes mellitus with diabetic peripheral angiopathy without gangrene E11.51 ; Tinea unguium B35.1 ; Pain in right toe(s) M79.674 and Pain in left toe(s) M79.[address] [address] 08/30/2023 Thaddeus Camarena Assessments Encounter Date Diagnosis [...] Treatment Pending Test Test Name Order Date 81852-SJSGIJH NAIL, 6 OR MORE 07/12/2020 11439-HJSESNJ NAIL, 6 OR MORE 10/11/2020 40909-DGCQVTF NAIL, 6 OR MORE 01/10/2021 16024-ETLXRUA NAIL, 6 OR MORE 04/14/2021 13019-PAUGBAM NAIL, 6 OR MORE 08/15/2021 74158-BVCSOWG NAIL, 6 OR MORE 11/17/2021 79553-LXQNZBZ NAIL, 6 OR MORE 04/24/2022 45163-TZGWEXL NAIL, 6 OR MORE 04/19/2020 24950-FETTABK NAIL, 6 OR MORE 07/24/2022 01123-DSDRLJO NAIL, 6 OR MORE 10/23/2022 12355-OLDSEUB NAIL, 6 OR MORE 01/29/2023 47339-TDBTCKU NAIL, 6 OR MORE 05/07/2023 36147-IYPCPKD NAIL, 6 OR MORE 11/08/2023 74268-TXTUPCT NAIL, 6 OR MORE 02/25/2024 18117-Ooyi Destruction, 1-14 04/19/2020 30536-Jtdctxgp Plate 04/24/2022 55903-IDVH SKIN LESIONS, 2 TO 4 04/24/19 23 11471-YFZN SKIN LESIONS, 2 TO 4 07/25/19 22365-SAIZ SKIN LESIONS, 2 TO 4 01/30/20 23 19716-RBMH SKIN LESIONS, 2 TO 4 10/24/19 23 62483-UEZN SKIN LESIONS, 2 TO 4 02/25/20 24 89130-BXFB SKIN LESIONS, 2 TO 4 11/08/19 24 33589-ONIQ SKIN LESIONS, 2 TO 4 05/07/19 24 Next Appt Details Provider Name:Thaddeus Camarena , 05/26/2024 10:30:00 AM, [address] [place], [address], Insurance Providers Payer Name Payer Address Payer Phone Subscriber Number Group Number Insured Name Patient Relationship to Insured Coverage Start Date Coverage End Date Medicare [facility] [employer] [address] [place] [address] [id number] Alon Negro Self - patient is the insured [employer] [address] [place] [address] [id number] Alon Negro Self - patient is the [...]
--- OUTSIDE RECORDS SUMMARY | 2024-05-16 02:31 | XMS_ITS ---
Author Organization [facility] Address [address] [place] [address] Care Team Providers Care Subcontracts Manager Name Role Phone Leonides Reynoso MD Primary Care Provider Thaddeus Castle Unavailable [phone] Allergies Allergen (clinical drug ingredient) Drug/Non Drug [...] 400 MG/20ML as directed Intravenous Active pyRIDostigmine Sheldon 60 MG as directed Orally 3 times [...] Ordered Date Performed Result Body Sit e 00895-KJIYOVQ NAIL, 6 OR MORE 11/08/2023 N/A 52122-BMQS SKIN LESIONS, 2 TO 4 11/08/2023 N/A Encounters Encounter Location Date Provider Diagnosis [facility] [address] [place] [address] 11/08/2023 Thaddeus Camarena Type 2 diabetes mellitus [...] INSTRUCTIONS.pdf) Pending Test Test Name Order Date 81169-HKROIZU NAIL, 6 OR MORE 11/08/2023 29422-YHMT SKIN LESIONS, 2 TO 4 11/08/19 24 Next Appt Details Follow Up: prn, Reason: Provider Name:Thaddeus Camarena , 05/26/2024 10:30:00 AM, [address] [place] [address], [address], Procedure Notes * Category Sub-Category Detail Notes [...] as necessary. Patient chooses, no pharmaceutical tx (22466) Keratoma Treatment Parring or Cutting o f Benign Hyperkeratotic Lesion(s) 41862 (2-4 Lesions) - The Benign hyperkeratotic lesions, as described above were pared, and/or cut utilizing a sterile #15 blade, tissue nippers, and/or dremel, Q8 Progress Notes * Alon NEGRO SrDOB:[birth year] (88 yo M)Acc No.[id number]:11/08/2023 Progress Note Patient:?Alon Negro Provider:?Thaddeus Camarena DPM :1935???Age:88 Y???Sex:Male Fidel e:11/08/2023 Address:[address] [place], [place] [id number] Pcp:Leonides Reynoso MD Subjective: * Chief Complaints: [...] Solution as directed Intravenous metFORMIN HCl pyRIDostigmine Sheldon 60 MG Tablet as directed Orally 3 [...] directed Intravenous Taking metFORMIN HCl Taking pyRIDostigmine Sheldon 60 MG Tablet as directed Orally 3 [...] mellitus with diabetic peripheral angiopathy without gangrene?Procedure: 27070-VWRF SKIN LESIONS, 2 TO 4 3.?Tinea unguium?Procedure: 95979-QBKOXCQ NAIL, 6 OR MORE * Procedures:?Debride Nail 6-10:?Nail debridement?Nail debridement performed extensively to reduce/remove overall nail length, girth, thickness, subungual debris, and necrotic tissue, by manual and electrical means through the use of a nail nipper and/or dremel, to more viable healthy nail plate or bed tissue 6-10. Silver nitrate used for any petechial bleeding as necessary. Patient chooses, no pharmaceutical tx (48777).?Keratoma Treatment:?Parring or Cutting of Benign Hyperkeratotic Lesion(s)?28935 (2-4 Lesions) - The Benign hyperkeratotic lesions, as described above were pared, and/or cut utilizing a sterile #15 blade, tissue nippers, and/or dremel, Q8.? * Procedure Codes:?37707 DEBRI DE NAIL, 6 OR MORE, Modifiers: XS 29369 TRIM SKIN LESIONS, 2 TO 4, Modifiers: [...] Camarena DPM Date:?2023 Generated for Tiffany griggs/Ramesh/eTransmitting on:?05/16/2024 02:30 AM EST History and Physical [...]
--- OUTSIDE RECORDS SUMMARY | 2024-05-16 02:31 | XMS_ITS | Continuity of Care Document ---
Author Name [facility] Organization [facility] Care Team Providers Care Property Controller Name Role Phone DOD-[place] Unavailable Unavailable Problems Combined list of problems [...] H90.3 Sensorineural hearing loss, bilateral Active Diagnosis [facility] AD[facility] Diagnosis: ICD-10-CM G70.01 Myasthenia gravis with (acute) exacerbation Active Diagnosis [place] ASH[place] LUISA RN TEJDENVER [facility] Diagnosis: ICD-10-CM Z23 Encounter for immunization Active Diagnosis [place] A[place] LUISA RN TEJDENVER [facility] Diagnosis: ICD-10-CM I10 Essential (primary) hypertension Active Diagnosis [place] LUISA HERNANDEZ TEJDENVER [facility] Diagnosis: ICD-10-CM G70.00 Myasthenia gravis without (acute) exacerbation Active Diagnosis [facility] LU[facility] HERNANDEZ KATRINJUAN [facility] Medications Combined list of outpatient [...] WITH GRAPEFRU IT JUICE ORAL ACTIVE 04/30/2025 [id number] 5 NICKIE REYNA 2024 180 [facility] [place] [facility] [facility] AMLODIPINE BESYLATE 5MG TAB TAKE ONE TABLET BY MOUTH TWICE DAILY FOR BLOOD PRESSURE /HEART, DO NOT TAKE WITH GRAPEFRU IT JUICE ORAL DISCONT INUED 05/26/2024 [id number] NICKIE REYNA 2023 180 [facility] [place] AMLODIPINE BESYLATE 5MG TAB TAKE ONE TABLET BY MOUTH TWICE DAILY FOR BLOOD PRESSURE /HEART, DO NOT TAKE WITH GRAPEFRU IT JUICE ORAL DISCONT INUED (EDIT) 02/09/2024 [id number] 4 NICKIE REYNA 2023 60 [facility] [place] [facility] ASPIRIN 81MG TAB,EC TAKE ONE TABLET BY MOUTH EVERY DAY ORAL ACTIVE HARJINDER MART 2006 [facility] ATORVASTATI N CA 40MG TAB TAKE ONE TABLET BY MOUTH ONCE DAILY FOR CHOLESTE ROL ORAL ACTIVE 01/31/2025 [id number] 5 NICKIE REYNA 2023 90 [facility] [place] [facility] ATORVASTATI N CA 40MG TAB TAKE ONE TABLET BY MOUTH ONCE DAILY FOR CHOLESTE ROL ORAL DISCONT INUED 11/08/2023 [id number] 4 NICKIE REYNA 2022 90 [facility] [place] [facility] [facility] CAPTOPRIL 12.5MG TAB TAKE ONE AND ONE-HALF TABLETS (18.75MG ) BY MOUTH THREE TIMES A DAY TO CONTROL BLOOD PRESSURE ORAL ACTIVE 06/04/2024 [id number] 5 NICKIE REYNA 2023 405 [facility] [place] [facility] [facility] CAPTOPRIL 12.5MG TAB TAKE ONE AND ONE-HALF TABLETS (18.75MG ) BY MOUTH THREE TIMES A DAY TO CONTROL BLOOD PRESSURE ORAL DISCONT INUED 06/26/2023 [id number] NICKIE REYNA 2022 405 [facility] [place] [facility] [facility] CHOLECALCIF QUINTIN 25MCG (1,000UNIT) TAB TAKE ONE TABLET BY MOUTH EVERY DAY ORAL ACTIVE HARJINDER MART NNLuigi O 2008 [facility] [place] [facility] DIPHENHYDRA MINE HCL CAP,ORAL TAKE BY MOUTH AT BEDTIME NEEDED ORAL ACTIVE NICKIE REYNA 2017 [facility] [place] [facility] EPINEPHRINE (EQV-EPI-PE N) 0.3MG/0.3ML INJECTOR INJECT DIRECTED INTRAMUS CULARLY NEEDED FOR ANAPHYLA XIS INTRAM USCULA R 11/28/2023 [id number] 4 NICKIE REYNA 2023 2 [facility] [place] [facility] FEXOFENADIN E HCL 180MG TAB TAKE ONE TABLET BY MOUTH EVERY DAY ORAL ACTIVE HARJINDER MART NNE O 2006 [facility] [place] [facility] HYDRALAZINE HCL 50MG TAB TAKE ONE TABLET BY MOUTH ONCE DAILY FOR BLOOD PRESSURE ORAL ACTIVE 04/30/2025 [id number] 5 NICKIE REYNA 2024 90 [facility] [place] [facility] HYDRALAZINE HCL 50MG TAB TAKE ONE TABLET BY MOUTH ONCE DAILY FOR BLOOD PRESSURE ORAL DISCONT INUED 04/25/2024 [id number] 4 NICKIE REYNA 2023 90 [facility] [place] [facility] [facility] HYDRALAZINE HCL 50MG TAB TAKE ONE TABLET BY MOUTH ONCE DAILY FOR BLOOD PRESSURE ORAL DISCONT INUED 06/19/2023 [id number] 3 NICKIE REYNA 2022 90 [facility] [place] [facility] IBUPROFEN 400MG TAB TAKE ONE TABLET BY MOUTH NEEDED ORAL ACTIVE HARJINDER MART 2008 [facility] [place] [facility] ISOSORBIDE DINITRATE 20MG TAB,ORAL TAKE ONE TABLET BY MOUTH EVERY MORNING TO PREVENT ANGINA ORAL ACTIVE 10/22/2024 [id number] 5 NICKIE REYNA 2023 90 [facility] [place] [facility] ISOSORBIDE DINITRATE 20MG TAB,ORAL TAKE ONE TABLET BY MOUTH EVERY MORNING TO PREVENT ANGINA ORAL DISCONT INUED 11/08/2023 [id number] 4 NICKIE REYNA 2022 90 [facility] [place] [facility] LEVOTHYROXI NE NA 88MCG TAB (SYNTHROID) TAKE ONE TABLET BY MOUTH EVERY MORNING 30 MINUTES BEFORE BREAKFAS T FOR THYROID - TAKE ON AN EMPTY STOMACH WITH A FULL GLASS OF WATER ORAL ACTIVE 01/31/2025 [id number] 5 NICKIE REYNA 2023 90 [facility] [place] [facility] LEVOTHYROXI NE NA 88MCG TAB (SYNTHROID) TAKE ONE TABLET BY MOUTH EVERY MORNING 30 MINUTES BEFORE BREAKFAS T FOR THYROID - TAKE ON AN EMPTY STOMACH WITH A FULL GLASS OF WATER ORAL DISCONT INUED 11/08/2023 [id number] 4 NICKIE REYNA 2022 90 [facility] [place] [facility] MELATONIN CAP/TAB TAKE BY MOUTH ORAL ACTIVE NICKIE REYNA 2017 [facility] [place] [facility] METFORMIN HCL 500MG 24HR TAB,SA TAKE ONE TABLET BY MOUTH ONCE DAILY ORAL ACTIVE 06/04/2024 [id number] 5 NICKIE REYNA 2023 90 [facility] [place] [facility] MULTIVITAMI NS W/MINERALS TAB TAKE ONE TABLET BY MOUTH EVERY DAY ORAL ACTIVE MARTHARJINDER ALINA O 2006 [facility] [place] [facility] OMEPRAZOLE 20MG CAP,EC TAKE ONE CAPSULE BY MOUTH EVERY MORNING 30 MINUTES BEFORE BREAKFAS T ORAL ACTIVE 10/22/2024 [id number] 5 NICKIE REYNA 2023 90 [facility] [place] [facility] OMEPRAZOLE 20MG CAP,EC TAKE ONE CAPSULE BY MOUTH EVERY MORNING 30 MINUTES BEFORE BREAKFAS T ORAL DISCONT INUED 11/08/2023 [id number] 4 NICKIE REYNA 2022 90 [facility] [place] [facility] OTHER CAP/TAB TAKE [...] FOUR TIMES A DAY ORAL ACTIVE 07/16/2024 [id number] BINTA ORTEGA 2023 400 [facility] [place] [facility] [facility] PYRIDOSTIGM INE BR 60MG TAB TAKE ONE TABLET BY MOUTH THREE TIMES A DAY ORAL DISCONT INUED 06/04/2024 [id number] 4 NICKIE REYNA 2023 300 [facility] [place] [facility] PYRIDOSTIGM INE BR 60MG TAB TAKE ONE TABLET BY MOUTH THREE TIMES A DAY ORAL DISCONT INUED 08/16/2023 [id number] BINTA ORTEGA 2022 300 [facility] PYRIDOSTIGM INE BR 60MG TAB TAKE ONE TABLET BY MOUTH THREE TIMES A DAY ORAL ACTIVE [place]TON QIUNONES ICE 2022 [facility] Allergies, Adverse Reactions, Alerts Combined list of allergies from Department of Defense and Veterans Affairs facilities. It does not include entries that were removed or entered in error. Substance Category Reaction Severity Reaction type Status Date Reported Comments Source LIPITOR Propensity to adverse reactions to drug (finding) Muscle pain active 4 [facility] [place] [facility] Immunizations Combined list of available immunizations from the Department of Defense and Veterans Affairs facilities. 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 Status Comments Source RSV, BIVALENT, PROTEIN SUBUNIT RSVPREF, DILUENT RECONSTITUTED , 0.5 ML, PF 2022 GAYLE BAIRD LEFT DELTO ID [id number] 305 complet ed [facility] COVID-19 (MODERNA), MRNA, LNP-S, PF, 50 MCG/0.5 ML (AGES 12+ YEARS) 1 2022 ARIANA CELESTIN LEFT DELTO ID [id number] 312 complet ed [facility] INFLUENZA, HIGH-DOSE, QUADRIVALENT 2022 ARIANA CELESTIN RIGHT DELTO ID [id number] 197 complet ed [facility] TDAP 2022 BECKY TALAVERA LEFT DELTO ID [id number] 115 complet ed [facility] INFLUENZA VACCINE, QUADRIVALENT, ADJUVANTED 2021 205 complet ed [facility] [place] [facility] MENINGOCOCCAL POLYSACCHARID E VACCINE (HISTORICAL) 2021 108 complet ed [facility] COVID-19 (MODERNA), MRNA, LNP-S, PF, 100 MCG/0.5ML DOSE OR 50 MCG/0.25ML DOSE 3 2021 207 complet ed [facility] INFLUENZA, UNSPECIFIED FORMULATION 2020 88 complet ed [facility] [place] [facility] COVID-19 (MODERNA), MRNA, LNP-S, PF, 100 MCG OR 50 MCG DOSE 3 2020 207 complet ed [facility] [place] COVID-19 (MODERNA), MRNA, LNP-S, PF, 100 MCG/0.5 ML DOSE 2 2020 207 complet ed MOD; [id number]; 1 [facility] [place] [facility] COVID-19 (MODERNA), MRNA, LNP-S, PF, 100 MCG/0.5 ML DOSE 1 2020 207 complet ed MOD; [id number]; 1 [facility] [place] [facility] [facility] [...] Reference Range Date Interpretation Specimen Comments Source BASIC METABOLI C PANEL (fasting ) UREA NITROGEN [MASS/VOLU ME] IN SERUM OR PLASMA 15 mg/dL 7 - 25 06/04 Specimen Type: SERUM No comment entered. Ordering Provider: Caitlin REYNA Report Released Date/Time: Dec 04, 2022 10:59 AM Reporting Lab: [facility] [place] [facility] [address] [facility] [address] Performing Lab: [facility] [place] [facility] [address] [facility] [address] [facility] [place] [facility] BASIC METABOLI C PANEL (fasting ) GLUCOSE [MASS/VOLU ME] IN SERUM OR PLASMA 98 mg/dL 65 - 100 06/04 Specimen Type: SERUM No comment entered. Ordering Provider: Caitlin REYNA Report Released Date/Time: Dec 04, 2022 10:59 AM Reporting Lab: [facility] [place] [facility] [address] [facility] [address] Performing Lab: [facility] [place] [facility] [address] [facility] [address] [facility] [place] [facility] BASIC METABOLI C PANEL (fasting ) SODIUM [MOLES/VOL UME] IN SERUM OR PLASMA 140 mmol/L 135 - 145 06/04 Specimen Type: SERUM No comment entered. Ordering Provider: Caitlin REYNA Report Released Date/Time: Dec 04, 2022 10:59 AM Reporting Lab: [facility] [place] [facility] [address] [facility] [address] Performing Lab: [facility] [address] [facility] [address] [facility] BASIC METABOLI C PANEL (fasting ) POTASSIUM [MOLES/VOL UME] IN SERUM OR PLASMA 3.8 mmol/L 3.5 - 5.0 06/04 Specimen Type: SERUM No comment entered. Ordering Provider: Caitlin REYNA Report Released Date/Time: Dec 04, 2022 10:59 AM Reporting Lab: [facility] [address] [facility] [address] Performing Lab: [facility] [address] [facility] [address] [facility]N [facility] BASIC METABOLI C PANEL (fasting ) CHLORIDE [MOLES/VOL UME] IN SERUM OR PLASMA 105 mmol/L 100 - 110 06/04 Specimen Type: SERUM No comment entered. Ordering Provider: Caitlin REYNA Report Released Date/Time: Dec 04, 2022 10:59 AM Reporting Lab: [facility] [address] [facility] [address] Performing Lab: [facility] [address] [facility] [address] [facility] BASIC METABOLI C PANEL (fasting ) CARBON DIOXIDE, TOTAL [MOLES/VOL UME] IN SERUM OR PLASMA 25 meq/L 20 - 30 06/04 Specimen Type: SERUM No comment entered. Ordering Provider: Caitlin REYNA Report Released Date/Time: Dec 04, 2022 10:59 AM Reporting Lab: [facility] [place] [address] [address] Performing Lab: [facility] [place] [address] [address] [facility] [place] [facility] BASIC METABOLI C PANEL (fasting ) CREATININE [MASS/VOLU ME] IN SERUM OR PLASMA 0.85 mg/dL 0.50 - 1.40 06/04 Specimen Type: SERUM No comment entered. Ordering Provider: Caitlin REYNA Report Released Date/Time: Dec 04, 2022 10:59 AM Reporting Lab: [facility] [place] [address] [address] Performing Lab: [facility] [place] [address] [address] [facility] [place] [facility] BASIC METABOLI C PANEL (fasting ) GLOMERULAR FILTRATION RATE/1.73 SQ M.PREDICTE D [VOLUME RATE/AREA] IN SERUM, PLASMA OR BLOOD BY CREATININE -BASED FORMULA (CKD-EPI 2020) 84 mL/min 60 06/04 Specimen Type: SERUM No comment entered. Ordering Provider: Caitlin REYNA Report Released Date/Time: Dec 04, 2022 10:59 AM Reporting Lab: [facility] [place] [address] [address] Performing Lab: [facility] [place] [address] [address] [facility] [place] [facility] CBC AND DIFF (AUTO) LEUKOCYTES [#/VOLUME] IN BLOOD BY AUTOMATED COUNT 9.66 10*3/uL 4.50 - 11.00 06/04 Specimen Type: BLOOD No comment entered. Ordering Provider: Caitlin REYNA Report Released Date/Time: Dec 04, 2022 10:59 AM Reporting Lab: [facility] [place] [address] [address] Performing Lab: [facility] [place] [facility] [address] [facility] [address] [facility] [place] [facility] CBC AND DIFF (AUTO) ERYTHROCYT ES [#/VOLUME] IN BLOOD BY AUTOMATED COUNT 4.55 10*6/uL 4.23 - 5.66 06/04 Specimen Type: BLOOD No comment entered. Ordering Provider: Caitlin REYNA Report Released Date/Time: Dec 04, 2022 10:59 AM Reporting Lab: [facility] [place] [facility] [address] [facility] [address] Performing Lab: [facility] [place] [facility] [address] [facility] [address] [facility] [place] [facility] CBC AND DIFF (AUTO) HEMOGLOBIN [MASS/VOLU ME] IN BLOOD 14.6 g/dL 12.8 - 17 06/04 Specimen Type: BLOOD No comment entered. Ordering Provider: Caitlin REYNA Report Released Date/Time: Dec 04, 2022 10:59 AM Reporting Lab: [facility] [place] [facility] [address] [facility] [address] Performing Lab: [facility] [place] [facility] [address] [facility] [address] [facility] [place] [facility] CBC AND DIFF (AUTO) HEMATOCRIT [VOLUME FRACTION] OF BLOOD BY AUTOMATED COUNT 43.9 39.2 - 50.4 06/04 Specimen Type: BLOOD No comment entered. Ordering Provider: Caitlin REYNA Report Released Date/Time: Dec 04, 2022 10:59 AM Reporting Lab: [facility] [place] [facility] [address] [facility] [address] Performing Lab: [facility] [place] [facility] [address] [facility] [address] [facility] [place] [facility] CBC AND DIFF (AUTO) MCV [ENTITIC VOLUME] BY AUTOMATED COUNT 96.5 fL 82 - 99 06/04 Specimen Type: BLOOD No comment entered. Ordering Provider: Caitlin REYNA Report Released Date/Time: Dec 04, 2022 10:59 AM Reporting Lab: [facility] [place] [facility] [address] [facility] [address] Performing Lab: [facility] [place] [facility] [address] [facility] [address] [facility] [place] [facility] CBC AND DIFF (AUTO) MCHC [MASS/VOLU ME] BY AUTOMATED COUNT 33.3 g/dL 30.8 - 35.1 06/04 Specimen Type: BLOOD No comment entered. Ordering Provider: Caitlin REYNA Report Released Date/Time: Dec 04, 2022 10:59 AM Reporting Lab: [facility] [place] [facility] [address] [facility] [address] Performing Lab: [facility] [place] [facility] [address] [facility] [address] [facility] [place] [facility] CBC AND DIFF (AUTO) PLATELETS [#/VOLUME] IN BLOOD BY AUTOMATED COUNT 246 10*3/uL 140 - 360 06/04 Specimen Type: BLOOD No comment entered. Ordering Provider: Caitlin REYNA Report Released Date/Time: Dec 04, 2022 10:59 AM Reporting Lab: [facility] [place] [facility] [address] [facility] [address] Performing Lab: [facility] [place] [facility] [address] [facility] [address] [facility] [place] [facility] CBC AND DIFF (AUTO) ERYTHROCYT E DISTRIBUTI ON WIDTH [RATIO] BY AUTOMATED COUNT 12.5 12.0 - 16.0 06/04 Specimen Type: BLOOD No comment entered. Ordering Provider: Caitlin REYNA Report Released Date/Time: Dec 04, 2022 10:59 AM Reporting Lab: [facility] [place] [facility] [address] [facility] [address] Performing Lab: [facility] [place] [facility] [address] [facility] [address] [facility] [place] [facility] CBC AND DIFF (AUTO) MONOCYTES [#/VOLUME] IN BLOOD BY AUTOMATED COUNT 0.91 10*3/uL 0.30 - 1.10 06/04 Specimen Type: BLOOD No comment entered. Ordering Provider: Caitlin REYNA Report Released Date/Time: Dec 04, 2022 10:59 AM Reporting Lab: [facility] [place] [facility] [address] [facility] [address] Performing Lab: [facility] [place] [facility] [address] [facility] [address] [facility] [place] [facility] CBC AND DIFF (AUTO) MCH [ENTITIC MASS] BY AUTOMATED COUNT 32.1 pg 26.2 - 32.6 06/04 Specimen Type: BLOOD No comment entered. Ordering Provider: Caitlin REYNA Report Released Date/Time: Dec 04, 2022 10:59 AM Reporting Lab: [facility] [place] [facility] [address] [facility] [address] Performing Lab: [facility] [place] [facility] [address] [facility] [address] [facility] [place] [facility] CBC AND DIFF (AUTO) NEUTROPHIL S/100 LEUKOCYTES IN BLOOD BY AUTOMATED COUNT 53.2 43.7 - 75.8 06/04 Specimen Type: BLOOD No comment entered. Ordering Provider: Caitlin REYNA Report Released Date/Time: Dec 04, 2022 10:59 AM Reporting Lab: [facility] [place] [facility] [address] [facility] [address] Performing Lab: [facility] [place] [facility] [address] [facility] [address] [facility] [place] [facility] CBC AND DIFF (AUTO) LYMPHOCYTE S/100 LEUKOCYTES IN BLOOD BY AUTOMATED COUNT 35.0 14.0 - 42.3 06/04 Specimen Type: BLOOD No comment entered. Ordering Provider: Caitlin REYNA Report Released Date/Time: Dec 04, 2022 10:59 AM Reporting Lab: [facility] [place] [facility] [address] [facility] [address] Performing Lab: [facility] [place] [facility] [address] [facility] [address] [facility] [place] [facility] CBC AND DIFF (AUTO) MONOCYTES/ 100 LEUKOCYTES IN BLOOD BY AUTOMATED COUNT 9.4 5.1 - 13.7 06/04 Specimen Type: BLOOD No comment entered. Ordering Provider: Caitlin REYNA Report Released Date/Time: Dec 04, 2022 10:59 AM Reporting Lab: [facility] [place] [facility] [address] [facility] [address] Performing Lab: [facility] [place] [facility] [address] [facility] [address] [facility] [place] [facility] CBC AND DIFF (AUTO) EOSINOPHIL S/100 LEUKOCYTES IN BLOOD BY AUTOMATED COUNT 1.3 0.4 - 6.8 06/04 Specimen Type: BLOOD No comment entered. Ordering Provider: Caitlin REYNA Report Released Date/Time: Dec 04, 2022 10:59 AM Reporting Lab: [facility] [place] [facility] [address] [facility] [address] Performing Lab: [facility] [place] [facility] [address] [facility] [address] [facility] [place] [facility] CBC AND DIFF (AUTO) BASOPHILS/ 100 LEUKOCYTES IN BLOOD BY AUTOMATED COUNT 0.4 0.1 - 2.0 06/04 Specimen Type: BLOOD No comment entered. Ordering Provider: Caitlin REYNA Report Released Date/Time: Dec 04, 2022 10:59 AM Reporting Lab: [facility] [place] [facility] [address] [facility] [address] Performing Lab: [facility] [place] [facility] [address] [facility] [address] [facility] [place] [facility] CBC AND DIFF (AUTO) NEUTROPHIL S [#/VOLUME] IN BLOOD BY AUTOMATED COUNT 5.13 10*3/uL 2.20 - 7.60 06/04 Specimen Type: BLOOD No comment entered. Ordering Provider: Caitlin REYNA Report Released Date/Time: Dec 04, 2022 10:59 AM Reporting Lab: [facility] [place] [facility] [address] [facility] [address] Performing Lab: [facility] [place] [facility] [address] [facility] [address] [facility] [place] [facility] CBC AND DIFF (AUTO) LYMPHOCYTE S [#/VOLUME] IN BLOOD BY AUTOMATED COUNT 3.38 10*3/uL 1.00 - 3.20 06/04 H Specimen Type: BLOOD No comment entered. Ordering Provider: Caitlin REYNA Report Released Date/Time: Dec 04, 2022 10:59 AM Reporting Lab: [facility] [place] [facility] [address] [facility] [address] Performing Lab: [facility] [place] [facility] [address] [facility] [address] [facility] [place] [facility] CBC AND DIFF (AUTO) EOSINOPHIL S [#/VOLUME] IN BLOOD BY AUTOMATED COUNT 0.13 10*3/uL 0.03 - 0.44 06/04 Specimen Type: BLOOD No comment entered. Ordering Provider: Caitlin REYNA Report Released Date/Time: Dec 04, 2022 10:59 AM Reporting Lab: [facility] [place] [facility] [address] [facility] [address] Performing Lab: [facility] [place] [facility] [address] [facility] [address] [facility] [place] [facility] CBC AND DIFF (AUTO) BASOPHILS [#/VOLUME] IN BLOOD BY AUTOMATED COUNT 0.04 10*3/uL 0.01 - 0.13 06/04 Specimen Type: BLOOD No comment entered. Ordering Provider: Caitlin REYNA Report Released Date/Time: Dec 04, 2022 10:59 AM Reporting Lab: [facility] [place] [facility] [address] [facility] [address] Performing Lab: [facility] [place] [facility] [address] [facility] [address] [facility] [place] [facility] CBC AND DIFF (AUTO) IMMATURE GRANULOCYT ES/100 LEUKOCYTES IN BLOOD BY AUTOMATED COUNT 0.7 0.0 - 0.7 06/04 Specimen Type: BLOOD No comment entered. Ordering Provider: Caitlin REYNA Report Released Date/Time: Dec 04, 2022 10:59 AM Reporting Lab: [facility] [address] [facility] [address] Performing Lab: [facility] [address] [facility] [address] [facility] CBC AND DIFF (AUTO) IMMATURE GRANULOCYT ES [#/VOLUME] IN BLOOD 0.07 10*3/uL 0.00 - 0.06 06/04 H Specimen Type: BLOOD No comment entered. Ordering Provider: Caitlin REYNA Report Released Date/Time: Dec 04, 2022 10:59 AM Reporting Lab: [facility] [address] [address] Performing Lab: [facility] [address] [address] [facility] HEMOGLOB IN A1C PANEL HEMOGLOBIN A1C/HEMOGL [...] Dec 04, 2022 10:59 AM Reporting Lab: [facility] [address] [address] Performing Lab: [facility] [address] [facility] [address] [facility] LIPID PANEL FASTING CHOLESTERO L [MASS/VOLU ME] IN SERUM OR PLASMA 145 mg/dL 06/04 Specimen Type: SERUM No comment entered. Ordering Provider: Caitlin REYNA Report Released Date/Time: Dec 04, 2022 10:59 AM Reporting Lab: [facility] [place] [facility] [address] [facility] [address] Performing Lab: [facility] [place] [facility] [address] [facility] [address] [facility] LIPID PANEL FASTING TRIGLYCERI DE [MASS/VOLU ME] IN SERUM OR PLASMA 191 mg/dL 0 - 150 06/04 H Specimen Type: SERUM No comment entered. Ordering Provider: Caitlin REYNA Report Released Date/Time: Dec 04, 2022 10:59 AM Reporting Lab: [facility] [place] [facility] [address] [facility] [address] Performing Lab: [facility] [place] [facility] [address] [facility] [address] [facility] [place] LIPID PANEL FASTING CHOLESTERO L IN LDL [MASS/VOLU ME] IN SERUM OR PLASMA BY CALCULATIO N 66 mg/dL 0 - 129 06/04 Specimen Type: SERUM No comment entered. Ordering Provider: Caitlin REYNA Report Released Date/Time: Dec 04, 2022 10:59 AM Reporting Lab: [facility] [place] [facility] [address] [facility] [phone] Performing Lab: [facility] [place] [facility] [address] [facility] [phone] [facility] [place] LIPID PANEL FASTING CHOLESTERO L.TOTAL/CH OLESTEROL IN HDL [MASS RATIO] IN SERUM OR PLASMA 3.5 06/04 Specimen Type: SERUM No comment entered. Ordering Provider: Caitlin REYNA Report Released Date/Time: Dec 04, 2022 10:59 AM Reporting Lab: [facility] [place] [facility] [address] [facility] [address] Performing Lab: [facility] [place] [facility] [address] [facility] [address] [facility] [place] [facility] LIPID PANEL FASTING CHOLESTERO L IN HDL [MASS/VOLU ME] IN SERUM OR PLASMA 41 mg/dL 40 - 60 06/04 Specimen Type: SERUM No comment entered. Ordering Provider: Caitlin REYNA Report Released Date/Time: Dec 04, 2022 10:59 AM Reporting Lab: [facility] [place] [facility] [address] [facility] [address] Performing Lab: [facility] [place] [facility] [address] [facility] [address] [facility] [place] [facility] LIVER FUNCTION PROTEIN [MASS/VOLU ME] IN SERUM OR PLASMA 6.3 g/dL 6.0 - 8.3 06/04 Specimen Type: SERUM No comment entered. Ordering Provider: Caitlin REYNA Report Released Date/Time: Dec 04, 2022 10:59 AM Reporting Lab: [facility] [place] [facility] [address] [facility] [address] Performing Lab: [facility] [place] [facility] [address] [facility] [address] [facility] [place] [facility] LIVER FUNCTION ALBUMIN [MASS/VOLU ME] IN SERUM OR PLASMA 4.1 g/dL 3.5 - 5.0 06/04 Specimen Type: SERUM No comment entered. Ordering Provider: Caitlin REYNA Report Released Date/Time: Dec 04, 2022 10:59 AM Reporting Lab: [facility] [place] [facility] [address] [facility] [address] Performing Lab: [facility] [place] [facility] [address] [facility] [address] [facility] [place] [facility] LIVER FUNCTION ALKALINE PHOSPHATAS E [ENZYMATIC ACTIVITY/V OLUME] IN SERUM OR PLASMA 58 U/L 40 - 150 06/04 Specimen Type: SERUM No comment entered. Ordering Provider: Caitlin REYNA Report Released Date/Time: Dec 04, 2022 10:59 AM Reporting Lab: [facility] [place] [facility] [address] [facility] [address] Performing Lab: [facility] [place] [facility] [address] [facility] [address] [facility] [place] [facility] LIVER FUNCTION ASPARTATE AMINOTRANS FERASE [ENZYMATIC ACTIVITY/V OLUME] IN SERUM OR PLASMA 20 U/L 5 - 34 06/04 Specimen Type: SERUM No comment entered. Ordering Provider: Caitlin REYNA Report Released Date/Time: Dec 04, 2022 10:59 AM Reporting Lab: [facility] [place] [facility] [address] [facility] [address] Performing Lab: [facility] [place] [facility] [address] [facility] [address] [facility] [place] [facility] LIVER FUNCTION ALANINE AMINOTRANS FERASE [ENZYMATIC ACTIVITY/V OLUME] IN SERUM OR PLASMA 19 U/L 06/04 Specimen Type: SERUM No comment entered. Ordering Provider: Caitlin REYNA Report Released Date/Time: Dec 04, 2022 10:59 AM Reporting Lab: [facility] [place] [facility] [address] [facility] [address] Performing Lab: [facility] [place] [facility] [address] [facility] [address] [facility] [place] [facility] LIVER FUNCTION BILIRUBIN. TOTAL [MASS/VOLU ME] IN SERUM OR PLASMA 1.0 mg/dL 0.2 - 1.2 06/04 Specimen Type: SERUM No comment entered. Ordering Provider: Caitlin REYNA Report Released Date/Time: Dec 04, 2022 10:59 AM Reporting Lab: [facility] [place] [facility] [address] [facility] [address] Performing Lab: [facility] [place] [facility] [address] [facility] [address] [facility] [place] [facility] MICROALB UMIN CREATINI NE RATIO PANEL MICROALBUM IN/CREATIN INE [MASS RATIO] IN URINE 27.2 mg/g 0 - 29.9 06/04 Specimen Type: URINE No comment entered. Ordering Provider: Caitlin REYNA Report Released Date/Time: Dec 04, 2022 10:59 AM Reporting Lab: [facility] [place] [facility] [address] [facility] [address] Performing Lab: [facility] [place] [facility] [address] [facility] [address] [facility] [place] [facility] MICROALB UMIN CREATINI NE RATIO PANEL MICROALBUM IN [MASS/VOLU ME] IN URINE 2.7 mg/dL 06/04 Specimen Type: URINE No comment entered. Ordering Provider: Caitlin REYNA Report Released Date/Time: Dec 04, 2022 10:59 AM Reporting Lab: [facility] [place] [facility] [address] [facility] [address] Performing Lab: [facility] [place] [facility] [address] [facility] [address] [facility] [place] [facility] MICROALB UMIN CREATINI NE RATIO PANEL CREATININE [MASS/VOLU ME] IN URINE 99.32 mg/dL 06/04 Specimen Type: URINE No comment entered. Ordering Provider: Caitlin REYNA Report Released Date/Time: Dec 04, 2022 10:59 AM Reporting Lab: [facility] [place] [facility] [address] [facility] [address] Performing Lab: [facility] [place] [facility] [address] [facility] [address] [facility] [place] [facility] TSH THYROTROPI N [UNITS/VOL UME] IN SERUM OR PLASMA 6.32 u[IU]/mL 0.35 - 5.00 06/04 H Specimen Type: SERUM No comment entered. Ordering Provider: Caitlin REYNA Report Released Date/Time: Dec 04, 2022 10:59 AM Reporting Lab: [facility] [place] [facility] [address] [facility] [address] Performing Lab: [facility] [place] [facility] [address] [facility] [address] [facility] [place] [facility] URINALYS IS COLOR OF URINE Light-Ye llow 06/04 Specimen Type: URINE Comment: If Glucose = >500 and Ketones are positive, please alert the Physician. Ordering Provider: Caitlin REYNA Report Released Date/Time: Dec 04, 2022 10:59 AM Reporting Lab: [facility] [place] [facility] [address] [facility] [address] Performing Lab: [facility] [place] [facility] [address] [facility] [address] [facility] [place] [facility] URINALYS IS APPEARANCE OF URINE Clear 06/04 Specimen Type: URINE Comment: If Glucose = >500 and Ketones are positive, please alert the Physician. Ordering Provider: Caitlin REYNA Report Released Date/Time: Dec 04, 2022 10:59 AM Reporting Lab: [facility] [place] [address] [address] Performing Lab: [facility] [place] [facility] [address] [facility] [address] [facility] [place] [facility] URINALYS IS GLUCOSE [MASS/VOLU ME] IN URINE NEGATIVE mg/dL 06/04 Specimen Type: URINE Comment: If Glucose = >500 and Ketones are positive, please alert the Physician. Ordering Provider: Caitlin REYNA Report Released Date/Time: Dec 04, 2022 10:59 AM Reporting Lab: [facility] [place] [facility] [address] [facility] [address] Performing Lab: [facility] [place] [facility] [address] [facility] [address] [facility] [place] [facility] URINALYS IS KETONES [MASS/VOLU ME] IN URINE BY TEST STRIP NEGATIVE mg/dL 06/04 Specimen Type: URINE Comment: If Glucose = >500 and Ketones are positive, please alert the Physician. Ordering Provider: Caitlin REYNA Report Released Date/Time: Dec 04, 2022 10:59 AM Reporting Lab: [facility] [place] [facility] [address] [facility] [address] Performing Lab: [facility] [place] [facility] [address] [facility] [address] [facility] [place] [facility] URINALYS IS ERYTHROCYT ES [PRESENCE] IN URINE SEDIMENT BY LIGHT MICROSCOPY NEGATIVE mg/dL 06/04 Specimen Type: URINE Comment: If Glucose = >500 and Ketones are positive, please alert the Physician. Ordering Provider: Caitlin REYNA Report Released Date/Time: Dec 04, 2022 10:59 AM Reporting Lab: [facility] [place] [facility] [address] [facility] [address] Performing Lab: [facility] [place] [facility] [address] [facility] [address] [facility] [place] [facility] URINALYS IS PROTEIN [MASS/VOLU ME] IN URINE BY TEST STRIP NEGATIVE mg/dL 06/04 Specimen Type: URINE Comment: If Glucose = >500 and Ketones are positive, please alert the Physician. Ordering Provider: Caitlin REYNA Report Released Date/Time: Dec 04, 2022 10:59 AM Reporting Lab: [facility] [place] [facility] [address] [facility] [address] Performing Lab: [facility] [place] [facility] [address] [facility] [address] [facility] [place] [facility] URINALYS IS NITRITE [PRESENCE] IN URINE NEGATIVE mg/dL 06/04 Specimen Type: URINE Comment: If Glucose = >500 and Ketones are positive, please alert the Physician. Ordering Provider: Caitlin REYNA Report Released Date/Time: Dec 04, 2022 10:59 AM Reporting Lab: [facility] [place] [facility] [address] [facility] [address] Performing Lab: [facility] [place] [facility] [address] [facility] [address] [facility] [place] [facility] URINALYS IS BILIRUBIN. TOTAL [PRESENCE] IN URINE NEGATIVE mg/dL 06/04 Specimen Type: URINE Comment: If Glucose = >500 and Ketones are positive, please alert the Physician. Ordering Provider: Caitlin REYNA Report Released Date/Time: Dec 04, 2022 10:59 AM Reporting Lab: [facility] [place] [address] [address] Performing Lab: [facility] [address] [address] [facility] [place] [facility] URINALYS IS SPECIFIC GRAVITY OF URINE BY REFRACTOME TRY 1.017 1.016 - 1.022 06/04 Specimen Type: URINE Comment: If Glucose = >500 and Ketones are positive, please alert the Physician. Ordering Provider: Caitlin REYNA Report Released Date/Time: Dec 04, 2022 10:59 AM Reporting Lab: [facility] [place] [address] [address] Performing Lab: [facility] [place] [address] [address] [facility] URINALYS IS PH OF URINE BY TEST STRIP 6.5 5.0 - 9.0 06/04 Specimen Type: URINE Comment: If Glucose = >500 and Ketones are positive, please alert the Physician. Ordering Provider: Caitlin REYNA Report Released Date/Time: Dec 04, 2022 10:59 AM Reporting Lab: [facility] [place] [place] [address] [address] Performing Lab: [facility] [place] [address] [address] [facility] [place] [facility] URINALYS IS UROBILINOG EN [MASS/VOLU ME] IN URINE BY TEST STRIP <2.0mg/d L <2.0 - 2.0 06/04 Specimen Type: URINE Comment: If Glucose = >500 and Ketones are positive, please alert the Physician. Ordering Provider: Caitlin REYNA Report Released Date/Time: Dec 04, 2022 10:59 AM Reporting Lab: [facility] [place] [facility] [address] [facility] [address] Performing Lab: [facility] [place] [facility] [address] [facility] [address] [facility] [place] [facility] URINALYS IS LEUKOCYTE ESTERASE [PRESENCE] IN URINE BY TEST STRIP NEGATIVE 06/04 Specimen Type: URINE Comment: If Glucose = >500 and Ketones are positive, please alert the Physician. Ordering Provider: Caitlin REYNA Report Released Date/Time: Dec 04, 2022 10:59 AM Reporting Lab: [facility] [place] [facility] [address] [facility] [address] Performing Lab: [facility] [place] [facility] [address] [facility] [address] [facility] [place] [facility] VITAMIN D (25-OH) 25-HYDROXY VITAMIN D3 [MASS/VOLU ME] IN SERUM OR PLASMA 66 ng/mL 20 - 50 06/04 H Specimen Type: SERUM No comment entered. Ordering Provider: Caitlin REYNA Report Released Date/Time: Dec 04, 2022 10:59 AM Reporting Lab: [facility] [place] [address] [address] Performing Lab: [facility] [place] [address] [address] [facility] [place] [facility] TSH THYROTROPI N [UNITS/VOL UME] IN SERUM OR PLASMA 2.79 u[IU]/mL 0.35 - 5.00 06/12 Specimen Type: SERUM Comment: ALB result verified Ordering Provider: Caitlin REYNA Report Released Date/Time: May 30, 2022 11:34 AM Reporting Lab: [facility] [place] [facility] [address] [facility] [address] Performing Lab: [facility] [place] [address] [address] [facility] [place] [facility] Vital Signs Combined list of inpatient [...] [facility] [place] [facility] En[facility] [id number] 11/27 [facility] [place] [place] En[facility] [id number] 12/03 [facility] [place] [place] En[facility] [id number] 12/03 [facility] [place] [place] OFFICE O/P EST LOW 20-29 MIN 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 SALAZAR QUINONES 01/02 [facility] [place] [place] En[facility] [id number] 01/09 [facility] [place] [place] OFF/OP EST MAY X REQ PHY/QHP [id number] Diagnos is: ICD-10- CM Z23 Encount er for immuniz ation CELESTINPRICILA ZAIDI P 01/18 [facility] [place] [place] OFF/OP EST MAY X REQ PHY/QHP [id number] Diagnos is: ICD-10- CM I10 Essenti al (primar y) hyperte nsion Diana BAIRD 02/08 [facility] [place] [place] En[facility] [id number] 02/11 [facility] [place] [place] En[facility] [id number] 02/18 [facility] [place] [place] OFF/OP EST MAY X REQ PHY/QHP [id number] Diagnos is: ICD-10- CM Z23 Encount er for immuniz ation Diana BAIRDAurelia Crystal 02/26 [facility] [place] [place] En[facility] [id number] 03/06 [facility] [place] [place] En[facility] [id number] 03/18 [facility] [place] [place] En[facility] [id number] 04/23 [facility] [place] [place] En[facility] [id number] 04/23 [facility] [place] [place] En[facility] [id number] 05/24 [facility] [place] [place] HEARING AID REPAIR/MOD IFYING [id number] Diagnos is: ICD-10- CM Z46.1 Encount er for fitting and adjustm ent of hearing aid TONY BUSTILLO 06/04 [facility] [place] OFF[facility] O/P EST MOD 30 MIN [id number] Diagnos is: ICD-10- CM G70.01 Myasthe stefany gravis with (acute) exacerb katlyn LARANICKIE SAAVEDRA 06/04 [facility] [place] En[facility] [id number] [facility] [place] [place] En[facility] [id number] 06/23 [facility] [place] [place] En[facility] [id number] 06/26 [facility] [place] [place] En[facility] [id number] 07/15 [facility] [place] [place] HEARING AID FITTING/CH ECKING [id number] Diagnos is: ICD-10- CM H90.3 Sensori neural hearing loss, bilater al REHAN SANTOS 07/15 [facility] [place] HEARING SERVICE [id number] Diagnos is: ICD-10- CM Z46.1 Encount er for fitting and adjustm ent of hearing aid REHAN SANTOS 08/26 [facility] En[facility] [id number] 09/05 [facility] [place] [place] En[facility] [id number] 09/14 [facility] [place] [place] En[facility] [id number] 09/15 [facility] [place] [place] En[facility] [id number] 10/15 [facility] [place] [place] En[facility] [id number] 10/18 [facility] [place] [place] En[facility] [id number] 10/20 [facility] [place] [place] En[facility] [id number] 10/27 [facility] [place] [id number] Diagnos is: ICD-10- CM E04.2 Nontoxi c multino dular goSALAZAR Lara 10/27 [facility] [place] En[facility] [id number] 10/27 [facility] [place] En[facility] [id number] 11/14 [facility] [place] En[facility] [id number] 12/16 [facility] [place] Encounter [id number] 12/18 [facility] [place] Encounter [id number] Diagnos is: ICD-10- CM E04.2 Nontoxi c multino dular goSALAZAR Lara 12/31 [facility] [place] En[facility] [id number] [facility] [place] Encounter [id number] 01/30 [facility] [place] En[facility] [id number] 01/30 [facility] [place] Encounter [id number] 02/04 [facility] [place] En[facility] [id number] 02/06 [facility] [place] Encounter [id number] Diagnos is: ICD-10- CM 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 SALAZAR QUINONES CE 02/10 [facility] En[facility] [id number] 02/25 [facility] [place] [place] [facility] HEARING AID REPAIR/MOD IFYING [id number] Diagnos is: ICD-10- CM Z46.1 Encount er for fitting and adjustm ent of hearing aid FROILANTRISHAJOVANI 04/13 [facility] [place] Encounter [id number] Diagnos is: ICD-10- CM 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 Social History Type Response Date Comment Sourc e Tobacco smoking status PRIS VA-TOBACCO QUIT 15 YRS OR MORE 02/05/2024 [facility] History of tobacco use VA-TOBACCO FORMER USER 02/05/2024 [facility] [place] [facility] History of tobacco use VA-TOBACCO FORMER USER 12/04/2022 [facility] [place] [facility] History of tobacco use [place]-TOBACCO FORMER USER 12/12/2021 [facility] [place] [facility] History of tobacco use [place]-TOBACCO FORMER USER 12/20/2020 [facility] [place] [facility] History [facility] tobacco use [place]-TOBACCO FORMER USER 12/29/2019 [facility] [place] [facility] of [facility]23[facility] [place] [facility] History of tobacco use QUIT TOBACCO USE > 7 YEARS AGO 12/02/[facility] [place] [facility] History of tobacco use LIFETIME NON-TOBACCO USER 08/22/2016 [facility] History of tobacco use LIFETIME NON-TOBACCO USER 03/28/2015 [facility] History of tobacco use QUIT TOBACCO USE > 7 YEARS AGO 07/27/2005 [facility] [place] [facility] History of tobacco use HISTORY OF SMOKING 07/12/2004 [facility] [place] [facility] History of tobacco use HISTORY OF SMOKING 08/11/2003 [facility] [place] [facility] Plan of Care List of future care activities from Department of [facility] facilities. Additional future care activities may be listed in the Assessment and Plan section. Date/Time Care Activity Care Activity Detail Facili ty 06/02/2024 [facility]/22/2024 AMBULATORY - REHAB MEDICINE AMBULATORY - REHAB MED[facility] 04[facility]29/2024 Laboratory - Cover Creaser ry Order VITAMIN D (25-OH) BLOOD (SST-SERUM) [facility] [place] [facility] 04/29/2024 Laboratory - Cover Creaser ry Order BASIC METABOLIC PANEL (fasting) BLOOD (SST-SERUM) [facility] 04/29/2024 Laboratory - Cover Creaser ry Order LIPID PANEL FASTING BLOOD (SST-SERUM) [facility] 04[facility]29/2024 Laboratory - Cover Creaser ry Order LIVER FUNCTION BLOOD (SST-SERUM) [facility] 04/29/2024 Laboratory - Cover Creaser ry Order CBC BLOOD (LAV-BLOOD) [facility] 04/29/2024 Laboratory - Cover Creaser ry Order HEMOGLOBIN A1C PANEL BLOOD (LAV-BLOOD) [facility] 04/29/2024 Laboratory - Cover Creaser ry Order PT and INR (PROTIME) BLOOD (BLUE-PLASMA) [facility] 04/29/2024 Laboratory - Cover Creaser ry Order PTT BLOOD (BLUE-PLASMA) [facility] 04/29/2024 Laboratory - Cover Creaser ry Order CBC AND DIFF (AUTO) BLOOD (LAV-BLOOD) [facility] Advance Directives List of completed, amended, or rescinded Advance Directives on record at [facility] facilities. An actual copy of the Directive is not included. Date Advance Directive Provider Source 11/05/2008 [facility] DIRECTIVE [facility]
--- OUTSIDE RECORDS SUMMARY | 2024-05-16 02:31 | XMS_ITS | Patient Health Record ---
Author Organization [facility] Address [address] [place] [id number] Care Team Providers Care Cuff Presser Name Role Phone Leonides Reynoso MD Primary Care Provider Shae Torres [phone] ALLERGIES Allergen (clinical drug ingredient) Drug/Non Drug [...] Omeprazole 20 MG TAKE 1 CAPSULE BY [facility] EVERY DAY for 90 Active Centrum [...] malignant neoplasm of colon (Z12.11) Active confirmed 847184398 Problem Change in bowel habits (R19.4) Active confirmed 610548178 Problem Gastroesophageal reflux disease without esophagitis (K21.9) Active confirmed 650756713 Problem Tubular adenoma of colon (D12.6) Active confirmed 312160924 Problem Family history of colon cancer (Z80.0) Active confirmed 834425082 Problem Esophageal stricture (K22.2) Active confirmed 05071550 Problem Constipation, unspecified constipation type (K59.00) Active confirmed 11380140 Problem Hx of adenomatous colonic polyps (Z86.010) Active confirmed 838432601 Problem Dysphagia, unspecified type (R13.10) Active confirmed 84080631 Problem Diarrhea, unspecified type (R19.7) Active confirmed 28157378 Problem Positive colorectal cancer screening using Cologuard test (R19.5) Active confirmed 639211357 Problem Colon, diverticulosis (K57.30) Active confirmed Diverticular disease of colon (065248991) PLAN OF TREATMENT Pending Test Test Name [...] [place] [address] [place] [id number] SHAE LEVY Self - patient is the insured [employer] CLAIM[employer] [address] [place] [address] [phone] [id number] SHAE LEVY - patient is the insured [...]
[2024-05-16 02:38] LABS: Alanine Aminotransferase 23 U/L (0-40); Albumin Level 4.4 g/dL (3.5-5.0); Anion Gap 17 (12-20); Aspartate Amino Transferase 32 U/L (5-37); Bilirubin Total 1.4 mg/dL (0.0-1.0); Blood Urea Nitrogen 14 mg/dL (9-16); Calcium 9.1 mg/dL (8.4-10.2); Carbon Dioxide 21 mmol/L (22-29); Chloride 107 mmol/L (96-108); Creatinine Clr Calc Pharmacy 41.9; Estimated Glomerular Filt Rate 60; Glucose Random 131 mg/dL (60-115); Potassium 4.4 mmol/L (3.3-5.1); Sodium 141 mmol/L (135-145); Total Protein 6.9 g/dL (6.5-8.0)
[2024-05-16 02:39] LABS: Alkaline Phosphatase 61 U/L (39-117)
[2024-05-16 02:45] LABS: Influenza A PCR POSITIVE (Negative); Influenza B PCR NEGATIVE (Negative); Resp Syncy Virus RNA Qual PCR POSITIVE (Negative); SARS COV2 PCR INHOUSE NEGATIVE (Negative)
--- NOTE | 2024-05-16 03:26 | ED_ITS ---
HPI - General Adult General Chief complaint: General Medical Stated complaint: feeling unwell, low BP Time Seen by Provider: 05/16/24 03:03 Source: patient and family Mode of arrival: EMS Limitations: no limitations and language barrier History of Present Illness ED Provider: HPI narrative: Patient's history of hypertension hypothyroidism was not feeling well for last 2 weeks got worse in last 2 days with running nose and increased cough and weakness was seen at urgent care center last week and diagnose with bronchitis prescribed augmentin but since yesterday patient has been having increased body aches running nose and had a loose bowel earlier feeling very weak unable to give him get up checked his blood pressure was 50/30 on arrival blood pressure was 107/57 no chest pain coughing frequently Related Data Home Medications ?Medication ?Instructions ?Recorded ?Confirmed cholecalciferol (vitamin D3) 25 25 mcg PO DAILY 05/05/20 01/06/24 mcg (1,000 unit) capsule multivit,Ca,min-iron 8 mg-folic 1 tab PO DAILY 05/05/20 01/06/24 acid 200 mcg-lycopene 600 mcg tablet (Centrum Men) isosorbide dinitrate 20 mg tablet 20 mg PO BEDTIME 10/11/20 01/06/24 loratadine 10 mg tablet (Claritin) 10 mg PO DAILY 06/28/21 01/06/24 melatonin 3 mg capsule 10 mg PO BEDTIME PRN Insomnia 06/28/21 01/06/24 ascorbic acid (vitamin C) 250 mg 250 mg PO DAILY 10/08/21 01/06/24 tablet atorvastatin 40 mg tablet 40 mg PO BEDTIME 10/08/21 01/06/24 fluticasone propionate 50 1 spray intranasal BID allergies 10/08/21 01/06/24 mcg/actuation nasal spray,suspension hydralazine 50 mg tablet 50 mg PO BEDTIME 10/08/21 01/06/24 levothyroxine 88 mcg tablet 88 mcg PO DAILY@59910/08/21 01/06/24 omeprazole 20 mg capsule,delayed 20 mg PO DAILY@62910/08/21 01/06/24 release zinc 50 mg tablet 50 mg PO DAILY 10/08/21 01/06/24 pyridostigmine bromide 60 mg tablet 120 mg PO TID 11/22/21 01/06/24 metformin 500 mg tablet 500 mg PO DAILY 05/22/22 01/06/24 trazodone 50 mg tablet 25 mg PO BEDTIME 05/22/22 01/06/24 prednisone 10 mg tablet 5 mg PO DAILY 01/06/24 01/06/24 Previous Rx's ?Medication ?Instructions ?Recorded captopril 12.5 mg tablet 18.75 mg (1.5 x 12.5 mg) PO TID 90 06/25/22 days #405 tabs amlodipine 5 mg tablet 5 mg PO BID 90 days #180 tabs 05/24/23 benzocaine 20 % mucosal aerosol 1 appl mucous membrane TID PRN 06/12/23 spray sore throat #57 grams amoxicillin 875 mg-potassium 1 tab PO BID #10 tabs 05/15/24 clavulanate 125 mg tablet Allergies Allergy/AdvReac Type Severity Reaction Status Date / Time meperidine [From Demerol] Allergy Unknown unknown Verified 05/16/24 01:39 reaction-patient states was many years ago Review of Systems 2 Review of Systems: Yes all other systems are reviewed and are negative [facility] Past Medical History Medical History COVID-19 vaccine administered GERD (gastroesophageal reflux disease) Insomnia Hyperlipidemia Orthostatic hypotension dysautonomic syndrome HTN (hypertension) Non-toxic multinodular goiter Hypothyroidism Surgical History Hx of cataract surgery History of colon surgery History of esophagogastroduodenoscopy (EGD) H/O colonoscopy Hx of tonsillectomy Hx of appendectomy Family History Family History Father Parkinsons disease Mother Myocardial infarction CVD (cardiovascular disease) Cancer Social History Social History Household Members: None Housing: Apartment Are you a primary customer care associate to a significant other at home: No Do you presently have visiting nurse or other home services: No Alcohol intake: never Patient Tobacco Use Status: Former Tobacco user Smoked in Last 30 Days: No e-Cigarette/Vaping Use: Never Used Use of substances other than those prescribed or required for medical reasons: No Advance Directives: No Advance Directives Information Provided: Yes Do you have a plan to hurt others: No Plan service: Yes Current occupational status: retired Physical Exam ED Vital Signs: Vital Signs - 24 hr 05/16/24 01:35 05/16/24 03:48 05/16/24 04:31 Temperature 98.4 F Pulse Rate 71 73 Respiratory Rate 15 12 Blood Pressure 107/57 L Pulse Oximetry 94 88 L Oxygen Delivery Method Room Air Room Air Oxygen Flow Rate 05/16/24 04:33 05/16/24 06:49 Temperature 98.3 F Pulse Rate 83 89 Respiratory Rate 18 14 Blood Pressure 124/42 L 120/54 L Pulse Oximetry 94 93 Oxygen Delivery Method Nasal Cannula Nasal Cannula Oxygen Flow Rate 2 2 BMI result Body Mass Index 25.2 Appearance: Alert. Oriented X3. No acute distress. Frequent cough Eyes: No pallor or icterus ENT: Pharynx normal. Oral Mucosa moist hard of hearing Neck: Normal inspection. Neck supple. CVS: Normal heart rate and rhythm. Pulses normal. Respiratory: No respiratory distress. Equal air entry bilateral, no wheezing/rales/rhonchi bilateral prolonged expiration Abdomen: Soft and nontender. Bowel sounds are present, no mass palpable, no CVA tenderness Skin: Skin warm and dry. Normal skin color. Normal skin turgor. Extremities: No lower extremity edema. No calf tenderness Neuro: Oriented X 3. No motor deficit. No sensory deficit. Medications Administered Discontinued Medications Generic Name Dose Route Start Last Admin Trade Name Freq PRN Reason Stop Dose Admin Albuterol Sulfate 2.5 mg/ 0 mg 05/16/24 03:32 05/16/24 03:44 Albuterol/Ipratropium 3 ml INHALE 05/16/24 03:33 1 dose ONCE ONE Administration Guaifenesin/Codeine Phosphate 10 ml 05/16/24 03:27 05/16/24 03:48 Guaifen/Codeine Sf 200/20/10ml 10 Ml Liquid PO 05/16/24 03:28 10 ml ONCE ONE Administration Sodium Chloride 1,000 mls @ 999 mls/hr 05/16/24 03:32 05/16/24 05:30 Ns IV 05/16/24 04:32 Infused .Q1H1M ONE Infusion Methylprednisolone Sodium Succinate 125 mg 05/16/24 03:32 05/16/24 03:48 Methylprednisolone Sod Succ 125 Mg/2 Ml Vial IVPUSH 05/16/24 03:33 125 mg ONCE ONE Administration Oseltamivir Phosphate 75 mg 05/16/24 03:55 05/16/24 04:57 Oseltamivir Phosphate 75 Mg Capsule PO 05/16/24 03:56 75 mg ONCE ONE Administration Medical Decision Making Medical Decision Making [facility] Narrative: Patient with acute weakness from RSV and influenza with hypoxia 88% your responded to nebulizing treatment will admit patient for supportive treatment Differential Diagnosis Differential Diagnoses: The differential diagnosis associated with the presentation includes Admission/Observation Consideration of admission/observation: Escalation of care including admission/observation considered Consult Healthcare Provider Management of the patient was discussed with: Hospitalist Lab Data [facility] Lab Attestation statement: I reviewed the patient's lab results. 05/16/24 01:55 05/16/24 01:55 Labs: Lab Results 05/16/24 Range/Units 01:55 WBC 14.8 H (4.8-10.8) X10*3/uL RBC 4.64 (4.60-5.80) X10*6/uL Hgb 15.0 (14.0-18.0) g/dl Hct 44.0 (42.0-52.0) % MCV 94.8 (80.0-98.0) fL MCH 32.3 (27.0-33.0) pg MCHC 34.1 (31.0-36.0) g/dl RDW 12.4 (11.0-16.0) % Plt Count 195 (160-400) X10*3/uL MPV 10.1 (9.4-12.4) fL Immature Gran % (Auto) 0.5 H (0.0-0.4) % Neut % (Auto) 87.0 H (45-73) % Lymph % (Auto) 4.1 L (20-40) % [place] % (Auto) 7.1 (2-11) % Eos % (Auto) 0.9 (0-4) % Baso % (Auto) 0.4 (0-2) % Lymph # (Auto) 0.6 L (1.2-4.9) X10*3/uL [place] # (Auto) 1.1 (0.1-1.2) X10*3/uL Eos # (Auto) 0.1 (0.0-0.4) X10*3/uL Baso # (Auto) 0.1 (0.0-0.2) X10*3/uL Abs Immat Gran (auto) 0.08 H (0.00-0.03) X10*3/uL Absolute Neuts (auto) 12.8 H (2.0-8.3) x10*3/uL Absolute Nucleated RBC 0.000 (0.0-0.012) X10*3/uL Nucleated RBC % (auto) 0.0 (0.0-0.2) /100WBC Sodium 141 (135-145) mmol/L Potassium 4.4 (3.3-5.1) mmol/L Chloride 107 (96-108) mmol/L Carbon Dioxide 21 L (22-29) mmol/L Anion Gap 17 (12-20) BUN 14 (9-16) mg/dL Creatinine 1.16 (0.5-1.4) mg/dL Estim Creat Clear Calc 41.9 Estimated GFR 60 Random Glucose 131 H (60-115) mg/dL Calcium 9.1 (8.4-10.2) mg/dL Total Bilirubin 1.4 H (0.0-1.0) mg/dL AST 32 (5-37) U/L ALT 23 (0-40) U/L Alkaline Phosphatase 61 (39-117) U/L Troponin I High Sens 8.0 (<3.5-35.0) ng/L Total Protein 6.9 (6.5-8.0) g/dL Albumin 4.4 (3.5-5.0) g/dL Influenza Type A (PCR) POSITIVE A (Negative) Influenza Type B (PCR) NEGATIVE (Negative) RSV RNA Qual (PCR) POSITIVE A (Negative) SARS-CoV-2 RNA (RT-PCR) NEGATIVE (Negative) Independent Interpretation I performed an independent interpretation of an: Plain X-Ray Radiology Impression Discussion of test interpretation with radiology: I have reviewed the radiologist's reading. Radiologist Impression: [address] [address] XRay Report Signed Patient: Alon Negro MR#: [id number] : 1935 Acct:[id number] Age/Sex: 89 / M ADM Date: 05/16/24 Loc: HO.ED Attending Dr: Ordering Physician: Generic ED Physician Date of Service: 05/16/24 Procedure(s): XR chest 1V Accession Number(s): [id number] cc: Generic ED Physician~ CLINICAL HISTORY: cough 1 view chest x-ray Comparison: CR/AK/SR - XR CHEST 2V - 12/23/23 08:46 EDT Findings: The lungs are clear. Normal size heart. No acute fracture. IMPRESSION: 1. No acute findings. This document has been electronically signed by: Cali Gipson MD, PHD on 05/16/2024 02:17:01 Dictated By: Cali Gipson MD Signed By: <Electronically signed by Cali Gipson MD in OV> 05/16/24216 DD/ 6 TD/TT: 05/16/24216 Associate Professor Of Musicology: Discharge Plan Discharge Clinical Impression: Acute bronchitis due to respiratory syncytial virus, Influenza A, Acute hypoxemic respiratory failure Patient Disposition: Admitted As Inpatient Print Language: Icelandic
[2024-05-16] MEDS: Albuterol Sulfate 2.5 MG, Albuterol/Iprat 2.5/0.5MG 3 ML 3 ML INHALE (03:44)
[2024-05-16] MEDS: methylPREDNISolone Sod Succ 125 MG/2 ML VIAL IVPUSH (03:48)
[2024-05-16] MEDS: guaiFEN/Codeine SF 200/20/10ML 10 ML LIQUID PO (03:48)
[2024-05-16] MEDS: 0.9 % Sodium Chloride 1,000 ML 999 ML IV (03:48)
[2024-05-16] MEDS: Oseltamivir Phosphate 75 MG CAPSULE PO (04:57)
--- NOTE | 2024-05-16 05:00 | PC.NURSE ---
Patient placed on O2 at 2 LPM NC d/t desat to 88% while asleep.
--- NOTE | 2024-05-16 07:51 | P.HPHOSP_ITS ---
History of Present Illness Date of Service: 05/16/24 Attending physician on admission: Lien Osorio Chief Complaint: cough, weakness This is an 89-year-old male who presents to the emergency department with cough and generalized weakness. He reports he has been feeling unwell for the past 2 weeks but for the past 2 days his weakness cough has been worse. He was seen in urgent care and diagnosed with a bronchitis and prescribed Augmentin but then began having diarrhea and therefore was brought to the emergency department by family for further evaluation. In the emergency department he tested positive for influenza A as well as RSV. His oxygen saturation was noted to be low at 80% on room air. Chest x-ray was negative for pneumonia. In the emergency department he was treated with cough medicine, breathing treatments and steroids as well as started on Tamiflu. He denies any abdominal pain and has not had any further episodes of diarrhea since arrival in the emergency department he denies any associated fever, chills. Due to hypoxia he will be admitted for further management influenza A/RSV. Review of Systems 2 Review of Systems: Yes all other systems are reviewed and are negative Constitutional: Constitutional: Denies chills and Denies fever(s) Cardiovascular: Cardiovascular: Denies dyspnea Respiratory: Respiratory: Reports cough and Denies dyspnea Gastrointestinal: Gastrointestinal: Denies abdominal pain and Reports diarrhea [facility] Medical History (Updated 05/16/24 @ 11:42 by BARRY Grimes) Myasthenia gravis COVID-19 vaccine administered GERD (gastroesophageal reflux disease) Insomnia Hyperlipidemia Orthostatic hypotension dysautonomic syndrome HTN (hypertension) Non-toxic multinodular goiter Hypothyroidism Family History Father Parkinsons disease Mother Myocardial infarction CVD (cardiovascular disease) Cancer Surgical History Hx of cataract surgery History of colon surgery History of esophagogastroduodenoscopy (EGD) H/O colonoscopy Hx of tonsillectomy Hx of appendectomy Social History Household Members: None Housing: Apartment Are you a primary health care coordinator to a significant other at home: No Do you presently have visiting nurse or other home services: No Alcohol intake: never Patient Tobacco Use Status: Former Tobacco user Smoked in Last 30 Days: No e-Cigarette/Vaping Use: Never Used Use of substances other than those prescribed or required for medical reasons: No Advance Directives: No Advance Directives Information Provided: Yes Do you have a plan to hurt others: No Plan service: Yes Current occupational status: retired Meds Allergies Allergy/AdvReac Type Severity Reaction Status Date / Time meperidine [From Demerol] Allergy Unknown unknown Verified 05/16/24 01:39 reaction-patient states was many years ago Home Medications ?Medication ?Instructions ?Recorded ?Confirmed ?Last Taken ?Type cholecalciferol (vitamin D3) 25 25 mcg PO DAILY 05/05/20 05/16/24 05/15/24 History mcg (1,000 unit) capsule isosorbide dinitrate 20 mg tablet 20 mg PO DAILY 10/11/20 05/16/24 05/15/24 History atorvastatin 40 mg tablet 40 mg PO BEDTIME 10/08/21 05/16/24 05/15/24 History hydralazine 50 mg tablet 50 mg PO BEDTIME 10/08/21 05/16/24 05/15/24 History levothyroxine 88 mcg tablet 88 mcg PO DAILY@0600 10/08/21 05/16/24 05/15/24 History omeprazole 20 mg capsule,delayed 20 mg PO DAILY@0630 10/08/21 05/16/24 05/15/24 History release pyridostigmine bromide 60 mg tablet 60 mg PO QID 11/22/21 05/16/24 05/15/24 History trazodone 50 mg tablet 75 mg PO BEDTIME 05/22/22 05/16/24 05/15/24 History fexofenadine 180 mg tablet 180 mg PO DAILY 05/16/24 05/16/24 05/15/24 History melatonin 10 mg tablet 10 mg PO BEDTIME 05/16/24 05/16/24 05/15/24 History metformin 500 mg tablet,extended 500 mg PO DAILY 05/16/24 05/16/24 05/15/24 History release 24 hr prednisone 5 mg tablet 5 mg PO DAILY 05/16/24 05/16/24 05/15/24 History Physical Exam 2 Vital Signs and Narrative: Vital Signs: Last Vital Signs Temp 98.3 F 05/16/24 06:49 Pulse 89 05/16/24 06:49 Resp 14 05/16/24 06:49 BP 120/54 L 05/16/24 06:49 Pulse Ox 93 05/16/24 06:49 O2 Del Method Nasal Cannula 05/16/24 06:49 O2 Flow Rate 2 05/16/24 06:49 BMI result Body Mass Index 25.2 Const: General: cooperative, comfortable, alert and awake Nutritional Appearance: average body habitus Orientation/consciousness: patient oriented x3 Resp: Effort & Inspection: normal respiratory effort, able to speak in complete sentences, no respiratory distress and no use of accessory muscles Cardio: Rate: regular rate GI: Inspection: No distended Palpation (GI): Soft to palpation Neuro: General: patient oriented x3, No moves all extremities and No CN's II- XI intact bilaterally Extrem: General: Yes no pedal edema Results Labs 05/16/24 01:55 05/16/24 01:55 Labs: Laboratory Results - last 24 hr 05/16/24 01:55 MCV 94.8 MCH 32.3 MCHC 34.1 RDW 12.4 Plt Count 195 MPV 10.1 Immature Gran % (Auto) 0.5 H Neut % (Auto) 87.0 H Lymph % (Auto) 4.1 L [place] % (Auto) 7.1 Eos % (Auto) 0.9 Baso % (Auto) 0.4 Lymph # (Auto) 0.6 L [place] # (Auto) 1.1 Eos # (Auto) 0.1 Baso # (Auto) 0.1 Abs Immat Gran (auto) 0.08 H Absolute Neuts (auto) 12.8 H Absolute Nucleated RBC 0.000 Nucleated RBC % (auto) 0.0 Anion Gap 17 Estim Creat Clear Calc 41.9 Estimated GFR 60 Random Glucose 131 H Calcium 9.1 Total Bilirubin 1.4 H AST 32 ALT 23 Alkaline Phosphatase 61 Troponin I High Sens 8.0 Total Protein 6.9 Albumin 4.4 Influenza Type A (PCR) POSITIVE A Influenza Type B (PCR) NEGATIVE RSV RNA Qual (PCR) POSITIVE A SARS-CoV-2 RNA (RT-PCR) NEGATIVE Assessment and Plan (1) Acute hypoxemic respiratory failure: Status: Acute (2) Influenza A: Status: Acute Plan This is a 89-year-old male with history of myasthenia gravis, orthostatic hypotension, prediabetes, who presents to the emergency department with 2 week history of weakness worsening over the past 2 days with associated cough found to have influenza a and RSV Acute respiratory failure with hypoxia Due to RSV and influenza a Continue breathing treatments, steroids, cough medication, famiflu (renal dose) Supplemental oxygen as needed, wean as tolerated diarrhea likely due to viral illness, if recurs will obtain stool studies NIDIA likely due to dehydration from above hold captopril gentle IVF follow BMP Myasthenia gravis Continue Mestinon on chronic prednisone, dose increased for RSV/respiratory failure pre-diabetes hold metformin follow POCs while on steroids HTN continue norvasc, hydralazine also on captopril and isosorbide but no recent fill history per pharmacy - will hold for now and monitor bp closely resume isosorbide if bp high, hold captopril for NIDIA Myasthenia gravis Continue Mestinon Hypothyroidism Continue Synthroid Anemia Continue statin dvt ppx - mechanical devices Quality Stroke Does the patient have a stroke diagnosis?: No VTE Prior VTE?: No VTE Risk Level:: Medical - moderate - high VTE Device Contraindication: N/A - Device Ordered VTE Drug Contraindication: N/A - Med Ordered
[2024-05-16 08:32] LABS: Glucose, Whole Blood 185 mg/dL (60-115)
[2024-05-16] MEDS: predniSONE 20 MG TABLET 40 MG PO (09:28)
[2024-05-16] MEDS: 0.9 % Sodium Chloride Flush 3 ML SYRINGE IVFLUSH ×2 (09:29→21:10)
--- NOTE | 2024-05-16 10:27 | PHA.MEDREC ---
Addendum entered by Nelly Cantu RPh 05/16/24 14:34: Per patient, he takes trazodone 75 mg every night (not as needed only). Med rec was reviewed by [facility]. Original Note: Pharmacy Consult ? Medication Reconciliation Pharmacy has completed the medication reconciliation. Spoke to the patient to confirm meds. [facility]. Per patient, still taking omeprazole, pyridostigmine, metformin ER, captopril, and isosorbide. However, these medications were [facility] and prior. Patient still attests to taking these medications, so included in med rec.
[2024-05-16 11:33] LABS: Glucose, Whole Blood 269 mg/dL (60-115)
[2024-05-16] MEDS: Oseltamivir Phosphate 30 MG CAPSULE PO (12:37)
[2024-05-16] MEDS: Benzonatate 100 MG CAPSULE PO (12:37)
[2024-05-16] MEDS: Acetaminophen 325 MG TABLET 650 MG PO (12:37)
[2024-05-16] MEDS: pyRIDostigmine bromide 60 MG TABLET PO ×3 (12:37→21:03)
[2024-05-16] MEDS: Insulin Lispro 100 UNIT/ML 3 ML VIAL SUBCUT ×3 (12:37→21:03)
[2024-05-16] MEDS: Lactated Ringers 1,000 ML 80 ML IVCONT (12:38)
[2024-05-16 12:59] LABS: Glucose, Whole Blood 226 mg/dL (60-115)
[2024-05-16 16:39] LABS: Glucose, Whole Blood 209 mg/dL (60-115)
[2024-05-16 17:55] LABS: Glucose, Whole Blood 177 mg/dL (60-115)
[2024-05-16] MEDS: traZODone HCL 25 MG HALFTAB 75 MG PO (20:59)
[2024-05-16] MEDS: amLODIPine Besylate 5 MG TABLET PO (21:01)
[2024-05-16] MEDS: Atorvastatin Calcium 40 MG TABLET PO (21:02)
[2024-05-16] MEDS: hydrALAZINE HCl 50 MG TABLET PO (21:03)
[2024-05-16 21:05] LABS: Glucose, Whole Blood 151 mg/dL (60-115)
[2024-05-17] MEDS: Oseltamivir Phosphate 30 MG CAPSULE PO ×3 (00:22→23:32)
[2024-05-17] MEDS: Omeprazole 20 MG CAPSULE.DR PO (05:33)
[2024-05-17] MEDS: Levothyroxine Sodium 88 MCG TABLET PO (05:34)
[2024-05-17 06:00] VITALS: BP 132/60; PULSE 68; RESP 18; TEMP 36.4; O2SAT 96
[2024-05-17 06:45] LABS: Hematocrit 40.7 % (42.0-52.0); Hemoglobin 13.9 g/dl (14.0-18.0); Mean Corpuscular HGB Conc 34.2 g/dl (31.0-36.0); Mean Corpuscular Hemoglobin 32.6 pg (27.0-33.0); Mean Corpuscular Volume 95.3 fL (80.0-98.0); Mean Platelet Volume 10.6 fL (9.4-12.4); Platelet Count 205 X10*3/uL (160-400); Red Blood Count 4.27 X10*6/uL (4.60-5.80); Red Cell Distribution Width 12.6 % (11.0-16.0)
[2024-05-17 07:07] LABS: Anion Gap 14 (12-20); Blood Urea Nitrogen 25 mg/dL (9-16); Calcium 9.2 mg/dL (8.4-10.2); Carbon Dioxide 22 mmol/L (22-29); Chloride 110 mmol/L (96-108); Creatinine Clr Calc Pharmacy 62.3; Estimated Glomerular Filt Rate > 60; Glucose Random 128 mg/dL (60-115); Potassium 4.5 mmol/L (3.3-5.1); Sodium 141 mmol/L (135-145)
[2024-05-17 07:14] LABS: Glucose, Whole Blood 128 mg/dL (60-115)
[2024-05-17 07:28] VITALS: BP 155/72; PULSE 66; RESP 18; TEMP 36.4; O2SAT 96
[2024-05-17] MEDS: 0.9 % Sodium Chloride Flush 3 ML SYRINGE IVFLUSH ×3 (08:47→23:33)
[2024-05-17] MEDS: predniSONE 20 MG TABLET 40 MG PO (08:47)
[2024-05-17] MEDS: amLODIPine Besylate 5 MG TABLET PO ×2 (08:47→20:20)
[2024-05-17] MEDS: Cholecalciferol (Vitamin D3) 25 MCG TABLET PO (08:47)
[2024-05-17] MEDS: pyRIDostigmine bromide 60 MG TABLET PO ×4 (08:47→20:20)
[2024-05-17 11:15] LABS: Glucose, Whole Blood 129 mg/dL (60-115)
--- NOTE | 2024-05-17 13:13 | MHC.CM.PN ---
IMM DELIVERED. PATIENT LIVES IN AN APARTMENT ALONE. MOSTLY INDEPENDENT - USES CANE OR WALKER WHEM AMBULATING LONG DISTANCES AND DTR ASSISTS W/ ADL'S PRN WHEN NOT FEELING WELL. DX MYASTHENIA GRAVIS - REPORTS HE GETS WEEKLY INFUSIONS ON FRIDAYS (4 WEEKS ON, 4 WEEKS OFF) THROUGH [facility]. PCP HEIDY BLACKMAN MD REPORTS HE HAS AN HCP LISTING HIS DAUGHTER WILL [facility]. COPY REQUESTED. DP: GOAL IS HOME SELF CARE, DAUGHTER TO TRANSPORT. CM WILL CONTINUE TO FOLLOW.
[2024-05-17 14:00] VITALS: BP 161/76; PULSE 74; RESP 16; TEMP 36.7; O2SAT 95
--- NOTE | 2024-05-17 15:05 | P.PNIM_ITS ---
Subjective Subjective Date of Service: 05/17/24 Interval History: seen and examined this morning follow up for weakness, influenza and RSV continues to feel weak, having cough; denies sob Review of Systems Review of Systems: Yes all other systems are reviewed and are negative Constitutional Constitutional: Denies chills and Denies fever(s) Gastrointestinal Gastrointestinal: Denies abdominal pain, Denies nausea and Denies vomiting Physical Exam 2 Vital Signs: Vital Signs: Last Vital Signs Temp 97.5 F 05/17/24 07:28 Pulse 66 05/17/24 07:28 Resp 18 05/17/24 07:28 BP 155/72 H 05/17/24 07:28 Pulse Ox 96 05/17/24 07:28 O2 Del Method Nasal Cannula 05/17/24 07:28 O2 Flow Rate 2 05/17/24 07:28 BMI result Body Mass Index 25.2 Const: General: cooperative Nutritional Appearance: average body habitus Orientation/consciousness: patient oriented x3 Resp: Effort & Inspection: normal respiratory effort, able to speak in complete sentences, no respiratory distress and no use of accessory muscles A uscultation: clear to auscultation bilaterally Cardio: Rate: regular rate GI: Inspection: No distended Palpation (GI): Soft to palpation Neuro: General: patient oriented x3, No moves all extremities and No CN's II- XI intact bilaterally Extrem: General: Yes no pedal edema Objective Data Active Medications Acetaminophen (Acetaminophen 325 Mg Tablet) 650 mg PO Q6H PRN PRN Reason: Pain, Mild 1-3,fever,headache Last Admin: 05/16/24 12:37 Dose: 650 mg Documented By: PRESLEY Albuterol Sulfate (Albuterol Sulfate (0.083%) 2.5 Mg/3 Ml Vial.Neb) 2.5 mg INHALE Q4H PRN PRN Reason: Shortness of Breath/Wheezing Amlodipine Besylate (Amlodipine Besylate 5 Mg Tablet) 5 mg PO BID [facility]; Protocol Last Admin: 05/17/24 08:47 Dose: 5 mg Documented By: HERVE Atorvastatin Calcium (Atorvastatin Calcium 40 Mg Tablet) 40 mg PO BEDTIME [facility] Last Admin: 05/16/24 21:02 Dose: 40 mg Documented By: ADRIEN Benzonatate (Benzonatate 100 Mg Capsule) 100 mg PO TID PRN PRN Reason: Cough Last Admin: 05/16/24 12:37 Dose: 100 mg Documented By: PRESLEY Calcium Carbonate (Calcium Carbonate 750 Mg Tab.Chew) 750 mg PO Q4H PRN PRN Reason: Heartburn Dextrose (Dextrose 50 % 25 Gm/50 Ml Syringe) 25 gm IVPUSH Q15M PRN; Protocol PRN Reason: per Hypoglycemia Standing Ord. Glucose (Glucose Gel 15 Gm Gel..Gram.) 15 gm PO Q15M PRN; Protocol PRN Reason: per Hypoglycemia Standing Ord. Hydralazine HCl (Hydralazine Hcl 50 Mg Tablet) 50 mg PO BEDTIME [facility]; Protocol Last Admin: 05/16/24 21:03 Dose: 50 mg Documented By: ADRIEN Insulin Human Lispro (Insulin Lispro 100 Unit/Ml 3 Ml Vial) 0 unit SUBCUT QIDACHS [facility]; Protocol Last Admin: 05/17/24 11:23 Dose: Not Given Documented By: HERVE Non-Admin Reason: No Insulin Coverage Levothyroxine Sodium (Levothyroxine Sodium 88 Mcg Tablet) 88 mcg PO DAILY@0600 [facility] Last Admin: 05/17/24 05:34 Dose: 88 mcg Documented By: ADRIEN Melatonin (Melatonin 3 Mg Tablet) 6 mg PO BEDTIME PRN PRN Reason: Insomnia Omeprazole (Omeprazole 20 Mg Capsule.) 20 mg PO DAILY@0630 [facility] Last Admin: 05/17/24 05:33 Dose: 20 mg Documented By: ADRIEN Oseltamivir Phosphate (Oseltamivir Phosphate 30 Mg Capsule) 30 mg PO Q12H [facility] Stop: 05/21/24 00:01 Last Admin: 05/17/24 11:54 Dose: 30 mg Documented By: HERVE Polyethylene Glycol (Polyethylene Glycol 3350 17 Gm Powd.Pack) 17 gm PO DAILY PRN PRN Reason: Constipation Prednisone (Prednisone 20 Mg Tablet) 40 mg PO DAILY [facility] Last Admin: 05/17/24 08:47 Dose: 40 mg Documented By: HERVE Pyridostigmine [place] (Pyridostigmine [place] 60 Mg Tablet) 60 mg PO QID [facility] Last Admin: 05/17/24 11:54 Dose: 60 mg Documented By: HERVE Sodium Chloride (0.9 % Sodium Chloride Flush 3 Ml Syringe) 3 ml IVFLUSH QSHIFT [facility] Last Admin: 05/17/24 08:47 Dose: 3 ml Documented By: HERVE Trazodone HCl (Trazodone Hcl 25 Mg Halftab) 75 mg PO BEDTIME [facility] Last Admin: 05/16/24 20:59 Dose: 75 mg Documented By: ADRIEN Vitamin D (Cholecalciferol (Vitamin D3) 25 Mcg Tablet) 25 mcg PO DAILY [facility] Last Admin: 05/17/24 08:47 Dose: 25 mcg Documented By: HERVE Labs 05/17/24 06:07 05/17/24 06:07 Labs: Laboratory Results - last 24 hr 05/16/24 05/16/24 05/16/24 16:33 17:44 21:01 MCV MCH MCHC RDW Plt Count MPV Absolute Nucleated RBC Nucleated RBC % (auto) Anion Gap Estim Creat Clear Calc Estimated GFR POC Glucose 209 H 177 H 151 H Random Glucose Calcium 05/17/24 05/17/24 05/17/24 06:07 07:08 11:07 MCV 95.3 MCH 32.6 MCHC 34.2 RDW 12.6 Plt Count 205 MPV 10.6 Absolute Nucleated RBC 0.000 Nucleated RBC % (auto) 0.0 Anion Gap 14 Estim Creat Clear Calc 62.3 Estimated GFR > 60 POC Glucose 128 H 129 H Random Glucose 128 H Calcium 9.2 Assessment and Plan (1) Acute hypoxemic respiratory failure: Status: Acute (2) Influenza A: Status: Acute (3) Acute bronchitis due to respiratory syncytial virus: Status: Acute Plan This is a 89-year-old male with history of myasthenia gravis, orthostatic hypotension, prediabetes, who presents to the emergency department with 2 week history of weakness worsening over the past 2 days with associated cough found to have influenza a and RSV Acute respiratory failure with hypoxia Due to RSV and influenza a Continue breathing treatments, steroids, cough medication, tamiflu (renal dose) Supplemental oxygen as needed, wean as tolerated diarrhea likely due to viral illness, if recurs will obtain stool studies NIDIA likely due to dehydration from above. improved. hold captopril gentle IVF Myasthenia gravis Continue Mestinon on chronic prednisone, dose increased for RSV/respiratory failure, patient requested decrease to 20 mg daily leukocytosis likely secondary to steroids normocytic anemia H/H trended down slightly, likely due to hemodilution after IVF pre-diabetes hold metformin follow POCs while on steroids HTN continue norvasc, hydralazine also on captopril and isosorbide but no recent fill history per pharmacy - will hold for now and monitor bp closely resume isosorbide if bp high, hold captopril for NIDIA Myasthenia gravis Continue Mestinon Hypothyroidism Continue Synthroid Anemia Continue statin dvt ppx - mechanical devices Quality Stroke Does the patient have a stroke diagnosis?: No VTE Prior VTE?: No VTE Risk Level:: Medical - moderate - high VTE Device Contraindication: N/A - Device Ordered VTE Drug Contraindication: N/A - Med Ordered
[2024-05-17 16:26] LABS: Glucose, Whole Blood 152 mg/dL (60-115)
[2024-05-17] MEDS: Insulin Lispro 100 UNIT/ML 3 ML VIAL SUBCUT ×2 (16:42→20:20)
[2024-05-17] MEDS: Lactated Ringers 1,000 ML 80 ML IVCONT (16:52)
[2024-05-17 19:31] LABS: Glucose, Whole Blood 261 mg/dL (60-115)
[2024-05-17 20:15] VITALS: BP 164/71; PULSE 64; RESP 18; O2SAT 97
[2024-05-17] MEDS: traZODone HCL 25 MG HALFTAB 75 MG PO (20:19)
[2024-05-17] MEDS: hydrALAZINE HCl 50 MG TABLET PO (20:20)
[2024-05-17] MEDS: Atorvastatin Calcium 40 MG TABLET PO (20:20)
[2024-05-17 22:00] VITALS: BP 148/72; PULSE 64; RESP 18; TEMP 36.1; O2SAT 95
[2024-05-18] MEDS: Omeprazole 20 MG CAPSULE.DR PO (05:34)
[2024-05-18] MEDS: Levothyroxine Sodium 88 MCG TABLET PO (05:34)
[2024-05-18 07:11] VITALS: BP 145/65; PULSE 77; RESP 18; TEMP 36.6; O2SAT 96
[2024-05-18 07:32] LABS: Glucose, Whole Blood 95 mg/dL (60-115)
--- NOTE | 2024-05-18 08:22 | HO.PM.IMPN ---
Subjective Subjective Date of Service: 05/18/24 Interval History: seen and examined this morning follow up for weakness, influenza and RSV continues to feel weak, having cough; denies sob Review of Systems Review of Systems: Yes all other systems are reviewed and are negative Constitutional Constitutional: Denies chills and Denies fever(s) Gastrointestinal Gastrointestinal: Denies abdominal pain, Denies nausea and Denies vomiting Physical Exam Vital Signs: Vital Signs: Last Vital Signs Temp 98 F 05/18/24 07:11 Pulse 77 05/18/24 07:11 Resp 18 05/18/24 07:11 BP 145/65 H 05/18/24 07:11 Pulse Ox 96 05/18/24 07:11 O2 Del Method Nasal Cannula 05/18/24 07:11 O2 Flow Rate 2 05/18/24 07:11 BMI result Body Mass Index 25.2 Appearing in no acute distress lung sounds rhonchi heart regular rate rhythm, clear S1, S2 positive bowel sounds, abdomen is soft, nontender neuro patient is alert x3, no focal deficits Objective Data Active Medications Acetaminophen (Acetaminophen 325 Mg Tablet) 650 mg PO Q6H PRN PRN Reason: Pain, Mild 1-3,fever,headache Last Admin: 05/16/24 12:37 Dose: 650 mg Documented By: PRESLEY Albuterol Sulfate (Albuterol Sulfate (0.083%) 2.5 Mg/3 Ml Vial.Neb) 2.5 mg INHALE Q4H PRN PRN Reason: Shortness of Breath/Wheezing Amlodipine Besylate (Amlodipine Besylate 5 Mg Tablet) 5 mg PO BID [facility]; Protocol Last Admin: 05/17/24 20:20 Dose: 5 mg Documented By: NIECY Atorvastatin Calcium (Atorvastatin Calcium 40 Mg Tablet) 40 mg PO BEDTIME [facility] Last Admin: 05/17/24 20:20 Dose: 40 mg Documented By: NIECY Benzonatate (Benzonatate 100 Mg Capsule) 100 mg PO TID PRN PRN Reason: Cough Last Admin: 05/16/24 12:37 Dose: 100 mg Documented By: PRESLEY Calcium Carbonate (Calcium Carbonate 750 Mg Tab.Chew) 750 mg PO Q4H PRN PRN Reason: Heartburn Dextrose (Dextrose 50 % 25 Gm/50 Ml Syringe) 25 gm IVPUSH Q15M PRN; Protocol PRN Reason: per Hypoglycemia Standing Ord. Glucose (Glucose Gel 15 Gm Gel..Gram.) 15 gm PO Q15M PRN; Protocol PRN Reason: per Hypoglycemia Standing Ord. Hydralazine HCl (Hydralazine Hcl 50 Mg Tablet) 50 mg PO BEDTIME [facility]; Protocol Last Admin: 05/17/24 20:20 Dose: 50 mg Documented By: NIECY Insulin Human Lispro (Insulin Lispro 100 Unit/Ml 3 Ml Vial) 0 unit SUBCUT QIDACHS [facility]; Protocol Last Admin: 05/18/24 07:50 Dose: Not Given Documented By: DILIA Non-Admin Reason: No Insulin Coverage Levothyroxine Sodium (Levothyroxine Sodium 88 Mcg Tablet) 88 mcg PO DAILY@0600 [facility] Last Admin: 05/18/24 05:34 Dose: 88 mcg Documented By: NIECY Melatonin (Melatonin 3 Mg Tablet) 6 mg PO BEDTIME PRN PRN Reason: Insomnia Omeprazole (Omeprazole 20 Mg Capsule.Dr) 20 mg PO DAILY@0630 [facility] Last Admin: 05/18/24 05:34 Dose: 20 mg Documented By: NIECY Oseltamivir Phosphate (Oseltamivir Phosphate 30 Mg Capsule) 30 mg PO Q12H [facility] Stop: 05/21/24 00:01 Last Admin: 05/17/24 23:32 Dose: 30 mg Documented By: NIECY Polyethylene Glycol (Polyethylene Glycol 3350 17 Gm Powd.Pack) 17 gm PO DAILY PRN PRN Reason: Constipation Prednisone (Prednisone 20 Mg Tablet) 20 mg PO DAILY [facility] Pyridostigmine [place] (Pyridostigmine [place] 60 Mg Tablet) 60 mg PO QID [facility] Last Admin: 05/17/24 20:20 Dose: 60 mg Documented By: NIECY Sodium Chloride (0.9 % Sodium Chloride Flush 3 Ml Syringe) 3 ml IVFLUSH QSHIFT [facility] Last Admin: 05/17/24 23:33 Dose: 3 ml Documented By: NIECY Trazodone HCl (Trazodone Hcl 25 Mg Halftab) 75 mg PO BEDTIME [facility] Last Admin: 05/17/24 20:19 Dose: 75 mg Documented By: NIECY Vitamin D (Cholecalciferol (Vitamin D3) 25 Mcg Tablet) 25 mcg PO DAILY [facility] Last Admin: 05/17/24 08:47 Dose: 25 mcg Documented By: HERVE Labs 05/17/24 06:07 05/17/24 06:07 Labs: Laboratory Results - last 24 hr 05/17/24 05/17/24 05/17/24 11:07 16:17 19:26 POC Glucose 129 H 152 H 261 H 05/18/24 07:12 POC Glucose 95 Assessment and Plan (1) Acute hypoxemic respiratory failure: Status: Acute (2) Influenza A: Status: Acute (3) Acute bronchitis due to respiratory syncytial virus: Status: Acute Plan This is a 89-year-old male with history of myasthenia gravis, orthostatic hypotension, prediabetes, who presented to the emergency department with 2 week history of weakness worsening over the past 2 days with associated cough found to have influenza a and RSV Acute respiratory failure with hypoxia Due to RSV and influenza a Continue breathing treatments, steroids, cough medication, tamiflu (renal dose) Supplemental oxygen as needed, wean as tolerated diarrhea likely due to viral illness, if recurs will obtain stool studies NIDIA. Resolved likely due to dehydration from above s/p gentle IVF Myasthenia gravis Continue Mestinon on chronic prednisone, dose increased for RSV/respiratory failure, patient requested decrease to 20 mg daily leukocytosis likely secondary to steroids normocytic anemia H/H trended down slightly, likely due to hemodilution after IVF pre-diabetes hold metformin follow POCs while on steroids HTN continue norvasc, hydralazine captoprol restarted, NIDIA resolved resume isosorbide if bp high, hold for now as captopril just restarted to avoid hypotension Myasthenia gravis Continue Mestinon Hypothyroidism Continue Synthroid Anemia Continue statin dvt ppx - mechanical devices Attending Dr. [place] full code Quality Stroke Does the patient have a stroke diagnosis?: No VTE Prior VTE?: No VTE Risk Level:: Medical - moderate - high VTE Device Contraindication: N/A - Device Ordered VTE Drug Contraindication: N/A - Med Ordered
[2024-05-18 08:53] LABS: Hematocrit 42.5 % (42.0-52.0); Hemoglobin 14.5 g/dl (14.0-18.0); Mean Corpuscular HGB Conc 34.1 g/dl (31.0-36.0); Mean Corpuscular Hemoglobin 32.6 pg (27.0-33.0); Mean Corpuscular Volume 95.5 fL (80.0-98.0); Mean Platelet Volume 10.4 fL (9.4-12.4); Platelet Count 216 X10*3/uL (160-400); Red Blood Count 4.45 X10*6/uL (4.60-5.80); Red Cell Distribution Width 12.5 % (11.0-16.0); White Blood Count 14.4 X10*3/uL (4.8-10.8)
[2024-05-18 09:07] LABS: Anion Gap 13 (12-20); Blood Urea Nitrogen 15 mg/dL (9-16); Calcium 9.1 mg/dL (8.4-10.2); Carbon Dioxide 23 mmol/L (22-29); Chloride 108 mmol/L (96-108); Creatinine Clr Calc Pharmacy 64.8; Estimated Glomerular Filt Rate > 60; Glucose Random 147 mg/dL (60-115); Potassium 3.8 mmol/L (3.3-5.1); Sodium 140 mmol/L (135-145)
[2024-05-18 09:46] VITALS: BP 131/63
[2024-05-18] MEDS: Loratadine 10 MG TABLET PO (09:46)
[2024-05-18] MEDS: Cholecalciferol (Vitamin D3) 25 MCG TABLET PO (09:46)
[2024-05-18] MEDS: pyRIDostigmine bromide 60 MG TABLET PO ×4 (09:46→20:31)
[2024-05-18] MEDS: amLODIPine Besylate 5 MG TABLET PO ×2 (09:46→20:28)
[2024-05-18] MEDS: predniSONE 20 MG TABLET PO (09:46)
[2024-05-18 11:06] LABS: Glucose, Whole Blood 85 mg/dL (60-115)
[2024-05-18] MEDS: Oseltamivir Phosphate 30 MG CAPSULE PO ×2 (13:22→22:47)
--- NOTE | 2024-05-18 15:12 | MHC.CM.PN ---
Per MD rounds Wean oxygen and PT eval today. Cardiac medications adjustments continue. DP Home self care. Patients dtr will provide transportation home.
[2024-05-18 15:31] VITALS: BP 124/60; PULSE 65; RESP 18; TEMP 36.9; O2SAT 97
[2024-05-18] MEDS: 0.9 % Sodium Chloride Flush 3 ML SYRINGE IVFLUSH ×2 (16:02→21:14)
[2024-05-18 16:20] LABS: Glucose, Whole Blood 181 mg/dL (60-115)
[2024-05-18] MEDS: Insulin Lispro 100 UNIT/ML 3 ML VIAL SUBCUT (16:49)
--- NOTE | 2024-05-18 17:14 | HO.WOUND ---
Wound Consult: Initial 89yr old?[place] admitted [place] [facility] [place] - See progress notes and H&P for detailed history.? Wound consult placed for bruising to bilateral hands. Spoke to direct care nurse they report there are no skin openings and the skin is consistent with bruising. No topical interventions needed at this time. Not seen by inpatient nurse at this time - should new skin injuries develop that need assessment and intervention please place new wound care consult. .?
[2024-05-18 20:28] LABS: Glucose, Whole Blood 116 mg/dL (60-115)
[2024-05-18 20:30] VITALS: BP 148/67
[2024-05-18] MEDS: hydrALAZINE HCl 50 MG TABLET PO (20:30)
[2024-05-18] MEDS: Atorvastatin Calcium 40 MG TABLET PO (20:31)
[2024-05-18 20:38] VITALS: PULSE 61
[2024-05-18] MEDS: guaiFENesin LA 600 MG TAB.ER.12H PO (21:14)
[2024-05-18] MEDS: traZODone HCL 25 MG HALFTAB 75 MG PO (22:47)
[2024-05-18 23:54] VITALS: BP 117/56; PULSE 60; RESP 20; TEMP 36.3; O2SAT 95
[2024-05-19] MEDS: Omeprazole 20 MG CAPSULE.DR PO (05:32)
[2024-05-19] MEDS: Levothyroxine Sodium 88 MCG TABLET PO (05:32)
[2024-05-19 07:16] VITALS: BP 120/66; PULSE 84; RESP 18; TEMP 36.6; O2SAT 96
[2024-05-19 07:25] LABS: Glucose, Whole Blood 100 mg/dL (60-115)
[2024-05-19 08:44] VITALS: BP 114/64; PULSE 78
[2024-05-19] MEDS: pyRIDostigmine bromide 60 MG TABLET PO ×3 (09:18→17:00)
[2024-05-19] MEDS: Loratadine 10 MG TABLET PO (09:18)
[2024-05-19] MEDS: predniSONE 20 MG TABLET PO (09:18)
[2024-05-19] MEDS: amLODIPine Besylate 5 MG TABLET PO (09:18)
[2024-05-19] MEDS: Cholecalciferol (Vitamin D3) 25 MCG TABLET PO (09:18)
[2024-05-19] MEDS: guaiFENesin LA 600 MG TAB.ER.12H PO (09:18)
[2024-05-19 11:27] LABS: Glucose, Whole Blood 130 mg/dL (60-115)
[2024-05-19] MEDS: Oseltamivir Phosphate 30 MG CAPSULE PO (12:12)
--- NOTE | 2024-05-19 12:21 | MHC.CM.PN ---
IMM 05/17/24 PT rec STR. A bed offer has been received from [facility]. Pt and his dtr accept the bed. Patient is FluA and RSV+. He will have a private room. He will transport via BLS.
--- NOTE | 2024-05-19 12:23 | PM.DS ---
DS: Providers Provider Date of Service: 05/19/24 Date of admission: 05/16/24 07:48 Date of discharge: 05/19/24 Primary care physician: Leonides Reynoso MD Consults: 05/17/24 00:59 Consult to Wound Care Routine Reason for consultation: bruises to hands DS: Diagnosis Discharge Diagnosis (1) Acute hypoxemic respiratory failure: Status: Acute (2) Influenza A: Status: Acute (3) Acute bronchitis due to respiratory syncytial virus: Status: Acute DS: Summary Hospital Course Hospital Course: History and physical as per admitting provider. This is an 89-year-old male who presents to the emergency department with cough and generalized weakness. He reports he has been feeling unwell for the past 2 weeks but for the past 2 days his weakness cough has been worse. He was seen in urgent care and diagnosed with a bronchitis and prescribed Augmentin but then began having diarrhea and therefore was brought to the emergency department by family for further evaluation. In the emergency department he tested positive for influenza A as well as RSV. His oxygen saturation was noted to be low at 80% on room air. Chest x-ray was negative for pneumonia. In the emergency department he was treated with cough medicine, breathing treatments and steroids as well as started on Tamiflu. He denies any abdominal pain and has not had any further episodes of diarrhea since arrival in the emergency department he denies any associated fever, chills. Due to hypoxia he will be admitted for further management influenza A/RSV. 89-year-old man treated for acute respiratory failure with hypoxia secondary to RSV and influenza A. Treated with steroids, breathing treatments, and T Tussin, Tamiflu renally dosed. He had some diarrhea likely secondary to viral illness but resolved. NIDIA was likely secondary to dehydration from viral illness and resolved with IV fluids. Patient was reporting some sinus congestion and his home sinus medication was restarted. He was seen evaluated by Physical therapy who recommended short-term rehab, patient will be transferred to rehab facility today. Myasthenia gravis. Continue home medications. Complete prednisone taper and back down to his normal 5 mg daily Leukocytosis. Secondary to steroids Normocytic anemia. H&H trended down slightly but likely due to hemodilution after IV fluids. Diabetes mellitus type 2. Continue metformin Hypothyroidism. Continue levothyroxine Hypertension. Continue Norvasc, hydralazine, captopril, isosorbide Time Attestation Discharge Coordination Time (in mins): 36 Quality: Safe Use of Opioids Does Pt have an Active Cancer Diagnosis on the Problem List?: No Quality: Stroke Does the patient have a stroke diagnosis?: No Physical Exam Vital Signs: Vital Signs: Last Vital Signs Temp 98 F 05/19/24 07:16 Pulse 78 05/19/24 08:44 Resp 18 05/19/24 07:16 BP 114/64 05/19/24 08:44 Pulse Ox 96 05/19/24 07:16 O2 Del Method Nasal Cannula 05/19/24 07:16 O2 Flow Rate 1.5 05/19/24 07:16 BMI result Body Mass Index 25.2 Appearing in no acute distress head is normocephalic atraumatic eyes pupils are PERRLA sclera is anicteric mouth throat mucous membranes are intact and moist neck is supple no lymphadenopathy, no JVD noted lung sounds are clear to auscultation heart regular rate rhythm, clear S1, S2 positive bowel sounds, abdomen is soft, nontender neuro patient is alert x3, no focal deficits DS: Data Data Completed and Pending Labs on day of discharge: Laboratory Results - last 24 hr 05/18/24 05/18/24 05/19/24 16:17 20:22 07:14 POC Glucose 181 H 116 H 100 05/19/24 11:21 POC Glucose 130 H Discharge Plan Discharge Anticipated Discharge Date/Time: 05/19/24 12:18 Patient Disposition: Xfer SNF Discharge Diagnosis: Acute respiratory failure RSV Influenza a Diarrhea NIDIA Referrals: [facility] [Outside] - 1 Week Leonides Reynoso MD [Primary Care Provider] - 1 Week Discharge Medications: New prednisone 20 mg Tablet See Taper PO DAILY Qty: 8 0RF Taper: Prednisone 20 mg daily for 3 Days and 0 Hour 10 mg daily for 3 Days and 0 Hour Rx Instructions: Take 20 mg for 3 days then 10 mg for 3 days then back to your usual 5 mg daily oseltamivir 30 mg Capsule 30 mg PO Q12H Qty: 3 0RF guaifenesin [Mucinex] 600 mg Tablet Extended Release 12hr 600 mg PO BID PRN (Reason: Cough) Qty: 8 0RF Continued captopril 12.5 mg tablet 18.75 mg PO TID 90 Days Qty: 405 0RF Rx Instructions: 1 and 1/2 tabl TID amlodipine 5 mg tablet 5 mg PO BID 90 Days Qty: 180 3RF Rx Instructions: New dose; take 1 tab in the AM and 1 tab in the PM daily. isosorbide dinitrate 20 mg tablet 20 mg PO DAILY Rx Instructions: allow nitrate-free interval of 12-14 hrs per 24-hr period trazodone 50 mg tablet 75 mg PO BEDTIME hydralazine 50 mg tablet 50 mg PO BEDTIME atorvastatin 40 mg tablet 40 mg PO BEDTIME levothyroxine 88 mcg tablet 88 mcg PO DAILY@0600 omeprazole 20 mg capsule,delayed release(DR/EC) 20 mg PO DAILY@0630 prednisone 5 mg tablet 5 mg PO DAILY fexofenadine 180 mg Tablet 180 mg PO DAILY metformin 500 mg Tablet Extended Release 24 Hr 500 mg PO DAILY melatonin 10 mg Tablet 10 mg PO BEDTIME cholecalciferol (vitamin D3) 25 mcg (1,000 unit) capsule 25 mcg PO DAILY pyridostigmine bromide 60 mg tablet 60 mg PO QID Discharge Orders: Discharge Order (Routine); Ordered 05/19/24 Ordered By: Meena Silver Diet: Advance to usual diet Activity on Discharge: As tolerated Stand Alone Forms: Patient Portal Discharge page Print Language: Upper Sorbian Care Plan Goals: Complete Tamiflu for influenza A Complete antibiotic for bronchitis Health Concerns: Acute respiratory failure RSV Influenza a Diarrhea NIDIA Plan of Treatment: Follow-up with primary care provider as needed Take all medications as prescribed Assessment: See discharge summary Patient Instructions: Respiratory Syncytial Virus (DC), Influenza (DC)
[2024-05-19 15:06] VITALS: BP 136/64; PULSE 73; RESP 20; TEMP 36.7; O2SAT 95
[2024-05-19 15:53] LABS: Glucose, Whole Blood 142 mg/dL (60-115)
[2024-05-19 18:16] VITALS: BP 132/64; PULSE 76; RESP 20; TEMP 36.4; O2SAT 96
== END 2024-05-19 18:30 | disposition skilled nursing facility (03) | DRG 865 ==
LOC: HO.ED 07:51 → HO.EDOVER 08:14 → HO.S3 16:37
PROVIDERS: Admitting Provider Physician Assistant Medical; Emergency Provider Internal Medicine; PCP Internal Medicine; Visit Provider Nurse Practitioner Acute Care
DX: J10.2 Influenza due to other identified influenza virus with gastrointestinal manifestations (principal); J96.01 Acute respiratory failure with hypoxia; N17.9 Acute kidney failure, unspecified; B97.4 Respiratory syncytial virus as the cause of diseases classified elsewhere; E11.9 Type 2 diabetes mellitus without complications; E03.9 Hypothyroidism, unspecified; D64.9 Anemia, unspecified; E86.0 Dehydration; G70.00 Myasthenia gravis without (acute) exacerbation; Z79.52 Long term (current) use of systemic steroids; Z79.84 Long term (current) use of oral hypoglycemic drugs; Z79.890 Hormone replacement therapy; Z79.899 Other long term (current) drug therapy
CPT/HCPCS: 0241U; 36415; 71045; 80048; 80053; 82947; 84484; 85025; 85027; 93005; 94640; 97162; 99212; 99285; J2919; J7120

== ENCOUNTER → 2024-05-16 01:39 | Outpatient (BNV) | payer MEDICARE, SELFPAY | PROVIDERS: Admitting Provider Physician Assistant Medical; Emergency Provider Internal Medicine; PCP Internal Medicine; Visit Provider Internal Medicine Cardiovascular Disease | DX: I44.0 Atrioventricular block, first degree (principal) | CPT/HCPCS: 93010 ==

== ENCOUNTER → 2024-05-16 01:51 | Outpatient (BNV) | payer MEDICARE, SELFPAY | PROVIDERS: PCP Internal Medicine; Visit Provider General Practice | DX: R05.9 Cough, unspecified (principal) | CPT/HCPCS: 71045 ==

== ENCOUNTER → 2024-05-16 07:48 | Outpatient (BNV) | payer MEDICARE, SELFPAY | PROVIDERS: Admitting Provider Physician Assistant Medical; Emergency Provider Internal Medicine; PCP Internal Medicine; Visit Provider Physician Assistant Medical | DX: J96.01 Acute respiratory failure with hypoxia (principal); J10.1 Influenza due to other identified influenza virus with other respiratory manifestations; J20.5 Acute bronchitis due to respiratory syncytial virus | CPT/HCPCS: 99232 ==

== ENCOUNTER 2024-11-01 06:13 | Observation (INO) | payer MEDICARE, SELFPAY ==
--- OUTSIDE RECORDS SUMMARY | 2024-07-08 06:30 | XMS_ITS | Encounter Summary ---
Author Name [facility] [place] [facility] [place] Address [address] [place] [address] Care Team Providers Care Rod Greaser Name Role Phone NICKIE REYNA Primary Care [...] Name Patient's Relationship to Policy Newsome [place] MED[place] SUPPLEMEN JUDITH MEDEX BRONZ E Apr 08, 2016 [id number] CAMPATRICIA SHERIFF PATIENT [place] MED[place] SUPPLEMEN JUDITH MEDEX BRONZ E Apr 08, 2016 [id number] CAMPATRICIA SHERIFF PATIENT BCBS [facility] MEDICARE SUPPLEMEN JUDITH MEDEX BRONZ E Jul 07, 2017 [id number] [phone] CAMPATRICIA SHERIFF PATIENT MEDICARE (WNR) MEDICARE (M) PART B May 26, 2015 PART B [id number] PATRICIA LEVY PATIENT MEDICARE (WNR) MEDICARE (M) PART A Feb 06, 2002 PART A [id number] PATRICIA LEVY PATIENT MEDICARE (WNR) MEDICARE (M) PART B Feb 06, 2002 PART B [id number] PATRICIA LEVY PATIENT MEDICARE (WNR) MEDICARE (M) PART A Feb 06, 2002 PART A [id number] PATRICIA LEVY PATIENT Selected Encounter This section includes the information on record at [place] for the Encounter. Date/Time Encounter Type Encounter Description Reason Pro vider Source Jul 08, 2024 10:30 AM Outpatient Encounter AUDIOLOGY IHE Encounter Template Text not used by [place] Plan of Treatment: Future Appointments (+ 6 months) and Future Tests (+/- 45 days) The Plan of Treatment section includes future care activities for the patient from [facility] [place] [facility] This section includes future appointments and future orders which are active, pending or scheduled. Future Appointments This section includes appointments that were scheduled to occur 6 months from the date of the Encounter, up to a maximum of 20 appointments. The data comes from all [place] treatment facilities. Appointment Date/Time Appointment Type Appointme nt Facility Name August 28, 2024 07:00 AM AMBULATORY - MEDICINE [facility] [place] [facility] Sep 23, 2024 09:00 AM AMBULATORY - MEDICINE [facility] [place] [facility] Oct 05, 2024 10:30 AM [facility] [place] [facility] Nov 30, 2024 11:00 AM AMBULATORY - MEDICINE [facility] [place] [facility] Dec 24, 2024 11:00 AM [facility] Active, Pending, and Scheduled Orders This section includes a listing of several types of active, pending, and scheduled orders, including clinic medications orders, diagnostic test orders, procedure orders and consult orders; where the start date of the order is 45 days before the date of the Encounter or 45 days after the date of theEncounter. The data comes from all [facility]. Test Date/Time Test Type Test Details Facility Name Jun 02, 2024 11:13 AM Consult Order COMMUNITY CARE-NEUROLOGY Cons Inventory Technician's Choice [facility] Lab Results: +/- 30 days of the encounter This section includes the Chemistry and Hematology Lab Results on record with [place] for the patient. Radiology Reports and Pathology Reports are provided separately, in subsequent sections. Lab Results This section contains the Chemistry/Hematology Results that were resulted 30 days before or 30 daysafter the date of the Encounter. Date/Time Source Result Type Result - Unit Interpretation Reference Range Specimen Type Comment Jun 25, 2024 01:39 PM [facility] THYROID T4 FREE(FT4) (WROX) SERUM Specimen Ty pe: SERUM No comment entered. Ordering Provider: PRISCILA QUINONES Report Released Date/Time: Jun 25, 2024 01:21 PM Reporting Lab: [facility] [address] [facility] [address] Performing Lab: [facility] [address] [facility] [address] THYROID T4 FREE(FT4) (WROX) 1.11 ng/dL 0 .6-1.6 Jun 25, 2024 01:39 PM [facility] TSH SERUM Specimen Type: SERUM No comment entered. Ordering Provider: PRISCILA QUINONES Report Released Date/Time: Jun 25, 2024 01:21 PM Reporting Lab: [facility] [address] [facility] [address] Performing Lab: [facility] [address] [facility] [address] TSH 2.12 u[IU]/mL 0.35-5.00 Social History: Smoking Status (Most current) and Tobacco Use (All prior to encounter date) This section includes the most current, and the historical, smoking and tobacco- related health factors from the [place] facility where the Encounter took place. Current Smoking Status This section includes the most current smoking, or tobacco-related health factor, from the [place] facility where the Encounter took place. Date/Time Current Smoking Status Comment Facil ity Feb 05, 2024 10:29 AM VA-TOBACCO FORMER USER [facility] Tobacco Use History This section includes a history of the smoking, or tobacco-related health factors, that were collected on or before the date of the Encounter. The data comes from the [place] facility where the Encounter took place. Date/Time Smoking Status/Tobacco Use Comment F acility Feb 05, 2024 10:29 AM VA-TOBACCO QUIT 15 YRS OR MORE [facility] [place] [facility] Dec 04, 2022 10:30 AM VA-TOBACCO FORMER USER [facility] [place] [facility] Dec 04, 2022 10:30 AM VA-TOBACCO QUIT 15 YRS OR MORE [facility] [place] [facility] Dec 12, 2021 02:00 PM VA-TOBACCO FORMER USER [facility] [place] [facility] Dec 12, 2021 02:00 PM VA-TOBACCO QUIT 15 YRS OR MORE [facility] [place] [facility] Dec 20, 2020 10:15 AM VA-TOBACCO FORMER USER [facility] [place] [facility] Dec 20, 2020 10:15 AM VA-TOBACCO QUIT 15 YRS OR MORE [facility] [place] [facility] Dec 29, 2019 01:00 PM VA-TOBACCO FORMER USER [facility] [place] [facility] Dec 29, 2019 01:00 PM VA-TOBACCO QUIT 15 YRS OR MORE [facility] [place] [facility] Sep 23, 2018 02:51 PM VA-TOBACCO FORMER USER [facility] [place] [facility] Sep 23, 2018 02:51 PM VA-TOBACCO QUIT 15 YRS OR MORE [facility] [place] [facility] Dec 02, 2017 12:45 PM QUIT TOBACCO USE > 7 YEARS AGO [facility] [place] [facility] Jul 27, 2005 10:05 AM QUIT TOBACCO USE > 7 YEARS AGO [facility] [place] [facility] Jul 12, 2004 09:49 AM HISTORY OF SMOKING [facility] [place] [facility] Jul 12, 2004 09:49 AM QUIT TOBACCO USE 1 -7 YEARS AGO [facility] [place] [facility] August 11, 2003 09:45 AM HISTORY OF SMOKING [facility] [place] [facility] August 11, 2003 09:45 AM QUIT TOBACCO USE 1 -7 YEARS AGO [facility] [place] [facility] Advance Directives: All historical and current Section Date Range: From patient's date of to the date document was created. This section includes ALL of a patient's completed or amended [place] Advance and Rescinded Directives. The entries below indicate that a directive exists for the patient, but an actual copy is not included with this document. The data comes from all [place] facilities. Date Advance Directives Provider Source Nov 05, 2008 ADVANCE DIRECTIVE [facility]
--- NOTE | ~2024-11-01 | MR_ITS ---
CLINICAL HISTORY: TIA, --- Additional Notes or Special Instructions: Neurologist recommends this MR Brain without gadolinium Comparison: CT/SR - CT ANGIO HEAD NECK STROKE - 11/01/24 06:[address]/SR - CT HEAD FOR STROKE - 11/01/24 06:[address] - CT HEAD NECK ANGIOGRAPHY WITH IV CONTRAST STROKE - 11/01/24 06:42 EDT Findings: No restricted diffusion. No intra-axial mass or hemorrhage. No midline shift. No hydrocephalus. Age appropriate cerebral volume loss. Patchy high FLAIR signal within the periventricular and subcortical white matter. Vascular flow voids are intact. Orbital contents are unremarkable. Mild bilateral ethmoid and mild left maxillary sinus mucosal thickening. Mastoids are clear. No focal bone lesion. IMPRESSION: No acute findings. This document has been electronically signed by: Veronique Gibbs MD on 11/01/2024 13:24:38
--- NOTE | ~2024-11-01 | CT_ITS ---
CLINICAL HISTORY: left facial droop CT head without contrast Comparison: None provided Findings: No intra-axial mass, midline shift, hydrocephalus, or acute hemorrhage. Mild global volume loss with subcortical and periventricular white matter hypodensity suggesting chronic microangiopathy. This is greatest adjacent to the atrium of the bilateral lateral ventricles and is slightly greater on the left than the right. Cortical jasmine-white matter differentiation is maintained. The visualized paranasal sinuses and mastoid air cells are normal. The orbits are within normal limits. There is no acute fracture. IMPRESSION: 1. Mild global volume loss and changes likely related to microangiopathy. No evidence of large territory infarct or intracranial hemorrhage. This document has been electronically signed by: Marylin Colón MD on 11/01/2024 07:22:00
--- NOTE | ~2024-11-01 | CT_ITS ---
CLINICAL HISTORY: left facial droop CT angiography head and neck with contrast. 3D Postprocessing. Comparison: None provided Findings: Aortic arch and cervical great vessels are patent with no aneurysm, dissection, hemodynamically significant stenoses, or occlusion. Calcified atheromatous plaquing of the bilateral carotid bifurcation not causing significant luminal narrowing. Intracranial arteries are patent. No aneurysm, dissection, hemodynamically significant stenoses, or occlusion. No abnormal intracranial enhancement. 3.1 cm left thyroid nodule. No cervical mass or fluid collection. Lung apices clear. No acute fracture. Multilevel degenerative change of the cervical spine. IMPRESSION: Patent head and neck CTA. 3.1 cm left thyroid nodule. This document has been electronically signed by: Marylin Colón MD on 11/01/2024 07:35:43
--- NOTE | ~2024-11-01 | XR_ITS ---
CLINICAL HISTORY: facial droop 2 view chest x-ray Comparison: CR/NH/SR - XR CHEST 2V - 12/23/23 08:46 EDT Findings: The lungs are clear. Heart size is normal. No acute fracture. IMPRESSION: 1. No acute findings. This document has been electronically signed by: Marylin Colón MD on 11/01/2024 07:24:18
[2024-11-01 06:18] VITALS: BMI 24.7
[2024-11-01 06:26] VITALS: BP 137/60; PULSE 66; RESP 12; TEMP 36.5; O2SAT 96
--- NOTE | 2024-11-01 06:27 | ED.NEUROSD ---
HPI - Neuro Symptoms/Deficit General Chief Complaint: Stroke Stated Complaint: Feels Facial Droop Time Seen by Provider: 11/01/24 06:27 Source: patient and family Mode of arrival: ambulatory Limitations: no limitations History of Present Illness ED Provider: Dr. Loren Gonzalez HPI Narrative: 89-year-old male with extensive past medical history including myasthenia gravis, hypertension, hyperlipidemia, ije-[id number] diabetes presenting with left-sided facial droop that he noticed around 330 this morning. States that he fell asleep at 1:30 a.m. last night feeling well, not noticing any droop to his face or any odd sensation in his mouth. At 3:30 a.m. however, he woke up with a ?tingling sensation? in his left lower face that has been persistent since. He called his daughter who brought him to the emergency department for evaluation. Related Data Home Medications ?Medication ?Instructions ?Recorded ?Confirmed cholecalciferol (vitamin D3) 25 25 mcg PO DAILY 05/05/20 05/16/24 mcg (1,000 unit) capsule isosorbide dinitrate 20 mg tablet 20 mg PO DAILY 10/11/20 05/16/24 atorvastatin 40 mg tablet 40 mg PO BEDTIME 10/08/21 05/16/24 hydralazine 50 mg tablet 50 mg PO BEDTIME 10/08/21 05/16/24 levothyroxine 88 mcg tablet 88 mcg PO DAILY@0600 10/08/21 05/16/24 omeprazole 20 mg capsule,delayed 20 mg PO DAILY@0630 10/08/21 05/16/24 release pyridostigmine bromide 60 mg tablet 60 mg PO QID 11/22/21 05/16/24 trazodone 50 mg tablet 75 mg PO BEDTIME 05/22/22 05/16/24 fexofenadine 180 mg tablet 180 mg PO DAILY 05/16/24 05/16/24 melatonin 10 mg tablet 10 mg PO BEDTIME 05/16/24 05/16/24 metformin 500 mg tablet,extended 500 mg PO DAILY 05/16/24 05/16/24 release 24 hr prednisone 5 mg tablet 5 mg PO DAILY 05/16/24 05/16/24 Previous Rx's ?Medication ?Instructions ?Recorded captopril 12.5 mg tablet 18.75 mg (1.5 x 12.5 mg) PO TID 90 06/25/22 days #405 tabs amlodipine 5 mg tablet 5 mg PO BID 90 days #180 tabs 05/24/23 guaifenesin 600 mg tablet, 600 mg PO BID PRN Cough #8 tabs 05/19/24 extended release 12 hr (Mucinex) oseltamivir 30 mg capsule 30 mg PO Q12H #3 caps 05/19/24 prednisone 20 mg tablet See Taper PO DAILY #8 tabs 05/19/24 Allergies Allergy/AdvReac Type Severity Reaction Status Date / Time meperidine (From Demerol) Allergy Unknown unknown Verified 11/01/24 06:21 reaction-patient states was many years ago Review of Systems Review of Systems: Yes all other systems are reviewed and are negative (as per HPI) [facility] Past Medical History Attestation statement: The following information was validated with the patient. Source: old records reviewed Medical History Myasthenia gravis COVID-19 vaccine administered GERD (gastroesophageal reflux disease) Insomnia Hyperlipidemia Orthostatic hypotension dysautonomic syndrome HTN (hypertension) Non-toxic multinodular goiter Hypothyroidism Surgical History Hx of cataract surgery History of colon surgery History of esophagogastroduodenoscopy (EGD) H/O colonoscopy Hx of tonsillectomy Hx of appendectomy Family History Family History Father Parkinsons disease Mother Myocardial infarction CVD (cardiovascular disease) Cancer Social History Social History Household Members: None Housing: Apartment Are you a primary critical care unit manager to a significant other at home: No Do you presently have visiting nurse or other home services: Yes (gets infusions weekly) Alcohol intake: never Patient Tobacco Use Status: Former Tobacco user Smoked in Last 30 Days: No e-Cigarette/Vaping Use: Never Used Use of substances other than those prescribed or required for medical reasons: No Advance Directives: No Advance Directives Information Provided: Yes service: No Current occupational status: retired Physical Exam Exam: Exam: GENERAL: Chronically ill-appearing, conversant, no acute distress. SKIN: Normal skin color for ethnicity, warm, dry, no rashes noted. HEENT: Normocephalic, atraumatic, no stridor, posterior oropharynx nonerythematous, EOMI. NECK: Soft, supple, full ROM, midline structures nontender, no step-offs, no deformities, no lymphadenopathy. CHEST: Heart regular rate and rhythm, no murmurs, symmetric chest rise and fall. PULMONARY: Clear to auscultation bilaterally, no labored breathing, no wheezes/rhales/ rhonchi. ABDOMINAL: Soft, nondistended, nontender, positive bowel sounds in all quadrants. : Deferred. MUSCULOSKELETAL: Normal tone, full range of motion, no deformities, no peripheral edema. NEURO: Alert and oriented to person, CN II through XII intact, no focal neurologic deficits, no significant facial droop appreciated on exam. PSYCHIATRIC: Flat affect, fluid speech, appropriate demeanor. Vital Signs: Vital Signs: Last Vital Signs Temp 97.7 F 11/01/24 06:26 Pulse 66 11/01/24 06:26 Resp 12 11/01/24 06:26 BP 137/60 11/01/24 06:26 Pulse Ox 96 11/01/24 06:26 O2 Del Method Room Air 11/01/24 06:26 BMI result Body Mass Index 24.7 Course Course Course Narrative: NIH score is low and non debilitating would hold TNK Reevaluation(s) Reevaluation #1: I assumed care of this patient at 725am TALBOTT 11/01/24 Medications Administered Discontinued Medications Generic Name Dose Route Start Last Admin Trade Name Anthonyq PRN Reason Stop Dose Admin Iohexol 65 ml 11/01/24 07:01 11/01/24 07:02 Iohexol 350 Mg/Ml 100 Ml Infus..Btl IV 11/01/24 07:02 65 ml ONCE ONE Administration Pyridostigmine Austin 60 mg 11/01/24 06:43 11/01/24 07:24 Pyridostigmine Austin 60 Mg Tablet PO 11/01/24 06:44 60 mg ONCE ONE Administration Medical Decision Making Medical Decision Making [facility] Narrative: Patient presents today with sensation of facial twitching and weakness with a slight facial droop that he noticed around 3:30 a.m. this morning. Last known well was 1:30 p.m. last night. Differential diagnosis includes anemia, electrolyte abnormality, infection, rhabdomyolysis/myositis, myasthenia gravis crisis, CVA, medication side effects, deconditioning, dehydration, among many others. A broad-based workup was initiated based on the patient's history and physical examination. They were watched closely on cardiac monitor technician with vital signs that were monitored during the duration of their stay. There are no signs of focal neurological deficit or weakness on exam. 6:27 a.m. that is just out of the window for last known well time for use of TNK. That being said, his stroke score is only a 1 for this ?sensation? in his face. I do not appreciate a facial droop on my exam and he has no other focal neurologic deficits. I feel that this is more likely related to his myasthenia gravis however, given his persistent sensation of the facial droop and slight asymmetry of the face, we will call a stroke alert and evaluate him for large vessel occlusion that may be amenable to neurointerventional radiology. 7:11 AM 11/01/2024 (Dr. Loren Gonzalez, D.O.) signing out to oncoming provider pending CT results and final disposition. Differential Diagnosis Differential Diagnoses: The differential diagnosis associated with the presentation includes (As above) TIA, MG Admission/Observation Consideration of admission/observation: Escalation of care including admission/observation considered admit for possible TIA work up has never had these symptoms with MG Consult Healthcare Provider Management of the patient was discussed with: Hospitalist (will admit) Lab Data MDM Lab Attestation statement: I reviewed the patient's lab results. 11/01/24 06:31 11/01/24 06:31 Labs: Lab Results 11/01/24 11/01/24 Range/Units 06:27 06:31 WBC 9.6 (4.8-10.8) X10*3/uL RBC 4.51 L (4.60-5.80) X10*6/uL Hgb 14.6 (14.0-18.0) g/dl Hct 42.8 (42.0-52.0) % MCV 94.9 (80.0-98.0) fL MCH 32.4 (27.0-33.0) pg MCHC 34.1 (31.0-36.0) g/dl RDW 12.9 (11.0-16.0) % Plt Count 214 (160-400) X10*3/uL MPV 10.2 (9.4-12.4) fL Absolute Nucleated RBC 0.000 (0.0-0.012) X10*3/uL Nucleated RBC % (auto) 0.0 (0.0-0.2) /100WBC PT 10.9 (10.9-12.4) SEC INR 1.0 (0.9-1.1) POC Glucose 130 H (60-115) mg/dL Independent Interpretation I performed an independent interpretation of an: EKG and CT Scan (no LVO no ICH) Interpretation: 6:34 a.m. My independent interpretation of the ECG reveals normal sinus rhythm with rate of 59, normal axis, first-degree AV block AK interval 306, no ST elevations or depressions to suggest ischemic changes, inferior/lateral T-wave inversions have improved since previous EKG on 05/16/2024, small U wave noted in the precordial leads Radiology Impression Discussion of test interpretation with radiology: I discussed test interpretation with the radiologist and I have reviewed the radiologist's reading. Radiologist Impression: no ICH Independent Historian Clinical information obtained from an independent historian. History obtained from or confirmed by: Other (Daughter) External Record Review External record reviewed: Inpatient record Chronic Conditions Patient?s care impacted by: Diabetes, Hypertension and Other (Myasthenia gravis) NIH Stroke Scale Internal: Initial- Upon Arrival Level of Consciousness: Alert Level of Consciousness Questions: Answers both questions correctly Level of Consciousness Commands: Performs both tasks correctly Best Gaze: Normal Visual: No visual loss Facial Palsy: Normal Motor Arm (Right): No drift Motor Arm (Left): No drift Motor Leg (Right): No drift Motor Leg (Left): No drift Limb Ataxia: Absent Sensory: Mild to moderate sensory loss Best Language: No aphasia Dysarthia: Normal Extinction and Inattention: No abnormality Score: 1 Discharge Plan Discharge Clinical Impression: Transient cerebral ischemia Patient Disposition: Admitted As Inpatient Print Language: Czech
[2024-11-01 06:31] LABS: Glucose, Whole Blood 130 mg/dL (60-115)
[2024-11-01 06:35] LABS: Hematocrit 42.8 % (42.0-52.0); Hemoglobin 14.6 g/dl (14.0-18.0); Mean Corpuscular HGB Conc 34.1 g/dl (31.0-36.0); Mean Corpuscular Hemoglobin 32.4 pg (27.0-33.0); Mean Corpuscular Volume 94.9 fL (80.0-98.0); NRBC Abs Auto 0.000 X10*3/uL (0.0-0.012); NRBC Pct Auto 0.0 /100WBC (0.0-0.2); Platelet Count 214 X10*3/uL (160-400); Red Blood Count 4.51 X10*6/uL (4.60-5.80); White Blood Count 9.6 X10*3/uL (4.8-10.8)
[2024-11-01] MEDS: iohexoL 350 MG/ML 100 ML INFUS..BTL 65 ML IV (07:02)
[2024-11-01 07:11] LABS: INTERNATIONAL NORM RATIO 1.0 (0.9-1.1); Prothrombin Time 10.9 SEC (10.9-12.4)
--- OUTSIDE RECORDS SUMMARY | 2024-11-01 07:21 | XMS_ITS | Clinical Summary ---
Author Organization [facility] Address [address] [place] [phone] Phone Care Team Providers Care Career Services Director Name Role Phone Leonides Reynoso MD Primary Care Provider [phone] Allergies Active Allergy Reactions Criticality Noted Date Comments Atorvastatin Musculoskeletal Pain 07/07/2013 Meperidine Unknown 07/27/2020 Medications atorvastatin (LIPITOR) 40 MG tablet 40 mg. 09/07/2021 Active cholecalciferol , vitamin D3, 25 mcg (1,000 unit) capsule Take by mouth. Active isosorbide dinitrate (ISORDIL) 20 MG immediate release tablet 1 tablet. 09/26/2021 Acti ve omeprazole (PRILOSEC) 20 MG capsule Take 1 tablet by mouth daily. 09/26/2021 Active hydrALAZINE (APRESOLINE) 50 MG tablet 1 tablet daily. Active amLODIPine (NORVASC) 5 MG tabletIndicatio ns:2x daily 5 mg. Indications: 2x daily 09/26/2021 Active captopril (CAPOTEN) 12.5 MG tablet 1.5 tablets 3 (three) times a day. Active fexofenadine (TAWANNA) 180 MG tablet Take 180 mg by mouth daily. Active levothyroxine (SYNTHROID, LEVOTHROID) 88 MCG tablet 88 mcg. 09/26/2021 Active melatonin 10 mg Cap Take 10 mg by mouth. 09/07/2021 Active metFORMIN (GLUCOPHAGE) 500 MG tablet daily. 03/19/2022 Activ e traZODone (DESYREL) 50 MG tablet TAKE 0.5 TABLET BY MOUTH DAILY AT BEDTIME FOR 30 DAYS NEEDED FOR INSOMNIA 03/29/2022 Active LORazepam (ATIVAN) 1 MG tablet Take 1 mg by mouth as needed. Active pyRIDostigmine (MESTINON) 60 mg tabletIndicatio ns:Myasthenia gravis Take 1 tablet (60 mg total) by mouth 4 (four) times a day. 360 tablet 3 08/11/2024 Active mycophenolate mofetil (CELLCEPT) 500 mg tabletIndicatio ns:Myasthenia gravis Take 2 tablets (1,000 mg total) by mouth 2 (two) times a day. Take 1 tablet (500 mg total) by mouth 2 (two) times a day for 7 days, THEN start taking 2 tablets (1,000 mg total) 2 (two) times a day. 360 tablet 3 09/23/2024 Active predniSONE (DELTASONE) 5 MG tabletIndicatio ns:Myasthenia gravis Take 2 tablets (10 mg total) by mouth daily. 180 tablet 3 09/25/2024 Active Active Problems Problem Noted Date Diagnosed Date Myasthenia gravis 04/17/2022 Encounters Date Type Department Care Team Description 10/30/2024 Orders Only [facility] Neuromuscular [address] [place] [address] ProviderEvy MD 10/19/2024 Telephone [facility] Neurom[facility] [address] [place] [address] Gamaliel Ramos MD 10/14/2024 Telephone [facility]rom[facility] [address] [place] [address] Gamaliel Ramos MD Labs 09/28/2024 Orders Only [facility] Neurom[facility] [address] [place] [address] Gamaliel Ramos MD 09/25/2024 Orders Only [facility] Neurology [facility] [address] [address] Gamaliel Ramos MD Myasthenia gravis 09/23/2024 9:00 AM EDT Telemedicine [facility] Neuromuscular [address] [place] [address] Gamaliel Ramos MD Myasthenia gravis 09/09/2024 Orders Only [facility] [address] [place] [address] Radha Cunningham MD Myasthenia gravis (Primary Dx); Therapeutic drug monitoring 09/09/2024 Orders Only [facility] [address] [place] [address] Radha Cunningham MD Therapeutic drug monitoring (Primary Dx) 09/09/2024 Telephone [facility] Neu[facility] [address] [place] [address] Gamaliel Ramos MD lab orders 08/24/2024 12:44 PM EDT - 08/24/2024 11:59 PM EDT Hospital Encounter [facility] Phlebotomy, [address] [place] [address] Gamaliel Ramos MD Discharge Disposition: Home or Self Care 08/24/2024 12:00 PM EDT Office Visit [facility] [address] [place] [address] Gamaliel Ramos MD Myasthenia gravis (Primary Dx) 08/10/2024 Refill [facility] [address] [place] [address] Gamaliel Ramos MD Medication Refill 08/07/2024 Telephone [facility] [address] [place] [address] Gamaliel Ramos MD Infusion from Last 3 Months Social History Tobacco Use Types Packs/Day Years Used Date Smoking Tobacco: Former Cigarettes Q uit: 1992 Smokeless Tobacco: Never Tobacco Cessation:Counseling Given: Not Answered Education Answer Date Recorded Are you interested in more education? Not on anatoly e 08/03/2022 Are you concerned about learning? Not on file 08/03/2022 No 08/03/2022 No 08/03/2022 Digital Access Answer Date Recorded No 09/03/2022 No 09/03/2022 Reliable internet access at home? Not on file 09/03/2022 Device with a working camera? Not on file Intimate Partner Violence Answer Date R ecorded Are you denied basic needs s uch as food, clothing, or medical care? No 03/25/2024 In the past 12 months have y ou been in a relationship with a person who hurts, threatens, or tries to control you? No 03/25/2024 Are you denied basic needs s uch as food, clothing, or medical care? No 03/25/2024 In the past 12 months have y ou been in a relationship with a person who hurts, threatens, or tries to control you? No 03/25/2024 Sex and Gender Information Value Date Recorded Sex Assigned at Male 02/18/2022 7:11 PM EST Legal Sex Male 10:38 PM EDT Gender Identity Male 02/18/2022 7:11 PM EST Sexual Orientation Straight 02/18/2022 7: 11 PM EST Last Filed Vital Signs Vital Sign Reading Time Taken Comments Blood Pressure 160/74 08/24/2024 11:31 AM EDT Pulse 63 08/24/2024 11:31 AM EDT Temperature 36.2 C (97.2 F) 08/24/2024 11:31 AM EDT Respiratory Rate 16 08/24/2024 11:31 AM EDT Oxygen Saturation 96% 08/24/2024 11:31 AM EDT Inhaled Oxygen Concentration - - Weight 70.5 kg (155 lb 8 oz) 08/24/2024 11:31 AM EDT Height 170.2 cm (5' 7.01 ) 08/24/2024 11:31 AM E DT Body Mass Index 24.35 08/24/2024 11:31 AM EDT Plan of Treatment Upcoming Encounters Date Type Department Care Team (Late st Contact Info) Description 11/10/2024 1:00 PM EDT Appointment [facility] Neurology [facility], [facility] [address] [place], [place] [phone] Gamaliel Ramos MD [address] [place] [phone] 11/10/2024 1:00 PM EDT Office Visit [facility] [address] [place] [address] Gamaliel Ramos MD [address] [place] [phone] Health Maintenance Due Date Last Done Comments CREATININE LEVEL 1937 POTASSIUM LEVEL 1937 TSH LEVEL 05/14/2023 05/14/2022 COVID-19 VACCINE (8 - Moderna risk season) 2024 01/31/2024, 01/18/2023, 03/12/2022, Additional history exists DEPRESSION SCREENING 03/25/2025 03/25/2024 Adult Td,Tdap Booster 06/12/2032 06/12/2022 , 03/25/2017, 07/13/2011 PNEUMOCOCCAL VACCINES (50+ years) Completed 09/22/2018, 10/29/2014, 10/29/2014, Additional history exists ZOSTER VACCINES Completed 03/07/2020, 12/08, 01/05/2014, Additional history exists MENINGOCOCCAL VACCINES (ACWY) Aged Out 01/26/2022 No longer eligible based on patient's age to complete this topic RSV VACCINE Completed 02/26/2023 HEPATITIS A VACCINES Aged Out No long er eligible based on patient's age to complete this topic HIB VACCINES Aged Out No longer eligi ble based on patient's age to complete this topic MENINGOCOCCAL VACCINES (B) Aged Out N o longer eligible based on patient's age to complete this topic Medical Devices Not on file Procedures Procedure Name Priority Date/Time Associated Diagnosis Comments OUTSIDE LAB Routine 10/30/2024 3:58 PM EDT CBC AND DIFFERENTIAL Routine 09/28/2024 3:54 PM EDT ALBUMIN Routine 09/28/2024 3:54 PM EDT BILIRUBIN, DIRECT Routine 09/28/2024 3:5 4 PM EDT BILIRUBIN, TOTAL Routine 09/28/2024 3:54 PM EDT ALKALINE PHOSPHATASE, FRACTIONATED Routine 09/28/2024 3:54 PM EDT ALANINE AMINOTRANSFERASE (ALT) Routine 09/28/2024 3:54 PM EDT ASPARTATE AMINOTRANSFERASE (AST) Routine 09/28/2024 3:54 PM EDT CBC AND DIFFERENTIAL Routine 08/24/2024 12:50 PM EDT Myasthenia gravis LFTS (HEPATIC PANEL) Routine 08/24/2024 12:50 PM EDT Myasthenia gravis TSH WITH REFLEX Routine 05/14/2022 11:27 AM EST Neuropathy from Last 3 Months or Most Recently Relevant to Health Maintenance Results * Outside Lab (10/30/2024 3:58 PM EDT) Result [facility] LAB BLOOD ORDERABLES Amie l Result * Alkaline phosphatase, fractionated (09/28/2024 3:54 PM EDT) Result [facility] Gamaliel Ramos MD LAB BLOOD ORDERABLES Final Resul t * CBC and differential (09/28/2024 3:54 PM EDT) Only the most recent of2 resultswithin the time period is included. Blood Result [facility] Gamaliel Ramos MD LAB BLOOD ORDERABLES Final Resul t * Alanine aminotransferase (ALT) (09/28/2024 3:54 PM EDT) Result [facility] Gamaliel Ramos MD LAB BLOOD ORDERABLES Final Resul t * Aspartate aminotransferase (AST) (09/28/2024 3:54 PM EDT) Result [facility] Gamaliel Ramos MD LAB BLOOD ORDERABLES Final Resul t * Bilirubin, direct (09/28/2024 3:54 PM EDT) Result [facility] Gamaliel Ramos MD LAB BLOOD ORDERABLES Final Resul t * Bilirubin, total (09/28/2024 3:54 PM EDT) Result [facility] Gamaliel Ramos MD LAB BLOOD ORDERABLES Final Resul t * Albumin (09/28/2024 3:54 PM EDT) Result [facility] Gamaliel Ramos MD LAB BLOOD ORDERABLES Final Resul t * (ABNORMAL) LFTs (hepatic panel) (08/24/2024 12:50 PM EDT) TOTAL PROTEIN 7.0 6.4 - 8.3 g/dL [facility] ALBUMIN 5.0 3.5 - 5.2 g/dL [facility] GLOBULIN 2.0(L) 2.2 - 4.2 g/dL [facility] AST 20 10 - 50 U/L [facility] ALT 19 10 - 50 U/L [facility] ALKALINE PHOSPHATASE 63 35 - 130 U/L [facility] TOTAL BILIRUBIN 0.6 0.0 - 1.0 mg/dL [facility] DIRECT BILIRUBIN 0.2 0.0 - 0.3 mg/dL [facility] Blood 08/24/2024 12:5 0 PM EDT 08/24/2024 1:01 PM EDT us Gamaliel Ramos MD LAB BLOOD ORDERABLES Final Resul t Performing Organization Address [facility] de Phone Number [facility] [address] [place] [phone] * TSH with reflex (05/14/2022 11:27 AM EST) Pathologist [facility] TSH 4.47 0.50 - 5.70 uIU/mL [facility] Blood 05/14/2022 11:2 7 AM EST 05/14/2022 11:36 AM EST us Gamaliel Ramos MD LAB BLOOD ORDERABLES Final Resul t Performing Organization Address [facility] de Phone Number [facility] [address] [place] [phone] from Last 3 Months or Most Recently Relevant to Health Maintenance Insurance MEDICARE PART A & B Member Subscriber Plan / Payer (Ef fective 2002-Present) Name:Alon Negro Member ID:[id number] Relation to Subscriber:Self Name:Alon Negro Subscriber ID:[id number] Payer ID:[id number] Group ID:Not on file Type:Medicare Address: [employer] [address] [place] [address] [employer] MEDEX SUPPLEMENT MEDICARE PART A & B [employer] MEDEX SUPPLEMENT MEDICARE PART A & B [employer] MEDEX SUPPLEMENT MEDICARE PART A & B [employer] MEDEX SUPPLEMENT MEDICARE PART A & B [employer] MEDEX SUPPLEMENT MEDICARE PART A & B [employer] MEDEX SUPPLEMENT MEDICARE PART A & B [employer] MEDEX SUPPLEMENT MEDICARE PART A & B [employer] MEDEX SUPPLEMENT MEDICARE PART A & B Member Subscriber Plan / Payer (Ef fective 2002-Present) Name:Alon Negro Member ID:[id number] Relation to Subscriber:Self Name:Alon Negro Subscriber ID:[id number] Payer ID:[id number] Group ID:Not on file Type:Medicare Address: [employer] [address] [place] [phone] [facility] MEDEX SUPPLEMENT Care Teams Career Services Director Relationship Specialty Start Date End Date Leonides Reynoso MD [address] [place] [phone] PCP - General Internal Medicine 11/24/21 Additional Source Comments The information contained in this document represents components of the legal health record. It is not the complete legal health record.[facility]
--- OUTSIDE RECORDS SUMMARY | 2024-11-01 07:21 | XMS_ITS | Patient Health Record ---
Author Organization [facility] Address [address] [place] [id number] Care Team Providers Care Actuary Clerk Name Role Phone Leonides Reynoso MD Primary Care Provider Shae Torres [phone] Allergies Allergen (clinical drug ingredient) Drug/Non Drug [...] MG TAKE 1 CAPSULE BY [facility] EVERY DAY for 90 Active Centrum - [...] the morning Orally Once a day Active Immunizations Vaccine Route Administration Date Status Comme nts Flu vaccine no Preserv 3 and > Unknown 01/24/2016 Admin istered Influenza Unknown 01/09/2018 Administered Influenza Unknown 02/06/2019 Administered Influenza Unknown 01/13/2020 Administered Social History Tobacco Use: Social History Observation Description Date Details (start date - stop date) Former Smoker NA - NA Tobacco Use/Smoking Question Answer Notes Patient is [...] drinks (0 point) Points 0 Interpretation Negative Section Notes: Nonsmoker; no sig alcohol Nonsmoker; no sig alcohol Nonsmoker; no sig alcohol Nonsmoker; no sig alcohol Nonsmoker; no sig alcohol Nonsmoker; no sig alcohol Nonsmoker; no sig alcohol Nonsmoker; no sig alcohol Problems Problem Type SNOMED Code ICD Code Onset Dates Problem Status W/U Status Risk Notes Problem 889395581 Encounter for screening for malignant neoplasm of colon (Z12.11) Active confirmed Problem 255744778 Change in bowel habits (R19.4) Active confirmed Problem 701186420 Gastroesophageal reflux disease without esophagitis (K21.9) Active confirmed Problem 722034551 Tubular adenoma of colon (D12.6) Active confirmed Problem 614307158 Family history o f colon cancer (Z80.0) Active confirmed Problem 88222214 Esophageal stric ture (K22.2) Active confirmed Problem 95571022 Constipation, unspecified constipation type (K59.00) Active confirmed Problem 910451975 Hx of adenomatou s colonic polyps (Z86.010) Active confirmed Problem 76673118 Dysphagia, unspecified type (R13.10) Active confirmed Problem 48759666 Diarrhea, unspecified type (R19.7) Active confirmed Problem 980520631 Positive colorec jhonatan cancer screening using Cologuard test (R19.5) Active confirmed Problem Colon, diverticulosis (K57.30) Active confirmed Plan Of Treatment Pending Test Test Name Order Date Pathology 10/17/2020 Future Test Test Name Order Date UPPER GI ENDOSCOPY BALLOOON DILATION OF ESOPH 08/04/2015 COLONOSCOPY 06/25/2019 COLONOSCOPY 09/01/2019 COLONOSCOPY 07/27/2020 Insurance Providers Payer Name Payer Address Payer Phone Subscriber Number Group Number Insured Name Patient Relationship to Insured Coverage Start Date Coverage End Date MEDICARE OF [place] [address] [place] [id number] SHAE LEVY Self - patient is the insured MED[employer] ATT[employer] CLAIMS [address] [place] [address] [phone] [id number] SHAE LEVY Self - patient is the insured Medical (General) History Medical History History ICD Code Hypertension Hyperlipidemia Tubular adenomas removed in 2010, 1999, and in 1996; he had a negative colonoscopy in 2005; colonoscopy in 1999 was complicated by a sigmoid perforation requiring surgery as below; neg. hemoccults x 3 in summer 2018 Denies NH,DM,CVA,Lung disease,renal dise ase Sinus problems GERD/esophageal stricture--u [...]
--- OUTSIDE RECORDS SUMMARY | 2024-11-01 07:21 | XMS_ITS | Encounter Summary ---
Author Organization [facility] Address [address] [place] [address] Care Team Providers Care Environmental Planning Engineer Name Role Phone Steven Angel MD Primary Care Provider [phone] Encounter Details Date Type Department Care Team (Late st Contact Info) Description 05/20/2024 Lab Requisition [facility] - Main Lab [address] [facility] [place] [address] Steven Angel MD [address] [place] [address] [address] [place], [phone] Influenza due to identified novel influenza A virus with other respiratory manifestations; Respiratory syncytial virus as the cause of diseases classified elsewhere; Essential (primary) hypertension; Hyperlipidemia, unspecified Social History Tobacco Use Types Packs/Day Years Used Date Smoking Tobacco: Never Assessed Sex and Gender Information Value Date Recorded Sex Assigned at Not on file Legal Sex Male 10:25 PM EST Gender Identity Not on file Sexual Orientation Not on file documented as of this encounter Plan of Treatment Not on file documented as of this encounter Procedures Procedure Name Priority Date/Time Associated Diagnosis Comments COMPLETE BLOOD COUNT Routine 05/20/2024 7:10 AM EST Influenza due to identified novel influenza A virus with other respiratory manifestations Respiratory syncytial virus as the cause of diseases classified elsewhere Essential (primary) hypertension Hyperlipidemia, unspecified COMPREHENSIVE METABOLIC PANEL Routine 05/20/2024 7:10 AM EST Influenza due to identified novel influenza A virus with other respiratory manifestations Respiratory syncytial virus as the cause of diseases classified elsewhere Essential (primary) hypertension Hyperlipidemia, unspecified documented in this encounter Results * (ABNORMAL) Comprehensive metabolic panel (05/20/2024 7:10 AM EST) [facility] Signature Sodium 139 133 - 145 mmol/L LAB CHEMISTRY METHOD 05/20/2024 11:58 AM [facility] Potassium 3.8 3.5 - 5.5 mmol/L LAB CHEMISTRY METHOD 05/20/2024 11:58 AM [facility] Chloride 104 96 - 110 mmol/L LAB CHEMISTRY METHOD 05/20/2024 11:58 AM [facility] CO2 28 21 - 32 mmol/L LAB CHEMISTRY METHOD 05/20/2024 11:58 AM [facility] Anion Gap 7 3 - 11 LAB CHEMISTRY METHOD 05/20/2024 11:58 AM [facility] Glucose 75 70 - 100 mg/dL LAB CHEMISTRY METHOD 05/20/2024 11:58 AM [facility] BUN 19 5 - 25 mg/dL LAB CHEMISTRY METHOD 05/20/2024 11:58 AM [facility] Creatinine 0.82 0.70 - 1.30 mg/dL LAB CHEMISTRY METHOD 05/20/2024 11:58 AM [facility] eGFR 85 >=60 mL/min/1. 73m2 LAB CHEMISTRY METHOD 05/20/2024 11:58 AM [facility] Comment:Calculation based on the Chronic Kidney Disease Epidemiology Collaboration (CKD-EPI) equation refit without adjustment for race. BUN/Creatinine Ratio 23.2 LAB CHEMISTRY METHOD 05/20/2024 11:58 AM [facility] Calcium 8.8 8.5 - 10.5 mg/dL LAB CHEMISTRY METHOD 05/20/2024 11:58 AM [facility] AST (SGOT) 19 10 - 42 unit/L LAB CHEMISTRY METHOD 05/20/2024 11:58 AM [facility] ALT (SGPT) 38 10 - 60 unit/L LAB CHEMISTRY METHOD 05/20/2024 11:58 AM [facility] Alkaline Phosphatase 64 42 - 121 unit/L LAB CHEMISTRY METHOD 05/20/2024 11:58 AM [facility] Total Protein 5.4(L) 6.0 - 8.0 g/dL LAB CHEMISTRY METHOD 05/20/2024 11:58 AM [facility] Albumin 3.4 3.2 - 5.0 g/dL LAB CHEMISTRY METHOD 05/20/2024 11:58 AM [facility] Total Bilirubin 0.8 0.0 - 1.4 mg/dL LAB CHEMISTRY METHOD 05/20/2024 11:58 AM [facility] Blood Venous blood specimen / Unknown Venipuncture / Unknown 05/20/2024 7:10 AM EST 05/20/2024 10:41 AM EST us Steven Angel MD LAB BLOOD ORDERABLES Final Resul t [facility] [address] [place] [address], * (ABNORMAL) Complete blood count (05/20/2024 7:10 AM EST) WBC 17.1(H) 4.8 - 10.8 K/mcL LAB HEMETOLOGY METHOD 05/20/2024 11:48 AM [facility] RBC 4.30(L) 4.50 - 5.50 M/mcL LAB HEMETOLOGY METHOD 05/20/2024 11:48 AM [facility] Hemoglobin 13.7 13.5 - 17.5 g/dL LAB HEMETOLOGY METHOD 05/20/2024 11:48 AM [facility] Hematocrit 41.4(L) 42.0 - 54.0 % LAB HEMETOLOGY METHOD 05/20/2024 11:48 AM [facility] MCV 96.5 79.0 - 98.0 FL LAB HEMETOLOGY METHOD 05/20/2024 11:48 AM [facility] MCH 31.9 27.0 - 32.0 pcg LAB HEMETOLOGY METHOD 05/20/2024 11:48 AM EST [facility] MCHC 33.1 32.0 - 37.0 g/dL LAB HEMETOLOGY METHOD 05/20/2024 11:48 AM [facility] RDW 12.7 11.0 - 15.0 % LAB HEMETOLOGY METHOD 05/20/2024 11:48 AM [facility] Platelets 231 130 - 400 K/mcL LAB HEMETOLOGY METHOD 05/20/2024 11:48 AM [facility] MPV 11.1(H) 7.0 - 11.0 FL LAB HEMETOLOGY METHOD 05/20/2024 11:48 AM [facility] NRBC 0.0 <1.0 % LAB HEMETOLOGY METHOD 05/20/2024 11:48 AM [facility] NRBC Absolute 0.00 <0.10 K/mcL LAB HEMETOLOGY METHOD 05/20/2024 11:48 AM [facility] Blood Venous blood specimen / Unknown Venipuncture / Unknown 05/20/2024 7:10 AM EST 05/20/2024 10:41 AM EST us Steven Angel MD LAB BLOOD ORDERABLES Final Resul t [facility] [address] [place] [address], documented in this encounter Visit Diagnoses Diagnosis Influenza due to identified novel influenza A virus with other respiratory manifestations Respiratory syncytial virus as the cause of diseases classified elsewhere Essential (primary) hypertension Unspecified essential hypertension Hyperlipidemia, unspecified documented in this encounter Care Teams Environmental Planning Engineer Relationship Specialty Start Date End Date Steven Angel MD [address] [place] [address], [phone] PCP - General Family Medicine 05/20/24 documented as of this encounter
--- NOTE | 2024-11-01 07:32 | PC.NURSE ---
pt a&ox3, passed swallow eval, vss, monitoring and evaluation advisor intact- nsr 60 with pvcs, pt strength equal upper/lower extremities, smile symmetrical, currently denies pain/discomfort. pt awaiting radiology results, call fam within reach, plan of care ongoing
--- NOTE | 2024-11-01 07:40 | ECG_ITS ---
Test Reason : stroke alert Blood Pressure : */* mmHG Vent. Rate : 59 BPM Atrial Rate : 59 BPM P-R Int : 306 ms QRS Dur : 106 ms QT Int : 406 ms P-R-T Axes : 65 7 25 degrees QTcB Int : 401 ms Sinus bradycardia with 1st degree A-V block Nonspecific T wave abnormality Abnormal ECG When compared with ECG of 16-May-2024 01:39, Criteria for Septal infarct are no longer Present T wave inversion no longer evident in Inferior leads T wave inversion no longer evident in Lateral leads Referred By: Tila Marti Electronically Signed By: Jan Marques
[2024-11-01 07:45] VITALS: BP 130/67; PULSE 59; RESP 16; TEMP 36.5; O2SAT 98
[2024-11-01 08:13] LABS: Alanine Aminotransferase 19 U/L (0-40); Albumin Level 4.4 g/dL (3.5-5.0); Alkaline Phosphatase 40 U/L (39-117); Anion Gap 12 (12-20); Aspartate Amino Transferase 18 U/L (5-37); Blood Urea Nitrogen 15 mg/dL (9-16); Calcium 8.7 mg/dL (8.4-10.2); Carbon Dioxide 24 mmol/L (22-29); Chloride 109 mmol/L (96-108); Creatinine Clr Calc Pharmacy 71.1; Estimated Glomerular Filt Rate > 60; Magnesium 2.1 mg/dL (1.6-2.6); Potassium 3.3 mmol/L (3.3-5.1); Sodium 142 mmol/L (135-145); Total Protein 5.7 g/dL (6.5-8.0)
[2024-11-01] MEDS: Aspirin Enteric Coated 81 MG TABLET.DR PO (08:18)
[2024-11-01 08:20] LABS: Troponin-I High Sensitivity 4.3 ng/L (<3.5-35.0)
--- NOTE | 2024-11-01 09:19 | PM.IMHP ---
History of Present Illness Date of Service: 11/01/24 Chief Complaint: Left mouth quivering 89-year-old male with history of myasthenia gravis, hyperlipidemia, hypertension who presented to the hospital with a complaint of and ?left mouth area quiverering . He had gotten up in the middle of the night and thought that he was sent in some trivial movement around the left corner of the mouth and looked in a mirror and perhaps that he had a little droop. Apart from this he did not have any other neurological changes. In the ED his vitals are stable. Neurological exam is unremarkable. NIH score is 0. CT of the head and neck is unremarkable. He has been observed for TIA Review of Systems Review of Systems: As per HPI otherwise normal [facility] Medical History Myasthenia gravis COVID-19 vaccine administered GERD (gastroesophageal reflux disease) Insomnia Hyperlipidemia Orthostatic hypotension dysautonomic syndrome HTN (hypertension) Non-toxic multinodular goiter Hypothyroidism Family History Father Parkinsons disease Mother Myocardial infarction CVD (cardiovascular disease) Cancer Surgical History Hx of cataract surgery History of colon surgery History of esophagogastroduodenoscopy (EGD) H/O colonoscopy Hx of tonsillectomy Hx of appendectomy Social History Household Members: None Housing: Apartment Are you a primary reservoir caretaker to a significant other at home: No Do you presently have visiting nurse or other home services: No Alcohol intake: never Patient Tobacco Use Status: Former Tobacco user Tobacco use type: Cigarette Cigarette Packs Per Day: 1 Cigarettes Per Day: 20.0 Years Smoked: 30 e-Cigarette/Vaping Use: Never Used service: No Current occupational status: retired Meds Allergies Allergy/AdvReac Type Severity Reaction Status Date / Time meperidine (From Demerol) Allergy Unknown unknown Verified 11/01/24 06:21 reaction-patient states was many years ago Home Medications ?Medication ?Instructions ?Recorded ?Confirmed ?Last Taken ?Type cholecalciferol (vitamin D3) 25 25 mcg PO DAILY 0111/01/24 10/31/24 History mcg (1,000 unit) capsule isosorbide dinitrate 20 mg tablet 20 mg PO DAILY 10/11/20 11/01/24 10/31/24 History atorvastatin 40 mg tablet 40 mg PO BEDTIME 10/08/21 11/01/24 10/31/24 History hydralazine 50 mg tablet 50 mg PO BEDTIME 10/08/21 11/01/24 10/31/24 History levothyroxine 88 mcg tablet 88 mcg PO DAILY@0600 10/08/21 11/01/24 10/31/24 History omeprazole 20 mg capsule,delayed 20 mg PO DAILY@0630 10/08/21 11/01/24 10/31/24 History release pyridostigmine bromide 60 mg tablet 60 mg PO QID 11/22/21 11/01/24 10/31/24 History trazodone 50 mg tablet 75 mg PO BEDTIME 05/22/22 11/01/24 10/31/24 History melatonin 10 mg tablet 10 mg PO BEDTIME 05/16/24 11/01/24 10/31/24 History metformin 500 mg tablet,extended 500 mg PO DAILY 05/16/24 11/01/24 10/31/24 History release 24 hr prednisone 5 mg tablet 10 mg PO DAILY 05/16/24 11/01/24 10/31/24 History amlodipine 5 mg tablet 5 mg PO BEDTIME 11/01/24 11/01/24 10/31/24 History calcium carbonate 1,000 mg PO DAILY 11/01/24 11/01/24 10/31/24 History levocetirizine 5 mg tablet (Xyzal) 5 mg PO DAILY 11/01/24 11/01/24 10/31/24 History multivitamin 1 tab PO DAILY 11/01/24 11/01/24 10/31/24 History mycophenolate mofetil 500 mg tablet 1,000 mg PO BID 11/01/24 11/01/24 10/31/24 History Physical Exam Vital Signs and Narrative: Vital Signs: Last Vital Signs Temp 97.7 F 11/01/24 06:26 Pulse 66 11/01/24 06:26 Resp 12 11/01/24 06:26 BP 137/60 11/01/24 06:26 Pulse Ox 96 11/01/24 06:26 O2 Del Method Room Air 11/01/24 06:26 BMI result Body Mass Index 24.7 Const: Other: Constitutional: Alert, in no distress, overweight. Mental Status: Oriented to person, place and time. Eyes: Pupils are equal, round and reactive to light. Ear, Nose and Throat: Oropharynx clear, mucous membranes moist. Respiratory: Clear to auscultation. No wheezing, rales or rhonchi. Cardiovascular: S1 S2 regular. No murmurs, rubs or gallops. Gastrointestinal: Abdomen soft, non-tender, non-distended. Normal bowel sounds.? Neurologic: Cranial nerves II-XII grossly intact. No focal neurological deficits. Moves all extremities spontaneously.? Skin: No rashes or lesions.? Musculoskeletal: No cyanosis or clubbing. Psychiatric: Normal mood and affect? Results Labs 11/01/24 06:31 11/01/24 07:50 Labs: Laboratory Results - last 24 hr 11/01/24 11/01/24 11/01/24 06:27 06:31 07:50 MCV 94.9 MCH 32.4 MCHC 34.1 RDW 12.9 Plt Count 214 MPV 10.2 Absolute Nucleated RBC 0.000 Nucleated RBC % (auto) 0.0 PT 10.9 INR 1.0 Anion Gap 12 Estim Creat Clear Calc 71.1 Estimated GFR > 60 POC Glucose 130 H Random Glucose 114 Calcium 8.7 Magnesium 2.1 Total Bilirubin 1.0 AST 18 ALT 19 Alkaline Phosphatase 40 Total Protein 5.7 L Albumin 4.4 Assessment and Plan (1) Anxiety: Status: Acute Plan 89/m with HTN, HLD, h/o myasthenia gravis (MG) here with vague symptoms of quivering around mouth and question TIA ? TIA, presentation is atypical and doubt TIA, suspect anxiety MRI continue Lipitor, BP meds, add aspirin. Holding further imaging for now No indication for speech, PT or OT eval HTN resume home meds HLD Lipitor Check lipid profile MG, not active continue home meds DVT prophylaxis Lovenox Quality Stroke Does the patient have a stroke diagnosis?: No VTE Prior VTE?: No VTE Risk Level:: Medical - moderate - high VTE Device Contraindication: Treatment Not Tolerated VTE Drug Contraindication: N/A - Med Ordered
--- NOTE | 2024-11-01 10:08 | PM.NEUROCN ---
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 He said that he was feeling okay yesterday except that he was very nervous when he noted twitching of left side of face close to his mouth. When he looked in the mirror, left side with a face seemed droopy and he got nervous and came to hospital. He was still very concerned about that stating that anxiety was a significant problem and he needed some medicine because he always think that there was something wrong with him. Facial twitching was still sometime happening. Review of Systems Review of Systems: No recent speech or swallowing difficulty or breathing difficulty or cold or flu-like illness PMFSH Past Medical History Medical History Myasthenia gravis COVID-19 vaccine administered GERD (gastroesophageal reflux disease) Insomnia Hyperlipidemia Orthostatic hypotension dysautonomic syndrome HTN (hypertension) Non-toxic multinodular goiter Hypothyroidism Family History Family History Father Parkinsons disease Mother Myocardial infarction CVD (cardiovascular disease) Cancer Surgical History Surgical History Hx of cataract surgery History of colon surgery History of esophagogastroduodenoscopy (EGD) H/O colonoscopy Hx of tonsillectomy Hx of appendectomy Social History Social History Household Members: None Housing: Apartment Are you a primary primary health care nurse to a significant other at home: No Do you presently have visiting nurse or other home services: Yes (gets infusions weekly) Alcohol intake: never Patient Tobacco Use Status: Former Tobacco user Smoked in Last 30 Days: No e-Cigarette/Vaping Use: Never Used Use of substances other than those prescribed or required for medical reasons: No Advance Directives: No Advance Directives Information Provided: Yes service: No Current occupational status: retired Meds Allergies Allergy/AdvReac Type Severity Reaction Status Date / Time meperidine (From Demerol) Allergy Unknown unknown Verified 11/01/24 06:21 reaction-patient states was many years ago Active Medications: Current Medications Acetaminophen (Acetaminophen 325 Mg Tablet) 650 mg PO Q6H PRN PRN Reason: Pain, Mild 1-3,fever,headache Magnesium Hydroxide (Milk Of Magnesia 30 Ml Oral.Susp) 30 ml PO DAILY PRN PRN Reason: Constipation Melatonin (Melatonin 3 Mg Tablet) 6 mg PO BEDTIME PRN PRN Reason: Insomnia Polyethylene Glycol (Polyethylene Glycol 3350 17 Gm Powd.Pack) 17 gm PO DAILY PRN PRN Reason: Constipation Home Medications ?Medication ?Instructions ?Recorded ?Confirmed ?Last Taken ?Type cholecalciferol (vitamin D3) 25 25 mcg PO DAILY 05/05/20 05/16/24 05/15/24 History mcg (1,000 unit) capsule isosorbide dinitrate 20 mg tablet 20 mg PO DAILY 10/11/20 05/16/24 05/15/24 History atorvastatin 40 mg tablet 40 mg PO BEDTIME 10/08/21 05/16/24 05/15/24 History hydralazine 50 mg tablet 50 mg PO BEDTIME 10/08/21 05/16/24 05/15/24 History levothyroxine 88 mcg tablet 88 mcg PO DAILY@0600 10/08/21 05/16/24 05/15/24 History omeprazole 20 mg capsule,delayed 20 mg PO DAILY@0630 10/08/21 05/16/24 05/15/24 History release pyridostigmine bromide 60 mg tablet 60 mg PO QID 11/22/21 05/16/24 05/15/24 History trazodone 50 mg tablet 75 mg PO BEDTIME 05/22/22 05/16/24 05/15/24 History fexofenadine 180 mg tablet 180 mg PO DAILY 05/16/24 05/16/24 05/15/24 History melatonin 10 mg tablet 10 mg PO BEDTIME 05/16/24 05/16/24 05/15/24 History metformin 500 mg tablet,extended 500 mg PO DAILY 05/16/24 05/16/24 05/15/24 History release 24 hr prednisone 5 mg tablet 5 mg PO DAILY 05/16/24 05/16/24 05/15/24 History Physical Exam Vital Signs: Vital Signs: Last Vital Signs Temp 97.7 F 11/01/24 06:26 Pulse 66 11/01/24 06:26 Resp 12 11/01/24 06:26 BP 137/60 11/01/24 06:26 Pulse Ox 96 11/01/24 06:26 O2 Del Method Room Air 11/01/24 06:26 BMI result Body Mass Index 24.7 Neuro: Other: He is alert and awake with normal spontaneity of speech fluency comprehension and anxious affect. There is mild left-sided facial flatness. There was no pronator drift. Deep tendon reflexes are trace to absent with flexor plantars. Speech is normal. Results Labs 11/01/24 06:31 11/01/24 07:50 Labs: Short CBC 11/01/24 Range/Units 06:31 WBC 9.6 (4.8-10.8) X10*3/uL Hgb 14.6 (14.0-18.0) g/dl Hct 42.8 (42.0-52.0) % Plt Count 214 (160-400) X10*3/uL BMP 11/01/24 07:50 Sodium 142 Potassium 3.3 Chloride 109 H Carbon Dioxide 24 BUN 15 Creatinine 0.66 Calcium 8.7 Liver Function 11/01/24 Range/Units 07:50 Total Bilirubin 1.0 (0.0-1.0) mg/dL AST 18 (5-37) U/L ALT 19 (0-40) U/L Alkaline Phosphatase 40 (39-117) U/L Albumin 4.4 (3.5-5.0) g/dL Head CT and CTA of brain did not reveal any significant abnormality other than mild microvascular disease. Assessment and Plan (1) Transient cerebral ischemia: Qualifiers: Transient cerebral ischemia type: unspecified Qualified Code(s): G45.9 - Transient cerebral ischemic attack, unspecified Status: Acute 89 years old man with underlying antibody positive myasthenia gravis, very anxious and nervous at this time, who presented with mild left-sided facial weakness and twitches. He does have mild asymmetry or face with flatness of left nasolabial fold, which maybe a chronic issue. A noncontrast MRI of brain is needed to clarify. Otherwise he is quite nervous and I recommend treating either with a medicine like alprazolam 0.5 mg as needed or putting him on sertraline 25 mg a day. In the meantime baby aspirin daily and continuation of atorvastatin is recommended. His symptoms that brought him to emergency room are not explainable based upon his diagnosis of myasthenia gravis, which she should continue to follow with his neurologist. Procedures Date of Service Date of Service: 11/01/24
--- NOTE | 2024-11-01 10:14 | PC.NURSE ---
nursing swallow this nurse did a bedside swallow at the start of this shift this morning, patient passed the swallow, Dr. Thorne put in another nursing swallow, this nurse notified Dr. Thorne he had passed the nursing swallow this morning and his status has not changed since then, another nursing swallow wasn't indicated to be performed.
[2024-11-01 10:20] LABS: Cholesterol 128 mg/dL (<200); HDL Cholesterol 43 mg/dL (>40); Triglycerides 188 mg/dL (<150)
--- NOTE | 2024-11-01 12:35 | PC.NURSE ---
pt to MRI
[2024-11-01 13:56] VITALS: BP 137/63; PULSE 61; RESP 16; TEMP 36.5; O2SAT 97
--- NOTE | 2024-11-01 14:49 | PC.NURSE ---
patient is a&ox3, vitals have been stable, pt is ambulatory with a steady gait however this nurse requested this morning that the patient to just ring for standby assist for ambulation to bathroom, night monitor remains nsr, neuros remain intact-pt has full strength of all extremities, denies pain/discomfort, call fam within reach, plan of care ongoing
--- NOTE | 2024-11-01 15:45 | PHA.MEDREC ---
Addendum entered by Nelly Cantu RPh 11/01/24 16:33: MED REC REVIEWED BY [facility] Original Note: Pharmacy Consult ? Medication Reconciliation Pharmacy has completed the medication reconciliation. [facility] Spoke with patient to confirm as well. He takes amlodipine once at bedtime. He takes 1.5 tablets of captopril 12.5 mg TID. He switched from marquez to Xyzal OTC daily. He reports taking omeprazole and isosorbide however the [facility] not [facility]. Patient was confident that he takes these daily, left on med rec. He confirmed prednisone 10 mg daily and mycophenolate 1000 mg bid. He took all of his medications yesterday.
[2024-11-01 16:00] VITALS: BP 152/67; PULSE 63; RESP 18; TEMP 36.3; O2SAT 95
[2024-11-01 18:57] VITALS: BP 164/68; PULSE 65; RESP 16; TEMP 36.6; O2SAT 95
[2024-11-01 20:00] VITALS: BMI 24.3
[2024-11-01 23:27] VITALS: BP 156/74; PULSE 67; RESP 16; TEMP 37; O2SAT 93
[2024-11-02 01:08] VITALS: BMI 24.5
[2024-11-02 03:04] VITALS: BP 159/79; PULSE 64; RESP 16; TEMP 36.6; O2SAT 95
[2024-11-02 06:53] VITALS: BP 159/81
[2024-11-02 07:09] LABS: Cholesterol 145 mg/dL (<200); HDL Cholesterol 47 mg/dL (>40); Triglycerides 121 mg/dL (<150)
[2024-11-02 07:37] LABS: Glucose, Whole Blood 104 mg/dL (60-115)
[2024-11-02 07:48] VITALS: BP 149/78; PULSE 68; RESP 20; TEMP 36.3; O2SAT 97
[2024-11-02] MEDS: Calcium Oyster Shell Elemental 500 MG TABLET 1000 MG PO (08:13)
--- NOTE | 2024-11-02 09:09 | P.DS_ITS ---
DS: Providers Provider Date of Service: 11/02/24 Date of admission: 11/01/24 09:10 Date of discharge: 11/02/24 Primary care physician: Leonides Reynoso MD Consults: 11/01/24 09:18 Consult to Neurology Routine Consulting Provider: Austin Arce Reason for consultation: TIA DS: Diagnosis Discharge Diagnosis (1) Anxiety: Status: Acute DS: Summary Hospital Course Hospital Course: admission hpi Chief Complaint: Left mouth quivering 89-year-old male with history of myasthenia gravis, hyperlipidemia, hypertension who presented to the hospital with a complaint of and ?left mouth area quiverering . He had gotten up in the middle of the night and thought that he was sent in some trivial movement around the left corner of the mouth and looked in a mirror and perhaps that he had a little droop. Apart from this he did not have any other neurological changes. In the ED his vitals are stable. Neurological exam is unremarkable. NIH score is 0. CT of the head and neck is unremarkable. He has been observed for TIA Hospital course: Patient was observed overnight, had MRI of the head which was unremarkable. No further symptoms. Was seen by Neurology and thought his symptoms were related to anxiety with recommendation to start Sertraline 25 mg daily and ativan PRN for anxiety. He is doing well, exam is normal and prescribing Sertraline 25 mg daily and Ativan 0.25 mg Q6hr PRN for anxiety\ Final diagnoses: Ruled out TIA anxiety episode Time Attestation Discharge Coordination Time (in mins): 40 Quality: Safe Use of Opioids Does Pt have an Active Cancer Diagnosis on the Problem List?: No Quality: Stroke Does the patient have a stroke diagnosis?: No Physical Exam Vital Signs: Vital Signs: Last Vital Signs Temp 97.4 F 11/02/24 07:48 Pulse 68 11/02/24 07:48 Resp 20 11/02/24 07:48 BP 149/78 H 11/02/24 07:48 Pulse Ox 97 11/02/24 07:48 O2 Del Method Room Air 11/02/24 07:48 BMI result Body Mass Index 24.5 General: AO X 3, no acute distress Resp: CTA bilateral CVS: S1,S2,RRR GI: +BS, NT, no distention Skin: No rash Neuro: motor grossly intact Psych: appropriate affect DS: Data Data Completed and Pending Labs on day of discharge: Laboratory Results - last 24 hr 11/01/24 11/02/24 11/02/24 07:50 06:25 07:33 Hold Purple Top SEE NOTE POC Glucose 104 Triglycerides 188 H 121 Cholesterol 128 145 LDL Cholesterol, Calc 48 74 HDL Cholesterol 43 47 Discharge Plan Discharge Anticipated Discharge Date/Time: 11/02/24 09:01 Patient Disposition: Home, Self-Care Discharge Diagnosis: Anxiety episode Referrals: Leonides Reynoso MD [Primary Care Provider, Medical] - 1 Week Discharge Medications: New acetaminophen 325 mg Tablet 650 mg PO Q6H PRN (Reason: Pain, Mild 1-3,Fever,Headache) Qty: 20 0RF sertraline 25 mg Tablet 25 mg PO DAILY Qty: 30 0RF Continued captopril 12.5 mg tablet 18.75 mg PO TID 90 Days Qty: 405 0RF Rx Instructions: 1 and 1/2 tabl TID isosorbide dinitrate 20 mg tablet 20 mg PO DAILY Rx Instructions: allow nitrate-free interval of 12-14 hrs per 24-hr period trazodone 50 mg tablet 75 mg PO BEDTIME hydralazine 50 mg tablet 50 mg PO BEDTIME atorvastatin 40 mg tablet 40 mg PO BEDTIME levothyroxine 88 mcg tablet 88 mcg PO DAILY@0600 omeprazole 20 mg capsule,delayed release(DR/EC) 20 mg PO DAILY@0630 multivitamin Tablet 1 tab PO DAILY mycophenolate mofetil 500 mg Tablet 1,000 mg PO BID calcium carbonate 500 mg calcium (1,250 mg) Tablet 1,000 mg PO DAILY levocetirizine [Xyzal] 5 mg Tablet 5 mg PO DAILY amlodipine 5 mg tablet 5 mg PO BEDTIME prednisone 5 mg tablet 10 mg PO DAILY metformin 500 mg Tablet Extended Release 24 Hr 500 mg PO DAILY melatonin 10 mg Tablet 10 mg PO BEDTIME cholecalciferol (vitamin D3) 25 mcg (1,000 unit) capsule 25 mcg PO DAILY pyridostigmine bromide 60 mg tablet 60 mg PO QID Discharge Orders: Discharge Order (Routine); Ordered 11/02/24 Ordered By: Jourdan Thorne Diet: Advance to usual diet Activity on Discharge: As tolerated Stand Alone Forms: Patient Portal Discharge page Print Language: Citizen Of [place] Care Plan Goals: reassurance, TIA was ruled out Health Concerns: probably anxiety episode Plan of Treatment: take sertraline as directed take ativan as directed for anxiety Follow up with your Doctor in a week Assessment: see above
--- NOTE | 2024-11-02 09:22 | MHC.CM.PN ---
PT REPORTS HE LIVES ALONE AND IS INDEPENDENT WITH CARE HE HAS A CANE AND WALKER, BUT DOES NOT USE DME AT BASELINE COPY OF HCP ON FILE AND VERIFIED PCP: [facility] NOTICE DELIVERED DCP: PT WILL DC HOME TODAY WITH NO SERVICES VIA FAMILY TRANSPORT
[2024-11-02 11:14] LABS: Prothrombin Time Whole Blood 10.9 sec (11.1-13.5)
[2024-11-02 11:15] LABS: INR Whole Blood 0.9 (0.9-1.1)
== END 2024-11-02 10:49 | disposition home or self-care (01) ==
LOC: HO.ED 07:42 → HO.EDOVER 09:15 → HO.IMC 17:41
PROVIDERS: Admitting Provider Internal Medicine; Emergency Provider Emergency Medicine; PCP Internal Medicine; Visit Provider Internal Medicine
DX: F41.9 Anxiety disorder, unspecified (principal); R29.810 Facial weakness; R00.1 Bradycardia, unspecified; I44.0 Atrioventricular block, first degree; R94.31 Abnormal electrocardiogram [ECG] [EKG]; G70.00 Myasthenia gravis without (acute) exacerbation; I10 Essential (primary) hypertension; E11.9 Type 2 diabetes mellitus without complications; E78.5 Hyperlipidemia, unspecified; K21.9 Gastro-esophageal reflux disease without esophagitis; E03.9 Hypothyroidism, unspecified; Z79.899 Other long term (current) drug therapy
CPT/HCPCS: 36415; 70450; 70496; 70498; 70551; 71045; 80053; 80061; 82947; 83735; 84484; 85027; 85610; 93005; 99222; 99285; Q9967

== ENCOUNTER → 2024-11-01 06:27 | Outpatient (BNV) | payer MEDICARE, SELFPAY | PROVIDERS: Emergency Provider Emergency Medicine; PCP Internal Medicine; Visit Provider Radiology Diagnostic Radiology | DX: E04.1 Nontoxic single thyroid nodule (principal); R29.810 Facial weakness | CPT/HCPCS: 70551 ==

== ENCOUNTER → 2024-11-01 07:40 | Outpatient (BNV) | payer MEDICARE, SELFPAY | PROVIDERS: Admitting Provider Internal Medicine; Emergency Provider Emergency Medicine; PCP Internal Medicine; Visit Provider Internal Medicine Cardiovascular Disease | DX: I44.0 Atrioventricular block, first degree (principal); R00.1 Bradycardia, unspecified | CPT/HCPCS: 93010 ==

== ENCOUNTER → 2024-11-01 09:10 | Outpatient (BNV) | payer MEDICARE, SELFPAY | PROVIDERS: Admitting Provider Internal Medicine; Emergency Provider Emergency Medicine; PCP Internal Medicine; Visit Provider Psychiatry & Neurology Neurology | DX: G45.9 Transient cerebral ischemic attack, unspecified (principal) | CPT/HCPCS: 99222 ==

== ENCOUNTER → 2024-11-01 09:10 | Outpatient (BNV) | payer MEDICARE, SELFPAY | PROVIDERS: Admitting Provider Internal Medicine; Emergency Provider Emergency Medicine; PCP Internal Medicine; Visit Provider Internal Medicine | DX: F41.9 Anxiety disorder, unspecified (principal); I10 Essential (primary) hypertension; E78.5 Hyperlipidemia, unspecified | CPT/HCPCS: 99222; 99239 ==

== ENCOUNTER 2024-12-31 08:57 | Outpatient (AMB) | payer MEDICARE, SELFPAY ==
--- OUTSIDE RECORDS SUMMARY | 2024-05-26 06:30 | XMS_ITS ---
Author Organization [facility] Meng prateek Negrito Address [address] [facility] [place] [address] Care Team Providers Care New Business Clerk Name Role Phone Leonides Reynoso MD Primary Care Provider Thaddeus Castle Unavailable [phone] Allergies Allergen (clinical drug ingredient) Drug/Non Drug Allergy documented on EMR Reaction Allergy Type Onset Date Status meperidine Demerol Unknown Drug Allergy Active Medications Medication SIG (Take, Route, Frequency, Duration) Notes Start Date End Date Status Aspirin 81 MG 1 tablet Orally Once a day; Duration: 30 day(s) Not-Taking Lotrisone Not-Taking Ciclopirox Olamine 0.77 % 1 application to affected area Externally to feet Twice a day; Duration: 30 days Not-Taking Fluticasone Propionate (Inhal) 50 MCG/BLIST 1 puff Inhalation Twice a day Not-Taking Sertraline HCl 25 MG 1 tablet Orally Onc e a day; Duration: 30 day(s) Not-Taking Synthroid 75 MCG 1 tablet in the morn ing on an empty stomach Orally Once a day; Duration: 30 day(s) Active Vitamin C Active Zinc Active Extra Depth Orthopedic Shoes, (1) Pair With (3) Pair Custom Heat Molded Multidensity Innersoles Dx: 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), 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,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 ), Preulcerative Skin Lesion(s)(L85.1) Wear Daily; Duration: 365 days 11/08/2023 Active Ativan 1 MG 1 tablet at bedtime as needed Orally Once a day PRN Not-Taking Melatonin 3 MG 1 tablet at bedtime as needed Orally Once a day; Duration: 30 day(s) Active Omeprazole 20 MG 1 capsule 30 minutes before morning meal Orally Once a day; Duration: 30 day(s) Active Vitamin D 25 MCG (1000 UT) 1 tablet Orally Once a day; Duration: 30 day(s) Active hydrALAZINE HCl 50 MG 1 tablet with food Orally Three times a day; Duration: 30 day(s) Active Isosorbide Dinitrate 20 MG 1 tablet Orally Twice a day; Duration: 30 day(s) Active amLODIPine Besylate 2.5 MG 1 tablet Orally Once a day; Duration: 30 day(s) Active Centrum - as directed Orally A ctive Captopril 12.5 MG 1 tablet 1 hour befo re or 2 hours after meals Orally Twice a day; Duration: 30 day(s) Active Claritin 10 MG 1 tablet Orally Once a day; Duration: 30 day(s) Active Crestor 20 MG 1 tablet Orally Once a day; Duration: 30 day(s) Active Vyvgart 400 MG/20ML as directed Intravenous Active metFORMIN HCl Active pyRIDostigmine [place] 60 MG as directed Orally 3 times a day Active predniSONE Active Encounters Encounter Location Date Provider Diagnosis [facility] [address] [address] 05/26/2024 Thaddeus Camarena Plan Of Treatment Next Appt Details Provider Name:Thaddeus Camarena , 03/16/2025 10:00:00 AM, [address] [place] [address], [phone], Progress Notes * Alon NEGRO SrDOB:[birth year] (89 yo M)Acc No.[id number]:05/26/2024 Progress Note Patient: Diana BONITABRITAlon Sr Provider: Luigi Camarena DPM :1935 A ge:89 Y S ex:Male Date:05/26/2024 Address:[address] [place], [place] [id number] Pcp:Leonides Reynoso MD Subjective: * Chief Complaints: * * Medical History: B roken bones, High blood pressure, Numbness, Reflux ( GERD), Chronic sinusitis, Thyroid, Measles, Mumps, Chicken pox, CAD, Myasthenia gravis, Pre type II diabetes. * Medications: T aking Vyvgart 400 MG/20ML Solution as directed Intravenous , Taking metFORMIN HCl , Taking pyRIDostigmine [place] 60 MG Tablet as directed Orally 3 times a day , Taking predniSONE , Taking amLODIPine Besylate 2.5 MG Tablet 1 tablet Orally Once a day , Taking Centrum - Liquid as directed Orally , Taking Captopril 12.5 MG Tablet 1 tablet 1 hour before or 2 hours after meals Orally Twice a day , Taking Claritin 10 MG Tablet 1 tablet Orally Once a day , Taking Crestor 20 MG Tablet 1 tablet Orally Once a day , Taking hydrALAZINE HCl 50 MG Tablet 1 tablet with food Orally Three times a day , Taking Isosorbide Dinitrate 20 MG Tablet 1 tablet Orally Twice a day , Taking Melatonin 3 MG Tablet 1 tablet at bedtime as needed Orally Once a day , Taking Omeprazole 20 MG Capsule Delayed Release 1 capsule 30 minutes before morning meal Orally Once a day , Taking Vitamin D 25 MCG (1000 UT) Tablet 1 tablet Orally Once a day , Taking Synthroid 75 MCG Tablet 1 tablet in the morning on an empty stomach Orally Once a day , Taking Vitamin C , Taking Zinc , Taking Extra Depth Orthopedic Shoes, (1) Pair With (3) Pair Custom Heat Molded Multidensity Innersoles . 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 Objective: * Vitals: Assessment: Plan: * Treatment: * Images: * The named appointment provid er may or may not be the originator of this progress note, and it is not deemed complete until electronically signed by the appointment provider. Sign off status: Pending * Provider: Luigi Camarena DPM Date: 05/26/2024 Generated for Tiffany Glass on: 0 12/31/2024 09:40 AM EDT
--- OUTSIDE RECORDS SUMMARY | 2024-12-15 06:00 | XMS_ITS ---
Author Organization [facility] Meng Negrito Address [address] [facility] [place] [address] Care Team Providers Care Landscape Designer Name Role Phone Leonides Reynoso MD Primary Care Provider Thaddeus Castle Unavailable [phone] Allergies Allergen (clinical drug ingredient) Drug/Non Drug [...] a day; Duration: 30 day(s) Active pyRIDostigmine Manning 60 MG as directed Orally 3 times a day Active metFORMIN HCl Active predniSONE 10 MG 1 tablet with food o r milk Once a day Active Vyvgart 400 MG/20ML as directed Intravenous Active Mycophenolate Mofetil 500 MG 1 tablet Orally Twice a day Active Encounters Encounter Location Date Provider Diagnosis [facility] [address] [address] 12/15/2024 Thaddeus Camarena Plan Of Treatment Next Appt Details Provider Name:Thaddeus Cmaarena , 03/16/2025 10:00:00 AM, [address] [place] [address], [phone], Progress Notes * Alon NEGRO SrDOB:[birth year] (89 yo M)Acc No.[id number]:12/15/2024 Progress Note Patient: Diana Alon HERRERA Provider: Luigi Camarena DPM :1935 A ge:89 Y S ex:Male Date:12/15/2024 Address:[address] [place], [place] [id number] Pcp:Leonides Reynoso MD Subjective: * Chief Complaints: [...] , Taking metFORMIN HCl , Taking pyRIDostigmine Manning 60 MG Tablet as directed Orally 3 [...] Date: 12/15/2024 Generated for Tiffany griggs/Ramesh/Sherry on: 12/31/2024 09:40 AM EDT
[2024-12-31 09:03] VITALS: BP 118/54; PULSE 59; BMI 24.3
--- NOTE | 2024-12-31 09:03 | MHC.OFFVIS ---
Vital Signs 12/31/24 09:03 Height 5 ft 6 in Weight 150 lb 12.739 oz BMI 24.3 BP 118/54 L Blood Pressure Location Lt brachial Position Sitting Pulse 59 Pulse Source Monitor Intake Visit Reasons: 1 yr f/up Intake Note: 1 Year F/U Accompanied by: Self / Same As Patient Allergies meperidine (From Demerol) Allergy (Unknown, Verified 12/31/24 09:07) unknown reaction-patient states was many years ago Medication List - Last Reconciled 12/31/24 by Greg Fernando MD amlodipine 5 mg PO BID atorvastatin 40 mg PO BEDTIME calcium carbonate 500 mg PO DAILY captopril 18.75 mg (1.5 x 12.5 mg) PO TID 90 days cholecalciferol (vitamin D3) 25 mcg PO DAILY hydralazine 50 mg PO BEDTIME isosorbide dinitrate 20 mg PO DAILY levocetirizine (Xyzal) 5 mg PO DAILY levothyroxine 88 mcg PO DAILY@0600 melatonin 10 mg PO BEDTIME metformin ER 500 mg PO DAILY multivitamin 1 tab PO DAILY mycophenolate mofetil 1,000 mg PO BID mycophenolate mofetil 500 mg PO BID omeprazole 20 mg PO DAILY@0630 prednisone 10 mg PO DAILY pyridostigmine bromide 60 mg PO QID sertraline 25 mg PO DAILY trazodone 75 mg PO BEDTIME HPI Comments Details: Alon comes for follow-up. Overall he has been doing well from cardiac perspective. He has not had much orthostatic symptoms or syncopal episodes. No exertional chest pain or shortness of breath however he said he can not walk much because of his myasthenia gravis. He is only able to walk about a mi before he gets tired. By the end of the day he is very fatigued. No prolonged palpitation irregular heartbeat. He was admitted in October with anxiety episode. He said he tends to get depressed and anxious. Takes all his medication with a complicated regimen. No heart failure symptoms. [facility] Medical History Myasthenia gravis COVID-19 vaccine administered GERD (gastroesophageal reflux disease) Insomnia Hyperlipidemia Orthostatic hypotension dysautonomic syndrome HTN (hypertension) Non-toxic multinodular goiter Hypothyroidism Surgical History Hx of cataract surgery History of colon surgery History of esophagogastroduodenoscopy (EGD) H/O colonoscopy Hx of tonsillectomy Hx of appendectomy Family History Father Parkinsons disease Mother Myocardial infarction CVD (cardiovascular disease) Cancer Social History Household Members: None Housing: Apartment Are you a primary dog daycare provider to a significant other at home: No Do you presently have visiting nurse or other home services: No Alcohol intake: never Patient Tobacco Use Status: Former Tobacco user Tobacco use type: Cigarette Cigarette Packs Per Day: 1 Cigarettes Per Day: 20.0 Years Smoked: 30 e-Cigarette/Vaping Use: Never Used service: Yes Current occupational status: retired Review of Systems Const Denies daytime sleepiness, Denies difficulty sleeping, Denies snoring, Denies stops breathing during sleep and Denies weakness Card Denies chest pain, Denies rapid heart rate, Denies irregular heart rhythm, Denies claudication, Denies leg edema, Denies lightheadedness, Denies palpitations, Denies dyspnea, Denies dyspnea on exertion, Denies orthopnea, Denies paroxysmal nocturnal dyspnea and Denies slow heart rate Resp Denies cough, Denies dyspnea, Denies dyspnea on exertion and Denies snoring GI Reports no additional complaints, Denies hematochezia, Denies change in stool character and Denies dyspepsia Musc Denies abnormal gait, Denies muscle weakness and Denies numbness Neuro Denies abnormal gait, Denies numbness and Denies weakness Endo Denies palpitations Physical Exam Vital Signs: Last Vital Signs Pulse 59 12/31/24 09:03 BP 118/54 L 12/31/24 09:03 BMI result Body Mass Index 24.3 Const General: cooperative, comfortable, no acute distress, alert, awake and well groomed Nutritional Appearance: average body habitus Orientation/consciousness: patient oriented x3 Limitations: no limitations Neck Neck: Yes trachea midline, Yes supple and Yes no JVD Carotids: no bruits Resp Effort & Inspection: normal respiratory effort Auscultation: clear to auscultation bilaterally Cardio Jugular venous distension: no JVD Palpation: normal PMI Rate: regular rate Rhythm: regular rhythm Heart sounds: S1 normal heart sound present, S2 normal heart sound present and Murmur heart sound present systolic early, decrescendo and crescendo Skin General skin exam: no rashes or lesions noted Neuro General: patient oriented x3 and no focal motor deficits Extrem General: Yes no clubbing, cyanosis or edema Psych Appearance: grossly normal Office Procedures EKG Details: EKGs shows sinus bradycardia with first-degree AV block with LVH with repolarization abnormality [id number], Complete Assessment & Plan Assessment & Plan (1) Orthostatic hypotension dysautonomic syndrome: Code(s): I95.1 - Orthostatic hypotension Category: Medical Plan: Patient with dysautonomia syndrome with significantly labile blood pressure with complex drug regimen which she is able to manage. He is doing well on it. Blood pressures been generally well controlled. He has not had much syncopal episode. Drinks adequate amount of water. We discussed about orthostatic precautions. Encouraged to maintain blood pressure checks on a regular basis and maintain a log. Target goal blood pressure less than 140/84. Low-salt diet was discussed. Stress mitigation strategies were discussed. Various options were discussed for that. (2) PVCs (premature ventricular contractions): Code(s): I49.3 - Ventricular premature depolarization Category: Medical Plan: PVCs which has suppressed overall. She has not had significant symptoms from that perspective. At this point time I would continue to monitor him. Stress mitigation strategies discussed. Avoidance of stimulants was discussed. Will follow up in the clinic in 1 year's time, sooner PRN. Thank you for allowing me to partake in his care Medications: Changed From sertraline 50 mg PO DAILY To sertraline 25 mg PO DAILY Coding Level of Care Code Est Pt Level 4 (71283) Complex EM visit Add On G2211 Diagnoses Orthostatic hypotension dysautonomic syndrome I95.1 PVCs (premature ventricular contractions) I49.3 CPT Codes EKG - CPT: 67987-Rkyxketejvrqajlgq, Complete ([id number])
--- OUTSIDE RECORDS SUMMARY | 2024-12-31 09:41 | XMS_ITS | Patient Health Record ---
Author Organization [facility] Address [address] [place] [phone] Care Team Providers Care Rescue Instructor Name Role Phone Leonides Reynoso MD Primary Care Provider Shae Torres [phone] Allergies Allergen (clinical drug ingredient) Drug/Non Drug [...] MG TAKE 1 CAPSULE BY [facility] EVERY DAY for 90 Active Centrum [...] Problem Status W/U Status Risk Notes Problem 339713997 Encounter for screening for malignant neoplasm of colon (Z12.11) Active confirmed Problem 572216283 Change in bowel habits (R19.4) Active confirmed Problem 062102672 Gastroesophageal reflux disease without esophagitis (K21.9) Active confirmed Problem 187904679 Tubular adenoma of colon (D12.6) Active confirmed Problem 833583034 Family history o f colon cancer (Z80.0) Active confirmed Problem 92494869 Esophageal stricture (K22.2) Active confirmed Problem 04723478 Constipation, unspecified constipation type (K59.00) Active confirmed Problem 640947759 Hx of adenomatou s colonic polyps (Z86.010) Active confirmed Problem 66176183 Dysphagia, unspecified type (R13.10) Active confirmed Problem 01239950 Diarrhea, unspecified type (R19.7) Active confirmed Problem 648173656 Positive colorec jhonatan cancer screening using Cologuard test (R19.5) Active confirmed Problem Diverticular disease of colon (731582238) Colon, diverticulosis (K57.30) Active confirmed Plan Of [...] OF [place] [address] [place] [address] [id number] SHAE LEVY Self - patient is the insured [employer] CLAIMS [address] [place] [address] [id number] SHAE LEVY Self - patient is the insured Medical (General) History Medical History History ICD Code Hypertension Hyperlipidemia Tubular adenomas removed in 2010, 1999, and in 1996; he had a negative colonoscopy in 2005; colonoscopy in 1999 was complicated by a sigmoid perforation requiring surgery as below; neg. hemoccults x 3 in summer 2018 Denies NM,DM,CVA,Lung disease,renal dise ase Sinus problems GERD/esophageal stricture--u [...]
--- OUTSIDE RECORDS SUMMARY | 2024-12-31 09:41 | XMS_ITS | Encounter Summary ---
Author Organization [facility] Address [address] [place] [address] Care Team Providers Care Sales Operations Analyst Name Role Phone Steven Angel MD Primary Care Provider [phone] Encounter Details Date Type Department Care Team (Late st Contact Info) Description 05/20/2024 Lab Requisition [facility] - Main Lab [address] [facility] [place] [address] Steven Angel MD [address] [place] [address] [address] [place], [address] Influenza due to identified novel influenza [...] Comprehensive metabolic panel (05/20/2024 7:10 AM EST) [facility] Signature Sodium 139 133 - 145 mmol/L LAB CHEMISTRY METHOD 05/20/2024 11:58 AM [facility] Potassium 3.8 3.5 - 5.5 mmol/L LAB CHEMISTRY METHOD 05/20/2024 11:58 AM [facility] Chloride 104 96 - 110 mmol/L LAB CHEMISTRY METHOD 05/20/2024 11:58 AM [facility] CO2 28 21 - 32 mmol/L LAB CHEMISTRY METHOD 05/20/2024 11:58 AM [facility] Anion Gap 7 3 - 11 LAB CHEMISTRY METHOD 05/20/2024 11:58 AM [facility] Glucose 75 70 - 100 mg/dL LAB CHEMISTRY METHOD 05/20/2024 11:58 AM [facility] BUN 19 5 - 25 mg/dL LAB CHEMISTRY METHOD 05/20/2024 11:58 AM [facility] Creatinine 0.82 0.70 - 1.30 mg/dL LAB CHEMISTRY METHOD 05/20/2024 11:58 AM [facility] eGFR 85 >=60 mL/min/1. 73m2 LAB CHEMISTRY METHOD 05/20/2024 11:58 AM [facility] Comment:Calculation based on the Chronic Kidney Disease Epidemiology Collaboration (CKD-EPI) equation refit without adjustment for race. BUN/Creatinine Ratio 23.2 LAB CHEMISTRY METHOD 05/20/2024 11:58 AM [facility] Calcium 8.8 8.5 - 10.5 mg/dL LAB CHEMISTRY METHOD 05/20/2024 11:58 AM [facility] AST (SGOT) 19 10 - 42 unit/L LAB CHEMISTRY METHOD 05/20/2024 11:58 AM [facility] ALT (SGPT) 38 10 - 60 unit/L LAB CHEMISTRY METHOD 05/20/2024 11:58 AM [facility] Alkaline Phosphatase 64 42 - 121 unit/L LAB CHEMISTRY METHOD 05/20/2024 11:58 AM [facility] Total Protein 5.4(L) 6.0 - 8.0 g/dL LAB CHEMISTRY METHOD 05/20/2024 11:58 AM [facility] Albumin 3.4 3.2 - 5.0 g/dL LAB CHEMISTRY METHOD 05/20/2024 11:58 AM [facility] Total Bilirubin 0.8 0.0 - 1.4 mg/dL LAB CHEMISTRY METHOD 05/20/2024 11:58 AM [facility] Blood Venous blood specimen / Unknown Venipuncture / Unknown 05/20/2024 7:10 AM EST 05/20/2024 10:41 AM EST us Steven Angel MD LAB BLOOD ORDERABLES Final Resul t [facility] [address] [place] [address], * (ABNORMAL) Complete blood count (05/20/2024 7:10 AM EST) WBC 17.1(H) 4.8 - 10.8 K/mcL LAB HEMETOLOGY METHOD 05/20/2024 11:48 AM [facility] RBC 4.30(L) 4.50 - 5.50 M/mcL LAB HEMETOLOGY METHOD 05/20/2024 11:48 AM [facility] Hemoglobin 13.7 13.5 - 17.5 g/dL LAB HEMETOLOGY METHOD 05/20/2024 11:48 AM [facility] Hematocrit 41.4(L) 42.0 - 54.0 % LAB HEMETOLOGY METHOD 05/20/2024 11:48 AM [facility] MCV 96.5 79.0 - 98.0 FL LAB HEMETOLOGY METHOD 05/20/2024 11:48 AM [facility] MCH 31.9 27.0 - 32.0 pcg LAB HEMETOLOGY METHOD 05/20/2024 11:48 AM EST [facility] MCHC 33.1 32.0 - 37.0 g/dL LAB HEMETOLOGY METHOD 05/20/2024 11:48 AM [facility] RDW 12.7 11.0 - 15.0 % LAB HEMETOLOGY METHOD 05/20/2024 11:48 AM [facility] Platelets 231 130 - 400 K/mcL LAB HEMETOLOGY METHOD 05/20/2024 11:48 AM [facility] MPV 11.1(H) 7.0 - 11.0 FL LAB HEMETOLOGY METHOD 05/20/2024 11:48 AM [facility] NRBC 0.0 <1.0 % LAB HEMETOLOGY METHOD 05/20/2024 11:48 AM [facility] NRBC Absolute 0.00 <0.10 K/mcL LAB HEMETOLOGY METHOD 05/20/2024 11:48 AM [facility] Blood Venous blood specimen / Unknown Venipuncture / Unknown 05/20/2024 7:10 AM EST 05/20/2024 10:41 AM EST us Steven Angel MD LAB BLOOD ORDERABLES Final Resul t [facility] [address] [place] [address], documented in this encounter Visit Diagnoses Diagnosis Influenza due to identified novel influenza A virus with other respiratory manifestations Respiratory syncytial virus as the cause of diseases classified elsewhere Essential (primary) hypertension Unspecified essential hypertension Hyperlipidemia, unspecified documented in this encounter Care Teams Sales Operations Analyst Relationship Specialty Start Date End Date Steven Angel MD [address] [place] [address], [phone] PCP - General Family Medicine 05/20/24 documented as of this encounter
--- OUTSIDE RECORDS SUMMARY | 2024-12-31 09:41 | XMS_ITS | Clinical Summary ---
Author Organization [address] [facility] Address [address] [place] [address] Phone Care Team Providers Care Machine Assistant Name Role Phone Steven Angel MD Primary Care Provider [phone] Social History Tobacco Use Types Packs/Day Years Used Date Smoking Tobacco: Never Assessed Sex and Gender Information Value Date Recorded Sex Assigned at Not on file Legal Sex Male 10:25 PM EST Gender Identity Not on file Sexual Orientation Not on file Plan of Treatment Health Maintenance Due Date Last Done Comments Diabetes: Annual Foot Exam 1945 Diabetes: Annual Retina Eye Exam 1945 RSV Immunization Adult Patients (1 - 1-dose 75+ series) 02/17/2012 Zoster Vaccines (2 of 3) 03/02/2014 01/05/2014, 05/2010 Depression Screening 04/08/2024 Cholesterol Screening (Lipid Panel) 05/21/2024 Diabetes: Blood Sugar Control Test (HGBA1C) 05/21/2024 Falls Risk Assessment 05/21/2024 Medicare Annual Wellness Visit 05/21/2024 Social Influencers of Health Screening 05/21/2024 COVID-19 Vaccine ( season) 2024 07/11/2021, 01/31/2021, 05/25/2020, Additional history exists Influenza Vaccine (#1) 2024 , 01/27/2021, 01/04/2020, Additional history exists Hypertension/CHF/CAD Annual BMP Blood Test 05/20/2025 05/20/2024 DTaP,Tdap,and Td Vaccines (2 - Td or Tdap) 03/25/2027 03/25/2017 Pneumococcal Vaccine: 50+ Years Completed 09/22/2018, 10/29/2014, 04/08/2011 HIB Vaccines Aged Out No longer eligi ble based on patient's age to complete this topic HPV Vaccines Aged Out No longer eligi ble based on patient's age to complete this topic Hepatitis A Vaccines Aged Out No long er eligible based on patient's age to complete this topic Hepatitis B Vaccines Aged Out No long er eligible based on patient's age to complete this topic IPV Vaccines Aged Out No longer eligi ble based on patient's age to complete this topic MMR Vaccines Aged Out No longer eligi ble based on patient's age to complete this topic Meningococcal ACWY Vaccine Aged Out N o longer eligible based on patient's age to complete this topic Meningococcal B Vaccine Aged Out No l onger eligible based on patient's age to complete this topic RSV Immunization Patients Under 20 months Aged Out No longer eligible based on patient's age to complete this topic Varicella Vaccines Aged Out No longer eligible based on patient's age to complete this topic Procedures Procedure Name Priority Date/Time Associated Diagnosis Comments COMPREHENSIVE METABOLIC PANEL Routine 05/20/2024 7:10 AM EST Influenza due to identified novel influenza A virus with other respiratory manifestations Respiratory syncytial virus as the cause of diseases classified elsewhere Essential (primary) hypertension Hyperlipidemia, unspecified from Last 3 Months or Most Recently Relevant to Health Maintenance Results * (ABNORMAL) Comprehensive metabolic panel (05/20/2024 7:10 AM EST) Sodium 139 133 - 145 mmol/L LAB CHEMISTRY METHOD 05/20/2024 11:58 AM [facility] Potassium 3.8 3.5 - 5.5 mmol/L LAB CHEMISTRY METHOD 05/20/2024 11:58 AM [facility] Chloride 104 96 - 110 mmol/L LAB CHEMISTRY METHOD 05/20/2024 11:58 AM [facility] CO2 28 21 - 32 mmol/L LAB CHEMISTRY METHOD 05/20/2024 11:58 AM [facility] Anion Gap 7 3 - 11 LAB CHEMISTRY METHOD 05/20/2024 11:58 AM [facility] Glucose 75 70 - 100 mg/dL LAB CHEMISTRY METHOD 05/20/2024 11:58 AM [facility] BUN 19 5 - 25 mg/dL LAB CHEMISTRY METHOD 05/20/2024 11:58 AM [facility] Creatinine 0.82 0.70 - 1.30 mg/dL LAB CHEMISTRY METHOD 05/20/2024 11:58 AM [facility] eGFR 85 >=60 mL/min/1. 73m2 LAB CHEMISTRY METHOD 05/20/2024 11:58 AM [facility] Comment:Calculation based on the Chronic Kidney Disease Epidemiology Collaboration (CKD-EPI) equation refit without adjustment for race. BUN/Creatinine Ratio 23.2 LAB CHEMISTRY METHOD 05/20/2024 11:58 AM [facility] Calcium 8.8 8.5 - 10.5 mg/dL LAB CHEMISTRY METHOD 05/20/2024 11:58 AM [facility] AST (SGOT) 19 10 - 42 unit/L LAB CHEMISTRY METHOD 05/20/2024 11:58 AM [facility] ALT (SGPT) 38 10 - 60 unit/L LAB CHEMISTRY METHOD 05/20/2024 11:58 AM [facility] Alkaline Phosphatase 64 42 - 121 unit/L LAB CHEMISTRY METHOD 05/20/2024 11:58 AM [facility] Total Protein 5.4(L) 6.0 - 8.0 g/dL LAB CHEMISTRY METHOD 05/20/2024 11:58 AM [facility] Albumin 3.4 3.2 - 5.0 g/dL LAB CHEMISTRY METHOD 05/20/2024 11:58 AM [facility] Total Bilirubin 0.8 0.0 - 1.4 mg/dL LAB CHEMISTRY METHOD 05/20/2024 11:58 AM [facility] Blood Venous blood specimen / Unknown Venipuncture / Unknown 05/20/2024 7:10 AM EST 05/20/2024 10:41 AM EST us Steven Angel MD LAB BLOOD ORDERABLES Final Resul t [facility] [address] [place] [address], from Last 3 Months or Most Recently Relevant to Health Maintenance Insurance MEDICARE [facility] Care Teams Machine Assistant Relationship Specialty Start Date End Date Steven Angel MD [address] [place] [address], [phone] PCP - General Family Medicine 05/20/24
--- OUTSIDE RECORDS SUMMARY | 2024-12-31 09:41 | XMS_ITS | Patient Health Record ---
Author Organization [facility] Meng prateek Negrito Address [address] [facility] [place] [address] Care Team Providers Care Counseling Services Manager Name Role Phone Leonides Reynoso MD Primary Care Provider Thaddeus Castle Unavailable [phone] Allergies Allergen (clinical drug ingredient) Drug/Non Drug Allergy documented on EMR Reaction Allergy Type Onset Date Status meperidine Demerol Unknown Drug Allergy Active Results Component Value Reference Range Notes HEMOGLOBIN A1C (GLYCOHEMOGLO BIN) Reviewed date:06/02/2024 01:09:17 PM Interpretation: Performing Lab: Notes/Report: HEMOGLOBIN A1C % (HH) 6.5 HEMOGLOBIN A1C (GLYCOHEMOGLO BIN) Reviewed date:09/08/2024 09:54:15 AM Interpretation: Performing Lab: Notes/Report: HEMOGLOBIN A1C % (HH) 6.5 Reason For Referral No Information Medications Medication SIG (Take, Route, Frequency, Duration) Notes Start Date End Date Status Synthroid 75 MCG 1 tablet in the morn ing on an empty stomach Orally Once a day; Duration: 30 day(s) Active Vitamin D 25 MCG (1000 UT) 1 tablet Orally Once a day; Duration: 30 day(s) Active pyRIDostigmine Quincy 60 MG as directed Orally 3 times a day Active metFORMIN HCl Active Zinc Active Vitamin C Active Ativan 1 MG 1 tablet at bedtime as needed Orally Once a day PRN Not-Taking Extra Depth Orthopedic Shoes, (1) Pair With (3) Pair Custom Heat Molded Multidensity Innersoles Dx: 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), 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,M20.42 ), Preulcerative Skin Lesion(s)(L85.1) Wear Daily; Duration: 365 days 11/08/2023 Active Fluticasone Propionate (Inhal) 50 MCG/BLIST 1 puff Inhalation Twice a day Not-Taking Ciclopirox Olamine 0.77 % 1 application to affected area Externally to feet Twice a day; Duration: 30 days Not-Taking Vyvgart 400 MG/20ML as directed Intravenous Active Aspirin 81 MG 1 tablet Orally Once a day; Duration: 30 day(s) Not-Taking Mycophenolate Mofetil 500 MG 1 tablet Orally Twice a day Active Sertraline HCl 25 MG 1 tablet Orally Onc e a day; Duration: 30 day(s) Not-Taking Lotrisone Not-Taking predniSONE 10 MG 1 tablet with food o r milk Once a day Active Omeprazole 20 MG 1 capsule 30 [...] Twice a day; Duration: 30 day(s) Active hydrALAZINE HCl 50 MG 1 tablet with food Orally Three times a day; Duration: 30 day(s) Active Crestor 20 MG 1 tablet Orally Once a day; Duration: 30 day(s) Active Melatonin 3 MG 1 tablet at bedtime as needed Orally Once a day; Duration: 30 day(s) Active Isosorbide Dinitrate 20 MG 1 tablet Orally Twice a day; Duration: 30 day(s) Active Immunizations Vaccine Route Administration Date Status Comme [facility] COVID-19 Moderna Vaccine Unknown 07/07/2021 Administered 1st 04/27/20 2nd 05/25/20 3rd 01/31/21 Social History Tobacco Use: Social History Observation Description Date Details (start date - stop date) Never Smoker NA - NA Tobacco use other than smoking: Question Answer Notes Are you an other tobacco user? No Tobacco Control (Standard) Question Answer Notes Tobacco use: Nonsmoker Additional Findings: Tobacco non-user Current no nsmoker AUDIT-C (Standard) Question Answer Notes Did you have a drink containing alcohol in the p ast year? No Points 0 Interpretation Negative Problems Problem Type SNOMED Code ICD Code Onset Dates Problem Status W/U Status Risk Notes Problem Acquired hammer toe of right foot (7244978076531 105) Other hammer toe(s) (acquired), right foot (M20.41) Active confirmed Response to treatment,I mprovement Problem Type 2 diabetes mellitus with peripheral angiopathy (478616930) Type 2 diabetes mellitus with diabetic peripheral angiopathy without gangrene (E11.51) Active confirmed Problem Acquired hammer toe of left foot (1176589720069 103) Other hammer toe(s) (acquired), left foot (M20.42) Active confirmed Response to treatment,I mprovement Vital Signs Blood pressure diastolic 68 mm Hg 09/08/2024 Height 5 ft 6in in 09/08/2024 Blood pressure systolic 136 mm Hg 09/08/2024 Weight 158 lbs 09/08/2024 BMI 25.5 kg/m2 09/08/2024 Procedures Procedure Date Ordered Date Performed Result Body Sit e 91236-LCDMBCS NAIL, 6 OR MORE 02/25/2024 N/A 22409-PEKZ SKIN LESIONS, 2 TO 4 02/25/2024 N/A 60023-SBXQHNX NAIL, 6 OR MORE 06/02/2024 N/A 55789-WRQM SKIN LESIONS, 2 TO 4 06/02/2024 N/A 64868-WTPLLVG NAIL, 6 OR MORE 09/08/2024 N/A 87922-UEJF SKIN LESIONS, 2 TO 4 09/08/2024 N/A Encounters Encounter Location Date Provider Diagnosis [facility] [address] [address] 02/25/2024 Thaddeusjian Camarena Type 2 diabetes mellitus with diabetic peripheral angiopathy without gangrene E11.51 ; Tinea unguium B35.1 ; Pain in right toe(s) M79.674 and Pain in left toe(s) M79.[address] [facility] [address] 06/02/2024 Thaddeus Camarena Type 2 diabetes mellitus with diabetic peripheral angiopathy without gangrene E11.51 ; Other hammer toe(s) (acquired), right foot M20.41 ; Tinea unguium B35.1 ; Pain in right toe(s) M79.674 ; Pain in left toe(s) M79.675 and Other hammer toe(s) (acquired), left foot M20.[address] [facility] [address] 09/08/2024 Thaddeus Camarena Type 2 diabetes mellitus with diabetic peripheral angiopathy without gangrene E11.51 ; Tinea unguium B35.1 ; Pain in right toe(s) M79.674 and Pain in left toe(s) M79.[address] [facility] [address] 05/21/2024 Thaddeus Camarena [facility] [address] 06/02/2024 [facility] [address] [address] 12/08/2024 Thaddeus Camarena Assessments Encounter Date Diagnosis (ICD Code) Assessment Notes Treatment Notes Treatment Clinical Notes Section Notes 02/25/2024 Type 2 diabetes mellitus with diabetic peripheral angiopathy without gangrene (ICD-10 - E11.51) 02/25/2024 Tinea unguium (ICD-10 - B35.1) 06/02/2024 Other hammer toe(s) (acquired), right foot (ICD-10 - M20.41) Patient Educated with: DIABETIC FOOT CARE INSTRUCTIONS.p df (DIABETIC FOOT CARE INSTRUCTIONS.p df) 06/02/2024 Type 2 diabetes mellitus with diabetic peripheral angiopathy without gangrene (ICD-10 - E11.51) 09/08/2024 Type 2 diabetes mellitus with diabetic peripheral angiopathy without gangrene (ICD-10 - E11.51) 09/08/2024 Tinea unguium (ICD-10 - B35.1) 02/25/2024 Pain in right toe(s) (ICD-10 - M79.674) 09/08/2024 Pain in right toe(s) (ICD-10 - M79.674) 06/02/2024 Tinea unguium (ICD-10 - B35.1) 02/25/2024 Pain in left toe(s) (ICD-10 - M79.675) 06/02/2024 Pain in right toe(s) (ICD-10 - M79.674) 09/08/2024 Pain in left toe(s) (ICD-10 - M79.675) 06/02/2024 Pain in left toe(s) (ICD-10 - M79.675) 06/02/2024 Other hammer toe(s) (acquired), left foot (ICD-10 - M20.42) 02/25/2024 Other Plan Of Treatment Pending Test Test Name Order Date 78725-LTWDZSK NAIL, 6 OR MORE 07/12/2020 46836-JDLSCPJ NAIL, 6 OR MORE 10/11/2020 65035-FIRBFIN NAIL, 6 OR MORE 01/10/2021 61458-JPBMMVG NAIL, 6 OR MORE 04/14/2021 52113-UWAVRMB NAIL, 6 OR MORE 08/15/2021 47172-TYFHEWA NAIL, 6 OR MORE 11/17/2021 92269-AILCSTC NAIL, 6 OR MORE 04/24/2022 12613-QFPTZWV NAIL, 6 OR MORE 04/19/2020 63816-ITWHKDA NAIL, 6 OR MORE 07/24/2022 12700-TCUABAW NAIL, 6 OR MORE 10/23/2022 77560-JKXQKUB NAIL, 6 OR MORE 01/29/2023 27261-VHBYUVP NAIL, 6 OR MORE 05/07/2023 20252-OBCFOPE NAIL, 6 OR MORE 11/08/2023 92217-XWRAESY NAIL, 6 OR MORE 02/25/2024 49943-SNNHCVI NAIL, 6 OR MORE 06/02/2024 24186-WUHRMID NAIL, 6 OR MORE 09/08/2024 61101-Qhjo Destruction, 1-14 04/19/2020 60385-Catcxnfu Plate 04/24/2022 99654-KECV SKIN LESIONS, 2 TO 4 04/24/19 12732-JIEG SKIN LESIONS, 2 TO 4 07/25/19 09112-AZDV SKIN LESIONS, 2 TO 4 01/30/20 17776-LITR SKIN LESIONS, 2 TO 4 10/24/19 43424-PSPI SKIN LESIONS, 2 TO 4 06/03/20 25 29575-OLNO SKIN LESIONS, 2 TO 4 06/02/19 25 54392-IHII SKIN LESIONS, 2 TO 4 02/25/20 24 64909-RMUU SKIN LESIONS, 2 TO 4 11/08/19 24 24086-IYWD SKIN LESIONS, 2 TO 4 05/07/19 24 Next Appt Details Provider Name:Thaddeus Camarena , 03/16/2025 10:00:00 AM, [address] [place], [address], Insurance Providers Payer Name Payer Address Payer Phone Subscriber Number Group Number Insured Name Patient Relationship to Insured Coverage Start Date Coverage End Date Medicare National Govt [employer] [address] [place] [address] [id number] Alon Negro Self - patient is the insured [employer] Shield [address] [place] [address] [id number] Alon Negro Self - patient is the insured Medical (General) History Medical History History ICD Code Broken bones High blood pressure Numbness Reflux ( GERD) chronic sinusitis thyroid Measles Mumps Chicken pox CAD myasthenia gravis Pre type II diabetes Surgical History Surgery Date(Month/Year) colonoscopy 10/26/19 Hospitalization History Reason Date(Month/Year) plasma infusions 2021 [facility]- RSV and Flu - Rehab for 2 days 04/08 07/31 [facility]/ Joaquin myasthenia gravis in and our about 4mons 3 weeks 2021
--- OUTSIDE RECORDS SUMMARY | 2024-12-31 09:41 | XMS_ITS | Encounter Summary ---
Author Organization [facility] Address [address] [place] [address] [address] [place] [address] Phone Care Team Providers Care Associate Product Manager Name Role Phone Leonides Reynoso MD Primary Care Provider [phone] Encounter Details Date Type Department Care Team ([facility] Contact Info) Description 12/15/2024 Orders Only [facility] Neurology at [address] [address] Provider, MD Evy [facility] [place] [phone] Social History Tobacco Use Types Packs/Day Years Used Date Smoking Tobacco: Former Cigarettes Q uit: 1992 Smokeless Tobacco: Never Education Answer Date Recorded Are you interested [...] Orientation Straight 02/18/2022 7: 11 PM EST documented as of this encounter Plan of Treatment Upcoming Encounters Date Type Department Care Team (Late st Contact Info) Description 02/22/2025 11:00 AM EST Telemedicine [facility] Neuromuscular [address] [place] [address] Gamaliel Ramos MD [address] [place] [id number] [email or web address] documented as of this encounter Procedures Procedure Name Priority Date/Time Associated Diagnosis Comments OUTSIDE LAB Routine 12/15/2024 4:02 PM EDT documented in this encounter Results * Outside Lab (12/15/2024 4:02 PM EDT) us Historical Provider LAB BLOOD ORDERABLES Amie l Result documented in this encounter Visit Diagnoses Not on filedocumented in this encounter Additional Health Concerns Assessment Noted Time PHQ-2 Depression Total Score: 0 03/25/20 24 11:23 AM EST documented as of this encounter Care Teams Associate Product Manager Relationship Specialty Start Date End Date Leonides Reynoso MD [address] [place] [id number] PCP - General Internal Medicine 11/24/21 documented as of this encounter Additional Source Comments The information contained in this document represents components of the legal health record. It is not the complete legal health record.[facility]
--- OUTSIDE RECORDS SUMMARY | 2024-12-31 09:41 | XMS_ITS | Clinical Summary ---
Author Organization [facility] Address [address] [place] [address] Phone Care Team Providers Care Security Director Name Role Phone Leonides Reynoso MD Primary Care Provider [phone] Allergies Active Allergy Reactions Criticality Noted Date Comments Atorvastatin Musculoskeletal Pain 07/07/2013 Meperidine Unknown 07/27/2020 Medications atorvastatin (LIPITOR) 40 MG tablet 40 mg. 2 Active cholecalciferol , vitamin D3, 25 mcg (1,000 unit) capsule Take by mouth. Active isosorbide dinitrate (ISORDIL) 20 MG immediate release tablet 1 tablet. 2 Active omeprazole (PRILOSEC) 20 MG capsule Take 1 tablet by mouth daily. 2 Active hydrALAZINE (APRESOLINE) 50 MG tablet 1 tablet daily. Active amLODIPine (NORVASC) 5 MG tabletIndicatio ns:2x daily 5 mg. Indications: 2x daily 2 Active captopril (CAPOTEN) 12.5 MG tablet 1.5 tablets 3 (three) times a day. Active fexofenadine (TAWANNA) 180 MG tablet Take 180 mg by mouth daily. Active levothyroxine (SYNTHROID, LEVOTHROID) 88 MCG tablet 88 mcg. 2 Active melatonin 10 mg Cap Take 10 mg by mouth. 2 Active metFORMIN (GLUCOPHAGE) 500 MG tablet daily. 2 Active traZODone (DESYREL) 50 MG tablet TAKE 0.5 TABLET BY MOUTH DAILY AT BEDTIME FOR 30 DAYS NEEDED FOR INSOMNIA 2 Active LORazepam (ATIVAN) 1 MG tablet Take 1 mg by mouth as needed. Active pyRIDostigmine (MESTINON) 60 mg tabletIndicatio ns:Myasthenia gravis Take 1 tablet (60 mg total) by mouth 4 (four) times a day. 360 tablet 3 5 Active predniSONE (DELTASONE) 5 MG tabletIndicatio ns:Myasthenia gravis Take 2 tablets (10 mg total) by mouth daily. 180 tablet 3 5 Active mycophenolate mofetil (CELLCEPT) 500 mg tabletIndicatio ns:Myasthenia gravis Take 2 tablets (1,000 mg total) by mouth 2 (two) times a day. 360 tablet 3 5 Active mycophenolate mofetil (CELLCEPT) 500 mg tabletIndicatio ns:Myasthenia gravis Take 2 tablets (1,000 mg total) by mouth 2 (two) times a day. Take 1 tablet (500 mg total) by mouth 2 (two) times a day for 7 days, THEN start taking 2 tablets (1,000 mg total) 2 (two) times a day. 360 tablet 3 5 12/23/19 25 Discontinu ed(Reorder ) Active Problems Problem Noted Date Diagnosed Date Myasthenia gravis 04/17/2022 Encounters Date Type Department Care Team Description 12/22/2024 Refill [facility] Neuromuscular [address] [place] [address] Gamaliel Ramos MD Medication Refill 12/16/2024 Telephone [facility] Neuromuscular [address] [place] [address] Gamaliel Ramos MD Labs Question 12/15/2024 Orders Only [facility] Neurology at [address] [address] Evy Lott MD 12/08/2024 Telephone [facility] Neuromuscular [address] [place] [address] Gamaliel Ramos MD regarding lab update 12/01/2024 Orders Only [facility] Neurology [facility] Lab [address] [address] Gamaliel Ramos MD Myasthenia gravis 11/30/2024 Refill [facility], Department of Neurology [address] [place] [address] Gamaliel Ramos MD Medication Refill 11/30/2024 Telephone [facility], Department of Neurology [address] [place] [address] Gamaliel Ramos MD Medication Question 11/10/2024 1:00 PM EDT Office Visit [facility] Neuromuscular [address] [place] [address] Gamaliel Ramos MD Myasthenia gravis (Primary Dx) 11/10/2024 1:00 PM EDT - 11/10/2024 11:59 PM EDT Hospital Encounter [facility] Neurology [facility] Lab, [facility] [address] [place] [address] Gamaliel Ramos MD Discharge Disposition: Home or Self Care 11/10/2024 12:09 PM EDT - 11/10/2024 12:59 PM EDT Hospital Encounter [facility] Phlebotomy, [facility] [address] [place] [address] Gamaliel Ramos MD Discharge Disposition: Home or Self Care 11/10/2024 Orders Only [facility] Neurology [facility] Lab, [facility] [address] [place] [address] Gamaliel Ramos MD Disorder of bone, unspecified (Primary Dx); Myasthenia gravis 10/30/2024 Orders Only [facility] Neuromuscular [address] [place] [address] ProviderEvy MD 10/19/2024 Telephone [facility] Neuromuscular [address] [place] [address] Gamaliel Ramos MD 10/14/2024 Telephone [facility] Neuromuscular [address] [place] [address] Gamaliel Ramos MD Labs from Last 3 Months Social History Tobacco [...] Info) Description 02/22/2025 11:00 AM EST Telemedicine [facility] Neuromuscular [address] [place] [address] Gamaliel Ramos MD [address] [place] [address] Health Maintenance Due Date Last Done Comments CREATININE LEVEL 1937 POTASSIUM LEVEL 1935 INFLUENZA VACCINE (#1) 2024 , 01/01/2024, 01/26/2022, Additional history exists COVID-19 VACCINE (8 - Moderna risk season) 2024 01/31/2024, 01/18/2023, 03/12/2022, Additional history exists DEPRESSION SCREENING 03/25/2025 03/25/2024 TSH LEVEL 11/10/2025 11/10/2024, 05/14/2022 Adult Td,Tdap Booster 06/12/2032 06/12/2022 , 03/25/2017, [...] OUTSIDE LAB Routine 12/15/2024 4:02 PM EDT LAB ADD ON Routine 11/10/2024 4:13 PM EDT Myasthenia gravis TSH WITH REFLEX Routine 11/10/2024 2:02 PM EDT CBC AND DIFFERENTIAL Routine 11/10/2024 2:02 PM EDT Myasthenia gravis LFTS (HEPATIC PANEL) Routine 11/10/2024 2:02 PM EDT Myasthenia gravis 25-OH VITAMIN D Routine 11/10/2024 2:02 PM EDT Disorder of bone, unspecified EMG Routine 11/10/2024 1:00 PM EDT Myasthenia gravis OUTSIDE LAB Routine 10/30/2024 3:58 PM EDT from Last 3 Months Results * Outside Lab (12/15/2024 4:02 PM EDT) Only the most recent of2 resultswithin the time period is included. [facility] Provider LAB BLOOD ORDERABLES Amie l Result * Lab Add On: TSH with reflex (11/10/2024 4:13 PM EDT) TEST REQUESTED TSH WITH REFLEX [facility] Comments (Chemistry) Request received [facility] 11/10/2024 4:13 PM EDT 11/10/2024 4:36 PM EDT Gamaliel Ramos MD LAB BLOOD ORDERABLES Final Resul t Performing Organization Address [facility] Co de Phone Number [facility] [address] [place] [phone] * TSH with reflex (11/10/2024 2:02 PM EDT) TSH 1.96 0.50 - 5.70 uIU/mL [facility] 11/10/2024 2:02 PM EDT 11/10/2024 2:33 PM EDT Comment:#[facility] ADDED @[id number] R [id number] Gamaliel Ramos MD LAB BLOOD ORDERABLES Final Resul t Performing Organization Address [facility] Co de Phone Number [facility] [address] [place] [phone] * (ABNORMAL) LFTs (hepatic panel) (11/10/2024 2:02 PM EDT) TOTAL PROTEIN 6.8 6.4 - 8.3 g/dL [facility] ALBUMIN 4.8 3.5 - 5.2 g/dL [facility] GLOBULIN 2.0(L) 2.2 - 4.2 g/dL [facility] AST 18 10 - 50 U/L [facility] ALT 17 10 - 50 U/L [facility] ALKALINE PHOSPHATASE 50 35 - 130 U/L [facility] TOTAL BILIRUBIN 0.6 0.0 - 1.0 mg/dL [facility] DIRECT BILIRUBIN 0.2 0.0 - 0.3 mg/dL [facility] Blood 11/10/2024 2:02 PM EDT 11/10/2024 2:33 PM EDT us aGmaliel Ramos MD LAB BLOOD ORDERABLES Final Resul t Performing Organization Address [facility] de Phone Number [place] [phone] * (ABNORMAL) 25-OH vitamin D (11/10/2024 2:02 PM EDT) Pathologist [facility] 25 OH VIT D (TOTAL) 72(H) 20 - 50 ng/mL [facility] Blood 11/10/2024 2:02 PM EDT 11/10/2024 2:33 PM EDT us Gamaliel Ramos MD LAB BLOOD ORDERABLES Final Resul t Performing Organization Address [facility] [place] [address] * (ABNORMAL) CBC and differential (11/10/2024 2:02 PM EDT) WBC 11.73(H) 4.00 - 11.00 K/uL [facility] RBC 4.62 4.50 - 5.90 M/uL [facility] HGB 14.8 13.5 - 17.5 g/dL [facility] HCT 45.6 41.0 - 53.0 % [facility] PLT 248 150 - 450 K/uL [facility] MCV 98.7 80.0 - 100.0 fL [facility] MCH 32.0(H) 27.0 - 31.0 pg [facility] MCHC 32.5 32.0 - 36.0 g/dL [facility] RDW 12.9 11.5 - 14.5 % [facility] MPV 10.1 8.4 - 12.0 fL [facility] NRBC 0.00 0.00 /100 WBCs [facility] ABSOLUTE NRBC 0.00 0.00 K/uL [facility] DIFF METHOD Auto [facility] NEUTS 86.0(H) 48.0 - 76.0 % [facility] LYMPHS 9.0(L) 18.0 - 41.0 % [facility] MONOS 3.6(L) 4.0 - 11.0 % [facility] EOS 0.1 0.0 - 5.0 % [facility] BASOS 0.3 0.0 - 1.5 % [facility] % IMMATURE GRANS 1.0(H) 0.0 - 0.9 % [facility] ABSOLUTE NEUTS 10.10(H) 1.92 - 7.60 K/uL [facility] Comment:1.21-5.39 cells/KL i s the reference range for individuals with the Genao null phenotype ABSOLUTE LYMPHS 1.05 0.72 - 4.10 K/uL [facility] ABSOLUTE MONOS 0.42 0.16 - 1.10 K/uL [facility] ABSOLUTE EOS 0.01 0.00 - 0.50 K/uL [facility] ABSOLUTE BASOS 0.03 0.00 - 0.15 K/uL [facility] ABS IMMATURE GRANS 0.12(H) 0.00 - 0.09 K/uL [facility] ABSOLUTE NEUTROPHIL COUNT 10.10(H) 1.92 - 7.60 K/uL [facility] Comment: Automated cell count. Manual ANC may differ if performed. 1.21-5.39 cells/KL is the reference range for individuals with the Genao null phenotype Blood 11/10/2024 2:02 PM EDT 11/10/2024 2:33 PM EDT us Gamaliel Ramos MD LAB BLOOD ORDERABLES Final Resul t [facility] [address] [place] [phone] * EMG (11/10/2024 1:00 PM EDT) Anatomical Region Laterality Modality EMG Narrative 11/10/2024 1:00 PM EDT Gamaliel Ramos MD 11/11/2024 4:43 PM Clinical Neurophysiology Laboratory [facility] [place] [address] ELECTROMYOGRAPHY AND NERVE CONDUCTION STUDIES EVOKED POTENTIALS AND NEUROMUSCULAR ULTRASOUND Patient: Marky Chi Sex: Male Visit Date: 11/10/2024 13:22 Current Height: 5 feet 7 inch Patient Notes: 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 EMG ordered for evaluation of ?myotonia. Sensory NCS Nerve / Sites Rec. Site Onset Lat Peak Lat INGOT BUGGY OPERATOR Amp Distance Velocity Temp ms ms V cm m/s C L Radial - -Snuff Forearm Snuff 1.9 2.42 23.4 10 52.7 31.2 L Sural - Lat Mall Calf Lat Mall 2.7 3.67 8.3 14 51.3 29 Motor NCS Nerve / Sites Distance Segments Latency Amplitude Velocity Temp. d Lat. cm ms mV m/s C ms L Ulnar - ADM Wrist 7 Wrist - ADM 3.15 8.4 31.5 B.Elbow 20.5 B.Elbow - Wrist 6.83 7.8 55.6 31.5 3.69 A.Elbow 11 A.Elbow - B.Elbow 9.27 6.8 45.1 31.5 2.44 L Peroneal - EDB Ankle 8 Ankle - EDB 4.44 7.5 26.9 Fib Head 29.5 Fib Head - Ankle 11.65 6.8 40.9 27.1 7.21 Knee 7.5 Knee - Fib Head 13.50 6.8 40.4 27.8 1.85 EMG Summary Table IA Fib Fasc Other Amp Dur PolyP Activation Recr Muscle - - - - MUs - MUs - MUs . Pattern L. Biceps Nl 0 0 0 Nl - Nl - Nl Full Nl L. First D Int Nl 0 0 0 Nl - Nl - Nl Full Nl L. Vast Med Nl 0 0 0 Nl - Nl - Nl Full Nl L. Tib Ant Nl 0 0 0 Nl - Nl - Nl Full Nl Results: Normal left radial-snuff box and sural sensory nerve action potentials. Normal left ulnar-ADM and peroneal-EDB compound muscle action potentials for age. Normal concentric needle EMG of selected muscles of the left arm and leg as tabulated above. Impression: This is a normal study. Specifically, myotonic discharges were not observed. Additionally, there is no electrophysiologic evidence of a generalized large-fiber polyneuropathy. Gamaliel Ramos M.D. Neuromuscular Division Neurology Department [facility] Gamaliel Ramos MD NEUROLOGY ORDERABLES Final Resul t from Last 3 Months Insurance MEDICARE PART A & B [employer] SUPPLEMENT MEDICARE PART A & B Pyreos [employer] MEDEX SUPPLEMENT MEDICARE PART A & B [employer] MEDEX SUPPLEMENT MEDICARE PART A & B [employer] SUPPLEMENT MEDICARE PART A & B [employer] SUPPLEMENT MEDICARE PART A & B [employer] SUPPLEMENT MEDICARE PART A & B [employer] MED[employer] SUPPLEMENT MEDICARE PART A & B [facility] MEDEX SUPPLEMENT MEDICARE PART A & B [employer] MEDEX SUPPLEMENT Care Teams Security Director Relationship Specialty Start Date End Date Leonides Reynoso MD [address] [place] [phone] PCP - General Internal Medicine 11/24/21 Additional Source Comments The information contained in this document represents components of the legal health record. It is not the complete legal health record.[facility]
== END 2024-12-31 09:30 | disposition home or self-care (01) ==
LOC: HO.HCS 08:58
PROVIDERS: PCP Internal Medicine; Visit Provider Internal Medicine Cardiovascular Disease
DX: I95.1 Orthostatic hypotension (principal); I49.3 Ventricular premature depolarization
CPT/HCPCS: 93010; 99214; G2211

== ENCOUNTER → 2024-12-31 08:57 | Outpatient (BNVA) | payer MEDICARE, SELFPAY | PROVIDERS: PCP Internal Medicine; Visit Provider Internal Medicine Cardiovascular Disease | DX: I95.1 Orthostatic hypotension (principal); I49.3 Ventricular premature depolarization; G70.00 Myasthenia gravis without (acute) exacerbation; Z87.891 Personal history of nicotine dependence | CPT/HCPCS: 93005; 99212 ==

== ENCOUNTER 2025-01-01 15:45 | Outpatient (REF) | payer MEDICARE, SELFPAY ==
--- OUTSIDE RECORDS SUMMARY | 2024-05-26 06:30 | XMS_ITS ---
Author Organization [facility] Meng prateek Negrito Address [address] [facility] [place] [address] Care Team Providers Care Heel Builder Name Role Phone Leonides Reynoso MD Primary Care Provider Thaddeus Castle Unavailable [phone] Allergies Allergen (clinical drug ingredient) Drug/Non Drug [...] directed Intravenous Active metFORMIN HCl Active pyRIDostigmine [place] 60 MG as directed Orally 3 times a day Active predniSONE Active Encounters Encounter Location Date Provider Diagnosis [facility] [address] [address] 05/26/2024 Thaddeus Camarena Plan Of Treatment Next Appt Details Provider Name:Thaddeus Camarena , 03/16/2025 10:00:00 AM, [address] [place] [address], [phone], Progress Notes * Alon NEGRO SrDOB:[birth year] (89 yo M)Acc No.[id number]:05/26/2024 Progress Note Patient: Diana BONITABRITAlon Sr Provider: Luigi Camarena DPM :1935 A ge:89 Y S ex:Male Date:05/26/2024 Address:[address] [place], [place] [id number] Pcp:Leonides Reynoso MD Subjective: * Chief Complaints: * * Medical History: B roken bones, High blood pressure, Numbness, Reflux ( GERD), Chronic sinusitis, Thyroid, Measles, Mumps, Chicken pox, CAD, Myasthenia gravis, Pre type II diabetes. * Medications: T aking Vyvgart 400 MG/20ML Solution as directed Intravenous , Taking metFORMIN HCl , Taking pyRIDostigmine [place] 60 MG Tablet as directed Orally 3 [...] Date: 05/26/2024 Generated for Tiffany Glass on: 01/01/2025 04:05 PM EDT
--- OUTSIDE RECORDS SUMMARY | 2024-12-15 06:00 | XMS_ITS ---
Author Organization [facility] Meng Negrito Address [address] [facility] [place] [address] Care Team Providers Care Produce Wrapper Name Role Phone Leonides Reynoso MD Primary Care Provider Thaddeus Castle Unavailable [phone] Allergies Allergen (clinical drug ingredient) Drug/Non Drug Allergy documented on EMR Reaction Allergy Type Onset Date Status meperidine Demerol Unknown Drug Allergy Active Medications Medication SIG (Take, Route, Frequency, Duration) Notes Start Date End Date Status Lotrisone Not-Taking Fluticasone Propionate (Inhal) 50 MCG/BLIST 1 puff Inhalation Twice a day Not-Taking Ciclopirox Olamine 0.77 % 1 application to affected area Externally to feet Twice a day; Duration: 30 days Not-Taking Aspirin 81 MG 1 tablet Orally Once a day; Duration: 30 day(s) Not-Taking Sertraline HCl 25 MG 1 tablet Orally Onc e a day; Duration: 30 day(s) Not-Taking Synthroid 75 MCG 1 tablet in the morn ing on an empty stomach Orally Once a day; Duration: 30 day(s) Active Zinc Active Vitamin C Active Ativan 1 MG 1 tablet at bedtime as needed Orally Once a day PRN Not-Taking Extra Depth Orthopedic Shoes, (1) Pair With (3) Pair Custom Heat Molded Multidensity Innersoles Dx: 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), 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,M20.42 ), Preulcerative Skin Lesion(s)(L85.1) Wear Daily; Duration: 365 days 11/08/2023 Active Omeprazole 20 MG 1 capsule 30 minutes before morning meal Orally Once a day; Duration: 30 day(s) Active Vitamin D 25 MCG (1000 UT) 1 tablet Orally Once a day; Duration: 30 day(s) Active hydrALAZINE HCl 50 MG 1 tablet with food Orally Three times a day; Duration: 30 day(s) Active Melatonin 3 MG 1 tablet at bedtime as needed Orally Once a day; Duration: 30 day(s) Active Isosorbide Dinitrate 20 MG 1 tablet Orally Twice a day; Duration: 30 day(s) Active Centrum - as directed Orally A ctive amLODIPine Besylate 2.5 MG 1 tablet Orally Once a day; Duration: 30 day(s) Active Claritin 10 MG 1 tablet Orally Once a day; Duration: 30 day(s) Active Captopril 12.5 MG 1 tablet 1 hour befo re or 2 hours after meals Orally Twice a day; Duration: 30 day(s) Active Crestor 20 MG 1 tablet Orally Once a day; Duration: 30 day(s) Active pyRIDostigmine Thompson 60 MG as directed Orally 3 times a day Active metFORMIN HCl Active predniSONE 10 MG 1 tablet with food o r milk Once a day Active Vyvgart 400 MG/20ML as directed Intravenous Active Mycophenolate Mofetil 500 MG 1 tablet Orally Twice a day Active Encounters Encounter Location Date Provider Diagnosis [facility] [address] [address] 12/15/2024 Thaddeus Camarena Plan Of Treatment Next Appt Details Provider Name:Thaddeus Camarena , 03/16/2025 10:00:00 AM, [address] [place] [address], [phone], Progress Notes * Alon NEGRO SrDOB:[birth year] (89 yo M)Acc No.[id number]:12/15/2024 Progress Note Patient: Diana Alon HERRERA Provider: Luigi Camarena DPM :1935 A ge:89 Y S ex:Male Date:12/15/2024 Address:[address] [place], [place] [id number] Pcp:Leonides Reynoso MD Subjective: * Chief Complaints: * * Medical History: B roken bones, High blood pressure, Numbness, Reflux ( GERD), Chronic sinusitis, Thyroid, Measles, Mumps, Chicken pox, CAD, Myasthenia gravis, Pre type II diabetes. * Medications: T aking Mycophenolate Mofetil 500 MG Tablet 1 tablet Orally Twice a day , Taking Vyvgart 400 MG/20ML Solution as directed Intravenous , Taking metFORMIN HCl , Taking pyRIDostigmine Thompson 60 MG Tablet as directed Orally 3 times a day , Taking predniSONE 10 MG Tablet 1 tablet with food or milk Once a day , Taking amLODIPine Besylate 2.5 MG Tablet [...] Pending * Provider: Luigi Camarena DPM Date: 12/15/2024 Generated for Tiffany griggs/Ramesh/Sherry on: 01/01/2025 04:05 PM EDT
--- NOTE | ~2025-01-01 | US_ITS ---
EXAMINATION: US THYROID CLINICAL INFORMATION: Nontoxic single thyroid nodule COMPARISON: None available. TECHNIQUE: Linear transducer grayscale and color Doppler examination with attention to the region of the thyroid. FINDINGS: SIZE: Measurements of the thyroid lobes and nodules are given in sagittal, anteroposterior and transverse dimensions respectively. Right Thyroid Lobe: 2.4 x 1.7 x 1.2 cm, volume 2.4 mL. Previously it measured 3.9 x 1.5 x 1.2 cm in volume 3.7 mL. Parenchyma: The gland echotexture is normal. Thyroid vascularity is normal. Left Thyroid Lobe: 4.7 x 3.1 x 2.8 cm, volume 21.3 mL. Parenchyma: The gland echotexture is normal. Thyroid vascularity is normal. Isthmus: 0.3 cm in maximum AP dimension. Previously measured 0.4 Estimated total number of nodules greater than or equal to 1 cm: 2. Fabrication Mig Welder nodules are described as follows: 1. Location: Right middle pole. New. Size: 1.3 x 0.9 x 1.1 cm, volume 2.7 mL. Nodule characteristics: Composition: Mixed cystic and solid (1). Echogenicity: Undetermined by Shape: Wider Margins: Smooth (0). Echogenic Foci: None (0). ACR TI-RADS total points: 2. Previous 3. ACR TI-RADS category: 3. Previous 3 2. Location: Left lower pole. Size: 3.7 x 2.6 x 2.9 cm, volume 13.5 mL. Previously measured 3.8 x 2.9 x 2.5 cm in volume 14.4 mL Nodule characteristics: Composition: Solid/almost completely solid (2). Echogenicity: Isoechoic (1). Shape: Wider Margins: Smooth (0). Echogenic Foci: None (0). ACR TI-RADS total points: 3. Previous 3. ACR TI-RADS category: 3. Previous 3. NODES: No lymphadenopathy is seen in the tissue surrounding the thyroid gland. US/US thyroid IMPRESSION: Greater than 1 cm nodules in both lobes with total points and TI-Rads of 2 on the right and 3 on the left. ACR TI-RADS RECOMMENDATION REFERENCE: Ultrasound-guided fine-needle aspiration, followup ultrasound, no further follow up. * TR1 (0 point) and TR2 (2 points): No FNA or follow up. * TR3 (3 points): FNA if more than or equal to 2.5 cm in maximum dimension, followup ultrasound in 1, 3 and 5 years if 1.5 to 2.4 cm in maximum dimension. * TR4 (4-6 points): FNA if more than or equal to 1.5 cm in maximum dimension, followup ultrasound in 1, 2, 3 and 5 years if 1 to 1.4 cm in maximum dimension. * TR5 (more than or equal to 7 points): FNA if more than or equal to 1 cm in maximum dimension, followup ultrasound every year for 5 years if 0.5 to 0.9 cm in maximum dimension. * TR3, TR4 or TR5 nodules that are below the size threshold for followup receive no follow up. Electronically signed by: Raul Najera MD 01/04/2025 07:16 AM EDJack
--- OUTSIDE RECORDS SUMMARY | 2025-01-01 16:06 | XMS_ITS | Patient Health Record ---
Author Organization [facility] Address [address] [place] [phone] Care Team Providers Care Server Software Engineer Name Role Phone Leonides Reynoso MD Primary Care Provider Shae Torres [phone] Allergies Allergen (clinical drug ingredient) Drug/Non Drug [...] Omeprazole 20 MG TAKE 1 CAPSULE BY [facility] EVERY DAY for 90 Active Centrum - [...] Problem Status W/U Status Risk Notes Problem 393421008 Encounter for screening for malignant neoplasm of colon (Z12.11) Active confirmed Problem 379208342 Change in bowel habits (R19.4) Active confirmed Problem 279821264 Gastroesophageal reflux disease without esophagitis (K21.9) Active confirmed Problem 410881477 Tubular adenoma of colon (D12.6) Active confirmed Problem 371225610 Family history o f colon cancer (Z80.0) Active confirmed Problem 30004039 Esophageal stricture (K22.2) Active confirmed Problem 49483760 Constipation, unspecified constipation type (K59.00) Active confirmed Problem 910054643 Hx of adenomatou s colonic polyps (Z86.010) Active confirmed Problem 56915535 Dysphagia, unspecified type (R13.10) Active confirmed Problem 68414554 Diarrhea, unspecified type (R19.7) Active confirmed Problem 915295137 Positive colorec jhonatan cancer screening using Cologuard test (R19.5) Active confirmed Problem Diverticular disease of colon (662318630) Colon, diverticulosis (K57.30) Active confirmed Plan Of [...] OF [place] [address] [place] [address] [id number] SHAE LEVY Self - patient is the insured [employer] CLAIM[employer] [address] [place] [address] [id number] SHAE LEVY Self - patient is the insured Medical (General) History Medical History History ICD Code Hypertension Hyperlipidemia Tubular adenomas removed in 2010, 1999, and in 1996; he had a negative colonoscopy in 2005; colonoscopy in 1999 was complicated by a sigmoid perforation requiring surgery as below; neg. hemoccults x 3 in summer 2018 Denies [place],DM,CVA,Lung disease,renal dise ase Sinus problems GERD/esophageal stricture--u [...]
--- OUTSIDE RECORDS SUMMARY | 2025-01-01 16:06 | XMS_ITS | Clinical Summary ---
Author Organization [facility] Address [address] [place] [phone] Phone Care Team Providers Care Digital Associate Name Role Phone Leonides Reynoso MD Primary Care Provider [phone] Allergies Active Allergy Reactions Criticality Noted Date [...] Type Department Care Team Description 12/22/2024 Refill [facility] Neuromuscular [address] [place] [address] Gamaliel Ramos MD Medication Refill 12/16/2024 Telephone [facility] Neuromuscular [address] [place] [address] Gamaliel Ramos MD Labs Question 12/15/2024 Orders Only [facility] Neurology at [address] [address] Evy Lott MD 12/08/2024 Telephone [facility] Neuromuscular [address] [place] [address] Gamaliel Ramos MD regarding lab update 12/01/2024 Orders Only [facility] Neurology EMG Lab [address] [address] Gamaliel Ramos MD Myasthenia gravis 11/30/2024 Refill [facility], Department of Neurology [address] [place] [address] Gamaliel Ramos MD Medication Refill 11/30/2024 Telephone [facility], Department of Neurology [address] [place] [address] Gamaliel Ramos MD Medication Question 11/10/2024 1:00 PM EDT Office Visit [facility] Neuromuscular [address] [place] [address] Gamaliel Ramos MD Myasthenia gravis (Primary Dx) 11/10/2024 1:00 PM EDT - 11/10/2024 11:59 PM EDT Hospital Encounter [facility] Neurology EMG Lab, [facility] [address] [place] [address] Gamaliel Ramos MD Discharge Disposition: Home or Self Care 11/10/2024 12:09 PM EDT - 11/10/2024 12:59 PM EDT Hospital Encounter [facility] Phlebotomy, [facility] [address] [place] [address] Gamaliel Ramos MD Discharge Disposition: Home or Self Care 11/10/2024 Orders Only [facility] Neurology EMG Lab, [facility] [address] [place] [address] Gamaliel Ramos MD Disorder of bone, unspecified (Primary Dx); Myasthenia gravis 10/30/2024 Orders Only [facility] Neuromuscular [address] [place] [address] ProviderEvy MD 10/19/2024 Telephone [facility] Neuromuscular [address] [place] [address] Gamaliel Ramos MD 10/14/2024 Telephone [facility] Neuromuscular [address] [place] [address] Gamaliel Ramos MD Labs from Last 3 [...] Info) Description 02/22/2025 11:00 AM EST Telemedicine [facility] Neuromuscular [address] [place] [address] Gamaliel Ramos MD [address] [place] [address] [email or web address] Health Maintenance Due Date Last Done Comments [...] of2 resultswithin the time period is included. [facility] Provider LAB BLOOD ORDERABLES Amie l Result * Lab Add On: TSH with reflex (11/10/2024 4:13 PM EDT) TEST REQUESTED TSH WITH REFLEX [facility] Comments (Chemistry) Request received [facility] 11/10/2024 4:13 PM EDT 11/10/2024 4:36 PM EDT Gamaliel Ramos MD LAB BLOOD ORDERABLES Final Resul t Performing Organization Address [facility] Co de Phone Number [facility] [address] [place] [address] * TSH with reflex (11/10/2024 2:02 PM EDT) TSH 1.96 0.50 - 5.70 uIU/mL [facility] 11/10/2024 2:02 PM EDT 11/10/2024 2:33 PM EDT Comment:#[facility] ADDED @[id number] R [id number] Gamaliel Ramos MD LAB BLOOD ORDERABLES Final Resul t Performing Organization Address [facility] Co de Phone Number [facility] [address] [place] [phone] * (ABNORMAL) LFTs (hepatic panel) (11/10/2024 2:02 PM EDT) TOTAL PROTEIN 6.8 6.4 - 8.3 g/dL [facility] ALBUMIN 4.8 3.5 - 5.2 g/dL [facility] GLOBULIN 2.0(L) 2.2 - 4.2 g/dL [facility] AST 18 10 - 50 U/L [facility] ALT 17 10 - 50 U/L [facility] ALKALINE PHOSPHATASE 50 35 - 130 U/L [facility] TOTAL BILIRUBIN 0.6 0.0 - 1.0 mg/dL [facility] DIRECT BILIRUBIN 0.2 0.0 - 0.3 mg/dL [facility] Blood 11/10/2024 2:02 PM EDT 11/10/2024 2:33 PM EDT us Gamaliel Ramos MD LAB BLOOD ORDERABLES Final Resul t Performing Organization Address [facility] de Phone Number [place] [phone] * (ABNORMAL) 25-OH vitamin D (11/10/2024 2:02 PM EDT) Pathologist [facility] 25 OH VIT D (TOTAL) 72(H) 20 - 50 ng/mL [facility] Blood 11/10/2024 2:02 PM EDT 11/10/2024 2:33 PM EDT us Gamaliel Ramos MD LAB BLOOD ORDERABLES Final Resul t Performing Organization Address [facility] [place] [address] * (ABNORMAL) CBC and differential (11/10/2024 2:02 PM EDT) WBC 11.73(H) 4.00 - 11.00 K/uL [facility] RBC 4.62 4.50 - 5.90 M/uL [facility] HGB 14.8 13.5 - 17.5 g/dL [facility] HCT 45.6 41.0 - 53.0 % [facility] PLT 248 150 - 450 K/uL [facility] MCV 98.7 80.0 - 100.0 fL [facility] MCH 32.0(H) 27.0 - 31.0 pg [facility] MCHC 32.5 32.0 - 36.0 g/dL [facility] RDW 12.9 11.5 - 14.5 % [facility] MPV 10.1 8.4 - 12.0 fL [facility] NRBC 0.00 0.00 /100 WBCs [facility] ABSOLUTE NRBC 0.00 0.00 K/uL [facility] DIFF METHOD Auto [facility] NEUTS 86.0(H) 48.0 - 76.0 % [facility] LYMPHS 9.0(L) 18.0 - 41.0 % [facility] MONOS 3.6(L) 4.0 - 11.0 % [facility] EOS 0.1 0.0 - 5.0 % [facility] BASOS 0.3 0.0 - 1.5 % [facility] % IMMATURE GRANS 1.0(H) 0.0 - 0.9 % [facility] ABSOLUTE NEUTS 10.10(H) 1.92 - 7.60 K/uL [facility] Comment:1.21-5.39 cells/KL i s the reference range for individuals with the Genao null phenotype ABSOLUTE LYMPHS 1.05 0.72 - 4.10 K/uL [facility] ABSOLUTE MONOS 0.42 0.16 - 1.10 K/uL [facility] ABSOLUTE EOS 0.01 0.00 - 0.50 K/uL [facility] ABSOLUTE BASOS 0.03 0.00 - 0.15 K/uL [facility] ABS IMMATURE GRANS 0.12(H) 0.00 - 0.09 K/uL [facility] ABSOLUTE NEUTROPHIL COUNT 10.10(H) 1.92 - 7.60 K/uL [facility] Comment: Automated cell count. Manual ANC may differ if performed. 1.21-5.39 cells/KL is the reference range for individuals with the Genao null phenotype Blood 11/10/2024 2:02 PM EDT 11/10/2024 2:33 PM EDT us Gamaliel Ramos MD LAB BLOOD ORDERABLES Final Resul t [facility] [address] [place] [phone] * EMG (11/10/2024 1:00 PM EDT) Anatomical Region Laterality Modality EMG Narrative 11/10/2024 1:00 PM EDT Gamaliel Ramos MD 11/11/2024 4:43 PM Clinical Neurophysiology Laboratory 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 EMG ordered for evaluation of ?myotonia. Sensory NCS Nerve / Sites Rec. 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 Neuromuscular Division Neurology Department [facility] Gamaliel Ramos MD NEUROLOGY ORDERABLES Final Resul t from Last 3 Months Insurance MEDICARE PART A & B [employer]UE [employer] MEDEX SUPPLEMENT MEDICARE PART A & B [employer] CROSS MEDEX SUPPLEMENT MEDICARE PART A & B [employer] MEDEX SUPPLEMENT MEDICARE PART A & B [employer] MEDEX SUPPLEMENT MEDICARE PART A & B [employer] MEDEX SUPPLEMENT MEDICARE PART A & B [employer] MEDEX SUPPLEMENT MEDICARE PART A & B [employer] MEDEX SUPPLEMENT MEDICARE PART A & B [facility] MEDEX SUPPLEMENT MEDICARE PART A & B [employer] MEDEX SUPPLEMENT Care Teams Digital Associate Relationship Specialty Start Date End Date Leonides Reynoso MD [address] [place] [address] PCP - General Internal Medicine 11/24/21 Additional Source Comments The information contained in this document represents components of the legal health record. It is not the complete legal health record.[facility]
--- OUTSIDE RECORDS SUMMARY | 2025-01-01 16:06 | XMS_ITS | Patient Health Record ---
Author Organization [facility] Meng prateek Negrito Address [address] [place] [address] Care Team Providers Care Ice Cream Shop Associate Name Role Phone Leonides Reynoso MD Primary Care Provider Thaddeus Castle Unavailable [phone] Allergies Allergen (clinical drug ingredient) Drug/Non Drug [...] a day; Duration: 30 day(s) Active pyRIDostigmine Byron 60 MG as directed Orally 3 times [...] Immunizations Vaccine Route Administration Date Status Comme [facility] COVID-19 Moderna Vaccine Unknown 07/07/2021 Administered [...] Problem Acquired hammer toe of right foot (7862407406797 105) Other hammer toe(s) (acquired), right foot (M20.41) Active confirmed Response to treatment,I mprovement Problem Type 2 diabetes mellitus with peripheral angiopathy (609985991) Type 2 diabetes mellitus with diabetic peripheral angiopathy without gangrene (E11.51) Active confirmed Problem Acquired hammer toe of left foot ([id number] 103) Other hammer toe(s) (acquired), left foot (M20.42) Active confirmed Response to treatment,I mprovement Vital Signs Blood pressure diastolic 68 mm Hg 09/08/2024 Height 5 ft 6in in 09/08/2024 Blood pressure systolic 136 mm Hg 09/08/2024 Weight 158 lbs 09/08/2024 BMI 25.5 kg/m2 09/08/2024 Procedures Procedure Date Ordered Date Performed Result Body Sit e 68444-QHSOIKM NAIL, 6 OR MORE 02/25/2024 N/A 09386-LXJU SKIN LESIONS, 2 TO 4 02/25/2024 N/A 55999-JFKEDWG NAIL, 6 OR MORE 06/02/2024 N/A 99311-VOZX SKIN LESIONS, 2 TO 4 06/02/2024 N/A 20582-IVQYFDJ NAIL, 6 OR MORE 09/08/2024 N/A 33115-NYBN SKIN LESIONS, 2 TO 4 09/08/2024 N/A Encounters Encounter Location Date Provider Diagnosis [facility] [address] [address] 02/25/2024 Thaddeusjian Camarena Type 2 diabetes mellitus with diabetic peripheral angiopathy without gangrene E11.51 ; Tinea unguium B35.1 ; Pain in right toe(s) M79.674 and Pain in left toe(s) M79.[address] [facility] [address] 06/02/2024 Thaddeus Camarena Type 2 diabetes mellitus with diabetic peripheral angiopathy without gangrene E11.51 ; Other hammer toe(s) (acquired), right foot M20.41 ; Tinea unguium B35.1 ; Pain in right toe(s) M79.674 ; Pain in left toe(s) M79.675 and Other hammer toe(s) (acquired), left foot M20.[address] [facility] [address] 09/08/2024 Thaddeus Camarena Type 2 diabetes mellitus with diabetic peripheral angiopathy without gangrene E11.51 ; Tinea unguium B35.1 ; Pain in right toe(s) M79.674 and Pain in left toe(s) M79.[address] [facility] [address] 05/21/2024 Thaddeus Camarena [facility] [address] 06/02/2024 [facility] [address] [address] 12/08/2024 Thaddeus Camarena Assessments Encounter Date Diagnosis [...] Treatment Pending Test Test Name Order Date 03157-VVETCXL NAIL, 6 OR MORE 07/12/2020 05505-LRKSLZX NAIL, 6 OR MORE 10/11/2020 08293-YPUQVLU NAIL, 6 OR MORE 01/10/2021 18219-QLQDEBM NAIL, 6 OR MORE 04/14/2021 68867-NPTGAKC NAIL, 6 OR MORE 08/15/2021 49484-OYHDEDI NAIL, 6 OR MORE 11/17/2021 52423-EMDJQGT NAIL, 6 OR MORE 04/24/2022 35324-PBEROFU NAIL, 6 OR MORE 04/19/2020 52050-TMWJNTI NAIL, 6 OR MORE 07/24/2022 94580-CYRAZBO NAIL, 6 OR MORE 10/23/2022 99580-GDJVKJU NAIL, 6 OR MORE 01/29/2023 27042-KJAXTDF NAIL, 6 OR MORE 05/07/2023 17904-GSMFCEC NAIL, 6 OR MORE 11/08/2023 44044-YYOHPWU NAIL, 6 OR MORE 02/25/2024 30595-AQZPHFU NAIL, 6 OR MORE 06/02/2024 05963-DNRBODN NAIL, 6 OR MORE 09/08/2024 64291-Osud Destruction, 1-14 04/19/2020 06552-Mzmdzkho Plate 04/24/2022 11364-EFHL SKIN LESIONS, 2 TO 4 04/24/19 38998-WLIE SKIN LESIONS, 2 TO 4 07/25/19 73916-XCHX SKIN LESIONS, 2 TO 4 01/30/20 23121-YNAP SKIN LESIONS, 2 TO 4 10/24/19 87548-GQRQ SKIN LESIONS, 2 TO 4 06/03/20 25 94227-NAVU SKIN LESIONS, 2 TO 4 06/02/19 25 79152-RZDJ SKIN LESIONS, 2 TO 4 02/25/20 24 64305-JMCH SKIN LESIONS, 2 TO 4 11/08/19 24 83483-RBNG SKIN LESIONS, 2 TO 4 05/07/19 24 Next Appt Details Provider Name:Thaddeus Camarena , 03/16/2025 10:00:00 AM, [address] [place], [address], Insurance Providers Payer Name Payer Address Payer Phone Subscriber Number Group Number Insured Name Patient Relationship to Insured Coverage Start Date Coverage End Date Medicare National Govt [employer] [address] [place] [address] [id number] Alon Negro Self - patient is the insured [employer] [address] [place] [address] [phone] [id number] Alon Negro Self - patient is the [...]
--- OUTSIDE RECORDS SUMMARY | 2025-01-01 16:06 | XMS_ITS | Clinical Summary ---
Author Organization [facility] Address [address] [place] [address] Phone Care Team Providers Care Tv Production Assistant Name Role Phone Steven Angel MD Primary Care Provider Social History Tobacco Use Types Packs/Day Years [...] mmol/L LAB CHEMISTRY METHOD 05/20/2024 11:58 AM [facility] Potassium 3.8 3.5 - 5.5 mmol/L LAB CHEMISTRY METHOD 05/20/2024 11:58 AM [facility] Chloride 104 96 - 110 mmol/L LAB CHEMISTRY METHOD 05/20/2024 11:58 AM [facility] CO2 28 21 - 32 mmol/L LAB CHEMISTRY METHOD 05/20/2024 11:58 AM [facility] Anion Gap 7 3 - 11 LAB CHEMISTRY METHOD 05/20/2024 11:58 AM [facility] Glucose 75 70 - 100 mg/dL LAB CHEMISTRY METHOD 05/20/2024 11:58 AM [facility] BUN 19 5 - 25 mg/dL LAB CHEMISTRY METHOD 05/20/2024 11:58 AM [facility] Creatinine 0.82 0.70 - 1.30 mg/dL LAB CHEMISTRY METHOD 05/20/2024 11:58 AM [facility] eGFR 85 >=60 mL/min/1. 73m2 LAB CHEMISTRY METHOD 05/20/2024 11:58 AM [facility] Comment:Calculation based on the Chronic Kidney Disease Epidemiology Collaboration (CKD-EPI) equation refit without adjustment for race. BUN/Creatinine Ratio 23.2 LAB CHEMISTRY METHOD 05/20/2024 11:58 AM [facility] Calcium 8.8 8.5 - 10.5 mg/dL LAB CHEMISTRY METHOD 05/20/2024 11:58 AM [facility] AST (SGOT) 19 10 - 42 unit/L LAB CHEMISTRY METHOD 05/20/2024 11:58 AM [facility] ALT (SGPT) 38 10 - 60 unit/L LAB CHEMISTRY METHOD 05/20/2024 11:58 AM [facility] Alkaline Phosphatase 64 42 - 121 unit/L LAB CHEMISTRY METHOD 05/20/2024 11:58 AM [facility] Total Protein 5.4(L) 6.0 - 8.0 g/dL LAB CHEMISTRY METHOD 05/20/2024 11:58 AM [facility] Albumin 3.4 3.2 - 5.0 g/dL LAB CHEMISTRY METHOD 05/20/2024 11:58 AM [facility] Total Bilirubin 0.8 0.0 - 1.4 mg/dL LAB CHEMISTRY METHOD 05/20/2024 11:58 AM [facility] Blood Venous blood specimen / Unknown Venipuncture / Unknown 05/20/2024 7:10 AM EST 05/20/2024 10:41 AM EST us Steven Angel MD LAB BLOOD ORDERABLES Final Resul t [facility] [address] [place] [address], from Last 3 Months or Most Recently Relevant to Health Maintenance Insurance [facility]ICARE [facility] Care Teams Tv Production Assistant Relationship Specialty Start Date End Date Steven Angel MD [address] [place] [address], [phone] PCP - General Family Medicine 05/20/24
--- OUTSIDE RECORDS SUMMARY | 2025-01-01 16:06 | XMS_ITS | Encounter Summary ---
Author Organization [facility] Address [address] [place] [address] Care Team Providers Care Uniform Room Attendant Name Role Phone Steven Angel MD Primary Care Provider [phone] Encounter Details Date Type Department Care Team (Late st Contact Info) Description 05/20/2024 Lab Requisition [facility] - Main Lab [address] [facility] [place] [address] Steven Angel MD [address] [place] [address] [address] [place], [phone] Influenza due to identified novel influenza [...] Comprehensive metabolic panel (05/20/2024 7:10 AM EST) [facility] Signature Sodium 139 133 - 145 mmol/L LAB CHEMISTRY METHOD 05/20/2024 11:58 AM [facility] Potassium 3.8 3.5 - 5.5 mmol/L LAB CHEMISTRY METHOD 05/20/2024 11:58 AM [facility] Chloride 104 96 - 110 mmol/L LAB CHEMISTRY METHOD 05/20/2024 11:58 AM [facility] CO2 28 21 - 32 mmol/L LAB CHEMISTRY METHOD 05/20/2024 11:58 AM [facility] Anion Gap 7 3 - 11 LAB CHEMISTRY METHOD 05/20/2024 11:58 AM [facility] Glucose 75 70 - 100 mg/dL LAB CHEMISTRY METHOD 05/20/2024 11:58 AM [facility] BUN 19 5 - 25 mg/dL LAB CHEMISTRY METHOD 05/20/2024 11:58 AM [facility] Creatinine 0.82 0.70 - 1.30 mg/dL LAB CHEMISTRY METHOD 05/20/2024 11:58 AM [facility] eGFR 85 >=60 mL/min/1. 73m2 LAB CHEMISTRY METHOD 05/20/2024 11:58 AM [facility] Comment:Calculation based on the Chronic Kidney Disease Epidemiology Collaboration (CKD-EPI) equation refit without adjustment for race. BUN/Creatinine Ratio 23.2 LAB CHEMISTRY METHOD 05/20/2024 11:58 AM [facility] Calcium 8.8 8.5 - 10.5 mg/dL LAB CHEMISTRY METHOD 05/20/2024 11:58 AM [facility] AST (SGOT) 19 10 - 42 unit/L LAB CHEMISTRY METHOD 05/20/2024 11:58 AM [facility] ALT (SGPT) 38 10 - 60 unit/L LAB CHEMISTRY METHOD 05/20/2024 11:58 AM [facility] Alkaline Phosphatase 64 42 - 121 unit/L LAB CHEMISTRY METHOD 05/20/2024 11:58 AM [facility] Total Protein 5.4(L) 6.0 - 8.0 g/dL LAB CHEMISTRY METHOD 05/20/2024 11:58 AM [facility] Albumin 3.4 3.2 - 5.0 g/dL LAB CHEMISTRY METHOD 05/20/2024 11:58 AM [facility] Total Bilirubin 0.8 0.0 - 1.4 mg/dL LAB CHEMISTRY METHOD 05/20/2024 11:58 AM [facility] Blood Venous blood specimen / Unknown Venipuncture / Unknown 05/20/2024 7:10 AM EST 05/20/2024 10:41 AM EST us Steven Angel MD LAB BLOOD ORDERABLES Final Resul t [facility] [address] [place] [address], * (ABNORMAL) Complete blood count (05/20/2024 7:10 AM EST) WBC 17.1(H) 4.8 - 10.8 K/mcL LAB HEMETOLOGY METHOD 05/20/2024 11:48 AM [facility] RBC 4.30(L) 4.50 - 5.50 M/mcL LAB HEMETOLOGY METHOD 05/20/2024 11:48 AM [facility] Hemoglobin 13.7 13.5 - 17.5 g/dL LAB HEMETOLOGY METHOD 05/20/2024 11:48 AM [facility] Hematocrit 41.4(L) 42.0 - 54.0 % LAB HEMETOLOGY METHOD 05/20/2024 11:48 AM [facility] MCV 96.5 79.0 - 98.0 FL LAB HEMETOLOGY METHOD 05/20/2024 11:48 AM [facility] MCH 31.9 27.0 - 32.0 pcg LAB HEMETOLOGY METHOD 05/20/2024 11:48 AM EST [facility] MCHC 33.1 32.0 - 37.0 g/dL LAB HEMETOLOGY METHOD 05/20/2024 11:48 AM [facility] RDW 12.7 11.0 - 15.0 % LAB HEMETOLOGY METHOD 05/20/2024 11:48 AM [facility] Platelets 231 130 - 400 K/mcL LAB HEMETOLOGY METHOD 05/20/2024 11:48 AM [facility] MPV 11.1(H) 7.0 - 11.0 FL LAB HEMETOLOGY METHOD 05/20/2024 11:48 AM [facility] NRBC 0.0 <1.0 % LAB HEMETOLOGY METHOD 05/20/2024 11:48 AM [facility] NRBC Absolute 0.00 <0.10 K/mcL LAB HEMETOLOGY METHOD 05/20/2024 11:48 AM [facility] Blood Venous blood specimen / Unknown Venipuncture / Unknown 05/20/2024 7:10 AM EST 05/20/2024 10:41 AM EST us Steven Angel MD LAB BLOOD ORDERABLES Final Resul t [facility] [address] [place] [address], documented in this encounter Visit Diagnoses Diagnosis Influenza due to identified novel influenza A virus with other respiratory manifestations Respiratory syncytial virus as the cause of diseases classified elsewhere Essential (primary) hypertension Unspecified essential hypertension Hyperlipidemia, unspecified documented in this encounter Care Teams Uniform Room Attendant Relationship Specialty Start Date End Date Steven Angel MD [address] [place] [address], [phone] PCP - General Family Medicine 05/20/24 documented as of this encounter
--- OUTSIDE RECORDS SUMMARY | 2025-01-01 16:06 | XMS_ITS | Encounter Summary ---
Author Organization [facility] Address [address] [place] [address] [address] [place] [address] Phone Care Team Providers Care Financial Investment Manager Name Role Phone Leonides Reynoso MD Primary Care Provider [phone] Encounter Details Date Type Department Care Team ([facility] Contact Info) Description 12/15/2024 Orders Only [facility] Neurology at [address] [address] Provider, MD [facility] [place] [phone] Social History Tobacco Use Types Packs/Day Years Used Date Smoking Tobacco: Former Cigarettes Q uit: 1993 Smokeless Tobacco: Never Education Answer Date Recorded [...] Info) Description 02/22/2025 11:00 AM EST Telemedicine [facility] Neuromuscular [address] [place] [address] Gamaliel Ramos MD [address] [place] [address] [email or web address] documented as of this encounter Procedures [...] documented as of this encounter Care Teams Financial Investment Manager Relationship Specialty Start Date End Date Leonides Reynoso MD [address] [place] [address] PCP - General Internal Medicine 11/24/21 documented as of this encounter Additional Source Comments The information contained in this document represents components of the legal health record. It is not the complete legal health record.[facility]
== END 2025-01-01 15:46 | disposition home or self-care (01) ==
LOC: HO.US 15:45
PROVIDERS: PCP Internal Medicine; Visit Provider Nurse Practitioner Adult Health
DX: E04.1 Nontoxic single thyroid nodule (principal)
CPT/HCPCS: 76536

== ENCOUNTER → 2025-01-01 16:30 | Outpatient (BNV) | payer MEDICARE, SELFPAY | PROVIDERS: PCP Internal Medicine; Visit Provider Radiology Diagnostic Radiology | DX: E04.2 Nontoxic multinodular goiter (principal) | CPT/HCPCS: 76536 ==

== ENCOUNTER 2025-01-16 10:58 | Outpatient (REF) | payer MEDICARE, SELFPAY ==
[2025-01-16 15:19] LABS: MANUAL DIFF FLAG NO
[2025-01-16 15:28] LABS: Hematocrit 44.0 % (42.0-52.0); Hemoglobin 14.2 g/dl (14.0-18.0); Imm Gran Abs Auto 0.14 X10*3/uL (0.00-0.03); Imm Gran Pct Auto 0.8 % (0.0-0.4); Lymphocytes Absolute Auto 1.0 X10*3/uL (1.2-4.9); Mean Corpuscular HGB Conc 32.3 g/dl (31.0-36.0); Mean Corpuscular Hemoglobin 31.3 pg (27.0-33.0); Mean Corpuscular Volume 97.1 fL (80.0-98.0); NRBC Abs Auto 0.000 X10*3/uL (0.0-0.012); NRBC Pct Auto 0.0 /100WBC (0.0-0.2); Platelet Count 232 X10*3/uL (160-400); Red Blood Count 4.53 X10*6/uL (4.60-5.80); White Blood Count 17.1 X10*3/uL (4.8-10.8)
[2025-01-16 15:55] LABS: Anion Gap 13 (12-20); Blood Urea Nitrogen 15 mg/dL (9-16); Calcium 9.2 mg/dL (8.4-10.2); Carbon Dioxide 26 mmol/L (22-29); Chloride 103 mmol/L (96-108); Estimated Glomerular Filt Rate > 60; Potassium 4.0 mmol/L (3.3-5.1); Sodium 138 mmol/L (135-145)
[2025-01-16 16:20] LABS: NT Pro B Type Natriuretic Pept 139.8 pg/mL (<300)
== END 2025-01-16 10:59 | disposition home or self-care (01) ==
LOC: HO.HMGCLDS 10:58
PROVIDERS: PCP Internal Medicine; Visit Provider Family Medicine
DX: Z00.00 Encounter for general adult medical examination without abnormal findings (principal); I95.9 Hypotension, unspecified; I11.0 Hypertensive heart disease with heart failure; I50.9 Heart failure, unspecified; I44.0 Atrioventricular block, first degree; Z87.891 Personal history of nicotine dependence
CPT/HCPCS: 36415; 80048; 83880; 85025; 99212

== ENCOUNTER 2025-01-16 10:58 | Outpatient (AMB) | payer MEDICARE, SELFPAY ==
--- OUTSIDE RECORDS SUMMARY | 2024-05-26 06:30 | XMS_ITS ---
Author Organization [facility] Meng prateek [place] Address [address] [place] [address] Care Team Providers Care Acid Washer Operator Name Role Phone Leonides Reynoso MD Primary Care Provider Thaddeus Castle Unavailable [phone] Allergies Allergen (clinical drug ingredient) Drug/Non Drug [...] directed Intravenous Active metFORMIN HCl Active pyRIDostigmine [place] 60 MG as directed Orally 3 times a day Active predniSONE Active Encounters Encounter Location Date Provider Diagnosis [facility] [address] [address] 05/26/2024 Thaddeus Camarena Plan Of Treatment Next Appt Details Provider Name:Thaddeus Camarena , 03/16/2025 10:00:00 AM, [address] [place] [address], [phone], Progress Notes * Alon NEGRO SrDOB:[birth year] (89 yo M)Acc No.[id number]:05/26/2024 Progress Note Patient: Diana BONITABRITAlon Sr Provider: Luigi Camarena DPM :1935 A ge:89 Y S ex:Male Date:05/26/2024 Address:[address] [place], [place] [id number] Pcp:Leonides Reynoso MD Subjective: * Chief Complaints: * * Medical History: B roken bones, High blood pressure, Numbness, Reflux ( GERD), Chronic sinusitis, Thyroid, Measles, Mumps, Chicken pox, CAD, Myasthenia gravis, Pre type II diabetes. * Medications: T aking Vyvgart 400 MG/20ML Solution as directed Intravenous , Taking metFORMIN HCl , Taking pyRIDostigmine [place] 60 MG Tablet as directed Orally 3 [...] Pending * Provider: Luigi Camarena DPM Date: 0 05/26/2024 Generated for Tiffany Glass on: 1 11:01 AM EDT
--- OUTSIDE RECORDS SUMMARY | 2024-12-15 06:00 | XMS_ITS ---
Author Organization [facility] Address [address] [facility] [place] [address] Care Team Providers Care Autotransfusionist Name Role Phone Leonides Reynoso MD Primary Care Provider Thaddeus Castle Unavailable [phone] Allergies Allergen (clinical drug ingredient) Drug/Non Drug [...] a day; Duration: 30 day(s) Active pyRIDostigmine [place] 60 MG as directed Orally 3 times a day Active metFORMIN HCl Active predniSONE 10 MG 1 tablet with food o r milk Once a day Active Vyvgart 400 MG/20ML as directed Intravenous Active Mycophenolate Mofetil 500 MG 1 tablet Orally Twice a day Active Encounters Encounter Location Date Provider Diagnosis [facility] [address] [address] 12/15/2024 Thaddeus Camarena Plan Of Treatment Next Appt Details Provider Name:Thaddeus Camarena , 03/16/2025 10:00:00 AM, [address] [place] [address], [phone], Progress Notes * Alon NEGRO SrDOB:[birth year] (89 yo M)Acc No.[id number]:12/15/2024 Progress Note Patient: Diana Alon HERRERA Provider: Luigi Camarena DPM :1935 A ge:89 Y S ex:Male Date:12/15/2024 Address:[address] [place], [place] [phone] Pcp:Leonides Reynoso MD Subjective: * Chief Complaints: [...] , Taking metFORMIN HCl , Taking pyRIDostigmine [place] 60 MG Tablet as directed Orally 3 [...] * Provider: Luigi Camarena DPM Date: 0 12/15/2024 Generated for Tiffany griggs/Ramesh/Sherry on: 11:01 AM EDT
[2025-01-16 11:00] VITALS: BP 94/54; PULSE 75; RESP 16; TEMP 36.6; O2SAT 97; BMI 24.4
--- NOTE | 2025-01-16 11:00 | AM.OFFWIN_ITS ---
Intake Vital Signs 01/16/25 11:00 Height 5 ft 6 in Weight 151 lb BMI 24.4 BP 94/54 L Blood Pressure Location Rt brachial Position Sitting Respiration 16 Pulse 75 Pulse Source Pulse Oximeter Temp 97.8 F Temp Source Oral Pulse Oximetry (%) 97 Oxygen Delivery Method Room Air Comment lying 112/62 p. 61, sitting 100/60 p. 64, standing 94/50 p. 66 Intake Visit Reasons: EP, light headed, unsteady gait, feels like a fog Intake Note: Pt is here today c/i lightheadedness, unsteady gait Patient Tobacco Use Status: Former Tobacco user Allergies meperidine (From Demerol) Allergy (Unknown, Verified 01/16/25 11:01) unknown reaction-patient states was many years ago Medication List - Last Reconciled 01/16/25 by Anil Moser MD amlodipine 5 mg PO BID atorvastatin 40 mg PO BEDTIME calcium carbonate 500 mg PO DAILY captopril 18.75 mg (1.5 x 12.5 mg) PO TID 90 days cholecalciferol (vitamin D3) 25 mcg PO DAILY hydralazine 50 mg PO BEDTIME isosorbide dinitrate 20 mg PO DAILY levocetirizine (Xyzal) 5 mg PO DAILY levothyroxine 88 mcg PO DAILY@0600 melatonin 10 mg PO BEDTIME metformin ER 500 mg PO DAILY multivitamin 1 tab PO DAILY mycophenolate mofetil 1,000 mg PO BID omeprazole 20 mg PO DAILY@0630 prednisone 10 mg PO DAILY pyridostigmine bromide 60 mg PO QID sertraline 50 mg PO DAILY trazodone 75 mg PO BEDTIME zinc sulfate 50 mg PO BID HPI EP, light headed, unsteady gait, feels like a fog HPI Details 89-year-old male presents for lightheade dness ?fogginess? that started today. A little worse when he stands up quickly. No feverishness or chills No dizziness with turning his head Blood pressure is low. He takes 3 blood pressure medications and has a history of dysautonomia and orthostatic hypotension. He is drinking fluids [facility] Medical History Myasthenia gravis COVID-19 vaccine administered GERD (gastroesophageal reflux disease) Insomnia Hyperlipidemia Orthostatic hypotension dysautonomic syndrome HTN (hypertension) Non-toxic multinodular goiter Hypothyroidism Surgical History Hx of cataract surgery History of colon surgery History of esophagogastroduodenoscopy (EGD) H/O colonoscopy Hx of tonsillectomy Hx of appendectomy Family History Father Parkinsons disease Mother Myocardial infarction CVD (cardiovascular disease) Cancer Social History Household Members: None Housing: Apartment Are you a primary ocular care aide to a significant other at home: No Do you presently have visiting nurse or other home services: No Alcohol intake: never Patient Tobacco Use Status: Former Tobacco user Tobacco use type: Cigarette Cigarette Packs Per Day: 1 Cigarettes Per Day: 20.0 Years Smoked: 30 e-Cigarette/Vaping Use: Never Used service: Yes Current occupational status: retired Review of Systems Const Details: See HPI Physical Exam Vital Signs: Last Vital Signs Temp 97.8 F 01/16/25 11:00 Pulse 75 01/16/25 11:00 Resp 16 01/16/25 11:00 BP 94/54 L 01/16/25 11:00 Pulse Ox 97 01/16/25 11:00 Oxygen Delivery Method Room Air 01/16/25 11:00 BMI result Body Mass Index 24.4 Const Other: Nontoxic Patient is smiling Ambulating normally Resp Other: CTA bilateral Cardio Other: RRR S1S2, no m/r/g Neuro Other: Normal gait Assessment & Plan Assessment & Plan (1) Hypotension: Code(s): I95.9 - Hypotension, unspecified Plan: 89-year-old Patient with a history of myasthenia gravis and dysautonomia with hypertension and orthostatic hypotension presents feeling weak and ?in a fog - symptoms started today. No fevers or chills Blood pressure quite low on presentation 94/54. Orthostatic blood pressures negative today for significant orthostasis. EKG shows sinus rhythm with first-degree AV block, probable anteroseptal infarct which is unchanged from prior EKG a month ago. No ST-T-wave changes. EKG not significantly changed from prior test a month ago. Likely his symptoms are secondary to hypotension Maintain good hydration and try to increase hydration today. Hold mid day captopril dose. Check blood pressures at home and can hold captopril dose if systolic blood pressure less than 110. Follow-up with your PCP and soa integration developer Checking labs to rule out anemia or infection though these seem unlikely. Patient notes low potassium recently though I do not see labs that support this. Also checking BNP Orders: Orders Complete Blood Count Auto Diff Today I95.9 - Hypotension, unspecified, Z00.00 - Encounter for general adult medical examination without abnormal findings Basic Metabolic Panel Today I95.9 - Hypotension, unspecified, Z00.00 - Encou nter for general adult medical examination without abnormal findings NT Pro B Type Natriuretic Pept Today I50.9 - Heart failure, unspecified, I95.9 - Hypotension, unspecified Coding Level of Care Code Est Pt Level 3 (83489) Diagnoses Hypotension I95.9
--- OUTSIDE RECORDS SUMMARY | 2025-01-16 11:02 | XMS_ITS | Encounter Summary ---
Author Organization [facility] Address [address] [place] [address] Care Team Providers Care Technology Applications Engineer Name Role Phone Steven Angel MD Primary Care Provider [phone] Encounter Details Date Type Department Care Team (Late st Contact Info) Description 05/20/2024 Lab Requisition [facility] - Main Lab [address] [facility] [place] [address] Steven Angel MD [address] [place] [address] [address] [place], [address] Influenza due to identified novel influenza [...] Comprehensive metabolic panel (05/20/2024 7:10 AM EST) [facility] Signature Sodium 139 133 - 145 mmol/L LAB CHEMISTRY METHOD 05/20/2024 11:58 AM [facility] Potassium 3.8 3.5 - 5.5 mmol/L LAB CHEMISTRY METHOD 05/20/2024 11:58 AM [facility] Chloride 104 96 - 110 mmol/L LAB CHEMISTRY METHOD 05/20/2024 11:58 AM [facility] CO2 28 21 - 32 mmol/L LAB CHEMISTRY METHOD 05/20/2024 11:58 AM [facility] Anion Gap 7 3 - 11 LAB CHEMISTRY METHOD 05/20/2024 11:58 AM [facility] Glucose 75 70 - 100 mg/dL LAB CHEMISTRY METHOD 05/20/2024 11:58 AM [facility] BUN 19 5 - 25 mg/dL LAB CHEMISTRY METHOD 05/20/2024 11:58 AM [facility] Creatinine 0.82 0.70 - 1.30 mg/dL LAB CHEMISTRY METHOD 05/20/2024 11:58 AM [facility] eGFR 85 >=60 mL/min/1. 73m2 LAB CHEMISTRY METHOD 05/20/2024 11:58 AM [facility] Comment:Calculation based on the Chronic Kidney Disease Epidemiology Collaboration (CKD-EPI) equation refit without adjustment for race. BUN/Creatinine Ratio 23.2 LAB CHEMISTRY METHOD 05/20/2024 11:58 AM [facility] Calcium 8.8 8.5 - 10.5 mg/dL LAB CHEMISTRY METHOD 05/20/2024 11:58 AM [facility] AST (SGOT) 19 10 - 42 unit/L LAB CHEMISTRY METHOD 05/20/2024 11:58 AM [facility] ALT (SGPT) 38 10 - 60 unit/L LAB CHEMISTRY METHOD 05/20/2024 11:58 AM [facility] Alkaline Phosphatase 64 42 - 121 unit/L LAB CHEMISTRY METHOD 05/20/2024 11:58 AM [facility] Total Protein 5.4(L) 6.0 - 8.0 g/dL LAB CHEMISTRY METHOD 05/20/2024 11:58 AM [facility] Albumin 3.4 3.2 - 5.0 g/dL LAB CHEMISTRY METHOD 05/20/2024 11:58 AM [facility] Total Bilirubin 0.8 0.0 - 1.4 mg/dL LAB CHEMISTRY METHOD 05/20/2024 11:58 AM [facility] Blood Venous blood specimen / Unknown Venipuncture / Unknown 05/20/2024 7:10 AM EST 05/20/2024 10:41 AM EST us Steven Angel MD LAB BLOOD ORDERABLES Final Resul t [facility] [address] [place] [address], * (ABNORMAL) Complete blood count (05/20/2024 7:10 AM EST) WBC 17.1(H) 4.8 - 10.8 K/mcL LAB HEMETOLOGY METHOD 05/20/2024 11:48 AM [facility] RBC 4.30(L) 4.50 - 5.50 M/mcL LAB HEMETOLOGY METHOD 05/20/2024 11:48 AM [facility] Hemoglobin 13.7 13.5 - 17.5 g/dL LAB HEMETOLOGY METHOD 05/20/2024 11:48 AM [facility] Hematocrit 41.4(L) 42.0 - 54.0 % LAB HEMETOLOGY METHOD 05/20/2024 11:48 AM [facility] MCV 96.5 79.0 - 98.0 FL LAB HEMETOLOGY METHOD 05/20/2024 11:48 AM [facility] MCH 31.9 27.0 - 32.0 pcg LAB HEMETOLOGY METHOD 05/20/2024 11:48 AM EST [facility] MCHC 33.1 32.0 - 37.0 g/dL LAB HEMETOLOGY METHOD 05/20/2024 11:48 AM [facility] RDW 12.7 11.0 - 15.0 % LAB HEMETOLOGY METHOD 05/20/2024 11:48 AM [facility] Platelets 231 130 - 400 K/mcL LAB HEMETOLOGY METHOD 05/20/2024 11:48 AM [facility] MPV 11.1(H) 7.0 - 11.0 FL LAB HEMETOLOGY METHOD 05/20/2024 11:48 AM [facility] NRBC 0.0 <1.0 % LAB HEMETOLOGY METHOD 05/20/2024 11:48 AM [facility] NRBC Absolute 0.00 <0.10 K/mcL LAB HEMETOLOGY METHOD 05/20/2024 11:48 AM [facility] Blood Venous blood specimen / Unknown Venipuncture / Unknown 05/20/2024 7:10 AM EST 05/20/2024 10:41 AM EST us Steven Angel MD LAB BLOOD ORDERABLES Final Resul t [facility] [address] [place] [address], documented in this encounter Visit Diagnoses Diagnosis Influenza due to identified novel influenza A virus with other respiratory manifestations Respiratory syncytial virus as the cause of diseases classified elsewhere Essential (primary) hypertension Unspecified essential hypertension Hyperlipidemia, unspecified documented in this encounter Care Teams Technology Applications Engineer Relationship Specialty Start Date End Date Steven Angel MD [address] [place] [address], [address] PCP - General Family Medicine 05/20/24 documented as of this encounter
--- OUTSIDE RECORDS SUMMARY | 2025-01-16 11:02 | XMS_ITS | Clinical Summary ---
Author Organization [address] [facility] Address [address] [place] [address] Phone Care Team Providers Care Seniour Insight Manager Name Role Phone Steven Angel MD Primary Care Provider [phone] Social History Tobacco Use Types Packs/Day Years [...] mmol/L LAB CHEMISTRY METHOD 05/20/2024 11:58 AM [facility] Potassium 3.8 3.5 - 5.5 mmol/L LAB CHEMISTRY METHOD 05/20/2024 11:58 AM [facility] Chloride 104 96 - 110 mmol/L LAB CHEMISTRY METHOD 05/20/2024 11:58 AM [facility] CO2 28 21 - 32 mmol/L LAB CHEMISTRY METHOD 05/20/2024 11:58 AM [facility] Anion Gap 7 3 - 11 LAB CHEMISTRY METHOD 05/20/2024 11:58 AM [facility] Glucose 75 70 - 100 mg/dL LAB CHEMISTRY METHOD 05/20/2024 11:58 AM [facility] BUN 19 5 - 25 mg/dL LAB CHEMISTRY METHOD 05/20/2024 11:58 AM [facility] Creatinine 0.82 0.70 - 1.30 mg/dL LAB CHEMISTRY METHOD 05/20/2024 11:58 AM [facility] eGFR 85 >=60 mL/min/1. 73m2 LAB CHEMISTRY METHOD 05/20/2024 11:58 AM [facility] Comment:Calculation based on the Chronic Kidney Disease Epidemiology Collaboration (CKD-EPI) equation refit without adjustment for race. BUN/Creatinine Ratio 23.2 LAB CHEMISTRY METHOD 05/20/2024 11:58 AM [facility] Calcium 8.8 8.5 - 10.5 mg/dL LAB CHEMISTRY METHOD 05/20/2024 11:58 AM [facility] AST (SGOT) 19 10 - 42 unit/L LAB CHEMISTRY METHOD 05/20/2024 11:58 AM [facility] ALT (SGPT) 38 10 - 60 unit/L LAB CHEMISTRY METHOD 05/20/2024 11:58 AM [facility] Alkaline Phosphatase 64 42 - 121 unit/L LAB CHEMISTRY METHOD 05/20/2024 11:58 AM [facility] Total Protein 5.4(L) 6.0 - 8.0 g/dL LAB CHEMISTRY METHOD 05/20/2024 11:58 AM [facility] Albumin 3.4 3.2 - 5.0 g/dL LAB CHEMISTRY METHOD 05/20/2024 11:58 AM [facility] Total Bilirubin 0.8 0.0 - 1.4 mg/dL LAB CHEMISTRY METHOD 05/20/2024 11:58 AM [facility] Blood Venous blood specimen / Unknown Venipuncture / Unknown 05/20/2024 7:10 AM EST 05/20/2024 10:41 AM EST us Steven Angel MD LAB BLOOD ORDERABLES Final Resul t [facility] [address] [place] [address], from Last 3 Months or Most Recently Relevant to Health Maintenance Insurance MEDICARE [facility] Care Teams Seniour Insight Manager Relationship Specialty Start Date End Date Steven Angel MD [address] [place] [address], [phone] PCP - General Family Medicine 05/20/24
--- OUTSIDE RECORDS SUMMARY | 2025-01-16 11:02 | XMS_ITS | Encounter Summary ---
Author Organization [facility] Address [address] [place] [address] [address] [place] [address] Phone Care Team Providers Care Inspector Missile Name Role Phone Leonides Reynoso MD Primary Care Provider [phone] Encounter Details Date Type Department Care Team ([facility] Contact Info) Description 12/15/2024 Orders Only [facility] Neurology at [address] [address] Provider, MD Evy [facility] [place] [phone] Social History Tobacco Use Types Packs/Day Years [...] Info) Description 02/22/2025 11:00 AM EST Telemedicine [facility] Neuromuscular [address] [place] [address] Gamaliel Ramos MD [address] [place] [phone] [email or web address] documented as of this encounter Procedures [...] documented as of this encounter Care Teams Inspector Missile Relationship Specialty Start Date End Date Leonides Reynoso MD [address] [place] [phone] PCP - General Internal Medicine 11/24/21 documented as of this encounter Additional Source Comments The information contained in this document represents components of the legal health record. It is not the complete legal health record.[facility]
--- OUTSIDE RECORDS SUMMARY | 2025-01-16 11:02 | XMS_ITS | Patient Health Record ---
Author Organization [facility] Address [address] [place] [address] Care Team Providers Care Hvac Field Service Technician Name Role Phone Leonides Reynoso MD Primary Care Provider Shae Torres [phone] Allergies Allergen (clinical drug ingredient) Drug/Non Drug [...] Omeprazole 20 MG TAKE 1 CAPSULE BY [facility] EVERY DAY; Duration: 90 Active Centrum - as directed Orally [...] Problem Status W/U Status Risk Notes Problem Screening for malignant neoplasm of colon (123344244) Encounter for screening for malignant neoplasm of colon (Z12.11) Active confirmed Problem Change in bowel habit (74372272) Change in bowel habits (R19.4) Active confirmed Problem Gastroesophageal reflux disease without esophagitis (407009818) Gastroesophageal reflux disease without esophagitis (K21.9) Active confirmed Problem Tubular adenoma of colon (971503634) Tubular adenoma of colon (D12.6) Active confirmed Problem Family History of Cancer of Colon (Situation) (867896908) Family history of colon cancer (Z80.0) Active confirmed Problem Esophageal stricture (43893178) Esophageal stricture (K22.2) Active confirmed Problem Constipation (33217203) Constipation, unspecified constipation type (K59.00) Active confirmed Problem History of adenomatous polyp of colon (096962202) Hx of adenomatous colonic polyps (Z86.010) Active confirmed Problem Dysphagia (92575468) Dysphagia, unspecified type (R13.10) Active confirmed Problem Diarrhea (48140604) Diarrhea, unspecified type (R19.7) Active confirmed Problem Abnormal feces (165983939) Positive colorectal cancer screening using Cologuard test (R19.5) Active confirmed Problem Diverticular disease of colon (697699249) Colon, diverticulosis (K57.30) Active confirmed Plan Of [...] OF [place] [address] [place] [address] [id number] SHAE LEVY Self - patient is the insured [employer] CLAIM[employer] [address] [place] [address] [id number] SHAE LEVY Self - patient is the insured Medical (General) History Medical History History ICD Code Hypertension Hyperlipidemia Tubular adenomas removed in 2010, 1999, and in 1996; he had a negative colonoscopy in 2005; colonoscopy in 1999 was complicated by a sigmoid perforation requiring surgery as below; neg. hemoccults x 3 in summer 2018 Denies UT,DM,CVA,Lung disease,renal dise ase Sinus problems GERD/esophageal stricture--u [...]
--- OUTSIDE RECORDS SUMMARY | 2025-01-16 11:02 | XMS_ITS | Patient Health Record ---
Author Organization [facility] Meng prateek Negrito Address [address] [facility] [place] [address] Care Team Providers Care Angle Roll Operator Name Role Phone Leonides Reynoso MD Primary Care Provider Thaddeus Castle Unavailable [phone] Allergies Allergen (clinical drug ingredient) Drug/Non Drug [...] a day; Duration: 30 day(s) Active pyRIDostigmine [place] 60 MG as directed Orally 3 times [...] Immunizations Vaccine Route Administration Date Status Comme [facility] COVID-19 Moderna Vaccine Unknown 07/07/2021 Administered 1st [...] Problem Acquired hammer toe of right foot (7577834221770 105) Other hammer toe(s) (acquired), right foot (M20.41) Active confirmed Response to treatment,I mprovement Problem Type 2 diabetes mellitus with peripheral angiopathy (751980969) Type 2 diabetes mellitus with diabetic peripheral angiopathy without gangrene (E11.51) Active confirmed Problem Acquired hammer toe of left foot (8839293251531 103) Other hammer toe(s) (acquired), left foot (M20.42) Active confirmed Response to treatment,I mprovement Vital Signs Blood pressure diastolic 68 mm Hg 09/08/2024 Height 5 ft 6in in 09/08/2024 Blood pressure systolic 136 mm Hg 09/08/2024 Weight 158 lbs 09/08/2024 BMI 25.5 kg/m2 09/08/2024 Procedures Procedure Date Ordered Date Performed Result Body Sit e 49493-ESKNJLP NAIL, 6 OR MORE 02/25/2024 N/A 45131-DBXQ SKIN LESIONS, 2 TO 4 02/25/2024 N/A 75044-TKRZCKG NAIL, 6 OR MORE 06/02/2024 N/A 11034-ZCES SKIN LESIONS, 2 TO 4 06/02/2024 N/A 72122-RCKRKPF NAIL, 6 OR MORE 09/08/2024 N/A 17863-GZCB SKIN LESIONS, 2 TO 4 09/08/2024 N/A Encounters Encounter Location Date Provider Diagnosis [facility] [address] [address] 02/25/2024 Thaddeusjian Camarena Type 2 diabetes mellitus with diabetic peripheral angiopathy without gangrene E11.51 ; Tinea unguium B35.1 ; Pain in right toe(s) M79.674 and Pain in left toe(s) M79.675 [facility] [address] 06/02/2024 Thaddeus Camarena Type 2 diabetes mellitus with diabetic peripheral angiopathy without gangrene E11.51 ; Other hammer toe(s) (acquired), right foot M20.41 ; Tinea unguium B35.1 ; Pain in right toe(s) M79.674 ; Pain in left toe(s) M79.675 and Other hammer toe(s) (acquired), left foot M20.[address] [facility] [address] 09/08/2024 Thaddeus Camarena Type 2 diabetes mellitus with diabetic peripheral angiopathy without gangrene E11.51 ; Tinea unguium B35.1 ; Pain in right toe(s) M79.674 and Pain in left toe(s) M79.[address] [facility] [address] 05/21/2024 Thaddeus Camarena [facility] [address] 06/02/2024 [facility] [address] [address] 12/08/2024 Thaddeus Camarena Assessments Encounter Date Diagnosis [...] Treatment Pending Test Test Name Order Date 59489-[id number] NAIL, 6 OR MORE 07/12/2020 10049-TXREDWX NAIL, 6 OR MORE 10/11/2020 75691-SZENTRG NAIL, 6 OR MORE 01/10/2021 49081-BIBVJMS NAIL, 6 OR MORE 04/14/2021 02591-HFJROIH NAIL, 6 OR MORE 08/15/2021 05527-AQGXFJS NAIL, 6 OR MORE 11/17/2021 85479-HVOVDQT NAIL, 6 OR MORE 04/24/2022 63582-WTGXMDI NAIL, 6 OR MORE 04/19/2020 15714-UCLFYYU NAIL, 6 OR MORE 07/24/2022 12771-BLUSPID NAIL, 6 OR MORE 10/23/2022 98023-QDAZUQT NAIL, 6 OR MORE 01/29/2023 34492-UHCMJVZ NAIL, 6 OR MORE 05/07/2023 36472-QDRKZVJ NAIL, 6 OR MORE 11/08/2023 30306-MGEIAGR NAIL, 6 OR MORE 02/25/2024 73559-ZKUHVBP NAIL, 6 OR MORE 06/02/2024 00660-ERDYJYI NAIL, 6 OR MORE 09/08/2024 73388-Kjhr Destruction, 1-14 04/19/2020 48061-Qddkjhgy Plate 04/24/2022 20651-SEDA SKIN LESIONS, 2 TO 4 04/24/19 53152-MXTK SKIN LESIONS, 2 TO 4 07/25/19 11447-KUYI SKIN LESIONS, 2 TO 4 01/30/20 05548-ZCKJ SKIN LESIONS, 2 TO 4 10/24/19 14502-RCFB SKIN LESIONS, 2 TO 4 06/03/20 25 45142-IXGS SKIN LESIONS, 2 TO 4 06/02/19 25 05337-OGWC SKIN LESIONS, 2 TO 4 02/25/20 24 57008-ZHPR SKIN LESIONS, 2 TO 4 11/08/19 24 80954-TFCC SKIN LESIONS, 2 TO 4 05/07/19 24 Next Appt Details Provider Name:Thaddeus Camarena , 03/16/2025 10:00:00 AM, [address] [place], [address], Insurance Providers Payer Name Payer Address Payer Phone Subscriber Number Group Number Insured Name Patient Relationship to Insured Coverage Start Date Coverage End Date Medicare National [employer]t [employer] [address] [place] [address] [id number] Alon Negro Self - patient is the insured [employer] Shield [address] [place] [address] [phone] [id number] Alon Negro Self - patient is the [...]
--- OUTSIDE RECORDS SUMMARY | 2025-01-16 11:02 | XMS_ITS | Clinical Summary ---
Author Organization [facility] Address [address] [place] [address] Phone Care Team Providers Care Export Packer Name Role Phone Leonides Reynoso MD Primary Care Provider [phone] Allergies Active Allergy Reactions Criticality Noted Date [...] Encounters Date Type Department Care Team Description 01/08/2025 Orders Only [facility] Neurology at [address] [address] ProviderEvy MD 01/07/2025 Telephone [facility] Neuromuscular [address] [place] [address] Gamaliel Ramos MD Labs 12/22/2024 Refill [facility] Neuromuscular [address] [place] [address] Gamaliel Ramos MD Medication Refill 12/16/2024 Telephone [facility] Neuromuscular [address] [place] [address] Gamaliel Ramos MD Labs Question 12/15/2024 Orders Only [facility] Neurology at [address] [address] Evy Lott MD 12/08/2024 Telephone [facility] Neuromuscular [address] [place] [address] Gamaliel Ramos MD regarding lab update 12/01/2024 Orders Only [facility] Neurology [facility] Lab [address] [address] Gamaliel Ramos MD Myasthenia gravis 11/30/2024 Refill [facility], Department of Neurology [address] [place] [address] Gamaliel Ramos MD Medication Refill 11/30/2024 Telephone [facility], Department of Neurology [address] [place] [address] Gamaliel Ramos MD Medication Question 11/10/2024 1:00 PM EDT Office Visit [facility] Neuromuscular [address] [place] [address] Gamaliel Ramos MD Myasthenia gravis (Primary Dx) 11/10/2024 1:00 PM EDT - 11/10/2024 11:59 PM EDT Hospital Encounter [facility] Neurology [facility] Lab, [facility] [address] [place] [address] Gamaliel Ramos MD Discharge Disposition: Home or Self Care 11/10/2024 12:09 PM EDT - 11/10/2024 12:59 PM EDT Hospital Encounter [facility] Phlebotomy, [facility] [address] [place] [address] Gamaliel Ramos MD Discharge Disposition: Home or Self Care 11/10/2024 Orders Only [facility] Neurology [facility]G Lab, [facility] [address] [place] [address] Gamaliel Ramos MD Disorder of bone, unspecified (Primary Dx); Myasthenia gravis 10/30/2024 Orders Only [facility] Neuromuscular [address] [place] [address] Evy Lott MD 10/19/2024 Telephone [facility] Neuromuscular [address] [place] [address] Gamaliel Ramos MD from Last 3 Months Social History Tobacco Use Types Packs/Day Years Used Date Smoking Tobacco: Former Cigarettes Q uit: 1993 Smokeless Tobacco: Never Tobacco Cessation:Counseling Given: Not [...] Info) Description 02/22/2025 11:00 AM EST Telemedicine [facility] Neuromuscular [address] [place] [address] Gamaliel Ramos MD [address] [place] [address] [email or web address] Health Maintenance Due Date Last Done Comments CREATININE LEVEL 1937 POTASSIUM LEVEL 1937 INFLUENZA VACCINE (#1) 2024 , 01/01/2024, 01/26/2022, Additional history exists COVID-19 VACCINE (2024- season) 2024 01/31/2024, 01/18/2023, 03/12/2022, Additional history [...] Date/Time Associated Diagnosis Comments OUTSIDE LAB Routine 01/08/2025 3:27 PM EDT OUTSIDE LAB Routine 12/15/2024 4:02 PM EDT [...] Last 3 Months Results * Outside Lab (01/08/2025 3:27 PM EDT) Only the most recent of3 resultswithin the time period is included. [facility] Provider LAB BLOOD ORDERABLES Amie l Result * Lab Add On: TSH with reflex (11/10/2024 4:13 PM EDT) TEST REQUESTED TSH WITH REFLEX [facility] Comments (Chemistry) Request received [facility] 11/10/2024 4:13 PM EDT 11/10/2024 4:36 PM EDT Gamaliel Ramos MD LAB BLOOD ORDERABLES Final Resul t Performing Organization Address City/State/[facility] Co de Phone Number [facility] [address] [place] [address] * TSH with reflex (11/10/2024 2:02 PM EDT) TSH 1.96 0.50 - 5.70 uIU/mL [facility] 11/10/2024 2:02 PM EDT 11/10/2024 2:33 PM EDT Comment:#RTS ADDED @1636 [facility] [id number] Gamaliel Ramos MD LAB BLOOD ORDERABLES Final Resul t Performing Organization Address [facility] de Phone Number [facility] [address] [place] [address] * (ABNORMAL) LFTs (hepatic panel) (11/10/2024 2:02 PM EDT) TOTAL PROTEIN 6.8 6.4 - 8.3 g/dL [facility] ALBUMIN 4.8 3.5 - 5.2 g/dL [facility] GLOBULIN 2.0(L) 2.2 - 4.2 g/dL [facility] AST 18 10 - 50 U/L [facility] ALT 17 10 - 50 U/L [facility] ALKALINE PHOSPHATASE 50 35 - 130 U/L [facility] TOTAL BILIRUBIN 0.6 0.0 - 1.0 mg/dL [facility] DIRECT BILIRUBIN 0.2 0.0 - 0.3 mg/dL [facility] Blood 11/10/2024 2:02 PM EDT 11/10/2024 2:33 PM EDT Gamaliel Ramos MD LAB BLOOD ORDERABLES Final Resul t Performing Organization Address [facility] de Phone Number [facility] CLINICAL [address] [address] * (ABNORMAL) 25-OH vitamin D (11/10/2024 2:02 PM EDT) Pathologist [facility] 25 [place] VIT D (TOTAL) 72(H) 20 - 50 ng/mL [facility] Blood 11/10/2024 2:02 PM EDT 11/10/2024 2:33 PM EDT Gamaliel Ramos MD LAB BLOOD ORDERABLES Final Resul t Performing Organization Address [facility] de Phone Number [address] [address] * (ABNORMAL) CBC and differential (11/10/2024 2:02 PM EDT) WBC 11.73(H) 4.00 - 11.00 K/uL [facility] RBC 4.62 4.50 - 5.90 M/uL [facility] HGB 14.8 13.5 - 17.5 g/dL [facility] HCT 45.6 41.0 - 53.0 % [facility] PLT 248 150 - 450 K/uL [facility] MCV 98.7 80.0 - 100.0 fL [facility] MCH 32.0(H) 27.0 - 31.0 pg [facility] MCHC 32.5 32.0 - 36.0 g/dL [facility] RDW 12.9 11.5 - 14.5 % [facility] MPV 10.1 8.4 - 12.0 fL [facility] NRBC 0.00 0.00 /100 WBCs [facility] ABSOLUTE NRBC 0.00 0.00 K/uL [facility] DIFF METHOD Auto [facility] NEUTS 86.0(H) 48.0 - 76.0 % [facility] CLINICAL [facility] LYMPHS 9.0(L) 18.0 - 41.0 % [facility] MONOS 3.6(L) 4.0 - 11.0 % [facility] EOS 0.1 0.0 - 5.0 % [facility] BASOS 0.3 0.0 - 1.5 % [facility] % IMMATURE GRANS 1.0(H) 0.0 - 0.9 % [facility] ABSOLUTE NEUTS 10.10(H) 1.92 - 7.60 K/uL [facility] Comment:1.21-5.39 cells/KL i s the reference range for individuals with the Genao null phenotype ABSOLUTE LYMPHS 1.05 0.72 - 4.10 K/uL [facility] ABSOLUTE MONOS 0.42 0.16 - 1.10 K/uL [facility] ABSOLUTE EOS 0.01 0.00 - 0.50 K/uL [facility] ABSOLUTE BASOS 0.03 0.00 - 0.15 K/uL [facility] ABS IMMATURE GRANS 0.12(H) 0.00 - 0.09 K/uL [facility] ABSOLUTE NEUTROPHIL COUNT 10.10(H) 1.92 - 7.60 K/uL [facility] Comment: Automated cell count. Manual ANC may differ if performed. 1.21-5.39 cells/KL is the reference range for individuals with the Genao null phenotype Blood 11/10/2024 2:02 PM EDT 11/10/2024 2:33 PM EDT us Gamaliel Ramos MD LAB BLOOD ORDERABLES Final Resul t [facility] [address] [place] [address] * EMG (11/10/2024 1:00 PM EDT) Anatomical Region Laterality Modality EMG Narrative 11/10/2024 1:00 PM EDT Gamaliel Ramos MD 11/11/2024 4:43 PM Clinical Neurophysiology Laboratory [facility] [employer] [place] [address] ELECTROMYOGRAPHY AND NERVE CONDUCTION STUDIES EVOKED POTENTIALS AND NEUROMUSCULAR ULTRASOUND Patient: Marky Chi Sex: Male Visit Date: 11/10/2024 13:22 Current Height: 5 feet 7 inch Patient Notes: 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 EMG ordered for evaluation of ?myotonia. Sensory NCS Nerve / Sites Rec. Site Onset Lat Peak Lat MEASURING MACHINE TENDER Amp Distance Velocity Temp ms ms V [...] Gamaliel Ramos M.D. Neuromuscular Division Neurology Department [facility] us Gamaliel Ramos MD NEUROLOGY ORDERABLES Final Resul t from Last 3 Months Insurance MEDICARE PART A & B [employer] MEDEX SUPPLEMENT MEDICARE PART A & B [employer] MED[employer] SUPPLEMENT MEDICARE PART A & B [employer] SUPPLEMENT MEDICARE PART A & B [employer] MED[employer] SUPPLEMENT MEDICARE PART A & B [employer] MEDEX SUPPLEMENT MEDICARE PART A & B Member Subscriber Plan / Payer ( fective 2002-Present) Name:Alon Negro Member ID:[id number] Relation to Subscriber:Self Name:Alon Negro Subscriber ID:[id number] Payer ID:[id number] Group ID:Not on file Type:Medicare Address: [employer] [facility] [address] [address] [employer] MEDEX SUPPLEMENT MEDICARE PART A & B [employer] MEDEX SUPPLEMENT MEDICARE PART A & B [employer] MEDEX SUPPLEMENT MEDICARE PART A & B [employer] MEDEX SUPPLEMENT Care Teams Export Packer Relationship Specialty Start Date End Date Leonides Reynoso MD [address] [place] [address] PCP - General Internal Medicine 11/24/21 Additional Source Comments The information contained in this document represents components of the legal health record. It is not the complete legal health record.[facility]
--- OUTSIDE RECORDS SUMMARY | 2025-01-16 11:02 | XMS_ITS | Encounter Summary ---
Author Organization [facility] Address [address] [place] [address] [address] [place] [address] Phone Care Team Providers Care Cashier Or Checker Stock Clerk Name Role Phone [place]ides Reynoso MD Primary Care Provider [phone] Encounter Details Date Type Department Care Team ([facility] Contact Info) Description 01/08/2025 Orders Only [facility] Neurology at [address] [address] Provider, MD [facility] [place] [phone] Social History Tobacco Use Types Packs/Day Years [...] Info) Description 02/22/2025 11:00 AM EST Telemedicine [facility] Neuromuscular [address] [place] [address] Gamaliel Ramos MD [address] [place] [address] [email or web address] documented as of this encounter Procedures Procedure Name Priority Date/Time Associated Diagnosis Comments OUTSIDE LAB Routine 01/08/2025 3:27 PM EDT documented in this encounter Results * Outside Lab (01/08/2025 3:27 PM EDT) us Historical Provider LAB BLOOD ORDERABLES Amie l Result documented in this encounter Visit Diagnoses Not on filedocumented in this encounter Additional Health Concerns Assessment Noted Time PHQ-2 Depression Total Score: 0 03/25/20 24 11:23 AM EST documented as of this encounter Care Teams Cashier Or Checker Stock Clerk Relationship Specialty Start Date End Date Leonides Reynoso MD [address] [place] [address] PCP - General Internal Medicine 11/24/21 documented as of this encounter Additional Source Comments The information contained in this document represents components of the legal health record. It is not the complete legal health record.[facility]
== END 2025-01-16 12:42 | disposition home or self-care (01) ==
PROVIDERS: PCP Internal Medicine; Visit Provider Family Medicine
DX: I95.9 Hypotension, unspecified (principal)

== ENCOUNTER 2025-03-03 16:00 | Outpatient (AMB) | payer MEDICARE, SELFPAY ==
--- NOTE | 2025-03-03 16:22 | MHC.OFFWIV ---
Intake Vital Signs 03/03/25 16:24 Height 5 ft 6 in Weight 151 lb BMI 24.4 BP 106/58 L Blood Pressure Location Lt brachial Position Sitting Respiration 14 Pulse 86 Pulse Source Pulse Oximeter Temp 97.6 F Pulse Oximetry (%) 96 Oxygen Delivery Method Room Air Intake Visit Reasons: EP left side hip side and lower back back Intake Note: pt presents with mid low back pain x4 wks radiating pain down to mid femur that seems to make his left left leg want to give out for 1.5 wks Patient Tobacco Use Status: Former Tobacco user Allergies meperidine (From Demerol) Allergy (Unknown, Verified 03/03/25 16:29) unknown reaction-patient states was many years ago Do you need a note to return to daycare/school/sports/work: No HPI HPI Comments History of Present Illness Details History - The patient is an 89 year old individual presenting for evaluation of low back and radiating leg pain. - The patient reports the onset of left lower back pain about a month ago, which has persisted despite using heating pads and Advil. - Previously, three Advil tablets would resolve the patient's pain within hours, but this has been ineffective for the current episode. - Approximately a week and a half ago, the patient developed new pain radiating down the buttock area, localized to the top of the buttock on the left and into the hip. - The pain does not radiate down to the knee. - The patient reports being fine while sleeping but experiences pain upon getting up, is concerned about falling when walking, and has a history of undergoing physical therapy a long time ago, which was found to be helpful. - He denies trauma or falls. - She denies saddle anesthesia, numbness, tingling, or incontinence. Physical Exam General: cooperative, healthy appearing and comfortable, patient oriented x3 Head: Normal to inspection, normocephalic/atraumatic Effort & Inspection: Normal respiratory effort and able to speak in complete sentences. Cardiac: RRR, no M/R/G noted. Normal S1 and S2. Respiratory: Clear to auscultation bilaterally. No w/r/r noted. Back/spine: No CVA tenderness bilaterally. Cervical, thoracic and lumbar spine normal to inspection. Cervical ROM normal, no midline spinous tenderness noted. Thoracic ROM normal, lumbar ROM normal. No midline vertebral spinous tenderness noted. No step offs noted. No TTP of the thoracic or lumbar paraspinous or paravertebral muscles. DTR are 2+ on the lower extremities noted. Ambulates with a steady gait. Extremities: Straight leg raise test negative on right; Straight leg raise test negative on left; motor strength normal 5/5 bilaterally. Neuro: Sensation intact. Patient was informed and verbally consented to the use of an ambient scribe for clinic note documentation during this visit. [facility] Medical History Myasthenia gravis COVID-19 vaccine administered GERD (gastroesophageal reflux disease) Insomnia Hyperlipidemia Orthostatic hypotension dysautonomic syndrome HTN (hypertension) Non-toxic multinodular goiter Hypothyroidism Surgical History Hx of cataract surgery History of colon surgery History of esophagogastroduodenoscopy (EGD) H/O colonoscopy Hx of tonsillectomy Hx of appendectomy Family History Father Parkinsons disease Mother Myocardial infarction CVD (cardiovascular disease) Cancer Social History Household Members: None Housing: Apartment Are you a primary janitor caretaker to a significant other at home: No Do you presently have visiting nurse or other home services: No Alcohol intake: never Patient Tobacco Use Status: Former Tobacco user Tobacco use type: Cigarette Cigarette Packs Per Day: 1 Cigarettes Per Day: 20.0 Years Smoked: 30 e-Cigarette/Vaping Use: Never Used service: Yes Current occupational status: retired Review of Systems Const All systems reviewed & are unremarkable except as noted in HPI and below Physical Exam Vital Signs: Last Vital Signs Temp 97.6 F 03/03/25 16:24 Pulse 86 03/03/25 16:24 Resp 14 03/03/25 16:24 BP 106/58 L 03/03/25 16:24 Pulse Ox 96 03/03/25 16:24 Oxygen Delivery Method Room Air 03/03/25 16:24 BMI result Body Mass Index 24.4 Assessment & Plan Assessment & Plan (1) Low back pain: Code(s): M54.50 - Low back pain, unspecified Qualifiers: Chronicity: acute Back pain laterality: left Sciatica presence: without sciatica Qualified Code(s): M54.50 - Low back pain, unspecified Plan Most likely strain vs arthritis vs bursitis vs sciatica Plan - A referral will be placed for physical therapy. - A muscle relaxer will be prescribed for use at nighttime, with a caution against driving while using it. - A topical pain cream will be prescribed for application to the affected area. - The patient was advised to continue taking Advil (Motrin) for pain. - If there is no improvement with medication and physical therapy, the next step would be imaging studies such as X-rays. Orders: Orders PT Evaluation and Treatment Today M54.50 - Low back pain, unspecified Medications: New diclofenac sodium 3% 1 appl topical BID 100 grams 0RF cyclobenzaprine 5 mg PO Q8H PRN 20 tabs 0RF Muscle Spasm Coding Level of Care Code Est Pt Level 4 (01161) Diagnoses Acute left-sided low back pain without sciatica M54.50 Chronicity: acute Back pain laterality: left Sciatica presence: without sciatica
[2025-03-03 16:24] VITALS: BP 106/58; PULSE 86; RESP 14; TEMP 36.4; O2SAT 96; BMI 24.4
--- OUTSIDE RECORDS SUMMARY | 2025-03-03 17:53 | XMS_ITS | Clinical Summary ---
Author Organization [facility] Address [address] [place] [address] Phone Care Team Providers Care Emergency Medical Technician Name Role Phone [place]ides Reynoso MD Primary Care Provider [phone] Allergies Active Allergy Reactions Criticality Noted Date [...] a day. 360 tablet 3 08/11/2024 Active predniSONE (DELTASONE) 5 MG tabletIndicatio ns:Myasthenia gravis Take 2 tablets (10 mg total) by mouth daily. 180 tablet 3 12/01/2024 Active mycophenolate mofetil (CELLCEPT) 500 mg tabletIndicatio ns:Myasthenia gravis Take 2 tablets (1,000 mg total) by mouth 2 (two) times a day. 360 tablet 3 12/22/2024 Active Active Problems Problem Noted Date Diagnosed Date Myasthenia gravis 04/17/2022 Encounters Date Type Department Care Team Description 02/22/2025 11:00 AM EST Telemedicine [facility] Neuromuscular [address] [place] [address] Gamaliel Ramos MD Myasthenia gravis (Primary Dx) 01/20/2025 Telephone [facility], Department of Neurology [address] [place], [place] [phone] Gamaliel Ramos MD requesting a call back 01/08/2025 Orders Only [facility] Neurology at [address] [address] Provider, MD Evy 01/07/2025 Telephone [facility] Neuromuscular [address] [place] [address] Gamaliel Ramos MD Labs 12/22/2024 Refill [facility] Neuromuscular [address] [place] [address] Gamaliel Ramos MD Medication Refill 12/16/2024 Telephone [facility] Neuromuscular [address] [place] [address] Gamaliel Ramos MD Labs Question 12/15/2024 Orders Only [facility] Neurology at [address] [address] ProviderEvy MD 12/08/2024 Telephone [facility] Neuromuscular [address] [place] [address] Gamaliel Ramos MD regarding lab update 12/01/2024 Orders Only [facility] Neurology EMG Lab [address] [place] [address] [place] [address] Gamaliel Ramos MD Myasthenia gravis from Last 3 Months Social History Tobacco [...] 08/24/2024 11:31 AM EDT Plan of Treatment Health Maintenance Due Date Last Done Comments CREATININE LEVEL 1935 POTASSIUM LEVEL 1935 COVID-19 VACCINE ( season) 2024 01/31/2024, 01/18/2023, 03/12/2022, Additional history [...] complete this topic RSV VACCINE Completed 02/26/2023 INFLUENZA VACCINE Completed 01/18/2025, , 01/26/2022, Additional history exists HEPATITIS A VACCINES Aged Out No long [...] OUTSIDE LAB Routine 12/15/2024 4:02 PM EDT TSH WITH REFLEX Routine 11/10/2024 2:02 PM EDT from Last 3 Months or Most Recently Relevant to Health Maintenance Results * Outside Lab (01/08/2025 3:27 PM EDT) Only the most recent of2 resultswithin the time period is included. us Historical Provider LAB BLOOD BKR ORDERABLES Final Result * TSH with reflex (11/10/2024 2:02 PM EDT) TSH 1.96 0.50 - 5.70 uIU/mL [facility] 11/10/2024 2:02 PM EDT 11/10/2024 2:33 PM EDT Comment:#RTSH ADDED @1636 [facility] [id number] Gamaliel Ramos MD LAB BLOOD BKR ORDERABLES Final R esult Performing Organization Address City/State/[facility] Co de Phone Number [facility] [address] [place] [address] from Last 3 Months or Most Recently Relevant to Health Maintenance Insurance MEDICARE PART A & B [employer] SUPPLEMENT MEDICARE PART A & B [employer] SUPPLEMENT MEDICARE PART A & B [employer] SUPPLEMENT MEDICARE PART A & B [employer] SUPPLEMENT MEDICARE PART A & B [employer] MEDEX SUPPLEMENT MEDICARE PART A & B [employer] MEDEX SUPPLEMENT MEDICARE PART A & B Member Subscriber Plan / Payer ( fective 2002-Present) Name:Alon Negro Member ID:[id number] Relation to Subscriber:Self Name:Alon Negro Subscriber ID:[id number] Payer ID:[id number] Group ID:Not on file Type:Medicare Address: [employer] [address] [employer] MEDEX SUPPLEMENT MEDICARE PART A & B [employer] MED[employer] SUPPLEMENT MEDICARE PART A & B [employer] SUPPLEMENT Care Teams Emergency Medical Technician Relationship Specialty Start Date End Date Leonides Reynoso MD [address] [place] [address] PCP - General Internal Medicine 11/24/21 Additional Source Comments The information contained in this document represents components of the legal health record. It is not the complete legal health record.[facility]
--- OUTSIDE RECORDS SUMMARY | 2025-03-03 17:54 | XMS_ITS | Encounter Summary ---
Author Organization [facility] Address [address] [place] [address] Care Team Providers Care Senior Cost Analyst Name Role Phone Steven Angel MD Primary Care Provider [phone] Encounter Details Date Type Department Care Team (Late st Contact Info) Description 05/20/2024 Lab Requisition [facility] - Main Lab [address] [facility] [place] [address] Steven Angel MD [address] [place] [address] [address] [place], [phone] Influenza due to identified novel influenza [...] Comprehensive metabolic panel (05/20/2024 7:10 AM EST) [facility] Sodium 139 133 - 145 mmol/L LAB CHEMISTRY METHOD 05/20/2024 11:58 AM [facility] Potassium 3.8 3.5 - 5.5 mmol/L LAB CHEMISTRY METHOD 05/20/2024 11:58 AM [facility] Chloride 104 96 - 110 mmol/L LAB CHEMISTRY METHOD 05/20/2024 11:58 AM [facility] CO2 28 21 - 32 mmol/L LAB CHEMISTRY METHOD 05/20/2024 11:58 AM [facility] Anion Gap 7 3 - 11 LAB CHEMISTRY METHOD 05/20/2024 11:58 AM [facility] Glucose 75 70 - 100 mg/dL LAB CHEMISTRY METHOD 05/20/2024 11:58 AM [facility] BUN 19 5 - 25 mg/dL LAB CHEMISTRY METHOD 05/20/2024 11:58 AM [facility] Creatinine 0.82 0.70 - 1.30 mg/dL LAB CHEMISTRY METHOD 05/20/2024 11:58 AM [facility] eGFR 85 >=60 mL/min/1. 73m2 LAB CHEMISTRY METHOD 05/20/2024 11:58 AM [facility] Comment:Calculation based on the Chronic Kidney Disease Epidemiology Collaboration (CKD-EPI) equation refit without adjustment for race. BUN/Creatinine Ratio 23.2 LAB CHEMISTRY METHOD 05/20/2024 11:58 AM [facility] Calcium 8.8 8.5 - 10.5 mg/dL LAB CHEMISTRY METHOD 05/20/2024 11:58 AM [facility] AST (SGOT) 19 10 - 42 unit/L LAB CHEMISTRY METHOD 05/20/2024 11:58 AM [facility] ALT (SGPT) 38 10 - 60 unit/L LAB CHEMISTRY METHOD 05/20/2024 11:58 AM [facility] Alkaline Phosphatase 64 42 - 121 unit/L LAB CHEMISTRY METHOD 05/20/2024 11:58 AM [facility] Total Protein 5.4(L) 6.0 - 8.0 g/dL LAB CHEMISTRY METHOD 05/20/2024 11:58 AM [facility] Albumin 3.4 3.2 - 5.0 g/dL LAB CHEMISTRY METHOD 05/20/2024 11:58 AM [facility] Total Bilirubin 0.8 0.0 - 1.4 mg/dL LAB CHEMISTRY METHOD 05/20/2024 11:58 AM [facility] Blood Venous blood specimen / Unknown Venipuncture / Unknown 05/20/2024 7:10 AM EST 05/20/2024 10:41 AM EST us Steven Angel MD LAB BLOOD ORDERABLES Final Resul t [facility] [address] [place] [address], * (ABNORMAL) Complete blood count (05/20/2024 7:10 AM EST) WBC 17.1(H) 4.8 - 10.8 K/mcL LAB HEMETOLOGY METHOD 05/20/2024 11:48 AM [facility] RBC 4.30(L) 4.50 - 5.50 M/mcL LAB HEMETOLOGY METHOD 05/20/2024 11:48 AM [facility] Hemoglobin 13.7 13.5 - 17.5 g/dL LAB HEMETOLOGY METHOD 05/20/2024 11:48 AM [facility] Hematocrit 41.4(L) 42.0 - 54.0 % LAB HEMETOLOGY METHOD 05/20/2024 11:48 AM [facility] MCV 96.5 79.0 - 98.0 FL LAB HEMETOLOGY METHOD 05/20/2024 11:48 AM [facility] MCH 31.9 27.0 - 32.0 pcg LAB HEMETOLOGY METHOD 05/20/2024 11:48 AM EST [facility] MCHC 33.1 32.0 - 37.0 g/dL LAB HEMETOLOGY METHOD 05/20/2024 11:48 AM [facility] RDW 12.7 11.0 - 15.0 % LAB HEMETOLOGY METHOD 05/20/2024 11:48 AM [facility] Platelets 231 130 - 400 K/mcL LAB HEMETOLOGY METHOD 05/20/2024 11:48 AM [facility] MPV 11.1(H) 7.0 - 11.0 FL LAB HEMETOLOGY METHOD 05/20/2024 11:48 AM [facility] NRBC 0.0 <1.0 % LAB HEMETOLOGY METHOD 05/20/2024 11:48 AM [facility] NRBC Absolute 0.00 <0.10 K/mcL LAB HEMETOLOGY METHOD 05/20/2024 11:48 AM [facility] Blood Venous blood specimen / Unknown Venipuncture / Unknown 05/20/2024 7:10 AM EST 05/20/2024 10:41 AM EST us Steven Angel MD LAB BLOOD ORDERABLES Final Resul t [facility] [address] [place] [address], documented in this encounter Visit Diagnoses Diagnosis Influenza due to identified novel influenza A virus with other respiratory manifestations Respiratory syncytial virus as the cause of diseases classified elsewhere Essential (primary) hypertension Unspecified essential hypertension Hyperlipidemia, unspecified documented in this encounter Care Teams Senior Cost Analyst Relationship Specialty Start Date End Date Steven Angel MD [address] [place] [address], [phone] PCP - General Family Medicine 05/20/24 documented as of this encounter
--- OUTSIDE RECORDS SUMMARY | 2025-03-03 17:54 | XMS_ITS | Clinical Summary ---
Author Organization [address] [facility] Address [address] [place] [address] Phone Care Team Providers Care Food And Beverage Attendant Name Role Phone Steven Angel MD Primary Care Provider [phone] Social History Tobacco Use Types Packs/Day Years [...] LAB BLOOD ORDERABLES Final Resul t [facility] [address] [place] [address], from Last 3 Months or Most Recently Relevant to Health Maintenance Insurance MEDICARE [facility] Care Teams Food And Beverage Attendant Relationship Specialty Start Date End Date Steven Angel MD [address] [place] [address], [id number] PCP - General Family Medicine 05/20/24
== END 2025-03-03 16:40 | disposition home or self-care (01) ==
PROVIDERS: PCP Internal Medicine; Visit Provider Physician Assistant Medical
DX: M54.50 Low back pain, unspecified (principal)

== ENCOUNTER → 2025-03-03 16:00 | Outpatient (BNVA) | payer MEDICARE, SELFPAY | PROVIDERS: PCP Internal Medicine; Visit Provider Physician Assistant Medical | DX: M54.50 Low back pain, unspecified (principal) | CPT/HCPCS: 99212 ==